=== PATIENT | female | born 1935 | race Caucasian/White ===

== ENCOUNTER 2021-07-24 13:53 | Outpatient (CLI) | payer MEDICARE, BC, SELFPAY ==
--- NOTE | 2021-07-24 14:16 | XR_ITS ---
WS: [id number] DEXA (DUAL ENERGY X-RAY ABSORPTIOMETRY) Bone mineral density was performed using a [employer] machine. HISTORY: ASYMPTOMATIC MENOPAUSAL COMPARISON: None available. Lumbar spine BMD (L1-L4): 0.942 g/cm2 T score: -2.0 Z score: -0.7 Total hip BMD: Left: 0.762 g/cm2. T score: -2.0 Z score: -0.2 Right: 0.752 g/cm2. T score: -2.0 Z score: -0.2 10 year probability of a major osteoporotic fracture is 34%. XR/XR DEXA axial skeleton* [id number] IMPRESSION: OSTEOPENIA based upon the WHO classification for females.
== END 2021-07-24 13:54 | disposition home or self-care (01) ==
LOC: RADWPI 13:57
PROVIDERS: PCP Family Medicine; Visit Provider Family Medicine
DX: Z78.0 Asymptomatic menopausal state (principal); M85.80 Other specified disorders of bone density and structure, unspecified site
CPT/HCPCS: 77080

== ENCOUNTER 2021-09-01 22:12 | Emergency (ER) | payer MEDICARE, BC, SELFPAY ==
[2021-09-01 22:14] VITALS: BP 143/88; PULSE 80; RESP 18; TEMP 36.8; O2SAT 94; BMI 30.3
--- NOTE | 2021-09-01 22:19 | CTR_ITS ---
PROCEDURE INFORMATION: Exam: CT Abdomen And Pelvis With Contrast Exam date and time: 09/01/2021 10:19 PM Age: 86 years old Clinical indication: Abdominal pain; Generalized; Prior surgery; Surgery type: Mastectomy. Hysterectomy; Patient HX: Abd pain with constipation. Recent UTI. History of breast cancer. TECHNIQUE: Imaging protocol: Computed tomography of the abdomen and pelvis with contrast. Radiation optimization: All CT scans at this facility use at least one of these dose optimization techniques: automated exposure control; mA and/or kV adjustment per patient size (includes targeted exams where dose is matched to clinical indication); or iterative reconstruction. Contrast material: OMNI 300; Contrast volume: 95 ml; Contrast route: INTRAVENOUS (IV); COMPARISON: CT abdomen pelvis w con* [id number] 02/25/2019 8:57 PM RADIATION DOSE METRICS: Total DLP (mGy-cm): 1605.52 FINDINGS: Liver: Normal. No mass. Gallbladder and bile ducts: Continued multiple gallstones within the gallbladder. Pancreas: Normal. No ductal dilation. Spleen: Interval enlargement of the 13.0 cm spleen with multiple filling defects most consistent with splenic metastasis versus other infectious or neoplastic process. Adrenal glands: Normal. No mass. Kidneys and ureters: Moderate left hydronephrosis which may be secondary to UPJ stenosis. Stomach and bowel: Unremarkable. No obstruction. No mucosal thickening. Appendix: No evidence of appendicitis. Intraperitoneal space: Unremarkable. No free air. No significant fluid collection. Vasculature: One or more calcified pelvic phleboliths. Lymph nodes: Interval appearance of 9.4 x 7.4 x 5.9 cm left retroperitoneal soft tissue mass consistent with lymphoma versus or, versus metastatic disease. Urinary bladder: Unremarkable as visualized. Reproductive: Stable hysterectomy. Bones/joints: Severe multilevel spine degenerative changes including degenerative disc disease, spondylosis and facet degenerative changes. Grade 1 anterior non-spondylitic spondylolisthesis of L4 on L5 with central spinal stenosis and prominent facet degenerative changes. Soft tissues: Unremarkable. CT/CT abdomen pelvis w con* [id number] IMPRESSION: 1. Interval enlargement of the 13.0 cm spleen with multiple filling defects most consistent with splenic metastasis versus other infectious or neoplastic process. 2. Interval appearance of 9.4 x 7.4 x 5.9 cm left retroperitoneal soft tissue mass consistent with lymphoma versus or, versus metastatic disease. Radiation Dose CTDIVOL = (mGy): DLP = 1605.52 (mGy-cm)
--- NOTE | 2021-09-01 22:23 | ED_ITS ---
HPI - Abdominal Pain General: Chief Complaint: Abdominal Pain Stated Complaint: Abd pain Time Seen by Provider: 09/01/21 22:14 Source: patient Mode of arrival: ambulatory Limitations: no limitations History of Present Illness: HPI narrative: 86-year-old female who states she has been having abdominal pain throughout the day. She states she was diagnosed with urine Rhett tract infection a week ago and is currently on Macrobid. States she has had pain in her left lower quadrants been sharp in nature. She rates her pain an 8 out of 10. Denies any vomiting she denies had constipation denies any fevers denies any worsening improving factors. Associated Symptoms: Denies chills, diarrhea, dysuria, fever(s), nausea and vomiting Review of Systems Const: Denies: fever(s), chills, body aches or change in appetite Eyes: Denies: blurry vision or eye discomfort ENMT: Denies: throat pain or dental pain Card: Denies: chest pain Resp: Denies: dyspnea GI: Reports: abdominal pain; Denies: nausea, vomiting or diarrhea : Denies: dysuria Musc: Denies: neck pain or back pain Skin/Breast: Denies: rash Neuro: Denies: headache(s) Psych: Denies: depression Ulysses/Lymph: Denies: easy bruising All/Imm: Denies: urticaria Physical Exam Const: COMMON NORMALS: no acute distress, patient oriented x3 and healthy appearing HENMT: COMMON NORMALS: normocephalic and atraumatic HEAD & SCALP: normocephalic and atraumatic Eye: COMMON NORMALS: Equal, round and reactive pupils present and EOMs intact bilaterally PUPIL: Yes Equal, round and reactive pupils present Neck/C-Spine: COMMON NORMALS: full ROM and supple Chest: COMMONS NORMALS: normal inspection of the chest and normal palpation of entire chest wall Resp: COMMON NORMALS: normal respiratory effort, No retractions, No use of accessory muscles and clear to auscultation bilaterally AUSCULTATION: clear to auscultation bilaterally Cardio: COMMON NORMALS: regular rate, regular rhythm and No murmurs present (Cardio) RATE: regular rate RHYTHM: regular rhythm GI: COMMON NORMALS: Normal to inspection, nondistended, normoactive bowel sounds present, Soft to palpation, non-tender and no masses PALPATION: Yes Soft to palpation Extremity: COMMON NORMALS: normal to inspection and full ROM Neuro: COMMON NORMALS: patient oriented x3, moves all extremities and no focal motor deficits Psych: COMMON NORMALS: mental status grossly normal, Normal thought process present and cooperative THOUGHT PROCESS: Normal thought process present Skin: COMMON NORMALS: no rashes or lesions noted and no wounds GENERAL SKIN EXAM: no rashes or lesions noted Course Vital Signs: Vital signs: Vital Signs Temperature 98.3 F 09/01/21 22:14 Pulse Rate 80 09/01/21 22:14 Respiratory Rate 20 H 09/01/21 23:51 Blood Pressure 143/88 09/01/21 22:14 Pulse Oximetry 94 09/01/21 22:14 MDM - Abdominal Pain MDM Narrative: Medical decision making narrative: Patient presents here with abdominal pain was found to have a mass in her spleen and also the possible mass that could be lymphoma. I did inform her of this we will have her follow-up with oncology. Patient's pain is improved here will prescribe her pain meds for home. She has no signs of acute surgical cause for her pain. Lab Data: Labs: Lab Results 09/01/21 09/01/21 09/01/21 22:45 22:45 23:05 WBC 10.2 10^3/uL H 10 ^3/uL (4.0-10.0) RBC 5.04 10^6/uL 10^6 /uL (4.1-5.3) Hgb 14.8 g/dL g/dL (11.5-15.3) Hct 44.4 % % (37.0-47.0) MCV 88.1 fl fl (81-99) MCH 29.4 pg pg (28.0-34.0) MCHC 33.3 g/dL g/dL (30.0-36.0) RDW 12.4 % % (12.1-15.1) Plt Count 285 10^3/cmm 10^3 /cmm (130-400) MPV 9.2 fL fL (7.4-10.4) Neut % (Auto) 70.7 % % Lymph % (Auto) 21.4 % % [place] % (Auto) 7.4 % % Eos % (Auto) 0.2 % % Baso % (Auto) 0.1 % % Neut # (Auto) 7.23 10^3/uL 10^3 /uL (1.8-7.7) Lymph # (Auto) 2.2 10^3/uL 10^3/ uL (0.8-4.8) [place] # (Auto) 0.8 10^3/uL 10^3/ uL (0.2-0.9) Eos # (Auto) 0.0 10^3/uL 10^3/ uL (0.0-0.8) Baso # (Auto) 0.0 10^3/uL 10^3/ uL (0.0-0.1) Nucleated RBC % (a uto) 0 % % Nucleated RBCs # 0.0 /100WBC /100W BC Sodium 133 mmol/L L mmol /L (136-145) Potassium 3.8 mmol/L mmol/L (3.5-5.1) Chloride 96 mmol/L L mmol/ L (98-107) Carbon Dioxide 23 mmol/L mmol/L (22-29) Anion Gap 17.8 (5-19) BUN 13 mg/dL mg/dL (8-23) Creatinine 0.8 mg/dL mg/dL (0.5-0.9) GFR Calculation Not Reportable Glucose 107 mg/dL mg/dL (65-115) Calculated Osmolal ity 277 mOsm/kg L mOs m/kg (285-295) Calcium 10.6 mg/dL H mg/d L (8.5-10.5) Total Bilirubin 0.9 mg/dL mg/dL (0.15-1.2) AST 19 U/L U/L (0-32) ALT 12 U/L U/L (0-33) Alkaline Phosphata se 62 IU/L IU/L (35-105) Total Protein 8.3 g/dL g/dL (6.6-8.7) Albumin 4.3 g/dL g/dL (3.5-5.2) Globulin 4.0 g/dL g/dL (1.3-4.6) Lipase 24 U/L U/L (13-60) Urine Color Yellow (Yellow) Urine Appearance Clear (CLEAR) Urine pH 8 H (5-7) Ur Specific Gravit y 1.010 (1.005-1.030) Urine Protein Neg (Negative) Urine Glucose (UA) Norm (Normal) Urine Ketones Negative (Negative) Urine Blood Neg (Negative) Urine Nitrate Negative (Negative) Urine Bilirubin Neg (Negative) Prot Sulfosalicyli c Acd Negative (Negative) Urine Urobilinogen Norm mg/dL mg/dL (Negative) Ur Leukocyte Kendra ase Negative (Negative) Imaging Data ^: CT Abd/Pel: Attestation: I personally reviewed and interpreted this imaging study as follows: Radiologist's impression: [facility] [address] [address] Scan Report Signed Patient: Janet Jose Unit #: [id number] : [id number] Age/Sex: 86 / F ADM Date: 09/01/21 Loc: ER Room/Bed: Attending Dr: Ordering Provider/Ordering MD: Joseph Ramirez MD Date of Service: 09/01/21 Procedure(s): CT abdomen pelvis w con* [id number] Accession Number(s): [id number] Report Number: [id number] PROCEDURE INFORMATION: Exam: CT Abdomen And Pelvis With Contrast Exam date and time: 09/01/2021 10:19 PM Age: 86 years old Clinical indication: Abdominal pain; Generalized; Prior surgery; Surgery type: Mastectomy. Hysterectomy; Patient HX: Abd pain with constipation. Recent UTI. History of breast cancer. TECHNIQUE: Imaging protocol: Computed tomography of the abdomen and pelvis with contrast. Radiation optimization: All CT scans at this facility use at least one of these dose optimization techniques: automated exposure control; mA and/or kV adjustment per patient size (includes targeted exams where dose is matched to clinical indication); or iterative reconstruction. Contrast material: OMNI 300; Contrast volume: 95 ml; Contrast route: INTRAVENOUS (IV); COMPARISON: CT abdomen pelvis w con* [id number] 02/25/2019 8:57 PM RADIATION DOSE METRICS: Total DLP (mGy-cm): 1605.52 FINDINGS: Liver: Normal. No mass. Gallbladder and bile ducts: Continued multiple gallstones within the gallbladder. Pancreas: Normal. No ductal dilation. Spleen: Interval enlargement of the 13.0 cm spleen with multiple filling defects most consistent with splenic metastasis versus other infectious or neoplastic process. Adrenal glands: Normal. No mass. Kidneys and ureters: Moderate left hydronephrosis which may be secondary to UPJ stenosis. Stomach and bowel: Unremarkable. No obstruction. No mucosal thickening. Appendix: No evidence of appendicitis. Intraperitoneal space: Unremarkable. No free air. No significant fluid collection. Vasculature: One or more calcified pelvic phleboliths. Lymph nodes: Interval appearance of 9.4 x 7.4 x 5.9 cm left retroperitoneal soft tissue mass consistent with lymphoma versus or, versus metastatic disease. Urinary bladder: Unremarkable as visualized. Reproductive: Stable hysterectomy. Bones/joints: Severe multilevel spine degenerative changes including degenerative disc disease, spondylosis and facet degenerative changes. Grade 1 anterior non-spondylitic spondylolisthesis of L4 on L5 with central spinal stenosis and prominent facet degenerative changes. Soft tissues: Unremarkable. CT/CT abdomen pelvis w con* [id number] IMPRESSION: 1. Interval enlargement of the 13.0 cm spleen with multiple filling defects most consistent with splenic metastasis versus other infectious or neoplastic process. 2. Interval appearance of 9.4 x 7.4 x 5.9 cm left retroperitoneal soft tissue mass consistent with lymphoma versus or, versus metastatic disease. Radiation Dose CTDIVOL = (mGy): DLP = 1605.52 (mGy-cm) Dictated By: Nathan Helm MD Signed By: Nathan Helm MD Signed Date/Time: 09/02/21106 DD/ 18 Discharge Plan Discharge Patient Disposition: Home Clinical Impression: Abdominal pain Qualifiers: Abdominal location: generalized Qualified Code(s): R10.84 - Generalized abdominal pain Abdominal mass Qualifiers: Abdominal location: generalized Qualified Code(s): R19.07 - Generalized intra- abdominal and pelvic swelling, mass and lump Condition: Stable Prescriptions: New hydrocodone-acetaminophen 5-325 mg tablet 1 tab PO Q6H PRN (Reason: pain) Qty: 14 RF: 0 ondansetron 4 mg tablet,disintegrating 4 mg PO Q6H PRN (Reason: nausea and vomiting) Qty: 14 RF: 0 Discharge Orders: Discharge ED (Routine); Ordered 09/02/21 Ordered By: Joseph Ramierz Referrals: Bianca Hardy MD [Primary Care Provider] - Discharge Diet: Advance as tolerated Discharge Activity: Resume usual activity Patient Instructions: Abdominal Pain (ED), Opioid Safety Coding Level of Care Code ED Swing Type Lathe Operator for Chg Fwd Exam Comprehensive
[2021-09-01] MEDS: morphine 4 mg/mL SDV 1 mL IVP ×2 (22:53→23:51)
[2021-09-01] MEDS: sodium chloride 0.9% 1,000 ML 999 ML IV (22:53)
[2021-09-01] MEDS: ondansetron 2 mg/ML SDV 2 mL 4 MG IVP (22:53)
[2021-09-01 23:13] LABS: Basophils % 0.1 %; Eosinophils % 0.2 %; Hematocrit 44.4 % (37.0-47.0); Hemoglobin 14.8 g/dL (11.5-15.3); Lymphocytes # 2.2 10^3/uL (0.8-4.8); Lymphocytes % 21.4 %; Mean Corpuscular HGB Conc 33.3 g/dL (30.0-36.0); Mean Corpuscular Hemoglobin 29.4 pg (28.0-34.0); Mean Corpuscular Volume 88.1 fl (81-99); Mean Platelet Volume 9.2 fL (7.4-10.4); Monocytes # 0.8 10^3/uL (0.2-0.9); Monocytes % 7.4 %; Neutrophils # 7.23 10^3/uL (1.8-7.7); Neutrophils % 70.7 %; Nucleated Red Blood Cells % 0 %; Platelet Count 285 10^3/cmm (130-400); Red Blood Count 5.04 10^6/uL (4.1-5.3); Red Cell Distribution Width 12.4 % (12.1-15.1); White Blood Count 10.2 10^3/uL (4.0-10.0)
[2021-09-01 23:24] LABS: Add Urine Microscopic? NO; Charge for UA Resulting for Rev
[2021-09-01 23:30] LABS: Bilirubin Urine Neg (Negative); Blood Urine Neg (Negative); Glucose Urine UA Norm (Normal); Ketones Urine Negative (Negative); Leukocyte Esterase Urine Negative (Negative); Nitrate Urine Negative (Negative); Protein Urine Neg (Negative); Sulfosalicylic Acid Urine Negative (Negative); Urine Appearance Clear (CLEAR); Urine Color Yellow (Yellow); Urobilinogen Urine Norm (Negative); pH Urine 8 (5-7)
[2021-09-01 23:36] LABS: Alanine Aminotransferase 12 U/L (0-33); Albumin Level 4.3 g/dL (3.5-5.2); Alkaline Phosphatase 62 IU/L (35-105); Anion Gap 17.8 (5-19); Aspartate Amino Transferase 19 U/L (0-32); Blood Urea Nitrogen 13 mg/dL (8-23); Calcium 10.6 mg/dL (8.5-10.5); Carbon Dioxide 23 mmol/L (22-29); Chloride 96 mmol/L (98-107); Glucose 107 mg/dL (65-115); Lipase 24 U/L (13-60); Osmolality Calculated 277 mOsm/kg (285-295); Potassium 3.8 mmol/L (3.5-5.1); Sodium 133 mmol/L (136-145); Total Bilirubin 0.9 mg/dL (0.15-1.2); Total Protein 8.3 g/dL (6.6-8.7)
[2021-09-01] MEDS: iohexol 300 mg/mL 100 mL Btl IV (23:49)
[2021-09-01 23:51] VITALS: RESP 20
[2021-09-02] MEDS: HYDROmorphone 1 mg/mL INJ 1 mL 0.5 MG IVP (01:23)
[2021-09-02 01:55] VITALS: BP 141/76; PULSE 75; RESP 20; O2SAT 98
--- NOTE | 2021-09-02 14:16 | DCPLANNER ---
manager social services had message to schedule a follow up appointment for patient with oncology. manager social services [facility]. manager social services was told that patient would need to be seen by general surgery first, so that a biopsy could be done. manager social services called patient and informed patient of this. Patient stated that she had an appointment scheduled with her primary care physician and wanted to wait and see what her primary care physician has to say before patient is referred to anyone. manager social services has not made any referrals for patient, the patient stated that if she needs any referrals that her primary care physician can do them.
== END 2021-09-02 02:05 | disposition home or self-care (01) ==
PROVIDERS: Emergency Provider Emergency Medicine; PCP Family Medicine
DX: R10.84 Generalized abdominal pain (principal); R19.07 Generalized intra-abdominal and pelvic swelling, mass and lump
CPT/HCPCS: 74177; 80053; 81003; 83690; 85025; 96361; 96374; 96375; 96376; 99284; J1170; J2270; J2405; J7030; Q9967

== ENCOUNTER 2021-09-09 10:00 | Outpatient (CLI) | payer MEDICARE, BC, SELFPAY ==
[2021-09-09] VITALS (8 sets, daily range): BP systolic 134–150; BP diastolic 68–90; PULSE 57–105; RESP 1–18; TEMP 36.1–36.4; O2SAT 6–97
--- NOTE | 2021-09-09 08:22 | CT_ITS ---
WS: [id number] CT-GUIDED BIOPSY LEFT RETROPERITONEAL MASS. HISTORY: lymphoma or metastatic disease, retroperitoneal mass DLP: 700 mGy-cm. All CT scans at [facility] use at least one of these dose optimization techniques: automated e xposure control; mA and/or kV adjustment per patient size (includes targeted exams where dose is matc hed to clinical indication); or iterative reconstruction. Prior imaging studies, history and physical are reviewed. Procedure, risks and complications were exp lained to the patient and family. Consent is obtained. With the patient in prone position the LEFT retroperitoneum masses localized by CT. Skin is cleansed with ChloraPrep and anesthetized with 1% buffered lidocaine. Access into the soft tissue mass is achi eved with a 20-gauge coaxial Temno needle. Multiple core biopsies are performed and placed within kassandra ine. No complications were encountered. Patient will be observed postprocedure for at least one hour for complications. CT/CT biopsy retroperitonum [id number] IMPRESSION: Uncomplicated CT-guided biopsy of a LEFT retroperitoneal mass.
[2021-09-09] MEDS: sodium chloride 0.9% 1,000 ML 30 ML IV (10:29)
[2021-09-09 11:13] LABS: INR 1.02 (0.8-1.2)
[2021-09-09] MEDS: fentaNYL 50 mcg/mL INJ 2mL 25 MCG IVP ×2 (11:41→11:53)
[2021-09-09] MEDS: midazolam 1 mg/mL INJ 2 mL IVP ×2 (11:42→11:54)
--- NOTE | 2021-09-09 12:15 | PC.NURSE ---
During CT guided retroperitoneal biopsy Dr. Mcginnis administered 6 mL of lidocaine intradermal for pain to biopsy site.
[2021-09-17 13:54] LABS: Miscellaneous Test See Scanned Lab Rpt
== END 2021-09-09 13:14 | disposition home or self-care (01) ==
PROVIDERS: Radiology Diagnostic Radiology; PCP Family Medicine; Visit Provider Family Medicine
DX: R19.00 Intra-abdominal and pelvic swelling, mass and lump, unspecified site (principal); Z85.72 Personal history of non-Hodgkin lymphomas; Z12.89 Encounter for screening for malignant neoplasm of other sites
CPT/HCPCS: 36415; 49180; 77012; 85610; 88271; 88275; 88307; 96361; 96374; 96375; J2250; J3010; J7030

== ENCOUNTER 2021-09-20 10:15 | Inpatient (IN) | payer MEDICARE, BC, SELFPAY ==
[2021-09-20] VITALS (9 sets, daily range): BP systolic 146–160; BP diastolic 79–90; PULSE 80–107; RESP 12–19; TEMP 36.6–36.8; O2SAT 16–97; BMI 30.3; BMI 28.8
--- NOTE | 2021-09-20 11:17 | ED_ITS ---
Documented by User: BROWN Meredith 09/21/21 07:52 HPI - General Adult General: Chief complaint: Abdominal Pain Stated complaint: ABD PAIN Time Seen by Provider: 09/20/21 10:28 History of Present Illness: HPI narrative: Patient is a 86-year-old female comes to the ED with nausea, abdominal pain and neck mass. Patient has a past medical history of breast cancer back in the year 1999. Patient was seen here in the ED back on September 01 for same complaint and she was found to have an abdominal mass in her spleen. They since have performed a biopsy on the mass, but results were undetermined and they said they would need to go any get more tissue for further evaluation. She is scheduled to have another biopsy done this coming September 22. This morning she was in a lot of pain she says her pain is in her left upper quadrant of her abdomen along with her left knee. She rates her pain currently an 8 out of 10. Most of her pain right now was in her left knee. Her abdominal pain in the ED is minimal. She states the hydrocodone and morphine do help with the pain but she thinks it has caused her some nausea, constipation and decreased oral food and fluid intake. She took a hydrocodone around 5:00 this morning and also took p.o. morphine around 7 AM this morning as well. Patient is also complaining of having some nausea and has not wanted to eat and drink much. She states that she had a big bowel movement last night and currently takes MiraLAX and a stool softener to help with bowel movements. Left knee is described as a acute on chronic pain. She says it has been achy for the past couple days and has continued to get more painful. Denies any injury or trauma to cause worsening knee pain. This morning as well she felt a mass on the left side of her neck. She says it is not tender but this does not seem to be new. Denies any fever, chills, emesis or bladder symptoms. Associated symptoms: Reports confusion (family stated pt has had some increased confusion over the past couple days) and nausea; Deny chest pain, dyspnea, headache(s), rash, palpitations or vomiting Review of Systems Const: Denies: fever(s), chills or fatigue Eyes: Denies: change in vision or eye discomfort ENMT: Denies: throat pain, odynophagia, nasal discharge or nasal congestion Card: Denies: chest pain, palpitations, edema, swelling of feet/ankles, dyspnea on exertion or orthopnea Resp: Denies: dyspnea, productive cough or non-productive cough GI: Reports: abdominal pain and nausea; Denies: vomiting, diarrhea, constipation or hematochezia : Denies: flank pain, dysuria or hematuria Musc: Reports: joint pain (left knee); Denies: neck pain, back pain or extremity swelling Skin/Breast: Denies: rash or new lesions Neuro: Reports: confusion (family stated pt has had some increased confusion over the past couple days); Denies: headache(s), numbness in extremities or weakness in extremities Ulysses/Lymph: Reports: enlarged lymph nodes (neck mass on left side) PFSH ED PFSH: Medical History Hypertension MGUS (monoclonal gammopathy of unknown significance) Peripheral neuropathy Polyarthritis Retroperitoneal lymphadenopathy Splenomegaly Surgical History H/O mastectomy History of hysterectomy Family History Other Cancer Social History Smoking and tobacco status: never smoked Alcohol intake: never Housing: House Physical Exam Const: COMMON NORMALS: no acute distress, patient oriented x3 and alert GENERAL APPEARANCE: cooperative and comfortable HENMT: COMMON NORMALS: normocephalic HEAD & SCALP: normocephalic MOUTH: Normal oral and palatal mucosa present THROAT: posterior oropharynx normal and uvula midline Eye: COMMON NORMALS: Equal, round and reactive pupils present PUPIL: Yes E qual, round and reactive pupils present Neck/C-Spine: COMMON NORMALS: supple GENERAL: Yes normal visual inspection Lymph: LYMPHATIC: lymphadenopathy left supraclavicular single, large and hard; nontender 4 cm Resp: COMMON NORMALS: normal respiratory effort, No retractions, No use of accessory muscles and clear to auscultation bilaterally AUSCULTATION: clear to auscultation bilaterally Cardio: COMMON NORMALS: regular rate, regular rhythm, S1 normal heart sound present, S2 normal heart sound present, No gallops present (Cardio), No clicks present (Cardio), No murmurs present (Cardio) and Peripheral pulses 2+ throughout RATE: regular rate RHYTHM: regular rhythm HEART SOUNDS: S1 normal heart sound present and S2 normal heart sound present PERIPHERAL PULSES: Peripheral pulses 2+ throughout GI: COMMON NORMALS: Normal to inspection, nondistended, normoactive bowel sounds present, Soft to palpation and no masses AUSCULTATION: Yes normoactive bowel sounds PALPATION: Yes Soft to palpation and Yes Tenderness to palpation present (GI) Details: LUQ (mild tenderness to palpation) : COMMON NORMALS: Yes no CVA tenderness BLADDER/KIDNEY EXAM: Yes no CVA tenderness Back/Pelvis: COMMON NORMALS: no CVA tenderness Extremity: COMMON NORMALS: normal to inspection and no pedal edema Neuro: COMMON NORMALS: patient oriented x3 and moves all extremities SENSORIUM/ORIENTATION: Yes alert Skin: GENERAL SKIN EXAM: dry skin Course Reevaluation(s): Reevaluation #1: When talking to patient and her son, the son does endorse some increasing confusion over the past couple days. Time: 15:42 Consultations: Consultation #1: I contacted Dr. Salazar and told him about pt case. He agreed to have patient put on observations and he will do sodium checks on patient. Time: 16:02 Vital Signs: Vital signs: Vital Signs Temperature 98.0 F 09/24/21 15:50 Pulse Rate 69 09/24/21 15:50 Respiratory Rate 16 09/24/21 15:50 Blood Pressure 113/70 09/24/21 15:50 Pulse Oximetry 93 09/24/21 15:50 MDM - General Adult MDM Narrative: Medical decision making narrative: Patient is a 86-year-old female comes to the ED with some abdominal pain, nausea and left neck mass and left knee pain. Patient has a history of breast cancer back in the year 1999. She was seen here for same complaint on September 01, 2021. They found a mass on patient's spleen and she was referred to general surgery for biopsy. Patient had a biopsy done and results were inconclusive and she is currently set up to get another biopsy done of abdominal mass on September 22. She says her abdominal pain has remained unchanged and and is fairly well controlled with morphine and hydrocodone at home. Denies any fever, chills, chest pain, shortness of breath. She had a large bowel movement last night. Patient's vitals are stable. Exam shows some mild left upper quadrant tenderness. She does have a palpable firm, nontender, 4 cm left supra clavicular lymph node. Patient denies any trouble breathing or swallowing. since patient's abdominal pain is generally unchanged from her previous visit and she is currently getting biopsy and work-up for that abdominal mass I just ordered a KUB, And it showed constipation no obstruction seen. X-ray of left knee showed a joint effusion with some degenerative joint disease. EKG showed sinus rhythm with no ST segment elevation or depression seen. CBC was unremarkable. Patient's sodium level was 121 and the rest of her CMP was unremarkable. After talking with the family the have noticed patient has seemed a little more confused over the past couple days. I went and talked with Dr. Brito about patient case and her sodium levels. He went in and talked with patient and discussed some possible discharge options. Patient did not have the ability to get close follow-up with her PCP and get her sodium level checked within the next [address], [address] Brito recommended having patient admitted for hyponatremia. I contacted Dr. Salazar about patient case and he accepted admission of patient. Lab Data: Attestation: I reviewed the patient's lab results. Labs: Lab Results 09/20/21 09/20/21 09/20/21 11:40 11:40 17:57 WBC 10.7 10^3/uL H 10 ^3/uL (4.0-10.0) RBC 4.93 10^6/uL 10^6 /uL (4.1-5.3) Hgb 14.6 g/dL g/dL (11.5-15.3) Hct 42.4 % % (37.0-47.0) MCV 86.0 fl fl (81-99) MCH 29.6 pg pg (28.0-34.0) MCHC 34.4 g/dL g/dL (30.0-36.0) RDW 12.0 % L % (12.1-15.1) Plt Count 312 10^3/cmm 10^3 /cmm (130-400) MPV 9.8 fL fL (7.4-10.4) Neut % (Auto) 81.4 % % Lymph % (Auto) 12.6 % % [place] % (Auto) 5.7 % % Eos % (Auto) 0.0 % % Baso % (Auto) 0.1 % % Neut # (Auto) 8.69 10^3/uL H 10 ^3/uL (1.8-7.7) Lymph # (Auto) 1.4 10^3/uL 10^3/ uL (0.8-4.8) [place] # (Auto) 0.6 10^3/uL 10^3/ uL (0.2-0.9) Eos # (Auto) 0.0 10^3/uL 10^3/ uL (0.0-0.8) Baso # (Auto) 0.0 10^3/uL 10^3/ uL (0.0-0.1) Nucleated RBC % (a uto) 0 % % Nucleated RBCs # 0.0 /100WBC /100W BC PT INR APTT D-Dimer Sodium 121 mmol/L L mmol /L (136-145) Potassium 4.2 mmol/L mmol/L (3.5-5.1) Chloride 86 mmol/L L mmol/ L (98-107) Carbon Dioxide 22 mmol/L mmol/L (22-29) Anion Gap 17.2 (5-19) BUN 9 mg/dL mg/dL (8-23) Creatinine 0.5 mg/dL mg/dL (0.5-0.9) GFR Calculation Not Reportable Glucose 106 mg/dL mg/dL (65-115) Serum Osmolality Calculated Osmolal ity 251 mOsm/kg L mOs m/kg (285-295) Uric Acid 5.2 mg/dL mg/dL (2.4-5.7) Calcium 9.9 mg/dL mg/dL (8.5-10.5) Magnesium Total Bilirubin 1.1 mg/dL mg/dL (0.15-1.2) AST 30 U/L U/L (0-32) ALT 14 U/L U/L (0-33) Alkaline Phosphata se 62 IU/L IU/L (35-105) Lactate Dehydrogen ase Total Protein 7.4 g/dL g/dL (6.6-8.7) Albumin 3.9 g/dL g/dL (3.5-5.2) Globulin 3.5 g/dL g/dL (1.3-4.6) Carcinoembryonic A g CA 125 Antigen Procalcitonin 0.10 ng/mL ng/mL (0-0.5) TSH 1.57 uIU/mL uIU/m L (0.27-4.20) Urine Osmolality Digoxin Misc Test Referenc e 09/20/21 09/20/21 09/20/21 19:59 19:59 19:59 WBC RBC Hgb Hct MCV MCH MCHC RDW Plt Count MPV Neut % (Auto) Lymph % (Auto) [place] % (Auto) Eos % (Auto) Baso % (Auto) Neut # (Auto) Lymph # (Auto) [place] # (Auto) Eos # (Auto) Baso # (Auto) Nucleated RBC % (a uto) Nucleated RBCs # PT 14.10 SECONDS SEC ONDS (12.1-14.9) INR 1.06 (0.8-1.2) APTT 26.1 SECONDS SECO NDS (23.9-36.7) D-Dimer 3.51 ug/mIFEU H u g/mIFEU (0-0.59) Sodium Potassium Chloride Carbon Dioxide Anion Gap BUN Creatinine GFR Calculation Glucose Serum Osmolality 260 mOsm/kg L mOs m/kg (278-305) Calculated Osmolal ity Uric Acid Calcium Magnesium Total Bilirubin AST ALT Alkaline Phosphata se Lactate Dehydrogen ase Total Protein Albumin Globulin Carcinoembryonic A g CA 125 Antigen 406.2 U/mL H U/mL (0-35) Procalcitonin TSH Urine Osmolality Digoxin 1.0 ng/mL ng/mL (0.6-1.2) Misc Test Referenc e 09/20/21 09/20/21 09/21/21 19:59 19:59 01:05 WBC RBC Hgb Hct MCV MCH MCHC RDW Plt Count MPV Neut % (Auto) Lymph % (Auto) [place] % (Auto) Eos % (Auto) Baso % (Auto) Neut # (Auto) Lymph # (Auto) [place] # (Auto) Eos # (Auto) Baso # (Auto) Nucleated RBC % (a uto) Nucleated RBCs # PT INR APTT D-Dimer Sodium 122 mmol/L L mmol /L (136-145) Potassium Chloride Carbon Dioxide Anion Gap BUN Creatinine GFR Calculation Glucose Serum Osmolality Calculated Osmolal ity Uric Acid Calcium Magnesium Total Bilirubin AST ALT Alkaline Phosphata se Lactate Dehydrogen ase Total Protein Albumin Globulin Carcinoembryonic A g 1.1 ng/mL ng/mL (0.0-4.7) CA 125 Antigen Procalcitonin TSH Urine Osmolality 109 mOsm/kg mOsm/ kg (50-1200) Digoxin Misc Test Referenc e 09/21/21 09/21/21 09/22/21 04:40 04:40 05:05 WBC 10.7 10^3/uL H 10 ^3/uL 9.2 10^3/uL 10^3/ uL (4.0-10.0) (4.0-10.0) RBC 5.16 10^6/uL 10^6 /uL 5.02 10^6/uL 10^6 /uL (4.1-5.3) (4.1-5.3) Hgb 15.1 g/dL g/dL 14.8 g/dL g/dL (11.5-15.3) (11.5-15.3) Hct 45.5 % % 45.7 % % (37.0-47.0) (37.0-47.0) MCV 88.2 fl fl 91.0 fl fl (81-99) (81-99) MCH 29.3 pg pg 29.5 pg pg (28.0-34.0) (28.0-34.0) MCHC 33.2 g/dL g/dL 32.4 g/dL g/dL (30.0-36.0) (30.0-36.0) RDW 12.3 % % 12.8 % % (12.1-15.1) (12.1-15.1) Plt Count 308 10^3/cmm 10^3 /cmm 264 10^3/cmm 10^3 /cmm (130-400) (130-400) MPV 9.0 fL fL 9.0 fL fL (7.4-10.4) (7.4-10.4) Neut % (Auto) 75.6 % % 65.2 % % Lymph % (Auto) 15.0 % % 23.9 % % [place] % (Auto) 8.5 % % 9.3 % % Eos % (Auto) 0.2 % % 1.0 % % Baso % (Auto) 0.4 % % 0.4 % % Neut # (Auto) 8.13 10^3/uL H 10 ^3/uL 6.01 10^3/uL 10^3 /uL (1.8-7.7) (1.8-7.7) Lymph # (Auto) 1.6 10^3/uL 10^3/ uL 2.2 10^3/uL 10^3/ uL (0.8-4.8) (0.8-4.8) [place] # (Auto) 0.9 10^3/uL 10^3/ uL 0.9 10^3/uL 10^3/ uL (0.2-0.9) (0.2-0.9) Eos # (Auto) 0.0 10^3/uL 10^3/ uL 0.1 10^3/uL 10^3/ uL (0.0-0.8) (0.0-0.8) Baso # (Auto) 0.0 10^3/uL 10^3/ uL 0.0 10^3/uL 10^3/ uL (0.0-0.1) (0.0-0.1) Nucleated RBC % (a uto) 0 % % 0 % % Nucleated RBCs # 0.0 /100WBC /100W BC 0.0 /100WBC /100W BC PT INR APTT D-Dimer Sodium 128 mmol/L L mmol /L (136-145) Potassium 4.2 mmol/L mmol/L (3.5-5.1) Chloride 94 mmol/L L mmol/ L (98-107) Carbon Dioxide 23 mmol/L mmol/L (22-29) Anion Gap 15.2 (5-19) BUN 8 mg/dL mg/dL (8-23) Creatinine 0.5 mg/dL mg/dL (0.5-0.9) GFR Calculation Not Reportable Glucose 89 mg/dL mg/dL (65-115) Serum Osmolality Calculated Osmolal ity 264 mOsm/kg L mOs m/kg (285-295) Uric Acid Calcium 9.9 mg/dL mg/dL (8.5-10.5) Magnesium 1.9 mg/dL mg/dL (1.7-2.3) Total Bilirubin 1.1 mg/dL mg/dL (0.15-1.2) AST 24 U/L U/L (0-32) ALT 12 U/L U/L (0-33) Alkaline Phosphata se 62 IU/L IU/L (35-105) Lactate Dehydrogen ase 409 U/L H U/L (135-214) Total Protein 7.3 g/dL g/dL (6.6-8.7) Albumin 3.7 g/dL g/dL (3.5-5.2) Globulin 3.6 g/dL g/dL (1.3-4.6) Carcinoembryonic A g CA 125 Antigen Procalcitonin TSH Urine Osmolality Digoxin Misc Test Referenc e 09/22/21 09/22/21 05:05 09:41 WBC RBC Hgb Hct MCV MCH MCHC RDW Plt Count MPV Neut % (Auto) Lymph % (Auto) [place] % (Auto) Eos % (Auto) Baso % (Auto) Neut # (Auto) Lymph # (Auto) [place] # (Auto) Eos # (Auto) Baso # (Auto) Nucleated RBC % (a uto) Nucleated RBCs # PT INR APTT D-Dimer Sodium 129 mmol/L L mmol /L (136-145) Potassium 4.0 mmol/L mmol/L (3.5-5.1) Chloride 95 mmol/L L mmol/ L (98-107) Carbon Dioxide 23 mmol/L mmol/L (22-29) Anion Gap 15.0 (5-19) BUN 13 mg/dL mg/dL (8-23) Creatinine 0.6 mg/dL mg/dL (0.5-0.9) GFR Calculation Not Reportable Glucose 96 mg/dL mg/dL (65-115) Serum Osmolality Calculated Osmolal ity 268 mOsm/kg L mOs m/kg (285-295) Uric Acid Calcium 9.8 mg/dL mg/dL (8.5-10.5) Magnesium Total Bilirubin AST ALT Alkaline Phosphata se Lactate Dehydrogen ase Total Protein Albumin Globulin Carcinoembryonic A g CA 125 Antigen Procalcitonin TSH Urine Osmolality Digoxin Misc Test Referenc e See scanned lab r pt Imaging Data^: Other CT: Attestation: I personally reviewed and interpreted this imaging study as follows: Radiologist's impression: [address] [address] [address] Scan Report Signed Patient: Janet Jose Unit #: [id number] : 1935 Age/Sex: 86 / F ADM Date: 09/20/21 Loc: ER Room/Bed: Attending Dr: Ordering Provider/Ordering MD: Shailesh Pham Date of Service: 09/20/21 Procedure(s): CT neck w con* [id number] Accession Number(s): [id number] Report Number: [id number] PROCEDURE INFORMATION: Exam: CT Neck With Contrast Exam date and time: 09/20/2021 11:20 AM Age: 86 years old Clinical indication: Other: Left side neck mass; Additional info: Left sided neck mass, nontender and firm TECHNIQUE: Imaging protocol: Computed tomography images of the neck with contrast. Radiation optimization: All CT scans at this facility use at least one of these dose optimization techniques: automated exposure control; mA and/or kV adjustment per patient size (includes targeted exams where dose is matched to clinical indication); or iterative reconstruction. Contrast material: VISI 320; Contrast volume: 95 ml; Contrast route: INTRAVENOUS (IV); COMPARISON: No relevant prior studies available. RADIATION DOSE METRICS: Total DLP (mGy-cm): 469.12 FINDINGS: Nasopharynx: Unremarkable. Oropharynx: Unremarkable. No significant tonsillar enlargement. Hypopharynx: Unremarkable. Larynx: Unremarkable. Normal epiglottis. Retropharyngeal space: Unremarkable. Submandibular/Parotid glands: Normal. Glands are normal in size. Thyroid: Normal. No enlarged or calcified nodules. Lymph nodes: Unremarkable. No lymphadenopathy. Trachea: Visualized trachea is unremarkable. Lungs: Unremarkable as visualized. Bones/joints: Chronic degenerative changes are present in the spine especially from C5-T1 with disc space narrowing sclerosis and osteophytes. No acute bony abnormality. Vasculature: There is bilateral carotid artery calcification. Soft tissues: There is a 4.5 x 3.7 cm soft tissue mass in the left medial supraclavicular region. CT/CT neck w con* [id number] IMPRESSION: There is a 4.7 x 3.7 cm left supraclavicular soft tissue mass consistent with supraclavicular adenopathy. This may require percutaneous biopsy for further evaluation. No other neck masses are seen. Radiation Dose CTDIVOL = (mGy): DLP = 469.12 (mGy-cm) Dictated By: Wallace Zaragoza Signed By: Wallace Zaragoza Signed Date/Time: 09/20/21 1323 DD/ 1120 KUB: Attestation: I personally reviewed and interpreted this imaging study as follows: Radiologist's impression: [facility] [address] [place] [address]. [place] [address] XRay Report Signed Patient: Janet Jose Unit #: [id number] : 1935 Age/Sex: 86 / F ADM Date: 09/20/21 Loc: ER Room/Bed: Attending Dr: Ordering Provider/Ordering MD: Shailesh Pham Date of Service: 09/20/21 Procedure(s): XR KUB portable [id number] Accession Number(s): [id number] Report Number: [id number] PROCEDURE INFORMATION: Exam: XR Abdomen Exam date and time: 09/20/2021 11:20 AM Age: 86 years old Clinical indication: Abdominal pain TECHNIQUE: Imaging protocol: XR of the abdomen. Views: Frontal supine view of the abdomen. 1 View. COMPARISON: CT abdomen pelvis w con* [id number] 09/01/2021 11:45 PM FINDINGS: Gastrointestinal tract: There is prominence of the amount of stool which may indicate constipation. The small bowel is not dilated with no evidence of obstruction. Organs: There are calcifications in the right upper quadrant consistent with gallstones. Bones/joints: Degenerative changes are present in the spine. XR/XR KUB portable [id number] IMPRESSION: 1. Prominent amount of stool may indicate constipation. 2. No evidence of bowel obstruction. 3. Cholelithiasis. Radiation Dose CTDIVOL = (mGy): DLP = (mGy-cm) Dictated By: Wallace Zaragoza Signed By: Wallace Zaragoza Signed Date/Time: 09/20/21 1230 DD/ 1120 Xray Ortho: Attestation: I personally reviewed and interpreted this imaging study as follows: Radiologist's impression: [facility] [address] [place] [address]. [place] [address] XRay Report Signed Patient: Janet Jose Unit #: [id number] : 1935 Age/Sex: 86 / F ADM Date: 09/20/21 Loc: ER Room/Bed: Attending Dr: Ordering Provider/Ordering MD: Shailesh Pham Date of Service: 09/20/21 Procedure(s): XR knee LT 3V* [id number] Accession Number(s): [id number] Report Number: [id number] PROCEDURE INFORMATION: Exam: XR Left Knee Exam date and time: 09/20/2021 11:20 AM Age: 86 years old Clinical indication: Pain; Knee; Left; Additional info: Knee pain TECHNIQUE: Imaging protocol: XR Left knee. Views: 3 views. COMPARISON: No relevant prior studies available. FINDINGS: Bones/joints: No fracture or other acute abnormalities are seen. A joint effusion is present. There is prominent DJD with osteophytes on the patella femoral condyles and tibial plateau. There is prominent medial joint space narrowing. Soft tissues: Normal. XR/XR knee LT 3V* [id number] IMPRESSION: 1. Joint effusion. 2. Prominent chronic DJD. Radiation Dose CTDIVOL = (mGy): DLP = (mGy-cm) Dictated By: Wallace Zaragoza Signed By: Wallace Zaragoza Signed Date/Time: 09/20/21 1228 DD/ 1120 EKG Data^: EKG 1: Attestation: I personally reviewed and interpreted this EKG as follows: EKG interpretation date: 09/20/21 Interpretation: Sinus rhythm, 62 bpm, no ST segment elevation or depression seen. Computer generated interpretation: KUB X-Ray 09/20/21 11:20 IMPRESSION: 1. Prominent amount of stool may indicate constipation. 2. No evidence of bowel obstruction. 3. Cholelithiasis. Radiation Dose CTDIVOL = (mGy): DLP = (mGy-cm) Knee X-Ray 09/20/21 11:20 IMPRESSION: 1. Joint effusion. 2. Prominent chronic DJD. Radiation Dose CTDIVOL = (mGy): DLP = (mGy-cm) Neck CT 09/20/21 11:20 IMPRESSION: There is a 4.7 x 3.7 cm left supraclavicular soft tissue mass consistent with supraclavicular adenopathy. This may require percutaneous biopsy for further evaluation. No other neck masses are seen. Radiation Dose CTDIVOL = (mGy): DLP = 469.12 (mGy-cm) Chest CTA 09/21/21 11:18 IMPRESSION: 1. No pulmonary emboli. 2. No pneumonia. 3. Extensive metastatic soft tissue masses are identified. Large LEFT inferior neck mass was described on a recent neck CT. There are additional metastatic deposits along the RIGHT lateral T7-8 level abutting the thoracic spine. LEFT midsternal soft tissue mass. Patient has known extensive confluent mass or adenopathy in the retroperitoneum which has been previously described. Metastatic disease of uncertain etiology. 4. Extensive soft tissue thickening surrounding both shoulder joints and a large RIGHT axillary lymph node. Abdomen Retroperitoneal biopsy 09/22/21 00:00 IMPRESSION: 1. Uncomplicated repeat biopsy LEFT retroperitoneal mass with an 18-gauge coaxial needle 2. Venous bleeding was apparent after the second biopsy. 2 more biopsies were performed and placed in formalin. Head CT 09/22/21 11:00 IMPRESSION: 1. No acute intracranial hemorrhage or edema. 2. Mild atrophy and mild chronic microvascular ischemic disease. Chest X-Ray 09/23/21 10:51 Impression: 1. Left basilar opacity which is probably effusion, atelectasis and possibly pneumonia. 2. Atherosclerosis. Discharge Plan Discharge Patient Disposition: Admitted As Inpatient Admit Provider: Rafael Salazar Clinical Impression: Hyponatremia Condition: Stable Discharge Diet: Regular Discharge Activity: Increase activity as tolerated and As per PT/OT instructions Coding Level of Care Code ED Test Engine Mechanic for Chg Fwd Exam Comprehensive Documented by User: Valentino Brito MD 09/30/21 23:48 HPI - General Adult General: Chief complaint: Abdominal Pain Stated complaint: ABD PAIN Time Seen by Provider: 09/20/21 10:28 PFSH ED PFSH: Medical History Hypertension MGUS (monoclonal gammopathy of unknown significance) Peripheral neuropathy Polyarthritis Retroperitoneal lymphadenopathy Splenomegaly Surgical History H/O mastectomy History of hysterectomy Family History Other Cancer Social History Smoking and tobacco status: never smoked Alcohol intake: never Housing: House Course Vital Signs: Vital signs: Vital Signs Temperature 98.0 F 09/24/21 15:50 Pulse Rate 69 09/24/21 15:50 Respiratory Rate 16 09/24/21 15:50 Blood Pressure 113/70 09/24/21 15:50 Pulse Oximetry 93 09/24/21 15:50 MDM - General Adult Lab Data: Labs: Lab Results 09/20/21 09/20/21 09/20/21 11:40 11:40 17:57 WBC 10.7 10^3/uL H 10 ^3/uL (4.0-10.0) RBC 4.93 10^6/uL 10^6 /uL (4.1-5.3) Hgb 14.6 g/dL g/dL (11.5-15.3) Hct 42.4 % % (37.0-47.0) MCV 86.0 fl fl (81-99) MCH 29.6 pg pg (28.0-34.0) MCHC 34.4 g/dL g/dL (30.0-36.0) RDW 12.0 % L % (12.1-15.1) Plt Count 312 10^3/cmm 10^3 /cmm (130-400) MPV 9.8 fL fL (7.4-10.4) Neut % (Auto) 81.4 % % Lymph % (Auto) 12.6 % % [place] % (Auto) 5.7 % % Eos % (Auto) 0.0 % % Baso % (Auto) 0.1 % % Neut # (Auto) 8.69 10^3/uL H 10 ^3/uL (1.8-7.7) Lymph # (Auto) 1.4 10^3/uL 10^3/ uL (0.8-4.8) [place] # (Auto) 0.6 10^3/uL 10^3/ uL (0.2-0.9) Eos # (Auto) 0.0 10^3/uL 10^3/ uL (0.0-0.8) Baso # (Auto) 0.0 10^3/uL 10^3/ uL (0.0-0.1) Nucleated RBC % (a uto) 0 % % Nucleated RBCs # 0.0 /100WBC /100W BC PT INR APTT D-Dimer Sodium 121 mmol/L L mmol /L (136-145) Potassium 4.2 mmol/L mmol/L (3.5-5.1) Chloride 86 mmol/L L mmol/ L (98-107) Carbon Dioxide 22 mmol/L mmol/L (22-29) Anion Gap 17.2 (5-19) BUN 9 mg/dL mg/dL (8-23) Creatinine 0.5 mg/dL mg/dL (0.5-0.9) GFR Calculation Not Reportable Glucose 106 mg/dL mg/dL (65-115) Serum Osmolality Calculated Osmolal ity 251 mOsm/kg L mOs m/kg (285-295) Uric Acid 5.2 mg/dL mg/dL (2.4-5.7) Calcium 9.9 mg/dL mg/dL (8.5-10.5) Magnesium Total Bilirubin 1.1 mg/dL mg/dL (0.15-1.2) AST 30 U/L U/L (0-32) ALT 14 U/L U/L (0-33) Alkaline Phosphata se 62 IU/L IU/L (35-105) Lactate Dehydrogen ase Total Protein 7.4 g/dL g/dL (6.6-8.7) Albumin 3.9 g/dL g/dL (3.5-5.2) Globulin 3.5 g/dL g/dL (1.3-4.6) Carcinoembryonic A g CA 125 Antigen Procalcitonin 0.10 ng/mL ng/mL (0-0.5) TSH 1.57 uIU/mL uIU/m L (0.27-4.20) Urine Osmolality Digoxin Misc Test Referenc e 1109/20/21 09/20/21 19:59 19:59 19:59 WBC RBC Hgb Hct MCV MCH MCHC RDW Plt Count MPV Neut % (Auto) Lymph % (Auto) [place] % (Auto) Eos % (Auto) Baso % (Auto) Neut # (Auto) Lymph # (Auto) [place] # (Auto) Eos # (Auto) Baso # (Auto) Nucleated RBC % (a uto) Nucleated RBCs # PT 14.10 SECONDS SEC ONDS (12.1-14.9) INR 1.06 (0.8-1.2) APTT 26.1 SECONDS SECO NDS (23.9-36.7) D-Dimer 3.51 ug/mIFEU H u g/mIFEU (0-0.59) Sodium Potassium Chloride Carbon Dioxide Anion Gap BUN Creatinine GFR Calculation Glucose Serum Osmolality 260 mOsm/kg L mOs m/kg (278-305) Calculated Osmolal ity Uric Acid Calcium Magnesium Total Bilirubin AST ALT Alkaline Phosphata se Lactate Dehydrogen ase Total Protein Albumin Globulin Carcinoembryonic A g CA 125 Antigen 406.2 U/mL H U/mL (0-35) Procalcitonin TSH Urine Osmolality Digoxin 1.0 ng/mL ng/mL (0.6-1.2) Misc Test Referenc e 09/20/21 09/20/21 09/21/21 19:59 19:59 01:05 WBC RBC Hgb Hct MCV MCH MCHC RDW Plt Count MPV Neut % (Auto) Lymph % (Auto) [place] % (Auto) Eos % (Auto) Baso % (Auto) Neut # (Auto) Lymph # (Auto) [place] # (Auto) Eos # (Auto) Baso # (Auto) Nucleated RBC % (a uto) Nucleated RBCs # PT INR APTT D-Dimer Sodium 122 mmol/L L mmol /L (136-145) Potassium Chloride Carbon Dioxide Anion Gap BUN Creatinine GFR Calculation Glucose Serum Osmolality Calculated Osmolal ity Uric Acid Calcium Magnesium Total Bilirubin AST ALT Alkaline Phosphata se Lactate Dehydrogen ase Total Protein Albumin Globulin Carcinoembryonic A g 1.1 ng/mL ng/mL (0.0-4.7) CA 125 Antigen Procalcitonin TSH Urine Osmolality 109 mOsm/kg mOsm/ kg (50-1200) Digoxin Misc Test Referenc e 09/21/21 09/21/2121 04:40 04:40 05:05 WBC 10.7 10^3/uL H 10 ^3/uL 9.2 10^3/uL 10^3/ uL (4.0-10.0) (4.0-10.0) RBC 5.16 10^6/uL 10^6 /uL 5.02 10^6/uL 10^6 /uL (4.1-5.3) (4.1-5.3) Hgb 15.1 g/dL g/dL 14.8 g/dL g/dL (11.5-15.3) (11.5-15.3) Hct 45.5 % % 45.7 % % (37.0-47.0) (37.0-47.0) MCV 88.2 fl fl 91.0 fl fl (81-99) (81-99) MCH 29.3 pg pg 29.5 pg pg (28.0-34.0) (28.0-34.0) MCHC 33.2 g/dL g/dL 32.4 g/dL g/dL (30.0-36.0) (30.0-36.0) RDW 12.3 % % 12.8 % % (12.1-15.1) (12.1-15.1) Plt Count 308 10^3/cmm 10^3 /cmm 264 10^3/cmm 10^3 /cmm (130-400) (130-400) MPV 9.0 fL fL 9.0 fL fL (7.4-10.4) (7.4-10.4) Neut % (Auto) 75.6 % % 65.2 % % Lymph % (Auto) 15.0 % % 23.9 % % [place] % (Auto) 8.5 % % 9.3 % % Eos % (Auto) 0.2 % % 1.0 % % Baso % (Auto) 0.4 % % 0.4 % % Neut # (Auto) 8.13 10^3/uL H 10 ^3/uL 6.01 10^3/uL 10^3 /uL (1.8-7.7) (1.8-7.7) Lymph # (Auto) 1.6 10^3/uL 10^3/ uL 2.2 10^3/uL 10^3/ uL (0.8-4.8) (0.8-4.8) [place] # (Auto) 0.9 10^3/uL 10^3/ uL 0.9 10^3/uL 10^3/ uL (0.2-0.9) (0.2-0.9) Eos # (Auto) 0.0 10^3/uL 10^3/ uL 0.1 10^3/uL 10^3/ uL (0.0-0.8) (0.0-0.8) Baso # (Auto) 0.0 10^3/uL 10^3/ uL 0.0 10^3/uL 10^3/ uL (0.0-0.1) (0.0-0.1) Nucleated RBC % (a uto) 0 % % 0 % % Nucleated RBCs # 0.0 /100WBC /100W BC 0.0 /100WBC /100W BC PT INR APTT D-Dimer Sodium 128 mmol/L L mmol /L (136-145) Potassium 4.2 mmol/L mmol/L (3.5-5.1) Chloride 94 mmol/L L mmol/ L (98-107) Carbon Dioxide 23 mmol/L mmol/L (22-29) Anion Gap 15.2 (5-19) BUN 8 mg/dL mg/dL (8-23) Creatinine 0.5 mg/dL mg/dL (0.5-0.9) GFR Calculation Not Reportable Glucose 89 mg/dL mg/dL (65-115) Serum Osmolality Calculated Osmolal ity 264 mOsm/kg L mOs m/kg (285-295) Uric Acid Calcium 9.9 mg/dL mg/dL (8.5-10.5) Magnesium 1.9 mg/dL mg/dL (1.7-2.3) Total Bilirubin 1.1 mg/dL mg/dL (0.15-1.2) AST 24 U/L U/L (0-32) ALT 12 U/L U/L (0-33) Alkaline Phosphata se 62 IU/L IU/L (35-105) Lactate Dehydrogen ase 409 U/L H U/L (135-214) Total Protein 7.3 g/dL g/dL (6.6-8.7) Albumin 3.7 g/dL g/dL (3.5-5.2) Globulin 3.6 g/dL g/dL (1.3-4.6) Carcinoembryonic A g CA 125 Antigen Procalcitonin TSH Urine Osmolality Digoxin Misc Test Referenc e 09/22/21 09/22/21 05:05 09:41 WBC RBC Hgb Hct MCV MCH MCHC RDW Plt Count MPV Neut % (Auto) Lymph % (Auto) [place] % (Auto) Eos % (Auto) Baso % (Auto) Neut # (Auto) Lymph # (Auto) [place] # (Auto) Eos # (Auto) Baso # (Auto) Nucleated RBC % (a uto) Nucleated RBCs # PT INR APTT D-Dimer Sodium 129 mmol/L L mmol /L (136-145) Potassium 4.0 mmol/L mmol/L (3.5-5.1) Chloride 95 mmol/L L mmol/ L (98-107) Carbon Dioxide 23 mmol/L mmol/L (22-29) Anion Gap 15.0 (5-19) BUN 13 mg/dL mg/dL (8-23) Creatinine 0.6 mg/dL mg/dL (0.5-0.9) GFR Calculation Not Reportable Glucose 96 mg/dL mg/dL (65-115) Serum Osmolality Calculated Osmolal ity 268 mOsm/kg L mOs m/kg (285-295) Uric Acid Calcium 9.8 mg/dL mg/dL (8.5-10.5) Magnesium Total Bilirubin AST ALT Alkaline Phosphata se Lactate Dehydrogen ase Total Protein Albumin Globulin Carcinoembryonic A g CA 125 Antigen Procalcitonin TSH Urine Osmolality Digoxin Misc Test Referenc e See scanned lab r pt EKG Data^: EKG 1: Computer generated interpretation: KUB X-Ray 09/20/21 11:20 IMPRESSION: 1. Prominent amount of stool may indicate constipation. 2. No evidence of bowel obstruction. 3. Cholelithiasis. Radiation Dose CTDIVOL = (mGy): DLP = (mGy-cm) Knee X-Ray 09/20/21 11:20 IMPRESSION: 1. Joint effusion. 2. Prominent chronic DJD. Radiation Dose CTDIVOL = (mGy): DLP = (mGy-cm) Neck CT 09/20/21 11:20 IMPRESSION: There is a 4.7 x 3.7 cm left supraclavicular soft tissue mass consistent with supraclavicular adenopathy. This may require percutaneous biopsy for further evaluation. No other neck masses are seen. Radiation Dose CTDIVOL = (mGy): DLP = 469.12 (mGy-cm) Chest CTA 09/21/21 11:18 IMPRESSION: 1. No pulmonary emboli. 2. No pneumonia. 3. Extensive metastatic soft tissue masses are identified. Large LEFT inferior neck mass was described on a recent neck CT. There are additional metastatic deposits along the RIGHT lateral T7-8 level abutting the thoracic spine. LEFT midsternal soft tissue mass. Patient has known extensive confluent mass or adenopathy in the retroperitoneum which has been previously described. Metastatic disease of uncertain etiology. 4. Extensive soft tissue thickening surrounding both shoulder joints and a large RIGHT axillary lymph node. Abdomen Retroperitoneal biopsy 09/22/21 00:00 IMPRESSION: 1. Uncomplicated repeat biopsy LEFT retroperitoneal mass with an 18-gauge coaxial needle 2. Venous bleeding was apparent after the second biopsy. 2 more biopsies were performed and placed in formalin. Head CT 09/22/21 11:00
--- NOTE | 2021-09-20 11:20 | XRR_ITS ---
PROCEDURE INFORMATION: Exam: XR Left Knee Exam date and time: 09/20/2021 11:20 AM Age: 86 years old Clinical indication: Pain; Knee; Left; Additional info: Knee pain TECHNIQUE: Imaging protocol: XR Left knee. Views: 3 views. COMPARISON: No relevant prior studies available. FINDINGS: Bones/joints: No fracture or other acute abnormalities are seen. A joint effusion is present. There is prominent DJD with osteophytes on the patella femoral condyles and tibial plateau. There is prominent medial joint space narrowing. Soft tissues: Normal. XR/XR knee LT 3V* [id number] IMPRESSION: 1. Joint effusion. 2. Prominent chronic DJD. Radiation Dose CTDIVOL = (mGy): DLP = (mGy-cm)
--- NOTE | 2021-09-20 11:20 | CTR_ITS ---
PROCEDURE INFORMATION: Exam: CT Neck With Contrast Exam date and time: 09/20/2021 11:20 AM Age: 86 years old Clinical indication: Other: Left side neck mass; Additional info: Left sided neck mass, nontender and firm TECHNIQUE: Imaging protocol: Computed tomography images of the neck with contrast. Radiation optimization: All CT scans at this facility use at least one of these dose optimization techniques: automated exposure control; mA and/or kV adjustment per patient size (includes targeted exams where dose is matched to clinical indication); or iterative reconstruction. Contrast material: VISI 320; Contrast volume: 95 ml; Contrast route: INTRAVENOUS (IV); COMPARISON: No relevant prior studies available. RADIATION DOSE METRICS: Total DLP (mGy-cm): 469.12 FINDINGS: Nasopharynx: Unremarkable. Oropharynx: Unremarkable. No significant tonsillar enlargement. Hypopharynx: Unremarkable. Larynx: Unremarkable. Normal epiglottis. Retropharyngeal space: Unremarkable. Submandibular/Parotid glands: Normal. Glands are normal in size. Thyroid: Normal. No enlarged or calcified nodules. Lymph nodes: Unremarkable. No lymphadenopathy. Trachea: Visualized trachea is unremarkable. Lungs: Unremarkable as visualized. Bones/joints: Chronic degenerative changes are present in the spine especially from C5-T1 with disc space narrowing sclerosis and osteophytes. No acute bony abnormality. Vasculature: There is bilateral carotid artery calcification. Soft tissues: There is a 4.5 x 3.7 cm soft tissue mass in the left medial supraclavicular region. CT/CT neck w con* [id number] IMPRESSION: There is a 4.7 x 3.7 cm left supraclavicular soft tissue mass consistent with supraclavicular adenopathy. This may require percutaneous biopsy for further evaluation. No other neck masses are seen. Radiation Dose CTDIVOL = (mGy): DLP = 469.12 (mGy-cm)
--- NOTE | 2021-09-20 11:20 | ECG_ITS ---
[facility] Test Date: 2021-09-20 Pat Name: Janet Jose Department: Room: Gender: Female Senior Mobile Solutions Architect: : 1935 Requested By: Shailesh Pham Order Number: [id number] Casas MD: Guiod Castanon M.D. Measurements Intervals [place] Rate: 62 P: 43 FL: 200 QRS: -60 QRSD: 109 T: 69 QT: 384 QTc: 392 Interpretive Statements SINUS RHYTHM PATTERN CONSISTENT WITH PULMONARY DISEASE LEFT ANTERIOR FASCICULAR BLOCK [QRS AXIS <= -45, QR IN I, RS IN II] LEFT VENTRICULAR HYPERTROPHY AND ST-T CHANGE [VOLTAGE CRITERIA PLUS ST/T ABNORMALITY] Compared to ECG 02/25/2019 20:17:13 Incomplete right bundle-branch block no longer present ST (T wave) deviation still present Electronically Signed On 09-20-2021 21:55:05 CERAMIC ENGINEER by Guido Castanon M.D. [id number]
--- NOTE | 2021-09-20 11:20 | XRR_ITS ---
PROCEDURE INFORMATION: Exam: XR Abdomen Exam date and time: 09/20/2021 11:20 AM Age: 86 years old Clinical indication: Abdominal pain TECHNIQUE: Imaging protocol: XR of the abdomen. Views: Frontal supine view of the abdomen. 1 View. COMPARISON: CT abdomen pelvis w con* [id number] 09/01/2021 11:45 PM FINDINGS: Gastrointestinal tract: There is prominence of the amount of stool which may indicate constipation. The small bowel is not dilated with no evidence of obstruction. Organs: There are calcifications in the right upper quadrant consistent with gallstones. Bones/joints: Degenerative changes are present in the spine. XR/XR KUB portable [id number] IMPRESSION: 1. Prominent amount of stool may indicate constipation. 2. No evidence of bowel obstruction. 3. Cholelithiasis. Radiation Dose CTDIVOL = (mGy): DLP = (mGy-cm)
--- NOTE | 2021-09-20 11:22 | PC.NURSE ---
Pt arrive via EMS from home, pt reports hse has been having left knee pain and LLQ pain since early this morning. Pt states she took pain medication earlier but it has not helped/. Pt A/O x4, vss, pt placd on monitor. Pt rates pain 06/23
[2021-09-20] MEDS: metoclopramide 5 mg/mL SDV 2 mL 10 MG IVP (11:33)
[2021-09-20] MEDS: morphine 4 mg/mL SDV 1 mL 2 MG IVP (11:34)
[2021-09-20] MEDS: iodixanol 320 mg/mL 100mL Btl IV (13:11)
[2021-09-20 14:40] LABS: Basophils % 0.1 %; Hematocrit 42.4 % (37.0-47.0); Hemoglobin 14.6 g/dL (11.5-15.3); Lymphocytes # 1.4 10^3/uL (0.8-4.8); Lymphocytes % 12.6 %; Mean Corpuscular HGB Conc 34.4 g/dL (30.0-36.0); Mean Corpuscular Hemoglobin 29.6 pg (28.0-34.0); Mean Platelet Volume 9.8 fL (7.4-10.4); Monocytes # 0.6 10^3/uL (0.2-0.9); Monocytes % 5.7 %; Neutrophils # 8.69 10^3/uL (1.8-7.7); Neutrophils % 81.4 %; Nucleated Red Blood Cells % 0 %; Platelet Count 312 10^3/cmm (130-400); Red Blood Count 4.93 10^6/uL (4.1-5.3); White Blood Count 10.7 10^3/uL (4.0-10.0)
[2021-09-20 14:54] LABS: Alanine Aminotransferase 14 U/L (0-33); Albumin Level 3.9 g/dL (3.5-5.2); Alkaline Phosphatase 62 IU/L (35-105); Anion Gap 17.2 (5-19); Aspartate Amino Transferase 30 U/L (0-32); Blood Urea Nitrogen 9 mg/dL (8-23); Calcium 9.9 mg/dL (8.5-10.5); Carbon Dioxide 22 mmol/L (22-29); Chloride 86 mmol/L (98-107); Globulin 3.5 g/dL (1.3-4.6); Glucose 106 mg/dL (65-115); Osmolality Calculated 251 mOsm/kg (285-295); Potassium 4.2 mmol/L (3.5-5.1); Sodium 121 mmol/L (136-145); Total Bilirubin 1.1 mg/dL (0.15-1.2); Total Protein 7.4 g/dL (6.6-8.7)
[2021-09-20] MEDS: HYDROcodone-acetaminophen 5-325 mg Tablet 1 TAB PO (16:13)
[2021-09-20] MEDS: sodium chloride 0.9% 1,000 ML 50 ML IV ×2 (16:25→23:07)
--- NOTE | 2021-09-20 17:35 | PM.HP ---
Providers/Chief Complaint Primary Care Provider: Bianca Hardy MD Chief Complaint: ABD PAIN History of Present Illness Janet Jose is a 86 year old female was initially seen in the ER on 09/02 was diagnosed with retroperitoneal mass, splenic mass, went for biopsy on 09/09, biopsy sample is inadequate she is due for another biopsy on 09/22 at 7:30 AM at [facility], she has a referral for Dr. Shay but has not seen him yet presented today with chief complaint of nausea, vomiting and lethargy.She does carry history of breast cancer that was diagnosed in 1999 status post mastectomy. For last 2 to 3 weeks her appetite has decreased, she has not experienced early satiety, no fever or night sweats. But she is extremely fatigued and lethargic and constipated. She was started on opioids with bowel regimen. She is endorsing constipation. She also complaining of left knee pain and swelling of left leg. For last 3 weeks she is leading a sedentary lifestyle. She lives alone at home. She has not been eating well. She is denying diarrhea and vomiting. She is compliant with her medications including hydrochlorothiazide. She does carry history of tachycardia for which she was put on digoxin she is denying history of A. fib or use of anticoagulation. There is family history of acute leukemia in her father. 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 Diagnosis in the ER revealed acute hyponatremia, she is fatigued and lethargic, lives alone, she will be admitted for IV fluid hydration, she was given 1 L normal saline, normal saline running at 50 mL/h, at the time of my evaluation she was tachycardic, I have requested D-dimer, another EKG and 1 L normal saline bolus she clinically looks mildly dehydrated, sinus tachycardia evident on the telemetry. He saturating well on room air Work-up in the ER revealed left joint effusion chronic DJD, cholelithiasis, constipation prominent stool burden, 4.7x3.7 left supraclavicular soft tissue mass Review of Systems Const: Reports: chills, body aches and fatigue Eyes: Denies: change in vision ENMT: Reports: dry mouth Card: Reports: palpitations Resp: Denies: dyspnea GI: Reports: abdominal pain, nausea and constipation; Denies: vomiting, hematemesis, dysphagia or heartburn : Denies: flank pain Musc: Reports: neck pain, joint pain and limited range of motion Skin/Breast: Denies: rash Neuro: Denies: headache(s) Psych: Denies: anxiety Endo: Denies: polyuria Ulysses/Lymph: Reports: easy bruising All/Imm: Denies: urticaria Medications/Allergies Home Medications Medication Instructions Recorded Confirmed Last Taken Type hydrocodone-acetaminophen 1 tab PO Q6H PRN #14 tab 09/02/21 09/20/21 09/09/21 03:00 Rx ondansetron 4 mg PO Q6H PRN #14 tab 09/02/21 09/20/21 09/08/21 Rx alendronate 70 mg PO DIRECTED MDD see 09/07/21 09/20/21 09/08/21 History pharmacy comment digoxin 250 mcg PO DAILY 09/07/21 09/20/21 09/19/21 History oxybutynin chloride 15 mg PO DAILY 09/07/21 09/20/21 09/19/21 History triamterene-hydrochlorothiazid 0.5 tab PO DAILY 09/07/21 09/20/21 09/19/21 History gabapentin 300 mg PO TID 09/20/21 09/20/21 09/19/21 History morphine 15 mg PO BID 09/20/21 09/20/21 09/19/21 History Allergies Allergy/AdvReac Type Severity Reaction Status Date / Time No Known Allergies Allergy Verified 09/09/21 10:21 PFSH Acute PFSH: Medical History Hypertension MGUS (monoclonal gammopathy of unknown significance) Peripheral neuropathy Polyarthritis Retroperitoneal lymphadenopathy Splenomegaly Surgical History H/O mastectomy History of hysterectomy Family History Other Cancer Social History Smoking and tobacco status: never smoked Alcohol intake: never Substance/Drug Use: never Housing: House Vitals/I&O/Wt Last Vital Signs Temp 98.0 F 09/20/21 10:33 Pulse 98 09/20/21 12:03 Resp 18 09/20/21 12:03 BP 160/83 09/20/21 10:33 Pulse Ox 16 L 09/20/21 12:03 Weight last 48 hrs Weight 85.275 kg Physical Exam Narrative: EXAM NARRATIVE: female, appears stated age Mild signs of dehydration Sinus tachycardia Hemodynamically stable Saturating well on room air No audible stridor or wheezing S1, S2 no murmur appreciated Left supraclavicular mass Abdomen soft hyperactive bowel sounds nontender abdomen Lower extremity no edema however left leg looks more swollen as compared to right, left knee effusion as well no signs of cellulitis Appropriate mood and affect Mild hearing impairment Family at the bedside Data : 09/20/21 11:40 09/20/21 11:40 A&P Assessment and plan (1) Hyponatremia: Status: Acute (2) Dehydration: Status: Acute (3) Anorexia: Status: Acute (4) Sinus tachycardia: Status: Acute Additional A&P Information Dehydration Hyponatremia Sinus tachycardia Anorexia Left knee pain Left leg swelling Plan Patient has hypovolemic hyponatremia: Serum osmolarity is low, she received 1 L normal saline, she is getting another liter of normal saline currently normal saline running at 50 mL/h, check serum and urine osmolarity, TSH, uric acid, clinical signs of hypovolemia Hyponatremia is also secondary to poor p.o. intake and use of hydrochlorothiazide and triamterene Hold hydrochlorothiazide Sinus tachycardia: We will give her 2 L normal saline bolus and see if she is responsive to fluids, check D-dimer to rule out DVT, patient is stating that she has history of tachyarrhythmia and she was put on digoxin no previous history of A. fib or use of anticoagulating agent Get another EKG Check magnesium level and TSH Splenic mass, left supraclavicular mass Retroperitoneal lymphadenopathy Concern for lymphoma She has been biopsy pending on Tuesday at 7:30 AM, will notify IR on Tuesday patient willing to stay until then Previous biopsy sample inadequate Patient has not seen Dr. Shay however has referral for him Patient is stating that her previous colonoscopy were unremarkable She carries history of breast cancer which is staged as in remission Hypertension: We will use lisinopril and amlodipine if needed Full code Regular diet DVT prophylaxis: Lovenox Left leg swelling: Request venous Doppler of left leg Attestations Medical Necessity Statement*: Anticipating less than 2 midnights in the hospital Time Spent in Patient Care: Greater than 35 minutes Coding Level of Care Code Acute Cyber Defense Incident Responder for Shayla Fwnaomi Diagnoses Hyponatremia E87.1 Dehydration E86.0 Anorexia R63.0 Sinus tachycardia R00.0
[2021-09-20 18:34] LABS: Thyroid Stimulating Hormone 1.57 uIU/mL (0.27-4.20)
[2021-09-20 18:44] LABS: Uric Acid 5.2 mg/dL (2.4-5.7)
--- NOTE | 2021-09-20 19:00 | PC.NURSE ---
Report called to floor, given to EVA Mcclure.
--- NOTE | 2021-09-20 19:14 | ECG_ITS ---
[facility] Test Date: 2021-09-20 Pat Name: Janet Jose Department: Room: 277 Gender: Female Residential Specialist: : 1935 Requested By: Valentino Brito Order Number: [id number] Yessenia MD: Guido Castaonn M.D. Measurements Intervals [place] Rate: 91 P: 63 DC: 200 QRS: -71 QRSD: 108 T: 82 QT: 345 QTc: 424 Interpretive Statements SINUS RHYTHM PATTERN CONSISTENT WITH PULMONARY DISEASE LEFT ANTERIOR FASCICULAR BLOCK [QRS AXIS <= -45, QR IN I, RS IN II] LEFT VENTRICULAR HYPERTROPHY AND ST-T CHANGE [VOLTAGE CRITERIA PLUS ST/T ABNORMALITY] Compared to ECG 09/20/2021 11:52:16 No significant changes Electronically Signed On 09-20-2021 21:58:11 M[employer]ER [employer]ODUCTS by Guido Castanon M.D. [id number]
[2021-09-20 20:20] LABS: INR 1.06 (0.8-1.2)
[2021-09-20 20:22] LABS: Partial Thromboplastin Time 26.1 SECONDS (23.9-36.7)
[2021-09-20 20:23] LABS: D Dimer 3.51 ug/mIFEU (0-0.59)
[2021-09-20 20:33] LABS: Sodium 122 mmol/L (136-145)
[2021-09-20 20:44] LABS: CA 125 406.2 U/mL (0-35)
[2021-09-20] MEDS: sodium chloride 0.9% 1,000 ML 999 ML IV (21:36)
[2021-09-20] MEDS: lisinopril 10 mg Tablet PO (21:37)
[2021-09-20] MEDS: morphine ER (12 HR) 15 mg Tablet PO (21:37)
[2021-09-20] MEDS: magnesium hydroxide 30 mL UDC PO (21:37)
[2021-09-20] MEDS: gabapentin 300 mg Capsule PO (21:37)
[2021-09-20 23:46] LABS: Carcinoembryonic Antigen 1.1 ng/mL (0.0-4.7)
[2021-09-21] VITALS (8 sets, daily range): BP systolic 99–147; BP diastolic 59–83; PULSE 72–95; RESP 16–20; TEMP 36.5–36.9; O2SAT 90–94
[2021-09-21 05:02] LABS: Basophils % 0.4 %; Eosinophils % 0.2 %; Hematocrit 45.5 % (37.0-47.0); Hemoglobin 15.1 g/dL (11.5-15.3); Lymphocytes # 1.6 10^3/uL (0.8-4.8); Mean Corpuscular HGB Conc 33.2 g/dL (30.0-36.0); Mean Corpuscular Hemoglobin 29.3 pg (28.0-34.0); Mean Corpuscular Volume 88.2 fl (81-99); Monocytes # 0.9 10^3/uL (0.2-0.9); Monocytes % 8.5 %; Neutrophils # 8.13 10^3/uL (1.8-7.7); Neutrophils % 75.6 %; Nucleated Red Blood Cells % 0 %; Platelet Count 308 10^3/cmm (130-400); Red Blood Count 5.16 10^6/uL (4.1-5.3); Red Cell Distribution Width 12.3 % (12.1-15.1); White Blood Count 10.7 10^3/uL (4.0-10.0)
[2021-09-21 05:21] LABS: Alanine Aminotransferase 12 U/L (0-33); Albumin Level 3.7 g/dL (3.5-5.2); Alkaline Phosphatase 62 IU/L (35-105); Anion Gap 15.2 (5-19); Aspartate Amino Transferase 24 U/L (0-32); Blood Urea Nitrogen 8 mg/dL (8-23); Calcium 9.9 mg/dL (8.5-10.5); Carbon Dioxide 23 mmol/L (22-29); Chloride 94 mmol/L (98-107); Globulin 3.6 g/dL (1.3-4.6); Glucose 89 mg/dL (65-115); Lactate Dehydrogenase 409 U/L (135-214); Magnesium 1.9 mg/dL (1.7-2.3); Osmolality Calculated 264 mOsm/kg (285-295); Potassium 4.2 mmol/L (3.5-5.1); Sodium 128 mmol/L (136-145); Total Bilirubin 1.1 mg/dL (0.15-1.2); Total Protein 7.3 g/dL (6.6-8.7)
[2021-09-21] MEDS: oxybutynin chloride XL 5 MG TABLET 15 MG PO (08:06)
[2021-09-21] MEDS: morphine IR 15 mg Tablet PO ×2 (08:06→14:34)
[2021-09-21] MEDS: sennosides-docusate Tablet 2 TAB PO ×2 (08:06→17:43)
[2021-09-21] MEDS: ondansetron 2 mg/ML SDV 2 mL 4 MG IVP ×2 (08:06→17:47)
[2021-09-21] MEDS: lisinopril 5 mg Tablet PO (08:07)
[2021-09-21] MEDS: gabapentin 300 mg Capsule PO ×3 (08:07→21:13)
[2021-09-21] MEDS: morphine ER (12 HR) 15 mg Tablet PO ×2 (08:07→17:43)
--- NOTE | 2021-09-21 09:27 | PC.CHAP ---
Pastoral Care Encounter/Spiritual Assessment Type of Contact [] Declined director sales training visit [] Patient/Family/Request visit [] Outpatient visit [] Follow-up visit [] Physician referral [] Code/Alert [x] Routine visit [] Staff referral [] Actively dying [] Patient sleeping [] Family support [] [] Out of room [] Palliative care [] [] Receiving care in room [] Pre-surgical visit [] Trauma [] Long length of stay [] ICU visit [] Other: Relational/Emotional Strength [x] Patient feels connected with others/family/visitors/staff [x] Distress [] Loneliness/isolation [] Abandonment Spirituality of Patient [x] Person of Jaimie [x] Attends Scientologist of their Jaimie [x] Believes in Prayer [x] Reads Bible or Denominational materials [] There are Spiritual issues to be addressed Hotel Operation Manager Interventions [x] Prayer [x] Active listening [x] Non-anxious presence [x] Spiritual/emotional support [] Crisis/trauma care [] Spiritual counseling [] Bereavement support [] Provided bereavement packet [] Provided Bible/devotional materials [] Provided toy/stuffed animal, coloring book to patient or family member [] Provided Communion [] Anointing/[place] [] Salvation [] Completed spiritual assessment [] Other: Impact on Illness or Injury [] Angry [] Fearful [] Anxious [] Often cries [] Exhaustion [] Unable to work [] Unable to attend nondenominational [] Unable to walk/stand [] Unable to read [] Unable to drive [] Unable to eat/drink [] Unable to sleep [] Unable to be with family [] Patient intubated [] Other: Summary Time spent with patient 20 min
--- NOTE | 2021-09-21 10:00 | USCV_ITS ---
Damon Janet Age: 86 Gender: F : 1935 Exam Date: 09/21/2021 06:46 Ordering Phys: Rafael Salazar MD Technologist: Yoselyn Dennison Exam Location[place] [facility] [place]ication: LEG SWELLING HISTORY: Lower extremity swelling. PROCEDURES: Venous duplex imaging was performed in bilateral lower extremities. The following venous structures were evaluated: common femoral vein, profunda vein, proximal portion of the greater saphenous vein, superficial femoral vein, and the popliteal vein. In addition, the posterior tibial and peroneal trunk were evaluated. FINDINGS: Normal 2-D Doppler and augmentation and compressibility throughout the lower extremity venous structures. Additional imaging through the proximal calf veins also reveals no thrombus. Limited evaluation of the greater saphenous vein is patent with no thrombus. CONCLUSIONS No DVT bilateral lower extremities. Dr. Berkley Mcginnis DO (Electronically Signed) Final Date: 21 September 2021 08:08 S
--- NOTE | 2021-09-21 11:18 | CT_ITS ---
WS: [id number] CT CHEST ANGIOGRAPHY WITH REFORMATS HISTORY: SINUS TACHY < HIGH DIMER TECHNIQUE: Contiguous axial images are obtained through the chest during arterial injection of intrav enous contrast. Images are reconstructed to evaluate the pulmonary arteries. MIP imaging also reviewe d. All CT scans at [facility] use at least one of these dose optimization techniques: automat ed exposure control; mA and/or kV adjustment per patient size (includes targeted exams where dose is matched to clinical indication); or iterative reconstruction. CONTRAST: Omnipaque 350; 70 mL IV. DLP: 534.25 mGy.cm COMPARISON: No similar studies. Very good opacification of the pulmonary arteries. No filling defect is evident. Pulmonary artery siz e is slightly enlarged. Mild atherosclerosis aorta. No pulmonary nodule. No pneumonia. No mediastinal nodes. Lobulated soft tissue mass in the LEFT inferior neck measures 4.0 x 2.9 cm. At the T7-8 level on the RIGHT measures 2.1 x 1.9 cm. There is increased soft tissue mass along the LEFT lateral mid sternum m easuring 2.8 x 2.2 cm. Patient has known soft tissue mass which is thought to be confluent adenopathy in the retroperitoneum that is encasing the renal artery and abutting the aorta and the kidney. Retr operitoneal mass measures at least 7.8 x 9.2 cm. The most inferior dimension is not visualized on thi s examination. Extensive synovial thickening surrounding both shoulder joints. Large RIGHT axillary lymph node measu ring 3.2 x 1.9 cm. Prior LEFT mastectomy. Cholelithiasis. CT/CT angio chest PE protcl [id number] IMPRESSION: 1. No pulmonary emboli. 2. No pneumonia. 3. Extensive metastatic soft tissue masses are identified. Large LEFT inferior neck mass was described on a recent neck CT. There are additional metastatic d eposits along the RIGHT lateral T7-8 level abutting the thoracic spine. LEFT mi dsternal soft tissue mass. Patient has known extensive confluent mass or adenop athy in the retroperitoneum which has been previously described. Metastatic dis ease of uncertain etiology. 4. Extensive soft tissue thickening surrounding both shoulder joints and a lar ge RIGHT axillary lymph node.
[2021-09-21] MEDS: acetaminophen 500 mg Tablet PO (12:00)
[2021-09-21] MEDS: iohexol 350 mg/mL 100 mL Btl IV (12:14)
--- NOTE | 2021-09-21 13:18 | PM.PN ---
Subjective Subjective: Interval history: Ultrasound call me that she will get her biopsy done tomorrow, it is hard to fit into the schedule on Tuesday I will let her eat today, I will not change any of her medications, sodium is slowly trending up she is still feeling nauseous afebrile hemodynamically stable Vitals/I&O/Wt Last Vital Signs Temp 98.0 F 09/21/21 11:22 Pulse 88 09/21/21 11:22 Resp 16 09/21/21 11:22 BP 108/67 09/21/21 11:22 Pulse Ox 94 09/21/21 11:22 09/20/21 09/21/21 09/21/21 22:59 06:59 14:59 Intake Total 1435 / 1435 600 / 600 Output Total 600 / 600 901 / 1501 Balance -600 / -600 534 / -66 600 / 600 Weight last 48 hrs Weight 82.1 kg Weight 81.102 kg Weight 85.275 kg Physical Exam Narrative: EXAM NARRATIVE: Patient was sitting comfortably in her bed Semi-Asher position Saturating well on room air Nonfocal neuro exam Left supraclavicular mass, nontender S1, S2 Abdomen soft nontender and not able to appreciate splenomegaly Lower extremity no edema EOMI, PERRLA Data : 09/21/21 04:40 09/21/21 04:40 A&P Assessment and plan (1) Sinus tachycardia: Status: Acute (2) Anorexia: Status: Acute (3) Dehydration: Status: Acute (4) Hyponatremia: Status: Acute (5) Supraclavicular mass: Status: Acute Additional A&P Information Hyponatremia: Sodium 127 today, I will decrease normal saline rate to 30 cc/h, no active neurological signs or symptoms Patient still feeling nauseous Her biopsy will be done tomorrow, I will keep her n.p.o. avoid DVT prophylaxis for now Tachyarrhythmia: Patient has responded well to fluids, she is in sinus rhythm heart rate between 60 to 80s Full code DVT prophylaxis SCDs in anticipation of biopsy tomorrow Regular diet Essential hypertension: I will decrease the dose of lisinopril and discontinue we will repeat I will discontinue digoxin she does not have indication to be on digoxin Aggressive bowel regimen for opioid-induced constipation Attestations Medical Necessity Statement*: parveen ruiz after biopsy Time Spent in Patient Care: 16 - 35 minutes Coding Level of Care Code Acute Wheelchair Rental Clerk for Chg Fwd Diagnoses Sinus tachycardia R00.0 Anorexia R63.0 Dehydration E86.0 Hyponatremia E87.1 Supraclavicular mass R22.2
[2021-09-22] VITALS (15 sets, daily range): BP systolic 103–163; BP diastolic 59–89; PULSE 65–106; RESP 14–20; TEMP 36.1–37.1; O2SAT 90–99
--- NOTE | 2021-09-22 | CT_ITS ---
WS: [id number] CT GUIDED BIOPSY LARGE LEFT RETROPERITONEAL MASS. HISTORY: Metastatic disease. Unknown etiology. Repeat biopsy of the large retroperitoneal mass. Procedure, risks, and complications are explained to the patient. Consent was obtained. Skin is clean sed with ChloraPrep and anesthetized with 1% buffered lidocaine. With patient prone position the mass in the LEFT retroperitoneum is again identified. Skin is cleanse d with ChloraPrep and anesthetized with 1% buffered lidocaine. An 18-gauge axial Temno needle is inse rted into the mass. 4 core biopsies were performed and placed in saline. After the second biopsy ther e was venous bleeding through the needle stylette. 2 more biopsies were performed with no complicatio ns. At that time no additional biopsies. There was no retroperitoneal bleeding identified postprocedu re. Patient tolerated procedure well and will be recovered on the medical surgical floor. Note: This is a second attempt at biopsying this large retroperitoneal mass. These core needle biopsi es should be sufficient for pathology. If for some reason this repeat biopsy is nondiagnostic we can attempt a smaller needle biopsy of the large mass in the LEFT neck. I did discuss this with Dr. Rolando richards. CT/CT biopsy retroperitonum [id number] IMPRESSION: 1. Uncomplicated repeat biopsy LEFT retroperitoneal mass with an 18-gauge coax ial needle 2. Venous bleeding was apparent after the second biopsy. 2 more biopsies were performed and placed in formalin.
[2021-09-22] MEDS: morphine IR 15 mg Tablet PO (00:04)
--- NOTE | 2021-09-22 04:47 | PC.NURSE ---
This nurse went into patients room to assess her at approx 0415, when this nurse attempted to wake the patient she was not easy to arouse and began flopping her arms around and moaning, this nurse went to get the charge nurse to take a look at her, we both did a neuro assessment on her, pt was able to move bilateral upper and lower extremities and computer network support specialist with both hands, pt PERRLA was in tack and there was no deviation noted to eyes, vitals signs were obtained BP 167/84 HR 102 RR 18 O2 93% RA, no facial droop noted and patient was observed swallowing, pt did nod her head no when asked if she was in pain.
[2021-09-22 05:36] LABS: Basophils % 0.4 %; Eosinophils # 0.1 10^3/uL (0.0-0.8); Hematocrit 45.7 % (37.0-47.0); Hemoglobin 14.8 g/dL (11.5-15.3); Lymphocytes # 2.2 10^3/uL (0.8-4.8); Lymphocytes % 23.9 %; Mean Corpuscular HGB Conc 32.4 g/dL (30.0-36.0); Mean Corpuscular Hemoglobin 29.5 pg (28.0-34.0); Monocytes # 0.9 10^3/uL (0.2-0.9); Monocytes % 9.3 %; Neutrophils # 6.01 10^3/uL (1.8-7.7); Neutrophils % 65.2 %; Nucleated Red Blood Cells % 0 %; Platelet Count 264 10^3/cmm (130-400); Red Blood Count 5.02 10^6/uL (4.1-5.3); Red Cell Distribution Width 12.8 % (12.1-15.1); White Blood Count 9.2 10^3/uL (4.0-10.0)
[2021-09-22 05:55] LABS: Blood Urea Nitrogen 13 mg/dL (8-23); Calcium 9.8 mg/dL (8.5-10.5); Carbon Dioxide 23 mmol/L (22-29); Chloride 95 mmol/L (98-107); Glucose 96 mg/dL (65-115); Osmolality Calculated 268 mOsm/kg (285-295); Sodium 129 mmol/L (136-145)
[2021-09-22] MEDS: sodium chloride 0.9% 1,000 ML 30 ML IV (09:11)
--- NOTE | 2021-09-22 09:16 | PC.NURSE ---
OFF UNIT OFF UNIT TO GI LAB WITH STAFF AT [facility] IN ROOM
--- NOTE | 2021-09-22 09:25 | PM.PN ---
Subjective Subjective: Interval history: Overnight patient became very agitated, she is able to tell me that she heard a voice that was telling her that someone will pick her up and drop her on the floor, she became very anxious and afraid to go to the bathroom, nurse came and sat at the bedside, her symptoms resolved within few minutes, of note she had recently received morphine before this event, there were no neurological deficits, code stroke was not called symptom resolved this morning she is feeling fine and not scared family is at the bedside Biopsy at 9:[address] head without contrast as well I also discussed these findings Extensive metastatic soft tissue masses are identified. Large LEFT inferior neck mass was described on a recent neck CT. There are additional metastatic deposits along the RIGHT lateral T7-8 level abutting the thoracic spine. LEFT midsternal soft tissue mass. Patient has known extensive confluent mass or adenopathy in the retroperitoneum which has been previously described. Metastatic disease of uncertain etiology. 4. Extensive soft tissue thickening surrounding both shoulder joints and a large RIGHT axillary lymph node. Vitals/I&O/Wt Last Vital Signs Temp 97.8 F 09/22/21 04:00 Pulse 75 09/22/21 04:00 Resp 16 09/22/21 04:00 BP 129/75 09/22/21 04:00 Pulse Ox 90 09/22/21 04:00 09/21/21 09/22/21 09/22/21 22:59 06:59 14:59 Intake Total 1185 / 1785 Output Total 600 / 600 Balance 1185 / 1785 -600 / -600 Weight last 48 hrs Weight 82.1 kg Weight 81.102 kg Weight 85.275 kg Physical Exam Narrative: EXAM NARRATIVE: Clinically dehydrated Cooperative very pleasant Nonfocal neuro exam S1, S2 No signs of tachycardia Blood pressure is stable Abdomen soft Bilateral breath sound without adventitious rhonchi or crackles Data : 09/22/21 05:05 09/22/21 05:05 A&P Assessment and plan (1) Supraclavicular mass: Status: Acute (2) Sinus tachycardia: Status: Acute (3) Anorexia: Status: Acute (4) Dehydration: Status: Acute (5) Hyponatremia: Status: Acute Additional A&P Information Patient presented with fatigue and lethargy, poor appetite, nausea, in the ER was diagnosed with hyponatremia, she had outpatient supraclavicular biopsy scheduled on Tuesday which will be done inpatient during this hospitalization, after histopathological diagnosis she will need referral to Dr. Shay through her PCP Hypovolemic hyponatremia Sodium 129, I have slowly repleted her sodium I have discontinued normal saline Now she can have her regular diet It will improve with improvement in her p.o. intake Clinically dehydrated Urine and serum osmolality pending, TSH and uric acid normal Supraclavicular mass Retroperitoneal mass with multiple metastatic soft tissue mass lymphoma to be ruled out with histopathological diagnosis today Sundowning/delirium Sodium has been repleted gradually, no sign of UTI or pneumonia, I do believe this is related to hospital environment and use of opioids Requested CT head without contrast Anorexia: I would avoid mirtazapine as this can cause sedation and she is still high risk of fall with hyponatremia Full code DVT prophylaxis after biopsy Regular diet Plan to discharge on 09/23 will request PT Attestations Medical Necessity Statement*: Discharge tomorrow Time Spent in Patient Care: 16 - 35 minutes Coding Level of Care Code Acute Agronomy Location Manager for Chg Fwd Diagnoses Supraclavicular mass R22.2 Sinus tachycardia R00.0 Anorexia R63.0 Dehydration E86.0 Hyponatremia E87.1
[2021-09-22] MEDS: fentaNYL 50 mcg/mL INJ 2mL 25 MCG IVP (09:32)
[2021-09-22] MEDS: midazolam 1 mg/mL INJ 2 mL IVP (09:33)
--- NOTE | 2021-09-22 09:36 | PC.NURSE ---
Pt to CT for CT guided biopsy of retroperitoneal mass. Lidocaine 1% approx 10 mL used for local prior to procedure to left flank area. Specimen removed and sent to pathology as ordered.
--- NOTE | 2021-09-22 09:58 | PC.NURSE ---
POST OP EVA BRENNER AT SIDE - WILL POST PT FOR APPROXIMATELY 20 MINUTES - NO NEEDS VOICED PER STAFF AT THIS TIME - 02 2L NC PLACED ON PER EVA LUI
--- NOTE | 2021-09-22 10:00 | CT_ITS ---
WS: [id number] CT GUIDED BIOPSY LARGE LEFT RETROPERITONEAL MASS. HISTORY: Metastatic disease. Unknown etiology. Repeat biopsy of the large retroperitoneal mass. Procedure, risks, and complications are explained to the patient. Consent was obtained. Skin is clean sed with ChloraPrep and anesthetized with 1% buffered lidocaine. With patient prone position the mass in the LEFT retroperitoneum is again identified. Skin is cleanse d with ChloraPrep and anesthetized with 1% buffered lidocaine. An 18-gauge axial Temno needle is inse rted into the mass. 4 core biopsies were performed and placed in saline. After the second biopsy ther e was venous bleeding through the needle stylette. 2 more biopsies were performed with no complicatio ns. At that time no additional biopsies. There was no retroperitoneal bleeding identified postprocedu re. Patient tolerated procedure well and will be recovered on the medical surgical floor. Note: This is a second attempt at biopsying this large retroperitoneal mass. These core needle biopsi es should be sufficient for pathology. If for some reason this repeat biopsy is nondiagnostic we can attempt a smaller needle biopsy of the large mass in the LEFT neck. I did discuss this with Dr. Rolando de la vega
--- NOTE | 2021-09-22 10:09 | PC.NURSE ---
Pt to floor following CT biopsy. Dressing to left flank area remains D/I. VSS. A&O x 3. Denies pain. Report given to EVA Blanchard.
--- NOTE | 2021-09-22 11:00 | CT_ITS ---
WS: [id number] CT HEAD NONCONTRAST HISTORY: confusion new onset TECHNIQUE: Contiguous axial imaging performed through the brain in 2.5 mm imaging. Bone and soft tiss ue windows. Sagittal and coronal reformats reviewed. All CT scans at [facility] use at least one of these dose optimization techniques: automated exposure control; mA and/or kV adjustment per pa tient size (includes targeted exams where dose is matched to clinical indication); or iterative recon struction. DLP: 862.47 mGy.cm COMPARISON: None available. No acute intracranial hemorrhage, midline shift or mass effect. Mild atrophy with no prior infarct. Mild chronic microvascular ischemic type changes. No focal sulcal effacement or mass effect. Ventricles: Normal size with no hydrocephalus. No inferior displacement of the cerebellar tonsils. Paranasal sinuses: As visualized are clear. Mastoid air cells: Well pneumatized. Calvarium and scalp: Intact. Hyperostosis frontalis interna. Moderate atherosclerotic plaque cavernous carotid arteries. CT/CT head wo con* [id number] IMPRESSION: 1. No acute intracranial hemorrhage or edema. 2. Mild atrophy and mild chronic microvascular ischemic disease.
--- NOTE | 2021-09-22 11:10 | PC.NURSE ---
PT PT IN ROOM TO EVALUATE PT
[2021-09-22] MEDS: lidocaine 5% Patch 1 PATCH TOPICAL (11:34)
--- NOTE | 2021-09-22 11:35 | PC.NURSE ---
LIDOCAINE PATCH LIDOCAINE PATCH APPLIED TO LEFT KNEE AT THIS TIME DUE TO PTS PREVIOUSLY BEING OFF FLOOR - PT SITTING ON SIDE OF BED
[2021-09-22] MEDS: gabapentin 300 mg Capsule PO ×2 (14:08→20:38)
[2021-09-22 14:57] LABS: Osmolality Serum 260 mOsm/kg (278-305)
[2021-09-22 14:57] LABS: Osmolality Urine 109 mOsm/kg (50-1200)
[2021-09-22] MEDS: ondansetron 2 mg/ML SDV 2 mL 4 MG IVP (15:43)
[2021-09-22] MEDS: morphine ER (12 HR) 15 mg Tablet PO (16:39)
[2021-09-22] MEDS: sennosides-docusate Tablet 2 TAB PO (16:39)
[2021-09-22] MEDS: acetaminophen 500 mg Tablet PO (18:09)
[2021-09-22] MEDS: enoxaparin 40 mg/0.4 mL Syringe SUBCUT ×2 (18:09→18:21)
[2021-09-23] VITALS (7 sets, daily range): BP systolic 102–131; BP diastolic 62–80; PULSE 60–102; RESP 16–19; TEMP 36.6–37.1; O2SAT 92–97
[2021-09-23 02:48] LABS: Anion Gap 16.2 (5-19); Blood Urea Nitrogen 14 mg/dL (8-23); Calcium 9.3 mg/dL (8.5-10.5); Carbon Dioxide 22 mmol/L (22-29); Chloride 99 mmol/L (98-107); Glucose 94 mg/dL (65-115); Osmolality Calculated 276 mOsm/kg (285-295); Potassium 4.2 mmol/L (3.5-5.1); Sodium 133 mmol/L (136-145)
[2021-09-23] MEDS: polyethylene glycol 3350 Pkt 17 gm PO (08:40)
[2021-09-23] MEDS: morphine ER (12 HR) 15 mg Tablet PO ×2 (08:40→17:08)
[2021-09-23] MEDS: oxybutynin chloride XL 5 MG TABLET 15 MG PO (08:40)
[2021-09-23] MEDS: sennosides-docusate Tablet 2 TAB PO ×2 (08:40→17:08)
[2021-09-23] MEDS: gabapentin 300 mg Capsule PO ×3 (08:41→20:38)
[2021-09-23] MEDS: lidocaine 5% Patch 1 PATCH TOPICAL (08:41)
[2021-09-23] MEDS: lisinopril 5 mg Tablet PO (08:41)
--- NOTE | 2021-09-23 09:35 | PC.CHAP ---
Pastoral Care Encounter/Spiritual Assessment Type of Contact [] Declined geodetic technician visit [] Patient/Family/Request visit [] Outpatient visit [] Follow-up visit [] Physician referral [] Code/Alert [x] Routine visit [] Staff referral [] Actively dying [] Patient sleeping [] Family support [] [] Out of room [] Palliative care [] [x] Receiving care in room [] Pre-surgical visit [] Trauma [] Long length of stay [] ICU visit [] Other: Relational/Emotional Strength [] Patient feels connected with others/family/visitors/staff [] Distress [] Loneliness/isolation [] Abandonment Spirituality of Patient [] Person of Jaimie [] Attends Evangelical of their Jaimie [] Believes in Prayer [] Reads Bible or Protestant materials [] There are Spiritual issues to be addressed Rn Plastic Surgery Interventions [] Prayer [] Active listening [] Non-anxious presence [] Spiritual/emotional support [] Crisis/trauma care [] Spiritual counseling [] Bereavement support [] Provided bereavement packet [] Provided Bible/devotional materials [] Provided toy/stuffed animal, coloring book to patient or family member [] Provided Communion [] Anointing/[place] [] Salvation [] Completed spiritual assessment [] Other: Impact on Illness or Injury [] Angry [] Fearful [] Anxious [] Often cries [] Exhaustion [] Unable to work [] Unable to attend zoroastrian [] Unable to walk/stand [] Unable to read [] Unable to drive [] Unable to eat/drink [] Unable to sleep [] Unable to be with family [] Patient intubated [] Other: Summary Time spent with patient
--- NOTE | 2021-09-23 10:51 | XR_ITS ---
WS: [id number] Portable AP upright chest, 09/23/2021 Clinical Data: crackles at right base Comparison: None. Findings: No nodules or masses are seen. There is an effusion, atelectasis and possible minimal pneum onia at the left lung base. The heart is normal. The pulmonary vascularity is not increased. No pneum othorax is seen. The aortic arch and descending thoracic aorta show tortuosity. 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 XR/XR chest 1V portable [id number] Impression: 1. Left basilar opacity which is probably effusion, atelectasis and possibly pn eumonia. 2. Atherosclerosis.
--- NOTE | 2021-09-23 10:52 | PM.PN ---
Subjective Subjective: Interval history: seen this morning. she appeared anxious and was worried about an anxiety event overnight. Patient's son and his were at bedside and updated. Patient and family anxiously waiting for pathology report. Patient was concerned about mild crackles at her right lung base. Although does not have a cough and has been afebrile. Vitals/I&O/Wt Last Vital Signs Temp 98.3 F 09/23/21 07:43 Pulse 69 09/23/21 07:43 Resp 16 09/23/21 07:43 BP 122/70 09/23/21 07:43 Pulse Ox 96 09/23/21 07:43 09/22/21 09/23/21 09/23/21 22:59 06:59 14:59 Intake Total 240 / 540 Output Total 400 / 1000 Balance 240 / -60 -400 / -460 Physical Exam Narrative: EXAM NARRATIVE: General: Alert oriented x3, patient seen sitting up in bed appearing slightly anxious. HEENT: Normocephalic, atraumatic, EOMI, breathing room air Cardio: Regular rate rhythm, normal S1-S2, no murmurs rubs gallops, Respiratory: Good bilateral air entry, no wheezes no rhonchi appreciated GI: Abdomen soft, nontender, nondistended, bowel sounds + Behavior: Appropriate and cooperative Extremities: no edema, no cyanosis Data : 09/22/21 05:05 09/23/21 02:02 A&P Assessment and plan (1) Supraclavicular mass: Status: Acute (2) Anorexia: Status: Acute (3) Dehydration: Status: Acute (4) Hyponatremia: Status: Acute (5) Retroperitoneal mass: Status: Acute Additional A&P Information Patient presented with fatigue and lethargy, poor appetite, nausea, in the ER was diagnosed with hyponatremia, she had outpatient supraclavicular biopsy scheduled on Tuesday which will be done inpatient during this hospitalization, after histopathological diagnosis she will need referral to Dr. Shay through her PCP Hypovolemic hyponatremia Sodium 133 today. Improving. Now she can have her regular diet It will improve with improvement in her p.o. intake Clinically dehydrated Urine and serum osmolality pending, TSH and uric acid normal Supraclavicular mass Retroperitoneal mass with multiple metastatic soft tissue mass lymphoma to be ruled out with histopathological diagnosis today. Discussed with pathologist. Most probably will have a diagnosis by Tuesday. owning/delirium Sodium has been repleted gradually, no sign of UTI or pneumonia, I do believe this is related to hospital environment and use of opioids Head ct w/o contrast - unremarkable. Anorexia: I would avoid mirtazapine as this can cause sedation and she is still high risk of fall with hyponatremia Full code DVT prophylaxis after biopsy Regular diet Plan to discharge in AM will request PT Family updated bedside Attestations Medical Necessity Statement*: dc in AM Time Spent in Patient Care: 16 - 35 minutes Coding Level of Care Code Acute Loan Underwriter for Chg Fwd Diagnoses Supraclavicular mass R22.2 Anorexia R63.0 Dehydration E86.0 Hyponatremia E87.1 Retroperitoneal mass R19.00
[2021-09-23 17:50] LABS: Procalcitonin 0.12 ng/mL (0-0.5)
[2021-09-23] MEDS: ondansetron 2 mg/ML SDV 2 mL 4 MG IVP (17:58)
[2021-09-23] MEDS: enoxaparin 40 mg/0.4 mL Syringe SUBCUT (18:48)
[2021-09-23] MEDS: morphine IR 15 mg Tablet PO (22:58)
[2021-09-24] VITALS: BP 99/61; PULSE 85; RESP 17; TEMP 37.1; O2SAT 92
[2021-09-24 04:00] VITALS: BP 103/60; PULSE 75; RESP 18; O2SAT 92
[2021-09-24 05:35] LABS: Basophils % 0.5 %; Eosinophils # 0.1 10^3/uL (0.0-0.8); Eosinophils % 1.2 %; Hematocrit 39.5 % (37.0-47.0); Hemoglobin 12.7 g/dL (11.5-15.3); Lymphocytes % 26.1 %; Mean Corpuscular HGB Conc 32.2 g/dL (30.0-36.0); Mean Corpuscular Hemoglobin 29.1 pg (28.0-34.0); Mean Corpuscular Volume 90.4 fl (81-99); Mean Platelet Volume 8.9 fL (7.4-10.4); Monocytes # 0.7 10^3/uL (0.2-0.9); Monocytes % 9.1 %; Neutrophils # 4.71 10^3/uL (1.8-7.7); Neutrophils % 62.7 %; Nucleated Red Blood Cells % 0 %; Platelet Count 279 10^3/cmm (130-400); Red Blood Count 4.37 10^6/uL (4.1-5.3); Red Cell Distribution Width 12.6 % (12.1-15.1); White Blood Count 7.5 10^3/uL (4.0-10.0)
[2021-09-24 05:57] LABS: Anion Gap 14.2 (5-19); Blood Urea Nitrogen 12 mg/dL (8-23); Calcium 9.4 mg/dL (8.5-10.5); Carbon Dioxide 24 mmol/L (22-29); Chloride 100 mmol/L (98-107); Glucose 93 mg/dL (65-115); Osmolality Calculated 277 mOsm/kg (285-295); Potassium 4.2 mmol/L (3.5-5.1); Sodium 134 mmol/L (136-145)
[2021-09-24 08:00] VITALS: BP 129/73; PULSE 79; RESP 16; TEMP 36.9; O2SAT 95
[2021-09-24] MEDS: sennosides-docusate Tablet 2 TAB PO (08:52)
[2021-09-24] MEDS: polyethylene glycol 3350 Pkt 17 gm PO (08:52)
[2021-09-24] MEDS: gabapentin 300 mg Capsule PO (08:52)
[2021-09-24] MEDS: oxybutynin chloride XL 5 MG TABLET 15 MG PO (08:52)
[2021-09-24] MEDS: lisinopril 5 mg Tablet PO (08:52)
[2021-09-24] MEDS: morphine ER (12 HR) 15 mg Tablet PO (08:52)
[2021-09-24] MEDS: lidocaine 5% Patch 1 PATCH TOPICAL (08:53)
--- NOTE | 2021-09-24 11:10 | PM.DCS ---
Discharge Providers Date of Admission: 09/22/21 13:19 Date of Discharge: September 24, 2021 Attending Provider at Admission: Rafael Salazar MD Attending Provider at Discharge: Glenda Zayas MD Primary Care Provider: Bianca Hardy MD Diagnoses at Discharge Discharge Diagnosis (1) Supraclavicular mass: Status: Acute (2) Anorexia: Status: Acute (3) Dehydration: Status: Acute (4) Hyponatremia: Status: Acute (5) Retroperitoneal mass: Status: Acute Reason for Visit Reason for Visit: ABD PAIN Hospital Course Hospital Course mario Jose is a 86 year old female was initially seen in the ER on 09/02 was diagnosed with retroperitoneal mass, splenic mass, went for biopsy on 09/09, biopsy sample is inadequate she is due for another biopsy on 09/22 at 7:30 AM at [facility], she has a referral for Dr. Shay but has not seen him yet presented today with chief complaint of nausea, vomiting and lethargy.She does carry history of breast cancer that was diagnosed in 1999 status post mastectomy. For last 2 to 3 weeks her appetite has decreased, she has not experienced early satiety, no fever or night sweats. But she is extremely fatigued and lethargic and constipated. She was started on opioids with bowel regimen. She is endorsing constipation. She also complaining of left knee pain and swelling of left leg. For last 3 weeks she is leading a sedentary lifestyle. She lives alone at home. She has not been eating well. She is denying diarrhea and vomiting. She is compliant with her medications including hydrochlorothiazide. She does carry history of tachycardia for which she was put on digoxin she is denying history of A. fib or use of anticoagulation. There is family history of acute leukemia in her father. 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 Diagnosis in the ER revealed acute hyponatremia, she is fatigued and lethargic, lives alone, she will be admitted for IV fluid hydration, she was given 1 L normal saline, normal saline running at 50 mL/h, at the time of my evaluation she was tachycardic, I have requested D-dimer, another EKG and 1 L normal saline bolus she clinically looks mildly dehydrated, sinus tachycardia evident on the telemetry. He saturating well on room air Work-up in the ER revealed left joint effusion chronic DJD, cholelithiasis, constipation prominent stool burden, 4.7x3.7 left supraclavicular soft tissue mass Course Patient was admitted for hypovolemic hyponatremia. Sodium did correct with volume infusion and holding hydrochlorothiazide and trimethoprim. She was placed on lisinopril 5 mg daily for hypertension. Her blood pressure has been stable on that. Patient also had sinus tachycardia on admission and after receiving fluids that did improve. There was no evidence of atrial fibrillation. She was on digoxin from her home medications but denies having a history of A. fib or use of anticoagulant agent. Digoxin was discontinued. Patient also had a splenic mass left supraclavicular mass retroperitoneal lymphadenopathy. There was concern for lymphoma. She was supposed to have a biopsy done as an outpatient but since patient is in the hospital biopsy was done inpatient of the retroperitoneal lymphadenopathy. Previous biopsy sample was inadequate so this is the second time she is having it. Patient will be seeing Dr. Shay as an outpatient to follow-up after biopsy results. Patient will be given a prescription to recheck BMP on Tuesday. Some atelectasis noted on chest x-ray. Patient feels more comfortable going home with incentive spirometer we will provide her with at discharge. There is no evidence of pneumonia. No elevation in white count afebrile procalcitonin low. No cough. CT scanning showed: Extensive metastatic soft tissue masses are identified. Large LEFT inferior neck mass was described on a recent neck CT. There are additional metastatic deposits along the RIGHT lateral T7-8 level abutting the thoracic spine. LEFT midsternal soft tissue mass. Patient has known extensive confluent mass or adenopathy in the retroperitoneum which has been previously described. Metastatic disease of uncertain etiology. 4. Extensive soft tissue thickening surrounding both shoulder joints and a large RIGHT axillary lymph node. At this point we are waiting for histopathological diagnosis. I discussed with pathologist at length 09/23. Her core biopsy samples have been sent to [facility] at this point for immunohistochemical staining. The results are expected to be here by Tuesday. Patient feels well enough to go home and therefore will be sent home. She does live alone but at discharge she will go and live with her son. Once biopsy results are back patient will follow up with Dr. Shay. Patient and family demonstrate understanding after going over the plan today. She will be discharged home in a stable condition. Physical Exam Narrative: EXAM NARRATIVE: General: Alert oriented x3, patient seen sitting up in recliner today appearing very comfortable. Denies having any more anxiety. HEENT: Normocephalic, atraumatic, EOMI, breathing room air Cardio: Regular rate rhythm, normal S1-S2, no murmurs rubs gallops, Left supraclavicular mass palpable but nontender. Respiratory: Good bilateral air entry, no wheezes no rhonchi appreciated GI: Abdomen soft, nontender, nondistended, bowel sounds + Behavior: Appropriate and cooperative Extremities: no edema, no cyanosis Discharge Data Data Completed and Pending: Completed Studies During Hospitalization Category Date Time Status CT angio chest PE protcl [id number] Stat Cat Scan 09/21/21 11:[address] biopsy retrope ritonum [id number] Rout ine Cat Scan 09/22/[address] head wo con* 7 0450 Routine Cat Scan 09/22/21 11:[address] neck w con* 70 491 Urgent Cat Scan 09/20/21 11:20 Completed XR KUB portable 7 4018 Stat Exams 09/20/21 11:20 Completed XR chest 1V raf ble 16584 Routine Exams 09/23/21 10:51 Completed XR knee LT 3V* 73 562 Stat Exams 09/20/21 11:20 [place] [id number] Routin e Ultrasound 09/21/21 10:00 Completed Pending at discharge Category Date Time Status Miscellaneous Vee t Routine Lab 09/22/21 09:41 Received Pathology: Surgic al [PTH] Routine Pth 09/22/21 10:00 Received Labs from last 24 hours 09/24/21 09/24/21 09/23/21 05:13 05:13 02:02 WBC 7.5 RBC 4.37 Hgb 12.7 Hct 39.5 MCV 90.4 MCH 29.1 MCHC 32.2 RDW 12.6 Plt Count 279 MPV 8.9 Neut % (Auto) 62.7 Lymph % (Auto) 26.1 [place] % (Auto) 9.1 Eos % (Auto) 1.2 Baso % (Auto) 0.5 Neut # (Auto) 4.71 Lymph # (Auto) 2.0 [place] # (Auto) 0.7 Eos # (Auto) 0.1 Baso # (Auto) 0.0 Nucleated RBC % (a uto) 0 Nucleated RBCs # 0.0 Sodium 134 L Potassium 4.2 Chloride 100 Carbon Dioxide 24 Anion Gap 14.2 BUN 12 Creatinine 0.7 GFR Calculation Not Reportable Glucose 93 Calculated Osmolal ity 277 L Calcium 9.4 Magnesium 2.0 Procalcitonin 0.12 Misc Test Referenc e 09/22/21 09:41 WBC RBC Hgb Hct MCV MCH MCHC RDW Plt Count MPV Neut % (Auto) Lymph % (Auto) [place] % (Auto) Eos % (Auto) Baso % (Auto) Neut # (Auto) Lymph # (Auto) [place] # (Auto) Eos # (Auto) Baso # (Auto) Nucleated RBC % (a uto) Nucleated RBCs # Sodium Potassium Chloride Carbon Dioxide Anion Gap BUN Creatinine GFR Calculation Glucose Calculated Osmolal ity Calcium Magnesium Procalcitonin Misc Test Referenc e Pending Vitals: Last Vital Signs Temp 98.4 F 09/24/21 08:00 Pulse 79 09/24/21 08:00 Resp 16 09/24/21 08:00 BP 129/73 09/24/21 08:00 Pulse Ox 95 09/24/21 08:00 Discharge Plan Discharge Patient Disposition: Home Condition: Stable Prescriptions: New lisinopril 5 mg Tablet 5 mg PO DAILY 30 Days Qty: 30 RF: 0 Continued hydrocodone-acetaminophen 5-325 mg tablet 1 tab PO Q6H PRN (Reason: pain) Qty: 14 RF: 0 ondansetron 4 mg tablet,disintegrating 4 mg PO Q6H PRN (Reason: nausea and vomiting) Qty: 14 RF: 0 alendronate 70 mg tablet 70 mg PO DIRECTED MDD see pharmacy comment RF: 0 gabapentin 300 mg capsule 300 mg PO TID RF: 0 morphine 15 mg tablet extended release 15 mg PO BID RF: 0 Held oxybutynin chloride 15 mg tablet extended release 24 hr 15 mg PO DAILY RF: 0 Hold Instructions: see pcp triamterene-hydrochlorothiazid 37.5-25 mg tablet 0.5 tab PO DAILY RF: 0 Hold Instructions: see PCP Discontinued digoxin 250 mcg (0.25 mg) tablet 250 mcg PO DAILY RF: 0 Discharge Orders: Discharge Order (Routine); Ordered 09/24/21 Ordered By: Glenda Zayas Other Ambulatory Orders: Basic Metabolic Panel (Routine) Timeframe: [id number] Facility: [facility] - Location: Lab - Main Lab Ordered By: Glenda Zayas Physical Therapy Eval and Treat Outpatient (Order) Timeframe: 2 Weeks Facility: [facility] - Location: Physical Therapy Ordered By: Glenda Zayas Referrals: Bianca Hardy MD [Primary Care Provider] - 1 week Mark Shay MD [Hospitalist] - 7-10 days () Discharge Diet: Regular Discharge Activity: Increase activity as tolerated and As per PT/OT instructions Patient Instructions: Opioid Safety Discharge Attestations Time Spent in Discharge Care*: greater than 30 min Specific Discharge Activities: educating patient and educating and/or supporting family/caregiver Quality Metrics Clinical Quality Measures During this hospital stay, did patient experience: None Coding Level of Care Code Acute Chg DC note Diagnoses Supraclavicular mass R22.2 Anorexia R63.0 Dehydration E86.0 Hyponatremia E87.1 Retroperitoneal mass R19.00
[2021-09-24 11:57] VITALS: BP 113/70; PULSE 69; RESP 16; TEMP 36.7; O2SAT 93
[2021-09-24 13:27] LABS: Miscellaneous Test See Scanned Lab Rpt
--- NOTE | 2021-09-24 13:55 | PC.NURSE ---
DR. CONNELLY NOTIFIED OF PATIENTS CONCERN REGARDING STOPPING DIGOXIN. DR CONNELLY CONTACTED DR. GASTON ABOUT PLACING AN EVENT MONITOR ON PATIENT. [facility] NOTIFIED AND ATTEMPTED TO GET THE PATIENT IN TODAY TO HAVE EVENT MONITOR PLACED BEFORE DISCHARGE. [facility] COULD NOT PLACE THE MONITOR PRIOR TO DISCHARGE, AND PATIENT WAS NOTIFIED THAT THEY WILL BE IN CONTACT WITH HER TO SET UP APPOINTMENT FOR EVENT MONITOR. PATIENT WAS ALSO INSTRUCTED THAT DR. TIDWELL OFFICE WILL BE IN CONTACT WITH HER ONCE BIOPSY RESULTS ARE BACK. PATIENT VERBALIZED UNDERSTANDING OF ALL DISCHARGE INSTRUCTIONS, HOME MEDICATIONS, AND FOLLOW UP APPOINTMENTS.
[2021-09-24 15:50] VITALS: BP 113/70; PULSE 69; RESP 16; TEMP 36.7; O2SAT 93
== END 2021-09-24 15:51 | disposition home or self-care (01) | DRG 989 ==
LOC: ER 18:07 → MEDSURG 18:08
PROVIDERS: Emergency Medicine; Radiology Diagnostic Radiology; Admitting Provider Internal Medicine; Emergency Provider Physician Assistant; PCP Family Medicine; Visit Provider Internal Medicine
PROC: 0W9H3ZX Drainage of Retroperitoneum, Percutaneous Approach, Diagnostic (ICD-10-PCS; principal; 2021-09-22 09:00)
DX: E87.1 Hypo-osmolality and hyponatremia (principal); I10 Essential (primary) hypertension; G62.9 Polyneuropathy, unspecified; Z90.10 Acquired absence of unspecified breast and nipple; Z85.3 Personal history of malignant neoplasm of breast; K59.00 Constipation, unspecified; M17.12 Unilateral primary osteoarthritis, left knee; D47.2 Monoclonal gammopathy; K80.20 Calculus of gallbladder without cholecystitis without obstruction; E86.0 Dehydration; F41.9 Anxiety disorder, unspecified; Z79.891 Long term (current) use of opiate analgesic; E86.1 Hypovolemia; R59.1 Generalized enlarged lymph nodes
CPT/HCPCS: 36415; 49180; 70450; 70491; 71045; 71275; 73562; 74018; 77012; 80048; 80053; 80162; 82378; 83615; 83735; 83930; 83935; 84145; 84295; 84443; 84550; 85025; 85378; 85610; 85730; 86304; 88271; 88275; 88307; 93005; 93271; 93970; 96361; 96372; 96374; 96375; 97110; 97116; 97162; 97530; 99285; G0378; J1650; J2250; J2270; J2405; J2765; J3010; J7030; Q9967

== ENCOUNTER 2021-10-14 12:04 | Outpatient (CLI) | payer MEDICARE, BC, SELFPAY ==
--- NOTE | 2021-10-14 17:23 | ONC CON_ITS ---
Dr. Rolle New Patient Note Patient: Janet Jose Unit #: [id number]: [id number] Dicatated By: Serg Rolle M.D.Date of Visit: Oct 14, 2021 Onc MED New Patient/Consult Referring Physician: Dr. Bianca Hardy M.D. History of Present Illness: Ms. Janet Jose, is a 86-year-old female, presented to [facility] ER with nausea, abdominal pain and left neck mass, as per patient she was doing reasonably well prior to that but in first week of August 2021 she noted discomfort in her left abdomen/left upper quadrant area and sometimes in left flank, subsequently pain/discomfort in left thigh and now off and on burning sensation in the left thigh/leg. 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 Patient denies any night sweats, denies any recurrent fever but 12 pound weight loss in the last 2 weeks due to poor appetite, On September 21, 2021 patient underwent CTA chest to rule out pulmonary embolism it showed No pulmonary embolism but lobulated soft tissue mass in left inferior neck measuring 4 x 2.9 cm, at T7-8 level on the right measures 2.1 x 1.9 cm, there is also increased soft tissue mass along left lateral mid sternum measuring 2.8 x 2.2 cm. And soft tissue mass which is thought to be coming point adenopathy in the retroperitoneum that is encasing we will do renal artery and abutting aorta and kidney. Retroperitoneal mass measures at least 7.8 x 9.2 cm. There is a large right axillary lymph node measuring 3.2 x 1.9 cm Patient denies any dysphagia, denies any shortness of breath, denies any jaundice, denies any dysuria or hematuria, denies any focal weakness. Patient denies smoking or alcohol use Patient has history of left breast cancer, diagnosed in 1999, at that time she underwent left mastectomy, as per patient she was given tamoxifen for 5 years. Past Medical History: Ms. Jose's medical history consists of hypertension, MGUS, peripheral neuropathy, polyarthritis, and splenomegaly. Past Surgical History: Ms. Jose's surgical/procedural history consists of hysterectomy, mastectomy, Covid vaccine #2 Moderna in 2020, and Covid vaccine #1 Moderna in 2020. Medications: Alendronate Sodium 1 Tablet (of 70 mg) Oral, Gabapentin 1 Capsule (of 300 mg) Oral t.i.d., HYDROcodone-Acetaminophen 1 Tablet (of 5-325 mg) Oral q 6 hours PRN, Lisinopril 1 Tablet (of 5 mg) Oral daily, Morphine Sulfate 1 Tablet (of 15 mg) Oral b.i.d., Ondansetron HCl 1 Tablet (of 4 mg) Oral q 6 hours PRN Allergies: No Known Allergies. Social History: Ms. Jose is . Ms. Jose has never smoked. She has no history of drinking. Family History: There is no documented family history. Review Of Symptoms: Review of Systems is not available for this patient. Vital Signs: Performed on Oct 14, 2021 13:44: 10, 10, 27.99, 1.88 sq.m, 66 in, 92 % (LOW), 112 /min (HIGH), 16 /min, 110/71 mm(hg), 98.8 F, and 173.4 lbs (HIGH). Performance Status: 0 - Fully active, able to carry on all predisease activities without restrictions. (ECOG) Physical Examination: ENMT - No mouth sores, no thrush, no jaundice, 5 x 5 cm left supraclavicular mass, with no overlying skin changes, nontender, Respiratory - Lungs are clear to auscultation, Cardiovascular - Regular rate and rhythm of heart, Abdomen - Soft, bowel sounds present, nontender, Extremities - No visible edema. Lab/Imaging: Most recent lab results are not available for this patient. 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 CTA chest done on September 21, 2021 shows no pulmonary embolism, extensive metastatic soft tissue masses identified, large left inferior neck mass measuring 4 x 2.9 cm, additional metastatic deposit along the right lateral T7-8 level abutting the thoracic spine. Left midsternal soft tissue mass, and extensive confluent mass or adenopathy in the left retroperitoneal area measuring 7.8 x 9.2 cm, encasing renal artery and abutting the aorta and the kidney. Extensive soft tissue thickening surrounding both shoulder joint and a large right axillary lymph node. Status post left MRM, For history of hormone positive breast cancer, diagnosed in 1999, she was treated with tamoxifen for 5 years. Plan: Discussed with patient regarding her disease status and left retroperitoneal mass biopsy report which confirmed B-cell lymphoma, as per discussion with pathology favor diffuse large B-cell lymphoma, non-germinal center type, BCL6 positive, MUM1 positive but insufficient specimen to perform FISH or molecular profiling for further classification. And further excisional lymph node biopsy was recommended. At this point, considering her age, we will consider CT PET scan for staging purposes and refer her to surgery for Port-A-Cath placement and also consider left neck lymph node biopsy and, will also request for echo to assess cardiac status as treatment with R-CHOP is under consideration. Patient will return to clinic after CT PET scan for further discussion. Signed By: Serg Rolle M.D. <<Signature on File>>
== END 2021-10-14 12:05 | disposition home or self-care (01) ==
LOC: ONCMED 12:10
PROVIDERS: PCP Family Medicine; Visit Provider Internal Medicine Hematology & Oncology
DX: C83.33 Diffuse large B-cell lymphoma, intra-abdominal lymph nodes (principal); C79.51 Secondary malignant neoplasm of bone; Z85.3 Personal history of malignant neoplasm of breast; Z79.899 Other long term (current) drug therapy
CPT/HCPCS: 99205

== ENCOUNTER 2021-10-28 07:49 | Day surgery (SDC) | payer MEDICARE, BC, SELFPAY ==
[2021-10-27 11:17] VITALS: BMI 27.9
[2021-10-28] VITALS (10 sets, daily range): BP systolic 115–145; BP diastolic 68–94; PULSE 74–98; RESP 12–18; TEMP 36.1–37.2; O2SAT 91–95
--- NOTE | 2021-10-28 | SCC_ITS ---
Procedure Done: 1. Placement of PowerPort in the right internal jugular vein 2. Fluoroscopic guidance and interpretation for placement of catheter 3. Ultrasound guidance to access the right internal jugular vein 4. Incisional biopsy of left cervical lymph node 32.3 seconds of fluoroscopic guidance, for a cumulative dose of 2.47 mGy, was provided to Dr. Cloud by the radiology department. C-arm images of the chest were saved for the patient's permanent record. [facility]
--- NOTE | 2021-10-28 08:01 | W.PM.OPSUD ---
Surgery/Procedure H&P Update DATE OF PROCEDURE: October 28, 2021 DATE H&P PERFORMED: 10/20/21 H&P UPDATE INFORMATION: I have reviewed H&P completed within last 30 days, I have examined patient prior to procedure and No changes to prior documentation PREOP DIAGNOSIS: Lymphoma PLANNED PROCEDURE: Operation Date: 10/28/21 09:00 Proposed Procedures p Portacath Placement 97004 [id number] C85.10 R22.1(Not Applicable) - Atif Cloud MD s Biopsy of Neck Mass(Not Applicable) - Atif Cloud MD
[2021-10-28] MEDS: sodium chloride 0.9% 1,000 ML 30 ML IV (08:19)
--- NOTE | 2021-10-28 08:20 | SC_ITS ---
WS: [id number] INTRAOPERATIVE TECHNIQUE: 2 Spot fluoroscopic images for intraoperative purposes. FLUOROSCOPY TIME: 32.3 seconds CLINICAL INFORMATION: port COMPARISON: None. FINDINGS: Right Port-A-Cath with tip in distal SVC. No visualized pneumothorax. SC/C-arm FL for CVA [id number] IMPRESSION: Images obtained for intraoperative purposes.
--- NOTE | 2021-10-28 08:36 | ANES.PREANE2 ---
Pre-Anesthetic Assessment Pre-Anesthetic Assessment: Height/Weight: Height 1.68 m Weight 78.471 kg Temp Pulse Resp BP Pulse Ox 99.0 F 98 18 115/74 91 10/28/21 07:58 10/28/21 07:58 10/28/21 07:58 10/28/21 07:58 10/28/21 07:58 Preop Diagnosis: Lymphoma Proposed Procedure: Operation Date: 10/28/21 09:00 Proposed Procedures p Portacath Placement 36015 [id number] C85.10 R22.1(Not Applicable) - Atif Cloud MD s Biopsy of Neck Mass(Not Applicable) - Atif Cloud MD Was Beta Fatmata taken within 24 hours: N/A Was Clonidine taken within 24 hours: N/A Last intake: Intake Last Liquid Date 10/27/21 Last Liquid Time 17:30 Last Solid Date 10/27/21 Last Solid Time 17:30 Social: Social History: No alcohol and No tobacco Exam: Pre-Anes Outpt Exam: alert, oriented x 3, clear to auscultation bilaterally and regular rate & rhythm Airway: Submandibular: WNL Cervical ROM: WNL MP: 2 Dentition: False (uppers) CV/HEM: CV/HEM: HTN Comments: Lymphoma Musc/skel: Comments: Chronic pain/opioid Anesthetic Plan: ASA status: 3 Anesthesia: Choice Risk of > 500 ml blood loss (7ml/kg in children): No Meds/Allergies Current Medications: Current Medications Generic Name Dose Route Start Last Admin Trade Name Freq PRN Reason Stop Dose Admin Sodium Chloride 1,000 mls @ 30 ml s/hr 10/28/21 08:00 10/28/21 08:19 Sodium Chloride 0.9% IV 10/29/21 07:59 30 mls/hr .Q24H MIHAELA Administration PFSH Anesthesia PFSH: Medical History (Updated 10/20/21 @ 15:45 by Atif Cloud MD) B-cell lymphoma Hypertension MGUS (monoclonal gammopathy of unknown significance) Peripheral neuropathy Polyarthritis Retroperitoneal lymphadenopathy Splenomegaly Surgical History (Updated 10/20/21 @ 14:49 by Atif Cloud MD) H/O mastectomy History of hysterectomy Status post colonoscopy Family History Other Cancer Social History Smoking and tobacco status: never smoked Alcohol intake: never Housing: House Data Anesthesia Cardiac Studies: No Data to Display
[2021-10-28] MEDS: heparin, porcine 1,000 unit/mL INJ 10 mL 10000 UNIT INJECTION (09:54)
[2021-10-28] MEDS: lidocaine 1% INJ 20 mL INJECTION (09:56)
--- NOTE | 2021-10-28 09:58 | XR_ITS ---
WS: [id number] XR chest 1V portable [id number] REASON FOR EXAM: post op port a cath FINDINGS: Chemotherapy infusion port in place over the anterior right chest with transverse right jugular vein catheter with the tip in the superior vena cava above the right atrium. No right lung abnormality. Moderate tortuosity and ectasia of the thoracic aorta. Heart size at the upper limits of normal. Mass density projected adjacent to the right side of the thoracic spine at the level of the susanne. Increased opacity within the left lower hemithorax apparent elevation of the left hemidiaphragm. Obsc uration of the medial aspect of the left hemidiaphragmatic contour. XR/XR chest 1V portable [id number] IMPRESSION: Chemotherapy port and catheter are properly positioned without complication. Posterior medial right chest wall mass which was demonstrated on previous CT an d PET scan. Findings in the left chest suggest lung consolidation and/or developing since t he previous examination of 09/23/2021.
--- NOTE | 2021-10-28 10:38 | P.PCN_ITS ---
PACU note PACU note: VSS, Good respiratory effort, report to GENERAL MILLING SUPERINTENDENT Post-Anesthesia Exam: awake
--- NOTE | 2021-10-28 10:38 | PM.PACU ---
PACU note PACU note: VSS, Good respiratory effort, report to IT SUPPORT ENGINEER Post-Anesthesia Exam: awake
--- NOTE | 2021-10-28 10:59 | PM.OP ---
Operative Report Date of procedure: October 28, 2021 Pre-op Diagnosis: B-cell lymphoma Pre-op Diagnosis: Enlarged left cervical lymph node Post-op diagnosis: same Procedure Done: 1. Placement of PowerPort in the right internal jugular vein 2. Fluoroscopic guidance and interpretation for placement of catheter 3. Ultrasound guidance to access the right internal jugular vein 4. Incisional biopsy of left cervical lymph node Specimens removed/disposition: 1. Left cervical lymph node Surgeon: Atif Cloud Anesthesia: MAC Condition: stable Disposition: PACU Procedure: The patient was taken to the Operating Room and the chest and neck bilaterally were prepped and draped in a sterile manner after the antibiotic had been administered and shoulder rolls had been placed. 1% lidocaine with 0.5% Marcaine was infiltrated at the side at the site of the planned around the left subclavian vein. I was able to access the left subclavian vein but could not thread the guidewire. An ultrasound of the right internal jugular vein revealed patent flow, no thrombus. An introducer needle was then used to access the right internal jugular vein and after withdrawing blood syringe was removed and a guidewire passed under fluoroscopy into the superior vena cava. The site of the planned port was then marked on the chest and a 15 blade was used to make a 3 cm skin incision this was extended into the subcutaneous tissue using electrocautery and a subcutaneous pocket over the pectoralis fascia was created 2-0 Vicryl suture was used to suture the port to the pectoral fascia in the pocket on 3 sides. The catheter, after having been flushed with hep saline, was attached to the tunneler and a tunnel created between the port site and the internal jugular vein entry site. Under fluoroscopy the dilator sheath was passed over the guidewire into the proximal superior vena cava. The inner dilator was removed and the sheath left behind and the catheter was introduced through the peel-away sheath with the tip in the superior vena cava. The peel-away sheath was removed. The proximal end of the catheter was cut to the right size and was attached to the port. Using a Treviño needle the port was accessed, it withdrew blood easily and flushed easily. A final 5cc of heparin was used to flush the PowerPort. The subcutaneous tissue was approximated using interrupted 3-0 Vicryl sutures and the skin at the introducer site and the port site was closed using subcuticular running 4-0 Monocryl sutures. Surgical glue was applied and the patient was stable throughout the procedure. Fluoroscopic guidance and interpretation was performed for introduction of the guidewire in the right internal jugular vein, passage of dilator and placement of catheter tip in the distal superior vena cava. 1% lidocaine was infiltrated over the palpable left cervical lymph node. 2 cm incision was made using a 15 blade, subcutaneous tissue was divided and using a 15 blade incisional biopsy of the left cervical lymph node was performed. Hemostasis was ensured with cautery and Surgicel and the subcutaneous was approximated using interrupted 3-0 Vicryl suture. The skin was closed using running subcuticular 4-0 Monocryl suture and Dermabond.
--- NOTE | 2021-10-28 14:13 | ANE.PACU2 ---
Inpatient post-anesthesia follow up: Airway intact: Yes Vital signs: Temperature 98.1 F Pulse Rate 83 Respiratory Rate 17 Blood Pressure 130/72 Pulse Oximetry 92 Oxygen Delivery Me thod Room Air Oxygen Flow Rate Fraction of Inspir ed Oxygen Hydration adequate: Yes Nausea and vomiting: No Pain level: 1 Mental status: Baseline
--- NOTE | 2021-10-29 08:03 | SUR.OPER ---
10/28/[address] PARK THAT THE LYMPH NODE SPECIMEN WAS A PERMANENT SPECIMEN, VERIFIED THAT IT WAS.
== END 2021-10-28 11:45 | disposition home or self-care (01) ==
PROVIDERS: PCP Family Medicine; Visit Provider Surgery
PROC: (CPT 36561; principal; 2021-10-28 09:00)
PROC: (CPT 36561; 2021-10-28 09:00)
DX: C85.10 Unspecified B-cell lymphoma, unspecified site (principal); R22.1 Localized swelling, mass and lump, neck; I10 Essential (primary) hypertension
CPT/HCPCS: 36561; 38510; 71045; 77001; 88305; 96365; C1788; J0690; J1644; J2704; J3010; J3490; J7030

== ENCOUNTER 2021-11-04 15:08 | Observation (INO) | payer MEDICARE, BC, SELFPAY ==
[2021-11-04] VITALS (11 sets, daily range): BP systolic 79–118; BP diastolic 50–72; PULSE 74–165; RESP 12–24; TEMP 36.6–36.9; O2SAT 90–95; BMI 27.6; BMI 27.1
--- NOTE | 2021-11-04 15:46 | XR_ITS ---
WS: [id number] PORTABLE CHEST HISTORY: Dyspnea COMPARISON: 10/28/2021 RIGHT sided Mediport tip in distal SVC. Blunting of the LEFT costophrenic angle consistent with a small effusion. Normal vasculature. RIGHT l beck is clear. No pneumothorax. Cardiac size: Mildly enlarged cardiac silhouette. Mediastinum/Aorta: Mildly ectatic aorta. Severe LEFT glenohumeral joint disease. XR/XR chest 1V portable [id number] IMPRESSION: 1. Small LEFT pleural effusion, slightly increased in size since the prior guanaco dy. 2. Right-sided Mediport remains in good position.
--- NOTE | 2021-11-04 15:47 | ECG_ITS ---
[facility] Test Date: 2021-11-04 Pat Name: Janet Jose Department: Room: Gender: Female Cafeteria Table Attendant: : 1935 Requested By: Shai Brtio Order Number: [id number] Yessenia MD: Guido Castanon M.D. Measurements Intervals [place] Rate: 115 P: 85 [place]: 153 QRS: 92 QRSD: 122 T: 77 QT: 317 QTc: 439 Interpretive Statements SINUS TACHYCARDIA WITH OCCASIONAL SUPRAVENTRICULAR PREMATURE COMPLEXES ANTEROLATERAL MYOCARDIAL INFARCTION , OF INDETERMINATE AGE [40+ ms Q WAVE IN I/aVL/V3-V6] Compared to ECG 09/20/2021 21:15:26 Myocardial infarct finding now present Sinus rhythm no longer present Left anterior fascicular block no longer present Left ventricular hypertrophy no longer present ST (T wave) deviation no longer present Electronically Signed On 11-05-2021 8:46:32 ELECTRONICS ENGINEERING TECHNOLOGIST by Guido Castanon M.D. [id number]
--- NOTE | 2021-11-04 16:01 | ED_ITS ---
HPI - Arrhythmia/Palpitations General: Chief Complaint: Arrhythmia/Palpitations Stated Complaint: HR 167 P/LEANDRO - U/S FOR DR Daryl TAVARES Time Seen by Provider: 11/04/21 15:46 History of Present Illness: HPI narrative: 86-year-old female presents emergency room with tachycardia. She was getting an echocardiogram done and noted her heart rate was very rapid. On arrival here she has some lightheaded dizziness denies any chest comfort her heart rate is in the 160s. Interestingly with coaching twice she was able to get her heart rate dropped into the 110 with the Valsalva maneuver. After the time is dictation is still holding. While I was in the room initially we had her do it it dropped and then while we are still reviewing her history it went back up to the 150s 60s and then dropped again with a second Valsalva maneuver. She has not had this before. She does have a history of a B-cell lymphoma for which she recently had a port placed in the right subclavian area. She also has noticed some swelling in her left leg she had been attributing that to her recent course of steroids she was on. She is denying any chest pain at this time. MD complaint: rapid heart beat and heart racing Onset (ago): minute(s) Duration: constant Severity: moderate Context: occurred during rest Associated symptoms: Reports short of breath; Deny anxiety, cough, diaphoresis, muscle cramps, nausea, paresthesias, pre- syncope, sense of impending doom, syncope or vomiting Review of Systems Const: Denies: diaphoresis ENMT: Denies: throat pain, ear or mastoid pain, nasal discharge or nasal congestion Card: Denies: syncope or pre-syncope Resp: Denies: dyspnea, productive cough or non-productive cough GI: Denies: nausea or vomiting : Denies: flank pain, difficulty voiding, dysuria, urinary frequency or urinary urgency Musc: Denies: muscle cramps Skin/Breast: Denies: rash or pruritus Psych: Denies: anxiety PFSH ED PFSH: Medical History B-cell lymphoma Hypertension MGUS (monoclonal gammopathy of unknown significance) Peripheral neuropathy Polyarthritis Retroperitoneal lymphadenopathy Splenomegaly Surgical History H/O lymph node biopsy (10/28/21) left cervical H/O mastectomy History of hysterectomy Port-A-Cath in place (10/28/21) Status post colonoscopy Family History Other Cancer Social History Smoking and tobacco status: never smoked Alcohol intake: never Housing: House Physical Exam Const: COMMON NORMALS: no acute distress GENERAL APPEARANCE: cooperative and comfortable ORIENTATION/CONSCIOUSNESS: Yes awake, Yes oriented to person, Yes oriented to place and Yes oriented to time HENMT: COMMON NORMALS: normocephalic, atraumatic and hearing grossly normal bilaterally HEAD & SCALP: normocephalic and atraumatic Neck/C-Spine: COMMON NORMALS: no JVD Resp: COMMON NORMALS: normal respiratory effort, No retractions, No use of accessory muscles and clear to auscultation bilaterally AUSCULTATION: clear to auscultation bilaterally Cardio: COMMON NORMALS: no JVD and No murmurs present (Cardio) RATE: tachycardic RHYTHM: abnormal rhythm GI: COMMON NORMALS: Soft to palpation and No hepatosplenomegaly present AUSCULTATION: Yes normoactive bowel sounds PALPATION: Yes Soft to palpation, No Tenderness to palpation present (GI), No Guarding due to palpation present (GI) and Yes No hepatosplenomegaly present Extremity: COMMON NORMALS: normal to inspection, capillary refill normal, no clubbing, cyanosis or edema, no calf tenderness and no pedal edema Neuro: SENSORIUM/ORIENTATION: Yes oriented to person, Yes oriented to place and Yes oriented to time Skin: COMMON NORMALS: no rashes or lesions noted GENERAL SKIN EXAM: no rashes or lesions noted Course Vital Signs: Vital signs: Vital Signs Temperature 98.5 F 11/05/21 13:22 Pulse Rate 88 11/05/21 13:22 Respiratory Rate 18 11/05/21 13:22 Blood Pressure 97/55 11/05/21 13:22 Pulse Oximetry 96 11/05/21 13:22 MDM - Arrhythmia/Palpitations MDM Narrative: Medical decision making narrative: Initially presented with a narrow type complex tachycardia that resolved with Valsalva maneuver. She has no history of atrial fibrillation she has been on digoxin in the past. Her heart rate has remained well controlled since a Valsalva maneuver we will go ahead and admit her discussed with hospitalist. She will need to be monitored for rate control and have medication adjusted.Discussed with hospitalist orders written. Lab Data: Labs: Lab Results 11/04/21 11/04/21 11/04/21 15:50 15:50 15:50 WBC 15.4 10^3/uL H 10 ^3/uL (4.0-10.0) RBC 4.70 10^6/uL 10^6 /uL (4.1-5.3) Hgb 14.0 g/dL g/dL (11.5-15.3) Hct 42.3 % % (37.0-47.0) MCV 90.0 fl fl (81-99) MCH 29.8 pg pg (28.0-34.0) MCHC 33.1 g/dL g/dL (30.0-36.0) RDW 13.8 % % (12.1-15.1) Plt Count 276 10^3/cmm 10^3 /cmm (130-400) MPV 9.0 fL fL (7.4-10.4) Neut % (Auto) 79.6 % % Lymph % (Auto) 11.2 % % [place] % (Auto) 8.5 % % Eos % (Auto) 0.1 % % Baso % (Auto) 0.1 % % Neut # (Auto) 12.24 10^3/uL H 1 0^3/uL (1.8-7.7) Lymph # (Auto) 1.7 10^3/uL 10^3/ uL (0.8-4.8) [place] # (Auto) 1.3 10^3/uL H 10^ 3/uL (0.2-0.9) Eos # (Auto) 0.0 10^3/uL 10^3/ uL (0.0-0.8) Baso # (Auto) 0.0 10^3/uL 10^3/ uL (0.0-0.1) Nucleated RBC % (a uto) 0 % % Nucleated RBCs # 0.0 /100WBC /100W BC D-Dimer Sodium 138 mmol/L mmol/L (136-145) Potassium 4.2 mmol/L mmol/L (3.5-5.1) Chloride 103 mmol/L mmol/L (98-107) Carbon Dioxide 19 mmol/L L mmol/ L (22-29) Anion Gap 20.2 H (5-19) BUN 31 mg/dL H mg/dL (8-23) Creatinine 0.7 mg/dL mg/dL (0.5-0.9) GFR Calculation Not Reportable Glucose 98 mg/dL mg/dL (65-115) Calculated Osmolal ity 293 mOsm/kg mOsm/ kg (285-295) Calcium 10.0 mg/dL mg/dL (8.5-10.5) Total Bilirubin 0.8 mg/dL mg/dL (0.15-1.2) AST 24 U/L U/L (0-32) ALT 20 U/L U/L (0-33) Alkaline Phosphata se 62 IU/L IU/L (35-105) Troponin T Baselin e 112 ng/L H* ng/L (0-10) Troponin T 120 Min andreafski Delta Troponin T Total Protein 6.6 g/dL g/dL (6.6-8.7) Albumin 3.8 g/dL g/dL (3.5-5.2) Globulin 2.8 g/dL g/dL (1.3-4.6) 11/04/21 11/04/21 15:50 17:51 WBC RBC Hgb Hct MCV MCH MCHC RDW Plt Count MPV Neut % (Auto) Lymph % (Auto) [place] % (Auto) Eos % (Auto) Baso % (Auto) Neut # (Auto) Lymph # (Auto) [place] # (Auto) Eos # (Auto) Baso # (Auto) Nucleated RBC % (a uto) Nucleated RBCs # D-Dimer >= 20.00 ug/mIFEU H ug/mIFEU (0-0.59) Sodium Potassium Chloride Carbon Dioxide Anion Gap BUN Creatinine GFR Calculation Glucose Calculated Osmolal ity Calcium Total Bilirubin AST ALT Alkaline Phosphata se Troponin T Baselin e Troponin T 120 Min andreafski 119.2 ng/L H ng/L (0-10) Delta Troponin T 7.2 ABS# ABS# (0-10) Total Protein Albumin Globulin Discharge Plan Discharge Patient Disposition: Admitted As Inpatient Admit Provider: Martin,Hall Clinical Impression: Sinus tachycardia, B-cell lymphoma Condition: Stable Discharge Diet: Cardiac Discharge Activity: Increase activity as tolerated Coding Level of Care Code ED Representative Government Relations for Shayla Ramírez
[2021-11-04] MEDS: sodium chloride 0.9% 500 ML 999 ML IV (16:09)
[2021-11-04 16:10] LABS: Basophils % 0.1 %; Eosinophils % 0.1 %; Hematocrit 42.3 % (37.0-47.0); Lymphocytes # 1.7 10^3/uL (0.8-4.8); Lymphocytes % 11.2 %; Mean Corpuscular HGB Conc 33.1 g/dL (30.0-36.0); Mean Corpuscular Hemoglobin 29.8 pg (28.0-34.0); Monocytes # 1.3 10^3/uL (0.2-0.9); Monocytes % 8.5 %; Neutrophils # 12.24 10^3/uL (1.8-7.7); Neutrophils % 79.6 %; Nucleated Red Blood Cells % 0 %; Platelet Count 276 10^3/cmm (130-400); Red Cell Distribution Width 13.8 % (12.1-15.1); White Blood Count 15.4 10^3/uL (4.0-10.0)
[2021-11-04 16:40] LABS: Alanine Aminotransferase 20 U/L (0-33); Albumin Level 3.8 g/dL (3.5-5.2); Alkaline Phosphatase 62 IU/L (35-105); Anion Gap 20.2 (5-19); Aspartate Amino Transferase 24 U/L (0-32); Blood Urea Nitrogen 31 mg/dL (8-23); Carbon Dioxide 19 mmol/L (22-29); Chloride 103 mmol/L (98-107); Creatinine Clr Calc Pharmacy 55.0421; Globulin 2.8 g/dL (1.3-4.6); Glucose 98 mg/dL (65-115); Osmolality Calculated 293 mOsm/kg (285-295); Potassium 4.2 mmol/L (3.5-5.1); Sodium 138 mmol/L (136-145); Total Bilirubin 0.8 mg/dL (0.15-1.2); Total Protein 6.6 g/dL (6.6-8.7)
[2021-11-04 16:42] LABS: Troponin(5th) Baseline 112 ng/L (0-10)
--- NOTE | 2021-11-04 17:40 | P.HP_ITS ---
Providers/Chief Complaint Primary Care Provider: Bianca Tavares MD Chief Complaint: HR 167 P/LEANDRO - U/S FOR DR Daryl TAVARES History of Present Illness Janet Jose is a 86 year old female retroperitoneal mass biopsy-proven B-cell lymphoma diffuse large B cell status post recent Port-A-Cath placement on 10/[address] Cloud, R-CHOP is under consideration, presented today for chief complaint palpitations. She was recently discharged from the hospital after management of hypovolemic hyponatremia. In the past she was on digoxin however not on any anticoagulating agent no previous history of A. fib. Patient is stating that today she had an appointment to get an EKG before starting of her chemotherapeutic agent. When EKG was done it was showing narrow complex tachycardia heart rate in 170s, she was not feeling any chest pain or shortness of breath. No recent fever, nausea, vomiting. Because of worsening hip pain she has been put on prednisone, she finished her prednisone course yesterday. She has been leading a sedentary lifestyle noticed worsening swelling of her left leg. She also has a bedsore stage I of right hip area. In the ER her heart rate improved with Valsalva twice when I saw her her heart rate was fluctuant between 90-1 10 sinus tachycardia, no active complaints family at the bedside Review of Systems Const: Reports: chills, body aches and fatigue Eyes: Denies: change in vision ENMT: Reports: other (Left supraclavicular mass); Denies: throat pain Card: Reports: palpitations and lightheadedness Resp: Denies: dyspnea GI: Denies: abdominal pain : Denies: flank pain Musc: Reports: muscle cramps Skin/Breast: Reports: lesions Neuro: Denies: headache(s) Psych: Reports: anxiety Endo: Denies: polyuria Ulysses/Lymph: Denies: easy bruising All/Imm: Denies: urticaria Medications/Allergies Home Medications Medication Instructions Recorded Confirmed Last Taken Type hydrocodone-acetaminophen 1 tab PO Q6H PRN #14 tab 09/02/21 10/28/21 10/27/21 Rx ondansetron 4 mg PO Q6H PRN #14 tab 09/02/21 10/28/21 10/27/21 Rx gabapentin 300 mg PO TID 09/20/21 10/28/21 10/27/21 History morphine 15 mg PO BID 09/20/21 10/28/21 10/28/21 History lisinopril 5 mg PO DAILY 10/27/21 10/28/21 10/27/21 History Allergies Allergy/AdvReac Type Severity Reaction Status Date / Time No Known Allergies Allergy Verified 10/28/21 08:03 PFSH Acute PFSH: Medical History B-cell lymphoma Hypertension MGUS (monoclonal gammopathy of unknown significance) Peripheral neuropathy Polyarthritis Retroperitoneal lymphadenopathy Splenomegaly Surgical History H/O lymph node biopsy (10/28/21) left cervical H/O mastectomy History of hysterectomy Port-A-Cath in place (10/28/21) Status post colonoscopy Family History Other Cancer Social History Smoking and tobacco status: never smoked Alcohol intake: never Housing: House Vitals/I&O/Wt Last Vital Signs Temp 98.5 F 11/04/21 15:21 Pulse 92 11/04/21 17:05 Resp 12 11/04/21 17:05 BP 106/67 11/04/21 17:05 Pulse Ox 95 11/04/21 17:05 Weight last 48 hrs Weight 77.564 kg Physical Exam Narrative: EXAM NARRATIVE: elderly female Narrow complex tachycardia noted on telemetry Hemodynamically stable Saturating well on room air S1, S2 No acute respiratory distress Third spacing, left leg swollen as compared to right, right arm also swollen, right sided Port-A-Cath with good granulation tissue around the surgical site, bruises noted around the site EOMI, PERRLA Soft abdomen Left supraclavicular lymphadenopathy Data : 11/04/21 15:50 11/04/21 15:50 A&P Assessment and plan (1) B-cell lymphoma: Status: Acute (2) Retroperitoneal mass: Status: Acute (3) Supraclavicular mass: Status: Acute (4) Narrow complex tachycardia: Status: Acute Additional A&P Information Narrow complex tachyarrhythmia Improved with Valsalva Previous which she was on digoxin, never had diagnosis of A. fib Patient denies use of anticoagulating agent in the past Check TSH, mag level, We'll start her on low-dose metoprolol once blood pressure is stable History of cardioversion in the past Requested venous Doppler and CTA chest rule out clot, will give her therapeutic dose of Lovenox for now History of diffuse large B-cell lymphoma plan for R-CHOP treatment as per Dr. Rolle's note Recent Port-A-Cath placement Monitor overnight on telemetry Full code Cardiac diet DVT prophylaxis on board Attestations Medical Necessity Statement*: Less than 2 midnights anticipated Time Spent in Patient Care: Greater than 35 minutes Coding Level of Care Code Acute Oral Surgery Assistant for Irisg Fwd Diagnoses B-cell lymphoma C85.10 Retroperitoneal mass R19.00 Supraclavicular mass R22.2 Narrow complex tachycardia I47.1
--- NOTE | 2021-11-04 17:47 | ECG_ITS ---
[facility] Test Date: 2021-11-04 Pat Name: Janet Jose Department: Room: Gender: Female Business Support Liaison: : 1935 Requested By: Shai Brito Order Number: [id number] Yessenia MD: Guido Castanon M.D. Measurements Intervals [place] Rate: 93 P: 53 UT: 164 QRS: 27 QRSD: 128 T: 76 QT: 362 QTc: 451 Interpretive Statements SINUS RHYTHM WITH OCCASIONAL SUPRAVENTRICULAR PREMATURE COMPLEXES LEFT BUNDLE BRANCH BLOCK [120+ ms QRS DURATION, 80+ ms Q/S IN V1/V2, 85+ ms R IN I/aVL/V5/V6] Compared to ECG 11/04/2021 15:40:49 Left bundle-branch block now present Sinus tachycardia no longer present Myocardial infarct finding no longer present Electronically Signed On 11-05-2021 9:09:20 CORE SHAPER by Guido Castanon M.D. [id number] f
--- NOTE | 2021-11-04 17:53 | CTR_ITS ---
PROCEDURE INFORMATION: Exam: CTA Chest With Contrast Exam date and time: 11/04/2021 5:53 PM Age: 86 years old Clinical indication: Other: Tachycardia; Prior surgery; Surgery type: Port, mastectomy; Patient HX: HX of breast cancer and lymphoma; Additional info: Sinus tachycardia TECHNIQUE: Imaging protocol: Computed tomographic angiography of the chest with contrast. 3D rendering (Not supervised by radiologist): MIP and/or 3D reconstructed images were created by the technologist. Radiation optimization: All CT scans at this facility use at least one of these dose optimization techniques: automated exposure control; mA and/or kV adjustment per patient size (includes targeted exams where dose is matched to clinical indication); or iterative reconstruction. Contrast material: OMNI 350; Contrast volume: 66 ml; Contrast route: INTRAVENOUS (IV); COMPARISON: CT angio chest PE protcl [id number] 09/21/2021 12:07 PM RADIATION DOSE METRICS: Total DLP (mGy-cm): 469.93 FINDINGS: Pulmonary arteries: There are filling defects in bilateral pulmonary artery branches consistent with bilateral acute pulmonary emboli. Some large central emboli are identified in right upper lobe branches and in the left upper lobe as well. Aorta: There is no thoracic aortic aneurysm or dissection. Lungs: There is some mild ground-glass opacity in posterior portions of the left lower lobe which could represent some hypoventilation or focal edema. There is also some minimal ground-glass opacity at the right lung base. Pleural spaces: There is a small left pleural effusion which is larger than on the previous examination. Heart: There is moderate atherosclerotic calcification of the coronary arteries. There are findings suggesting right heart strain with RV to LV ratio of 1.2. Lymph nodes: Unremarkable. No enlarged lymph nodes. Adrenal glands: Left adrenal enlargement is not significantly changed. Bones/joints: Unremarkable. No acute fracture. Soft tissues: There is a large periaortic soft tissue mass along left side of the abdominal aorta in the upper abdomen not fully imaged on this examination but probably smaller than on 09/21/2021. Supraclavicular soft tissue mass left side of the base of the neck appears slightly smaller than on the prior study when measured in the axial plane measuring 33 x 32 mm compared with 38 x 34 mm. There does appear to be greater degree of posterior to extension of the mass into the right paraspinous region such as an image number [address]/CT angio chest PE protcl [id number] IMPRESSION: 1. Acute pulmonary embolism. 2. Left supraclavicular mass with equivocal change compared with 09/21/2021. 3. Left side periaortic mass not fully imaged, probably smaller than on 09/21/2021.
[2021-11-04 18:17] LABS: Troponin 5 2HR Delta 7.2 ABS# (0-10)
[2021-11-04 18:19] LABS: Troponin 5 2HR 119.2 ng/L (0-10)
--- NOTE | 2021-11-04 18:20 | PC.NURSE ---
2hr trop 119.[address] Dickson.
[2021-11-04] MEDS: iohexol 350 mg/mL 100 mL Btl IV (18:38)
[2021-11-04 19:15] LABS: D Dimer >= 20.00 ug/mIFEU (0-0.59)
[2021-11-04] MEDS: enoxaparin 80 mg/0.8 mL Syringe SUBCUT (21:20)
[2021-11-04] MEDS: metoprolol tartrate 25 mg Tablet 12.5 MG PO (21:20)
[2021-11-04] MEDS: morphine ER (12 HR) 15 mg Tablet PO (21:21)
[2021-11-04] MEDS: gabapentin 300 mg Capsule PO (21:21)
[2021-11-04] MEDS: sodium chloride 0.9% 1,000 ML 100 ML IV (21:21)
--- NOTE | 2021-11-04 21:47 | ECG_ITS ---
[facility] Test Date: 2021-11-04 Pat Name: Janet Jose Department: Room: 112 Gender: Female Master Rigger: : 1935 Requested By: Shai Brito Order Number: [id number] Yessenia MD: Guido Castanon M.D. Measurements Intervals [place] Rate: 87 P: 38 TN: 173 QRS: -26 QRSD: 134 T: 70 QT: 384 QTc: 462 Interpretive Statements SINUS RHYTHM LEFT BUNDLE BRANCH BLOCK [120+ ms QRS DURATION, 80+ ms Q/S IN V1/V2, 85+ ms R IN I/aVL/V5/V6] Compared to ECG 11/04/2021 17:23:03 No significant changes Electronically Signed On 11-05-2021 8:54:38 HEMATOLOGY TECHNOLOGIST by Guido Castanon M.D. [id number]
[2021-11-04] MEDS: HYDROcodone-acetaminophen 5-325 mg Tablet 1 TAB PO (22:15)
[2021-11-04 22:19] LABS: Troponin 5 6HR Delta 8.3 ng/L (0-12)
[2021-11-04 22:22] LABS: Troponin 5 6HR 120.3 ng/L (0-10)
[2021-11-05 04:00] VITALS: BP 113/53; PULSE 77; RESP 16; O2SAT 94
[2021-11-05 04:11] LABS: Basophils % 0.1 %; Eosinophils % 0.1 %; Hematocrit 37.2 % (37.0-47.0); Hemoglobin 12.1 g/dL (11.5-15.3); Lymphocytes # 1.5 10^3/uL (0.8-4.8); Mean Corpuscular HGB Conc 32.5 g/dL (30.0-36.0); Mean Corpuscular Hemoglobin 29.4 pg (28.0-34.0); Mean Corpuscular Volume 90.3 fl (81-99); Mean Platelet Volume 9.2 fL (7.4-10.4); Monocytes # 0.9 10^3/uL (0.2-0.9); Monocytes % 9.6 %; Neutrophils # 6.93 10^3/uL (1.8-7.7); Neutrophils % 73.7 %; Nucleated Red Blood Cells % 0 %; Platelet Count 206 10^3/cmm (130-400); Red Blood Count 4.12 10^6/uL (4.1-5.3); Red Cell Distribution Width 13.8 % (12.1-15.1); White Blood Count 9.4 10^3/uL (4.0-10.0)
[2021-11-05 04:34] LABS: Alanine Aminotransferase 15 U/L (0-33); Albumin Level 3.2 g/dL (3.5-5.2); Alkaline Phosphatase 51 IU/L (35-105); Anion Gap 15.7 (5-19); Aspartate Amino Transferase 17 U/L (0-32); Blood Urea Nitrogen 27 mg/dL (8-23); Carbon Dioxide 22 mmol/L (22-29); Chloride 105 mmol/L (98-107); Globulin 2.5 g/dL (1.3-4.6); Glucose 79 mg/dL (65-115); Osmolality Calculated 292 mOsm/kg (285-295); Potassium 3.7 mmol/L (3.5-5.1); Sodium 139 mmol/L (136-145); Total Bilirubin 1.1 mg/dL (0.15-1.2); Total Protein 5.7 g/dL (6.6-8.7)
[2021-11-05 04:36] LABS: Magnesium 1.7 mg/dL (1.7-2.3)
[2021-11-05 05:07] VITALS: PULSE 74
[2021-11-05] MEDS: enoxaparin 80 mg/0.8 mL Syringe SUBCUT (07:46)
[2021-11-05] MEDS: sodium chloride 0.9% 1,000 ML 100 ML IV (07:46)
[2021-11-05] MEDS: gabapentin 300 mg Capsule PO (07:47)
[2021-11-05] MEDS: metoprolol tartrate 25 mg Tablet 12.5 MG PO (07:48)
[2021-11-05] MEDS: morphine ER (12 HR) 15 mg Tablet PO (07:48)
[2021-11-05] MEDS: pantoprazole DR 40 mg Tablet PO (07:48)
[2021-11-05 08:04] LABS: NT Pro B Type Natriuretic Pept 506 pg/mL (0-450)
--- NOTE | 2021-11-05 09:04 | P.DS_ITS ---
Discharge Providers Date of Admission: 11/04/21 18:13 Date of Discharge: November 05, 2021 Attending Provider at Admission: Rafael Salazar MD Attending Provider at Discharge: Rafael Salazar MD Primary Care Provider: Bianca Tavares MD Diagnoses at Discharge Discharge Diagnosis (1) B-cell lymphoma: Status: Acute (2) Retroperitoneal mass: Status: Acute (3) Supraclavicular mass: Status: Acute (4) Narrow complex tachycardia: Status: Acute Reason for Visit Reason for Visit: HR 167 P/LEANDRO - U/S FOR DR Daryl TAVARES Hospital Course Hospital Course History of Present Illness Janet Jose is a 86 year old female 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 Cloud, -[facility] is under consideration, presented today for chief complaint palpitations. She was recently discharged from the hospital after management of hypovolemic hyponatremia. In the past she was on digoxin however not on any anticoagulating agent no previous history of A. fib. Patient is stating that today she had an appointment to get an EKG before starting of her chemotherapeutic agent. When EKG was done it was showing narrow complex tachycardia heart rate in 170s, she was not feeling any chest pain or shortness of breath. No recent fever, nausea, vomiting. Because of worsening hip pain she has been put on prednisone, she finished her prednisone course yesterday. She has been leading a sedentary lifestyle noticed worsening swelling of her left leg. She also has a bedsore stage I of right hip area. In the ER her heart rate improved with Valsalva twice when I saw her her heart rate was fluctuant between 90-1 10 sinus tachycardia, no active complaints family at the bedside Hospital course Patient was admitted for management evaluation of left lower leg edema, tachyarrhythmia. Overnight patient heart rate remained in sinus rhythm, heart rate in 70s. She was started on low-dose metoprolol. She was diagnosed with acute bilateral pulmonary embolism and left leg DVT. Started on Eliquis loading dose at the time of discharge, patient was instructed to get another leg ultrasound to monitor progression of DVT. Patient wants to spend [place] at home, she will be discharged home with metoprolol low-dose twice daily regimen along Eliquis. Family updated. She never complained of chest pain or shortness of breath, troponin are elevated most likely secondary to tachyarrhythmia, EKG nonspecific for any ischemic or infarctive changes, she was started on therapeutic dose of Lovenox at the time of admission, echo to see wall motion abnormality. Physical Exam Narrative: EXAM NARRATIVE: Patient was eating her breakfast Saturating well on room air Heart rate sinus rhythm in 70s Abdomen soft Third spacing, 2+ edema of extremities left greater than right EOMI, PERRLA Nonfocal exam Awake and alert In good spirits Discharge Data Data Completed and Pending: Completed Studies During Hospitalization Category Date Time Status CT angio chest PE protcl [id number] Urge nt Cat Scan 11/04/21 17:53 Completed XR chest 1V raf ble [id number] Stat Exams 11/04/21 15:46 [place] [id number] Routin e Ultrasound 11/05/21 19:58 Completed Pending at discharge Category Date Time Status CV. echo complete * [id number] Routine Ultrasound 11/05/21 19:58 Taken Labs from last 24 hours 11/05/21 11/05/21 11/05/21 03:51 03:51 03:51 WBC RBC Hgb Hct MCV MCH MCHC RDW Plt Count MPV Neut % (Auto) Lymph % (Auto) [place] % (Auto) Eos % (Auto) Baso % (Auto) Neut # (Auto) Lymph # (Auto) [place] # (Auto) Eos # (Auto) Baso # (Auto) Nucleated RBC % (a uto) Nucleated RBCs # D-Dimer Sodium Potassium Chloride Carbon Dioxide Anion Gap BUN Creatinine GFR Calculation Glucose Calculated Osmolal ity Calcium Magnesium 1.7 Total Bilirubin AST ALT Alkaline Phosphata se Troponin T Baselin e Troponin T 120 [address] [place] Delta Troponin T Troponin T Hi Sens 6Hr Troponin T Hi Sens 6Hr Delta NT-Pro-B Natriuret Pep 506 H Total Protein Albumin Globulin Procalcitonin 0.30 11/05/21 11/05/21 11/04/21 03:51 03:51 21:41 WBC 9.4 RBC 4.12 Hgb 12.1 Hct 37.2 MCV 90.3 MCH 29.4 MCHC 32.5 RDW 13.8 Plt Count 206 MPV 9.2 Neut % (Auto) 73.7 Lymph % (Auto) 16.0 [place] % (Auto) 9.6 Eos % (Auto) 0.1 Baso % (Auto) 0.1 Neut # (Auto) 6.93 Lymph # (Auto) 1.5 [place] # (Auto) 0.9 Eos # (Auto) 0.0 Baso # (Auto) 0.0 Nucleated RBC % (a uto) 0 Nucleated RBCs # 0.0 D-Dimer Sodium 139 Potassium 3.7 Chloride 105 Carbon Dioxide 22 Anion Gap 15.7 BUN 27 H Creatinine 0.6 GFR Calculation Not Reportable Glucose 79 Calculated Osmolal ity 292 Calcium 9.0 Magnesium Total Bilirubin 1.1 AST 17 ALT 15 Alkaline Phosphata se 51 Troponin T Baselin e Troponin T 120 [address] [place] Delta Troponin T Troponin T Hi Sens 6Hr 120.3 H Troponin T Hi Sens 6Hr Delta 8.3 NT-Pro-B Natriuret Pep Total Protein 5.7 L Albumin 3.2 L Globulin 2.5 Procalcitonin 11/04/21 11/04/21 11/04/21 17:51 15:50 15:50 WBC RBC Hgb Hct MCV MCH MCHC RDW Plt Count MPV Neut % (Auto) Lymph % (Auto) [place] % (Auto) Eos % (Auto) Baso % (Auto) Neut # (Auto) Lymph # (Auto) [place] # (Auto) Eos # (Auto) Baso # (Auto) Nucleated RBC % (a uto) Nucleated RBCs # D-Dimer >= 20.00 H Sodium Potassium Chloride Carbon Dioxide Anion Gap BUN Creatinine GFR Calculation Glucose Calculated Osmolal ity Calcium Magnesium Total Bilirubin AST ALT Alkaline Phosphata se Troponin T Baselin e 112 H* Troponin T 120 Min [place] 119.2 H Delta Troponin T 7.2 Troponin T Hi Sens 6Hr Troponin T Hi Sens 6Hr Delta NT-Pro-B Natriuret Pep Total Protein Albumin Globulin Procalcitonin 11/04/21 11/04/21 15:50 15:50 WBC 15.4 H RBC 4.70 Hgb 14.0 Hct 42.3 MCV 90.0 MCH 29.8 MCHC 33.1 RDW 13.8 Plt Count 276 MPV 9.0 Neut % (Auto) 79.6 Lymph % (Auto) 11.2 [place] % (Auto) 8.5 Eos % (Auto) 0.1 Baso % (Auto) 0.1 Neut # (Auto) 12.24 H Lymph # (Auto) 1.7 [place] # (Auto) 1.3 H Eos # (Auto) 0.0 Baso # (Auto) 0.0 Nucleated RBC % (a uto) 0 Nucleated RBCs # 0.0 D-Dimer Sodium 138 Potassium 4.2 Chloride 103 Carbon Dioxide 19 L Anion Gap 20.2 H BUN 31 H Creatinine 0.7 GFR Calculation Not Reportable Glucose 98 Calculated Osmolal ity 293 Calcium 10.0 Magnesium Total Bilirubin 0.8 AST 24 ALT 20 Alkaline Phosphata se 62 Troponin T Baselin e Troponin T 120 [address] [place] Delta Troponin T Troponin T Hi Sens 6Hr Troponin T Hi Sens 6Hr Delta NT-Pro-B Natriuret Pep Total Protein 6.6 Albumin 3.8 Globulin 2.8 Procalcitonin Vitals: Last Vital Signs Temp 97.9 F 11/04/21 23:40 Pulse 74 11/05/21 05:07 Resp 16 11/05/21 04:00 BP 113/53 11/05/21 04:00 Pulse Ox 94 11/05/21 04:00 Discharge Plan Discharge Patient Disposition: Home Condition: Stable Prescriptions: New metoprolol tartrate 25 mg Tablet 12.5 mg PO BID@0900,2100 Qty: 60 RF: 3 Eliquis DVT-PE Treat 30D Start 5 mg (74 tabs) tablets,dose pack See Rx Instructions .ROUTE .COMPLEX Qty: 74 RF: 3 Continued ondansetron 4 mg tablet,disintegrating 4 mg PO Q6H PRN (Reason: nausea and vomiting) Qty: 14 RF: 0 gabapentin 300 mg capsule 300 mg PO TID RF: 0 lisinopril 5 mg Tablet 5 mg PO DAILY RF: 0 Discharge Orders: Discharge Order (Routine); Ordered 11/05/21 Ordered By: Rafael Salazar Other Ambulatory Orders: [place] [id number] (Routine) Timeframe: 3 Months Location: [facility] Ordered By: Rafael Salazar Referrals: Bianca Tavares MD [Primary Care Provider] - 2 weeks (You have a hospital follow up appointment with Dr. Tavares on November 17, at 11:15am. If you have any questions or concerns please call the office. ) Discharge Diet: Cardiac Discharge Activity: Increase activity as tolerated Patient Instructions: Metoprolol (By mouth), Apixaban (By mouth), Pulmonary Embolism (DC), Deep Vein Thrombosis (DC), Opioid Safety Activity Restrictions/Additional Instructions: Please take Eliquis 10 mg twice a day for 7 days and then you will take 5 mg twice daily onwards To control your heart rate you will take metoprolol twice a day If your blood pressure is less than 90 mmHg or heart rate less than 60 please do not take metoprolol If you notice any dark-colored stool stop taking Eliquis If you need refills on Eliquis please call your PCP Discharge Attestations Time Spent in Discharge Care*: less than 30 min Quality Metrics Clinical Quality Measures During this hospital stay, did patient experience: None Coding Level of Care Code Acute Chg FW DC note Diagnoses B-cell lymphoma C85.10 Retroperitoneal mass R19.00 Supraclavicular mass R22.2 Narrow complex tachycardia I47.1
[2021-11-05 09:31] VITALS: BP 123/65; PULSE 74; RESP 13; TEMP 36.9; O2SAT 93
--- NOTE | 2021-11-05 11:32 | PC.CHAP ---
Pastoral Care Encounter/Spiritual Assessment Type of Contact [] Declined oven operator visit [] Patient/Family/Request visit [] Outpatient visit [] Follow-up visit [] Physician referral [] Code/Alert [x] Routine visit [] Staff referral [] Actively dying [] Patient sleeping [] Family support [] [] Out of room [] Palliative care [] [x] Receiving care in room [] Pre-surgical visit [] Trauma [] Long length of stay [] ICU visit [] Other: Relational/Emotional Strength [x] Patient feels connected with others/family/visitors/staff [] Distress [] Loneliness/isolation [] Abandonment Spirituality of Patient [x] Person of Jaimie [] Attends Islam of their Jaimie [x] Believes in Prayer [] Reads Bible or Zoroastrian materials [] There are Spiritual issues to be addressed Table Keeper Interventions [x] Prayer [x] Active listening [x] Non-anxious presence []x Spiritual/emotional support [] Crisis/trauma care [x] Spiritual counseling [] Bereavement support [] Provided bereavement packet [] Provided Bible/devotional materials [] Provided toy/stuffed animal, coloring book to patient or family member [] Provided Communion [] Anointing/[place] [] Salvation [x] Completed spiritual assessment [] Other: Impact on Illness or Injury [] Angry [] Fearful [x] Anxious [] Often cries [] Exhaustion [x] Unable to work [] Unable to attend hinduism [] Unable to walk/stand [] Unable to read [] Unable to drive [] Unable to eat/drink [] Unable to sleep [] Unable to be with family [] Patient intubated [] Other: Summary her heart was oiut of rhyem over night back to normal has a good attitude and is going home today Time spent with patient 10 mins
[2021-11-05 11:37] VITALS: BP 123/65; PULSE 88; RESP 18; TEMP 37; O2SAT 93
[2021-11-05 13:22] VITALS: BP 97/55; PULSE 88; RESP 18; TEMP 36.9; O2SAT 96
--- NOTE | 2021-11-05 13:23 | PC.NURSE ---
Education provided to patient and family regarding DVT and eliquis therapy. Coupon was given for Eliquis. IV discontinued. VS stable upon departure
--- NOTE | 2021-11-05 19:58 | USCV_ITS ---
Janet Jose Age: 86 Gender: F : 1935 Exam Date: 11/05/2021 08:23 Ordering Phys: Rafael Salazar MD Technologist: Exam Location: [facility] Indication: High risk meds BP: 126 / 72 HR: 70 Rhythm: Sinus Technical Quality: Adequate MEASUREMENTS (Male / Female) Normal Values 2D ECHO LV Diastolic Diameter PLAX 3.8 cm 4.2 - 5.9 / 3.9 - 5.3 cm LV Systolic Diameter PLAX 2.6 cm IVS Diastolic Thickness 1.0 cm 0.6 - 1.0 / 0.6 - 0.9 cm IVS Systolic Thickness 1.6 cm LVPW Diastolic Thickness 1.3 cm 0.6 - 1.0 / 0.6 - 0.9 cm LVPW Systolic Thickness 1.6 cm LVOT Diameter 2.1 cm LV Ejection Fraction 2D Teich 61.0 % LV Ejection Fraction MOD 2C 54.5 % LV Ejection Fraction 2C AL 53.4 % LA Diameter 4.0 cm LA Width 2.9 cm LA Height 4.4 cm RA Width 3.4 cm RA Height 4.8 cm Aorta at Sinotubular Diameter 2.8 cm M-MODE RV Diastolic Diameter MM 1.4 cm Aortic Annulus Diameter 3.6 cm LA Ao Ratio MM 1.1 MV E Point Septal Separation 2.1 cm DOPPLER AV Peak Velocity 188.0 cm/s LVOT Peak Velocity 117.0 cm/s AV Area Cont Eq vti 1.9 cm squared AV Area Cont Eq pk 2.2 cm squared MV Area PHT 5.0 cm squared Mitral E to A Ratio 0.7 MV E' Velocity 47.5 cm/s Mitral E to MV E' Ratio 10.1 Mitral E to LV E' Lateral Ratio 9.4 Mitral E to LV E' Septal Ratio 11.0 TR Peak Velocity 177.3 cm/s TR Peak Gradient 12.6 mmHg TV Peak E Velocity 71.0 cm/s Right Atrial Pressure 3.0 mmHg Pulmonary Artery Systolic Pressu 15.6 mmHg FINDINGS Left Ventricle Normal left ventricular size, systolic function and wall thickness, with no regional wall motion abnormalities. Left ventricular ejection fraction is estimated at 65 %. Normal diastolic function. Abnormal septal motion consistent with conduction abnormality. Right Ventricle Probably normal right ankle size and systolic function. Right ventricular systolic pressure 19 mmHg. Right Atrium Normal right atrial size. Left Atrium Mildly increased left atrial size. Mitral Valve Mild mitral annular calcification. Moderately thickened and calcified mitral valve leaflets. No mitral valve stenosis. No mitral valve regurgitation. Aortic Valve Aortic valve not well visualized. No aortic valve stenosis. No aortic valve regurgitation. Tricuspid Valve Structurally normal tricuspid valve. Pulmonic Valve Pulmonic valve not well visualized. Pericardium Small to moderate pericardial effusion more along right ventricular free wall. No evidence of hemodynamic compromise. Aorta Normal size aortic root. CONCLUSIONS 1. This is a technically difficult study. 2. Normal left ventricular size, systolic function and wall thickness, with no regional wall motion abnormalities. Left ventricular ejection fraction is estimated at 65 %. Normal diastolic function. 3. Mild mitral annular calcification. Moderately thickened and calcified mitral valve leaflets. 4. Small to moderate pericardial effusion more along right ventricular free wall. No evidence of hemodynamic compromise. Jodee Stone MD (Electronically Signed) Final Date: 05 November 2021 17:25 S
--- NOTE | 2021-11-05 19:58 | USCV_ITS ---
Janet Jose Age: 86 Gender: F : 1935 Exam Date: 11/05/2021 06:51 Ordering Phys: Rafael Salazar MD Technologist: Shannan Jones [place]am [place] [facility] Indication: SWELLING HISTORY: Lower extremity swelling. PROCEDURES: Venous duplex imaging was performed in bilateral lower extremities. The following venous structures were evaluated: common femoral vein, profunda vein, proximal portion of the greater saphenous vein, superficial femoral vein, and the popliteal vein. In addition, the posterior tibial and peroneal trunk were evaluated. Serial compression, augmentation maneuvers, and spectral Doppler flow evaluation were performed. FINDINGS: Evidence of acute occlusive deep vein thrombosis in the left common femoral vein through the popliteal vein with abnormal flow dynamics. Acute thrombus extends into the GSV. Right lower extremity veins are normal. CONCLUSIONS Acute left lower extremity deep venous thrombosis. Dr. Berkley Mcginnis DO (Electronically Signed) Final Date: 05 November 2021 08:26 S
== END 2021-11-05 12:30 | disposition home or self-care (01) ==
LOC: ER 16:59 → CSU 18:57
PROVIDERS: Hospitalist; Admitting Provider Internal Medicine; Emergency Provider Family Medicine; PCP Family Medicine; Visit Provider Internal Medicine
DX: C85.10 Unspecified B-cell lymphoma, unspecified site (principal); R19.00 Intra-abdominal and pelvic swelling, mass and lump, unspecified site; I47.1 Supraventricular tachycardia; I82.402 Acute embolism and thrombosis of unspecified deep veins of left lower extremity
CPT/HCPCS: 36415; 71045; 71275; 80053; 83735; 83880; 84145; 84484; 85025; 85378; 93005; 93306; 93970; 94664; 96372; 99285; G0378; J1650; J7030; J7040; Q9967

== ENCOUNTER 2021-11-12 08:16 | Outpatient (CLI) | payer MEDICARE, BC, SELFPAY ==
[2021-11-12 08:55] LABS: Basophils % 0.2 %; Eosinophils % 0.4 %; Hematocrit 37.4 % (37.0-47.0); Lymphocytes # 1.1 10^3/uL (0.8-4.8); Mean Corpuscular HGB Conc 32.1 g/dL (30.0-36.0); Mean Corpuscular Hemoglobin 29.5 pg (28.0-34.0); Mean Corpuscular Volume 91.9 fl (81-99); Mean Platelet Volume 9.2 fL (7.4-10.4); Monocytes # 0.6 10^3/uL (0.2-0.9); Monocytes % 7.3 %; Neutrophils # 6.71 10^3/uL (1.8-7.7); Neutrophils % 78.9 %; Nucleated Red Blood Cells % 0 %; Platelet Count 292 10^3/cmm (130-400); Red Blood Count 4.07 10^6/uL (4.1-5.3); Red Cell Distribution Width 14.2 % (12.1-15.1); White Blood Count 8.5 10^3/uL (4.0-10.0)
[2021-11-12 09:17] LABS: Alanine Aminotransferase 13 U/L (0-33); Alkaline Phosphatase 62 IU/L (35-105); Anion Gap 16.1 (5-19); Aspartate Amino Transferase 18 U/L (0-32); Blood Urea Nitrogen 11 mg/dL (8-23); Calcium 8.4 mg/dL (8.5-10.5); Carbon Dioxide 21 mmol/L (22-29); Chloride 108 mmol/L (98-107); Globulin 2.9 g/dL (1.3-4.6); Glucose 84 mg/dL (65-115); Osmolality Calculated 291 mOsm/kg (285-295); Potassium 4.1 mmol/L (3.5-5.1); Sodium 141 mmol/L (136-145); Total Bilirubin 0.6 mg/dL (0.15-1.2); Total Protein 5.9 g/dL (6.6-8.7)
--- NOTE | 2021-11-12 14:57 | ONC FU_ITS ---
Dr. Rolle follow up note Patient: Janet Jose Unit #: [id number]: 1935 Dicatated By: Serg Rolle M.D.Date of Visit:Nov 12, 2021 Onc Med Follow-up/Prog Note History of Present Illness: Ms. Janet Jose, is a 86-year-old female, presented to [facility] ER with nausea, abdominal pain and left neck mass, as per patient she was doing reasonably well prior to that but in first week of August 2021 she noted discomfort in her left abdomen/left upper quadrant area and sometimes in left flank, subsequently pain/discomfort in left thigh and now off and on burning sensation in the left thigh/leg. 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 Patient denies any night sweats, denies any recurrent fever but 12 pound weight loss in the last 2 weeks due to poor appetite, On September 21, 2021 patient underwent CTA chest to rule out pulmonary embolism it showed No pulmonary embolism but lobulated soft tissue mass in left inferior neck measuring 4 x 2.9 cm, at T7-8 level on the right measures 2.1 x 1.9 cm, there is also increased soft tissue mass along left lateral mid sternum measuring 2.8 x 2.2 cm. And soft tissue mass which is thought to be coming point adenopathy in the retroperitoneum that is encasing we will do renal artery and abutting aorta and kidney. Retroperitoneal mass measures at least 7.8 x 9.2 cm. There is a large right axillary lymph node measuring 3.2 x 1.9 cm Patient denies any dysphagia, denies any shortness of breath, denies any jaundice, denies any dysuria or hematuria, denies any focal weakness. Patient denies smoking or alcohol use Patient has history of left breast cancer, diagnosed in 1999, at that time she underwent left mastectomy, as per patient she was given tamoxifen for 5 years. Underwent left axillary lymph node biopsy to confirm lymphoma, proper histology and molecular profiling,, report is pending CT PET scan done on October 17, 2021 showed 5.1 x 5.6 cm left cervical lymphadenopathy SUV of 17.9 and other FDG positive lymph nodes in the left posterior triangle, and the chest, lymphomatous masses are present in the right axilla, left internal mammary left superior mediastinal, right paravertebral territories, and abdomen, homogeneous left-sided retroperitoneal mass extending from retrocrural territory into the left periaortic, retroaortic, right periaortic territories. The left psoas muscle is displaced laterally. Malignant left common iliac lymph node is also present and right external iliac lymph node measuring 2.4 x 3.6 cm with SUV of 16.9. Diffusely increased splenic activity indicates splenic involvement and L2 vertebral bodies suggest bone marrow infiltration. Echocardiogram done on November 04, 2021 shows ejection fraction 65% As per patient on November 04, 2021 while she was getting echo, she developed tachycardia for which she was sent to ER for evaluation, EKG showed narrow complex tachycardia heart rate in the range of 170s patient was not symptomatic, in ER her heart rate improved with Valsalva twice and went down to 90 to 110/min, patient was admitted to hospital with left lower leg edema and observed overnight venous Doppler study of left leg confirmed DVT and CT chest confirmed acute bilateral pulmonary embolism and patient was started on Eliquis Came for follow-up, complaining of left leg swelling, but no fever chills, no nausea or vomiting, no shortness of breath, no palpitation, no more abdominal pain since course of high-dose prednisone for 5 days. No mouth sores, no night sweats, no recurrent fever, no abdominal fullness or pain Medications: Alendronate Sodium 1 Tablet (of 70 mg) Oral, Gabapentin 1 Capsule (of 300 mg) Oral t.i.d., HYDROcodone-Acetaminophen 1 Tablet (of 5-325 mg) Oral q 6 hours PRN, Lisinopril 1 Tablet (of 5 mg) Oral daily, Morphine Sulfate 1 Tablet (of 15 mg) Oral b.i.d., Ondansetron HCl 1 Tablet (of 4 mg) Oral q 6 hours PRN Allergies: No Known Allergies. Review of Systems: Review of Systems is not available for this patient. Vital Signs: Performed on Nov 12, 2021 10:55 Height - 66.00 in Temperature - 97.6 F (LOW) Pulse - 81 /min Respiration - 18 /min BP - 139/80 mm(hg) O2 Sat - 97 % Performed on Nov 12, 2021 08:49 Height - 66.00 in Weight - 176 lbs (HIGH) BSA - 1.89 sq.m BMI - 28.41 Temperature - 98.7 F Pulse - 101 /min (HIGH) Respiration - 18 /min BP - 112/70 mm(hg) O2 Sat - 96 % Pain - 0 Fatigue - 8 Performance Status: 1 - No physically strenuous activity, but ambulatory and able to carry out light or sedentary work (e.g. office work, light house work). (ECOG) Physical Examination: ENMT - No mouth sores, no thrush, no jaundice, fullness in left axilla status post lymph node biopsy, Respiratory - Lungs are clear to auscultation, Cardiovascular - Regular rate and rhythm of heart, Abdomen - Soft, bowel sounds present, Extremities - 3+ edema left leg. Lab/Imaging: Most recent lab results are not available for this patient. Impression: Stage MAZIN (Based on CT PET scan findings) 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 CT PET scan done on October 17, 2021 shows FDG positive masses from the level of head and neck to the level of pelvis representing lymphoma, lymphomatous splenic involvement, questionable involvement of L2 vertebral body, left pleural effusion CTA chest done on September 21, 2021 shows no pulmonary embolism, extensive metastatic soft tissue masses identified, large left inferior neck mass measuring 4 x 2.9 cm, additional metastatic deposit along the right lateral T7-8 level abutting the thoracic spine. Left midsternal soft tissue mass, and extensive confluent mass or adenopathy in the left retroperitoneal area measuring 7.8 x 9.2 cm, encasing renal artery and abutting the aorta and the kidney. Extensive soft tissue thickening surrounding both shoulder joint and a large right axillary lymph node. Status post left MRM, For history of hormone positive breast cancer, diagnosed in 1999, she was treated with tamoxifen for 5 years. Plan: Discussed with patient regarding her labs white blood count 8.5 hemoglobin 12 hematocrit 37.4 platelets 292,000 CMP within normal limits, uric acid is pendingAnd CT PET scan finding which shows extensive lymphadenopathy and probably bone marrow involvement and splenic involvement Clinically, patient is doing well with no new signs symptom except new left leg swelling which is due to recently diagnosed left DVT probably due to venous return interference with extensive pelvic lymphadenopathy. Patient was also diagnosed with pulmonary embolism, now being treated with Eliquis. Her echocardiogram shows ejection fraction within normal range, patient recently underwent left neck lymph node biopsy, molecular profiling is pending. She was given a course of prednisone for 5 days for progressive severe pelvic/hip pain, which responded very well. At this point, will consider treating her with R-CHOP, all the side effect possible benefits associated with treatment including but not limited to nausea vomiting, hair loss, bone marrow suppression, peripheral neuropathy, constipation especially with vincristine, cardiac toxicity especially with Adriamycin, were mentioned, hyperglycemia specially with steroids. Further teaching will done by chemotherapy nurse, will obtain approval from her insurance prior to the treatment.In the meantime we will check hepatitis profile prior to Rituxan therapy Her molecular profiling regarding her diffuse large B-cell lymphoma is pending, but because of patient's symptoms now left leg DVT probably due to venous return interference due to extensive pelvic lymphadenopathy, we will start her on treatment as soon as possible and obtain approval from her insurance. Patient already has Port-A-Cath placement. We will also start her on allopurinol 100 mg p.o. 3 times a day to prevent tumor lysis syndrome, patient was advised to maintain hydration and I will follow her on a weekly basis with CBC CMP. Signed By: Serg Rolle M.D. <<Signature on File>>
[2021-11-12 15:36] LABS: Uric Acid 5.1 mg/dL (2.4-5.7)
== END 2021-11-12 08:17 | disposition home or self-care (01) ==
LOC: ONCMED 08:19
PROVIDERS: PCP Family Medicine; Visit Provider Internal Medicine Hematology & Oncology
DX: C83.38 Diffuse large B-cell lymphoma, lymph nodes of multiple sites (principal); R59.9 Enlarged lymph nodes, unspecified; Z80.3 Family history of malignant neoplasm of breast; I82.402 Acute embolism and thrombosis of unspecified deep veins of left lower extremity; Z90.12 Acquired absence of left breast and nipple
CPT/HCPCS: 36591; 80053; 84550; 85025; 99214

== ENCOUNTER 2021-11-16 11:50 | Outpatient (CLI) | payer MEDICARE, BC, SELFPAY ==
[2021-11-16 12:51] LABS: Basophils % 0.3 %; Eosinophils % 0.4 %; Hematocrit 37.7 % (37.0-47.0); Hemoglobin 12.2 g/dL (11.5-15.3); Lymphocytes # 1.1 10^3/uL (0.8-4.8); Lymphocytes % 13.3 %; Mean Corpuscular HGB Conc 32.4 g/dL (30.0-36.0); Mean Corpuscular Hemoglobin 29.8 pg (28.0-34.0); Mean Platelet Volume 9.3 fL (7.4-10.4); Monocytes # 0.5 10^3/uL (0.2-0.9); Monocytes % 6.3 %; Neutrophils # 6.34 10^3/uL (1.8-7.7); Neutrophils % 79.4 %; Nucleated Red Blood Cells % 0 %; Platelet Count 250 10^3/cmm (130-400); Red Cell Distribution Width 14.3 % (12.1-15.1)
[2021-11-16 13:12] LABS: Alanine Aminotransferase 10 U/L (0-33); Albumin Level 3.5 g/dL (3.5-5.2); Alkaline Phosphatase 73 IU/L (35-105); Anion Gap 15.3 (5-19); Aspartate Amino Transferase 19 U/L (0-32); Blood Urea Nitrogen 11 mg/dL (8-23); Calcium 9.1 mg/dL (8.5-10.5); Carbon Dioxide 24 mmol/L (22-29); Chloride 102 mmol/L (98-107); Glucose 81 mg/dL (65-115); Osmolality Calculated 282 mOsm/kg (285-295); Potassium 4.3 mmol/L (3.5-5.1); Sodium 137 mmol/L (136-145); Total Bilirubin 0.9 mg/dL (0.15-1.2); Total Protein 6.5 g/dL (6.6-8.7)
[2021-11-16 13:30] LABS: Hepatitis A Antibody IgM Non-Reactive (Nonreactive); Hepatitis B Core AB, Total Non-Reactive (Nonreactive); Hepatitis B Surface Antigen Non-Reactive (Nonreactive); Hepatitis C Virus Antibody Non-Reactive (Nonreactive)
[2021-11-16 13:34] LABS: Hepatitis B Surface AB < 3.5 (11.5-1000)
== END 2021-11-16 11:51 | disposition home or self-care (01) ==
PROVIDERS: PCP Family Medicine; Visit Provider Internal Medicine Hematology & Oncology
DX: C83.33 Diffuse large B-cell lymphoma, intra-abdominal lymph nodes (principal); Z01.89 Encounter for other specified special examinations; Z20.5 Contact with and (suspected) exposure to viral hepatitis
CPT/HCPCS: 36591; 80053; 85025; 86705; 86706; 86709; 86803; 87340

== ENCOUNTER 2021-11-30 06:20 | Outpatient (RCR) | payer MEDICARE, BC, SELFPAY ==
[2021-11-19] MEDS: sodium chloride 0.9% 500 ML 999 ML IV (09:20)
[2021-11-19] MEDS: morphine 4 mg/mL SDV 1 mL IV (09:20)
[2021-11-19] MEDS: diphenhydrAMINE 50 mg/mL SDV 1mL 25 MG IV (09:44)
[2021-11-19] MEDS: acetaminophen 325 mg Tablet 650 MG PO (09:50)
[2021-11-19] MEDS: palonosetron 0.25 mg/5 mL SDV IV (09:51)
[2021-11-19] MEDS: fosaprepitant 150 MG in sodium chloride 0.9% 150 ML 300 MG IV (10:09)
--- NOTE | 2021-11-19 11:28 | ONC FU_ITS ---
Dr. Rolle follow up note Patient: Janet Jose Unit #: [id number]: [id number] Dicatated By: Serg Rolle M.D.Date of Visit:Nov 19, 2021 Onc Med Follow-up/Prog Note History of Present Illness: Ms. Janet Jose, is a 86-year-old female, presented to [facility] with nausea, abdominal pain and left neck mass, as per patient she was doing reasonably well prior to that but in first week of August 2021 she noted discomfort in her left abdomen/left upper quadrant area and sometimes in left flank, subsequently pain/discomfort in left thigh and now off and on burning sensation in the left thigh/leg. 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 Patient denies any night sweats, denies any recurrent fever but 12 pound weight loss in the last 2 weeks due to poor appetite, On September 21, 2021 patient underwent CTA chest to rule out pulmonary embolism it showed No pulmonary embolism but lobulated soft tissue mass in left inferior neck measuring 4 x 2.9 cm, at T7-8 level on the right measures 2.1 x 1.9 cm, there is also increased soft tissue mass along left lateral mid sternum measuring 2.8 x 2.2 cm. And soft tissue mass which is thought to be coming point adenopathy in the retroperitoneum that is encasing we will do renal artery and abutting aorta and kidney. Retroperitoneal mass measures at least 7.8 x 9.2 cm. There is a large right axillary lymph node measuring 3.2 x 1.9 cm Patient denies any dysphagia, denies any shortness of breath, denies any jaundice, denies any dysuria or hematuria, denies any focal weakness. Patient denies smoking or alcohol use Patient has history of left breast cancer, diagnosed in 1999, at that time she underwent left mastectomy, as per patient she was given tamoxifen for 5 years. Underwent left axillary lymph node biopsy to confirm lymphoma, proper histology and molecular profiling,, report is pending CT PET scan done on October 17, 2021 showed 5.1 x 5.6 cm left cervical lymphadenopathy SUV of 17.9 and other FDG positive lymph nodes in the left posterior triangle, and the chest, lymphomatous masses are present in the right axilla, left internal mammary left superior mediastinal, right paravertebral territories, and abdomen, homogeneous left-sided retroperitoneal mass extending from retrocrural territory into the left periaortic, retroaortic, right periaortic territories. The left psoas muscle is displaced laterally. Malignant left common iliac lymph node is also present and right external iliac lymph node measuring 2.4 x 3.6 cm with SUV of 16.9. Diffusely increased splenic activity indicates splenic involvement and L2 vertebral bodies suggest bone marrow infiltration. Echocardiogram done on November 04, 2021 shows ejection fraction 65% As per patient on November 04, 2021 while she was getting echo, she developed tachycardia for which she was sent to ER for evaluation, EKG showed narrow complex tachycardia heart rate in the range of 170s patient was not symptomatic, in ER her heart rate improved with Valsalva twice and went down to 90 to 110/min, patient was admitted to hospital with left lower leg edema and observed overnight venous Doppler study of left leg confirmed DVT and CT chest confirmed acute bilateral pulmonary embolism and patient was started on Eliquis Came for follow-up, complaining of pain in the left hip and swelling in the left leg, patient was recently diagnosed with left leg DVT and bilateral pulmonary embolism, patient has extensive retroperitoneal lymphadenopathy. As per patient when she was given a course of high-dose prednisone her left hip pain resolved within a day. Last week she was started on allopurinol, as per patient next day she developed self-limiting diarrhea, and patient restarted her allopurinol, now tolerating well. Denies any fever or chills, denies any nausea or vomiting denies any diarrhea or constipation, denies any melena or hematochezia. No shortness of breath of breath or palpitation Medications: Allopurinol 1 Capsule (of 100 mg) Tablet Oral t.i.d., Digoxin 0.25 mg Tablet Oral daily, Docusate Sodium Tablet Oral b.i.d., Gabapentin 1 Capsule (of 300 mg) Oral t.i.d., HYDROcodone-Acetaminophen 1 Tablet (of 5-325 mg) Oral q 6 hours PRN, Lisinopril 1 Tablet (of 5 mg) Oral daily, MiraLax (17 ) Powder Oral daily, Ondansetron HCl 1 Tablet (of 4 mg) Oral q 6 hours PRN, Rivaroxaban 1 Tablet (of 20 mg) Oral daily, Triamcinolone Acetonide (0.1 %) Ointment Topical t.i.d. Allergies: No Known Allergies. Review of Systems: Review of Systems is not available for this patient. Vital Signs: Performed on Nov 19, 2021 08:29 Height - 66.00 in Weight - 171.2 lbs (LOW) BSA - 1.87 sq.m BMI - 27.63 Temperature - 97.3 F (LOW) Pulse - 82 /min Respiration - 18 /min BP - 102/71 mm(hg) O2 Sat - 96 % Pain - 8 Fatigue - 6 Performance Status: 2 - Ambulatory/capable of all self-care, unable to perform any work activities. Up and about more than 50% of waking hours. (ECOG) Physical Examination: ENMT - No mouth sores, no thrush, no jaundice, Respiratory - Lungs are clear to auscultation, Cardiovascular - Regular rate and rhythm of heart, Abdomen - Soft, bowel sounds present, Extremities - 3+ edema in the left leg due to DVT. 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 CT PET scan done on October 17, 2021 shows FDG positive masses from the level of head and neck to the level of pelvis representing lymphoma, lymphomatous splenic involvement, questionable involvement of L2 vertebral body, left pleural effusion CTA chest done on September 21, 2021 shows no pulmonary embolism, extensive metastatic soft tissue masses identified, large left inferior neck mass measuring 4 x 2.9 cm, additional metastatic deposit along the right lateral T7-8 level abutting the thoracic spine. Left midsternal soft tissue mass, and extensive confluent mass or adenopathy in the left retroperitoneal area measuring 7.8 x 9.2 cm, encasing renal artery and abutting the aorta and the kidney. Extensive soft tissue thickening surrounding both shoulder joint and a large right axillary lymph node. Status post left MRM, For history of hormone positive breast cancer, diagnosed in 1999, she was treated with tamoxifen for 5 years. Plan: .Discussed with patient regarding her labs from November 16, 2019 shows white blood count 8 hemoglobin 12.2 hematocrit 37.7 platelets 250,000 CMP within normal limits uric acid 5.1 and hepatitis profile was nonreactive Clinically, patient in mild to moderate distress due to left hip pain/discomfort and left leg swelling which is due to left DVT, she is on anticoagulation with Eliquis. Her left hip pain/discomfort could be due to extensive retroperitoneal lymphadenopathy, as per patient her pain did not respond well to high-dose steroid which was given about couple of weeks ago. At this point we will proceed with her first course of chemotherapy with CHOP, as Rituxan is not available due to shipment so we will add Rituxan with the next cycle. Patient will also receive Neulasta to prevent chemotherapy-induced neutropenia/leukopenia. She will return to clinic in 10 days with CBC CMP and uric acid level. Patient was advised to continue with allopurinol and she was also advised to maintain hydration. And monitor her blood sugar. Signed By: Serg Rolle M.D. <<Signature on File>>
[2021-11-19] MEDS: pegfilgrastim 6 mg/0.6 mL Kit (onpro) SUBCUT (12:45)
[2021-11-27 10:12] LABS: Eosinophils % 5.5 %; Hematocrit 31.7 % (37.0-47.0); Hemoglobin 10.6 g/dL (11.5-15.3); Lymphocytes # 0.5 10^3/uL (0.8-4.8); Mean Corpuscular HGB Conc 33.4 g/dL (30.0-36.0); Mean Corpuscular Hemoglobin 29.9 pg (28.0-34.0); Mean Corpuscular Volume 89.3 fl (81-99); Mean Platelet Volume 9.9 fL (7.4-10.4); Monocytes # 0.1 10^3/uL (0.2-0.9); Monocytes % 9.6 %; Neutrophils % 10.9 %; Nucleated Red Blood Cells % 0 %; Platelet Count 109 10^3/cmm (130-400); Red Blood Count 3.55 10^6/uL (4.1-5.3); Red Cell Distribution Width 13.4 % (12.1-15.1)
[2021-11-27 10:30] LABS: Alanine Aminotransferase 8 U/L (0-33); Albumin Level 3.3 g/dL (3.5-5.2); Alkaline Phosphatase 76 IU/L (35-105); Anion Gap 12.8 (5-19); Aspartate Amino Transferase 9 U/L (0-32); Blood Urea Nitrogen 9 mg/dL (8-23); Calcium 8.2 mg/dL (8.5-10.5); Carbon Dioxide 23 mmol/L (22-29); Chloride 96 mmol/L (98-107); Globulin 2.1 g/dL (1.3-4.6); Glucose 84 mg/dL (65-115); Osmolality Calculated 264 mOsm/kg (285-295); Potassium 3.8 mmol/L (3.5-5.1); Sodium 128 mmol/L (136-145); Total Bilirubin 0.8 mg/dL (0.15-1.2); Total Protein 5.4 g/dL (6.6-8.7); Uric Acid 2.8 mg/dL (2.4-5.7)
[2021-11-27 10:37] LABS: Neutrophils # 0.08 10^3/uL (1.8-7.7); White Blood Count 0.7 10^3/uL (4.0-10.0)
[2021-11-27 10:38] LABS: Slide Review Slide Review Perform
[2021-11-30 10:18] LABS: Basophils % 0.1 %; Eosinophils % 0.2 %; Hematocrit 31.8 % (37.0-47.0); Hemoglobin 11.2 g/dL (11.5-15.3); Lymphocytes # 1.1 10^3/uL (0.8-4.8); Lymphocytes % 11.8 %; Mean Corpuscular HGB Conc 35.2 g/dL (30.0-36.0); Mean Corpuscular Hemoglobin 29.5 pg (28.0-34.0); Mean Corpuscular Volume 83.7 fl (81-99); Mean Platelet Volume 9.2 fL (7.4-10.4); Monocytes # 0.8 10^3/uL (0.2-0.9); Neutrophils # 6.63 10^3/uL (1.8-7.7); Neutrophils % 70.8 %; Nucleated Red Blood Cells % 0 %; Platelet Count 235 10^3/cmm (130-400); Red Cell Distribution Width 12.8 % (12.1-15.1); White Blood Count 9.4 10^3/uL (4.0-10.0)
[2021-11-30 10:30] LABS: Alanine Aminotransferase 9 U/L (0-33); Albumin Level 3.3 g/dL (3.5-5.2); Alkaline Phosphatase 82 IU/L (35-105); Anion Gap 16.7 (5-19); Aspartate Amino Transferase 15 U/L (0-32); Blood Urea Nitrogen 6 mg/dL (8-23); Calcium 7.9 mg/dL (8.5-10.5); Carbon Dioxide 20 mmol/L (22-29); Chloride 82 mmol/L (98-107); Globulin 2.4 g/dL (1.3-4.6); Glucose 86 mg/dL (65-115); Osmolality Calculated 237 mOsm/kg (285-295); Potassium 3.7 mmol/L (3.5-5.1); Total Bilirubin 0.6 mg/dL (0.15-1.2); Total Protein 5.7 g/dL (6.6-8.7)
[2021-11-30] MEDS: sodium chloride 0.9% 500 ML 999 ML IV (10:30)
[2021-11-30 10:33] LABS: Sodium 115 mmol/L (136-145)
[2021-11-30 11:00] LABS: Slide Review Slide Review Perform
--- NOTE | 2021-11-30 17:19 | ONC FU_ITS ---
Dr. Rolle follow up note Patient: Janet Jose Unit #: [id number]: [id number] Dicatated By: Serg Rolle M.D.Date of Visit:Nov 30, 2021 Onc Med Follow-up/Prog Note History of Present Illness: Ms. Janet Jose, is a 86-year-old female, presented to [facility] with nausea, abdominal pain and left neck mass, as per patient she was doing reasonably well prior to that but in first week of August 2021 she noted discomfort in her left abdomen/left upper quadrant area and sometimes in left flank, subsequently pain/discomfort in left thigh and now off and on burning sensation in the left thigh/leg. 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 Patient denies any night sweats, denies any recurrent fever but 12 pound weight loss in the last 2 weeks due to poor appetite, On September 21, 2021 patient underwent CTA chest to rule out pulmonary embolism it showed No pulmonary embolism but lobulated soft tissue mass in left inferior neck measuring 4 x 2.9 cm, at T7-8 level on the right measures 2.1 x 1.9 cm, there is also increased soft tissue mass along left lateral mid sternum measuring 2.8 x 2.2 cm. And soft tissue mass which is thought to be coming point adenopathy in the retroperitoneum that is encasing we will do renal artery and abutting aorta and kidney. Retroperitoneal mass measures at least 7.8 x 9.2 cm. There is a large right axillary lymph node measuring 3.2 x 1.9 cm Patient denies any dysphagia, denies any shortness of breath, denies any jaundice, denies any dysuria or hematuria, denies any focal weakness. Patient denies smoking or alcohol use Patient has history of left breast cancer, diagnosed in 1999, at that time she underwent left mastectomy, as per patient she was given tamoxifen for 5 years. Underwent left axillary lymph node biopsy to confirm lymphoma, proper histology and molecular profiling,, report is pending CT PET scan done on October 17, 2021 showed 5.1 x 5.6 cm left cervical lymphadenopathy SUV of 17.9 and other FDG positive lymph nodes in the left posterior triangle, and the chest, lymphomatous masses are present in the right axilla, left internal mammary left superior mediastinal, right paravertebral territories, and abdomen, homogeneous left-sided retroperitoneal mass extending from retrocrural territory into the left periaortic, retroaortic, right periaortic territories. The left psoas muscle is displaced laterally. Malignant left common iliac lymph node is also present and right external iliac lymph node measuring 2.4 x 3.6 cm with SUV of 16.9. Diffusely increased splenic activity indicates splenic involvement and L2 vertebral bodies suggest bone marrow infiltration. Echocardiogram done on November 04, 2021 shows ejection fraction 65% As per patient on November 04, 2021 while she was getting echo, she developed tachycardia for which she was sent to ER for evaluation, EKG showed narrow complex tachycardia heart rate in the range of 170s patient was not symptomatic, in ER her heart rate improved with Valsalva twice and went down to 90 to 110/min, patient was admitted to hospital with left lower leg edema and observed overnight venous Doppler study of left leg confirmed DVT and CT chest confirmed acute bilateral pulmonary embolism and patient was started on Eliquis Started on R-CHOP With Neulasta on November 19, 2021, patient did not get Rituxan With first cycle because of nonavailability Came for follow-up, complaining of generalized weakness and fatigue, left leg swelling and off and on nausea vomiting for the last couple of days, no seizure like activity, no focal weakness, no night sweats, no fever or chills, no hemoptysis or hematemesis, she is on Levaquin for prophylaxis for severe neutropenia observed on recent done labs, poor appetite, no dysphagia, no mouth sores or thrush. Tolerated first cycle of chemotherapy reasonably well, no abdominal/pelvic pain but persistent left leg swelling due to DVT plus minus lymphedema Medications: Allopurinol 1 Capsule (of 100 mg) Tablet Oral t.i.d., Digoxin 0.25 mg Tablet Oral daily, Docusate Sodium Tablet Oral b.i.d., Gabapentin 1 Capsule (of 300 mg) Oral t.i.d., HYDROcodone-Acetaminophen 1 Tablet (of 5-325 mg) Oral q 6 hours PRN, Levaquin 1 Tablet (of 500 mg) Oral daily for 7 days, Lisinopril 1 Tablet (of 5 mg) Oral daily, MiraLax (17 ) Powder Oral daily, Ondansetron HCl 1 Tablet (of 4 mg) Oral q 6 hours PRN, Rivaroxaban 1 Tablet (of 20 mg) Oral daily, Triamcinolone Acetonide (0.1 %) Ointment Topical t.i.d. Allergies: No Known Allergies. Review of Systems: Review of Systems is not available for this patient. Vital Signs: Vitals are not available for this patient. Performance Status: 3 - Capable of only limited self-care, confined to bed or chair more than 50% of waking hours. (ECOG) Physical Examination: ENMT - No mouth sores, no thrush, no jaundice, Dry oral mucosa, Respiratory - Lungs are clear to auscultation, Cardiovascular - Regular rate and rhythm of heart , Abdomen - Soft, bowel sounds present, Extremities - 3+ swelling left leg. 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 CT PET scan done on October 17, 2021 shows FDG positive masses from the level of head and neck to the level of pelvis representing lymphoma, lymphomatous splenic involvement, questionable involvement of L2 vertebral body, left pleural effusion CTA chest done on September 21, 2021 shows no pulmonary embolism, extensive metastatic soft tissue masses identified, large left inferior neck mass measuring 4 x 2.9 cm, additional metastatic deposit along the right lateral T7-8 level abutting the thoracic spine. Left midsternal soft tissue mass, and extensive confluent mass or adenopathy in the left retroperitoneal area measuring 7.8 x 9.2 cm, encasing renal artery and abutting the aorta and the kidney. Extensive soft tissue thickening surrounding both shoulder joint and a large right axillary lymph node. Status post left MRM, For history of hormone positive breast cancer, diagnosed in 1999, she was treated with tamoxifen for 5 years. Plan: Discussed with patient regarding her labs white blood count 9.4 compared to 0.7 on November 27, 2021, hemoglobin 11.2 g hematocrit 31.8 platelets 235,000 compared to 109 on November 27, 2021 ANC 6630 CMP shows sodium 115 with a normal creatinine and liver function test Clinically, patient is in mild to moderate distress due to dehydration and her lab work-up shows severe hyponatremia, which could be due to adrenal insufficiency or SIADH, we will hydrate her with normal saline and send her to [facility] for evaluation for possible inpatient care regarding severe hyponatremia, will also suggest endocrinology consultation. Her neutropenia has resolved so we will discontinue Levaquin, patient will return to clinic in 1 week with CBC/CMP Signed By: Serg Rolle M.D. <<Signature on File>>
== END 2021-12-14 23:59 | disposition home or self-care (01) ==
LOC: ONCMED 06:20
PROVIDERS: PCP Family Medicine; Visit Provider Internal Medicine Hematology & Oncology
DX: Z51.12 Encounter for antineoplastic immunotherapy (principal); Z51.11 Encounter for antineoplastic chemotherapy; C83.33 Diffuse large B-cell lymphoma, intra-abdominal lymph nodes; Z85.3 Personal history of malignant neoplasm of breast; E86.0 Dehydration; E87.6 Hypokalemia; Z79.899 Other long term (current) drug therapy
CPT/HCPCS: 36591; 80053; 84550; 85025; 96360; 96367; 96372; 96375; 96377; 96411; 96413; 96417; 99215; J1100; J1200; J1453; J2270; J2469; J2506; J7040; J9000; J9070; J9370

== ENCOUNTER 2021-11-30 11:23 | Inpatient (IN) | payer MEDICARE, BC, SELFPAY ==
[2021-11-30 11:44] VITALS: PULSE 82; RESP 16; TEMP 36.4; O2SAT 96
--- NOTE | 2021-11-30 13:28 | ECG_ITS ---
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: : 1935 Requested By: Valentino Brito Order Number: [id number] Reading MD: MOLLY MCALLISTER Measurements Intervals [place] Rate: 68 P: 38 IA: 228 QRS: -19 QRSD: 133 T: 86 QT: 421 QTc: 448 Interpretive Statements SINUS RHYTHM WITH SINUS ARRHYTHMIA WITH FIRST DEGREE AV BLOCK LEFT BUNDLE BRANCH BLOCK [120+ ms QRS DURATION, 80+ ms Q/S IN V1/V2, 85+ ms R IN I/aVL/V5/V6] Compared to ECG 11/04/2021 21:49:36 First degree AV block now present Electronically Signed On 11-30-2021 20:56:23 WELL SHOOT[employer] by MOLLY MCALLISTER [email or web address] medical [id number]
--- NOTE | 2021-11-30 13:32 | W.ED.GENADLT ---
Documented by User: ILYA Wolfe 11/30/21 13:32 HPI - General Adult General: Chief complaint: Recheck/Abnormal Lab/Rx Stated complaint: Low sodium Time Seen by Provider: 11/30/21 13:16 History of Present Illness: HPI narrative: Patient sent here by Dr. Rolle's office due to a low sodium level that was drawn earlier today. Patient states she is okay but she starts in in the chair presently [facility] ED PFSH: Medical History B-cell lymphoma Hypertension MGUS (monoclonal gammopathy of unknown significance) Peripheral neuropathy Polyarthritis Retroperitoneal lymphadenopathy Splenomegaly Surgical History H/O lymph node biopsy (10/28/21) left cervical H/O mastectomy History of hysterectomy Port-A-Cath in place (10/28/21) Status post colonoscopy Family History Other Cancer Social History Alcohol intake: never Housing: House Course Vital Signs: Vital signs: Vital Signs Temperature 98.7 F 12/06/21 08:00 Pulse Rate 91 12/06/21 08:00 Respiratory Rate 16 12/06/21 08:00 Blood Pressure 138/81 12/06/21 08:00 Pulse Oximetry 92 12/06/21 08:00 MDM - General Adult MDM Narrative: Medical decision making narrative: Brief history and physical exam was performed as part of the triage process. Due to current ED wait time patient will be placed in waiting room until a room becomes available. Explained to patient he/she will be seen in order of severity. Patient is currently safe to wait in the waiting room until we can get them placed. Patient informed that if condition worsens at any time to please let the front end loader driver know. Lab Data: Labs: Lab Results 11/30/21 11/30/21 11/30/21 14:30 14:30 14:30 WBC 9.0 10^3/uL 10^3/ uL (4.0-10.0) RBC 3.69 10^6/uL L 10 ^6/uL (4.1-5.3) Hgb 11.0 g/dL L g/dL (11.5-15.3) Hct 31.0 % L % (37.0-47.0) MCV 84.0 fl fl (81-99) MCH 29.8 pg pg (28.0-34.0) MCHC 35.5 g/dL g/dL (30.0-36.0) RDW 12.8 % % (12.1-15.1) Plt Count 192 10^3/cmm 10^3 /cmm (130-400) MPV 9.3 fL fL (7.4-10.4) Neut % (Auto) 68.8 % % Lymph % (Auto) 13.8 % % Union % (Auto) 5.5 % % Eos % (Auto) 0.3 % % Baso % (Auto) 0.1 % % Neut # (Auto) 6.17 10^3/uL 10^3 /uL (1.8-7.7) Lymph # (Auto) 1.2 10^3/uL 10^3/ uL (0.8-4.8) Union # (Auto) 0.5 10^3/uL 10^3/ uL (0.2-0.9) Eos # (Auto) 0.0 10^3/uL 10^3/ uL (0.0-0.8) Baso # (Auto) 0.0 10^3/uL 10^3/ uL (0.0-0.1) Nucleated RBC % (a uto) 0 % % Nucleated RBCs # 0.0 /100WBC /100W BC Sodium 115 mmol/L L* mmo l/L (136-145) Potassium 3.6 mmol/L mmol/L (3.5-5.1) Chloride 82 mmol/L L mmol/ L (98-107) Carbon Dioxide 19 mmol/L L mmol/ L (22-29) Anion Gap 17.6 (5-19) BUN 6 mg/dL L mg/dL (8-23) Creatinine 0.3 mg/dL L mg/dL (0.5-0.9) GFR Calculation Not Reportable Glucose 84 mg/dL mg/dL (65-115) Calculated Osmolal ity 237 mOsm/kg L mOs m/kg (285-295) Calcium 8.1 mg/dL L mg/dL (8.5-10.5) Magnesium 1.5 mg/dL L mg/dL (1.7-2.3) GGT 36 U/L U/L (5-36) C-Reactive Protein 7.9 mg/L H mg/L (0.0-4.9) Procalcitonin 0.26 ng/mL ng/mL (0-0.5) Random Cortisol Digoxin 11/30/21 14:30 WBC RBC Hgb Hct MCV MCH MCHC RDW Plt Count MPV Neut % (Auto) Lymph % (Auto) Union % (Auto) Eos % (Auto) Baso % (Auto) Neut # (Auto) Lymph # (Auto) Union # (Auto) Eos # (Auto) Baso # (Auto) Nucleated RBC % (a uto) Nucleated RBCs # Sodium Potassium Chloride Carbon Dioxide Anion Gap BUN Creatinine GFR Calculation Glucose Calculated Osmolal ity Calcium Magnesium GGT C-Reactive Protein Procalcitonin Random Cortisol 14.82 ug/dL ug/dL (2.47-19.5) Digoxin 1.4 ng/mL H ng/mL (0.6-1.2) Discharge Plan Discharge Patient Disposition: Admitted As Inpatient Admit Provider: Adriel Suarez Condition: Stable Coding Level of Care Code ED Employment Specialist for Chg Fwd Exam Comprehensive Documented by User: Valentino Brito MD 12/06/21 11:14 HPI - General Adult General: Chief complaint: Recheck/Abnormal Lab/Rx Stated complaint: Low sodium Time Seen by Provider: 11/30/21 13:16 History of Present Illness: HPI narrative: Please refer to other note completed by the MD provider. Associated symptoms: Deny chest pain, dyspnea, nausea, rash, palpitations or vomiting Review of Systems Const: Denies: fever(s) or chills Eyes: Denies: change in vision ENMT: Denies: mouth pain Card: Denies: chest pain or palpitations Resp: Denies: dyspnea or non-productive cough GI: Denies: abdominal pain, nausea, vomiting or diarrhea : Denies: dysuria Musc: Denies: extremity pain Skin/Breast: Denies: rash or new lesions Neuro: Denies: weakness in extremities Psych: Reports: other (Normal mood) Ulysses/Lymph: Denies: easy bruising PFSH ED PFSH: Medical History B-cell lymphoma Hypertension MGUS (monoclonal gammopathy of unknown significance) Peripheral neuropathy Polyarthritis Retroperitoneal lymphadenopathy Splenomegaly Surgical History H/O lymph node biopsy (10/28/21) left cervical H/O mastectomy History of hysterectomy Port-A-Cath in place (10/28/21) Status post colonoscopy Family History Other Cancer Social History Alcohol intake: never Housing: House Physical Exam Const: COMMON NORMALS: alert HENMT: COMMON NORMALS: atraumatic HEAD & SCALP: atraumatic MOUTH: moist mucous membranes not abnormal Eye: COMMON NORMALS: EOMs intact bilaterally and conjunctivae normal CONJUNCTIVA: Yes conjunctivae normal Neck/C-Spine: COMMON NORMALS: full ROM and supple Resp: COMMON NORMALS: normal respiratory effort and clear to auscultation bilaterally AUSCULTATION: clear to auscultation bilaterally Cardio: COMMON NORMALS: regular rate RATE: regular rate GI: COMMON NORMALS: Soft to palpation and non-tender PALPATION: Yes Soft to palpation Extremity: COMMON NORMALS: full ROM Neuro: SENSORIUM/ORIENTATION: Yes alert MOTOR EXAM: No Abnormal motor strength present and Other motor observations present (no focal motor deficits) Psych: COMMON NORMALS: speech normal SPEECH: Yes normal speech MOOD & AFFECT: Yes euthymic mood Course Vital Signs: Vital signs: Vital Signs Temperature 98.7 F 12/06/21 08:00 Pulse Rate 91 12/06/21 08:00 Respiratory Rate 16 12/06/21 08:00 Blood Pressure 138/81 12/06/21 08:00 Pulse Oximetry 92 12/06/21 08:00 [facility] - General Adult Lab Data: Labs: Lab Results 11/30/21 11/30/21 11/30/21 14:30 14:30 14:30 WBC 9.0 10^3/uL 10^3/ uL (4.0-10.0) RBC 3.69 10^6/uL L 10 ^6/uL (4.1-5.3) Hgb 11.0 g/dL L g/dL (11.5-15.3) Hct 31.0 % L % (37.0-47.0) MCV 84.0 fl fl (81-99) MCH 29.8 pg pg (28.0-34.0) MCHC 35.5 g/dL g/dL (30.0-36.0) RDW 12.8 % % (12.1-15.1) Plt Count 192 10^3/cmm 10^3 /cmm (130-400) MPV 9.3 fL fL (7.4-10.4) Neut % (Auto) 68.8 % % Lymph % (Auto) 13.8 % % Union % (Auto) 5.5 % % Eos % (Auto) 0.3 % % Baso % (Auto) 0.1 % % Neut # (Auto) 6.17 10^3/uL 10^3 /uL (1.8-7.7) Lymph # (Auto) 1.2 10^3/uL 10^3/ uL (0.8-4.8) Union # (Auto) 0.5 10^3/uL 10^3/ uL (0.2-0.9) Eos # (Auto) 0.0 10^3/uL 10^3/ uL (0.0-0.8) Baso # (Auto) 0.0 10^3/uL 10^3/ uL (0.0-0.1) Nucleated RBC % (a uto) 0 % % Nucleated RBCs # 0.0 /100WBC /100W BC Sodium 115 mmol/L L* mmo l/L (136-145) Potassium 3.6 mmol/L mmol/L (3.5-5.1) Chloride 82 mmol/L L mmol/ L (98-107) Carbon Dioxide 19 mmol/L L mmol/ L (22-29) Anion Gap 17.6 (5-19) BUN 6 mg/dL L mg/dL (8-23) Creatinine 0.3 mg/dL L mg/dL (0.5-0.9) GFR Calculation Not Reportable Glucose 84 mg/dL mg/dL (65-115) Calculated Osmolal ity 237 mOsm/kg L mOs m/kg (285-295) Calcium 8.1 mg/dL L mg/dL (8.5-10.5) Magnesium 1.5 mg/dL L mg/dL (1.7-2.3) GGT 36 U/L U/L (5-36) C-Reactive Protein 7.9 mg/L H mg/L (0.0-4.9) Procalcitonin 0.26 ng/mL ng/mL (0-0.5) Random Cortisol Digoxin 11/30/21 14:30 WBC RBC Hgb Hct MCV MCH MCHC RDW Plt Count MPV Neut % (Auto) Lymph % (Auto) Union % (Auto) Eos % (Auto) Baso % (Auto) Neut # (Auto) Lymph # (Auto) Union # (Auto) Eos # (Auto) Baso # (Auto) Nucleated RBC % (a uto) Nucleated RBCs # Sodium Potassium Chloride Carbon Dioxide Anion Gap BUN Creatinine GFR Calculation Glucose Calculated Osmolal ity Calcium Magnesium GGT C-Reactive Protein Procalcitonin Random Cortisol 14.82 ug/dL ug/dL (2.47-19.5) Digoxin 1.4 ng/mL H ng/mL (0.6-1.2) Discharge Plan Discharge Patient Disposition: Admitted As Inpatient Admit Provider: Adriel Suarez Condition: Stable Coding Level of Care Code ED Employment Specialist for g Fwd Exam Comprehensive
[2021-11-30 14:36] VITALS: BP 144/78; PULSE 77; RESP 16; O2SAT 95
--- NOTE | 2021-11-30 14:36 | ED_ITS ---
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 Pereyra presenting to the emergency room for concerns of low sodium routine blood work. Patient was found sodium 115 on today's blood work. Patient in addition, patient complaints of generalized weakness for the last week. Patient denies any fever or chills, cough, runny nose, sore throat. Patient complains of right upper quadrant abdominal pain that is mild not worse with p.o. intake. Denies any pleuritic chest pain hemoptysis. Patient is on Eliquis for right lower extremity DVT since September Onset: 1 week ago Duration:1 week Location:home Severity: moderate Associated symptoms: Deny chest pain, dyspnea, nausea, rash, palpitations or vomiting Review of Systems Const: Reports: fatigue and other (generalized weakness); Denies: fever(s) or chills Eyes: Denies: change in vision ENMT: Denies: mouth pain Card: Denies: chest pain or palpitations Resp: Denies: dyspnea or non-productive cough GI: Denies: abdominal pain, nausea, vomiting or diarrhea : Denies: dysuria Musc: Denies: extremity pain Skin/Breast: Denies: rash or new lesions Neuro: Denies: weakness in extremities Psych: Reports: other (Normal mood) Ulysses/Lymph: Denies: easy bruising PFSH ED PFSH: Medical History B-cell lymphoma Hypertension MGUS (monoclonal gammopathy of unknown significance) Peripheral neuropathy Polyarthritis Retroperitoneal lymphadenopathy Splenomegaly Surgical History H/O lymph node biopsy (10/28/21) left cervical H/O mastectomy History of hysterectomy Port-A-Cath in place (10/28/21) Status post colonoscopy Family History Other Cancer Social History Alcohol intake: never Housing: House Physical Exam Const: COMMON NORMALS: alert HENMT: COMMON NORMALS: atraumatic HEAD & SCALP: atraumatic MOUTH: moist mucous membranes not abnormal Eye: COMMON NORMALS: EOMs intact bilaterally and conjunctivae normal CONJUNCTIVA: Yes conjunctivae normal Neck/C-Spine: COMMON NORMALS: full ROM and supple Resp: COMMON NORMALS: normal respiratory effort and clear to auscultation bilaterally AUSCULTATION: clear to auscultation bilaterally Cardio: COMMON NORMALS: regular rate RATE: regular rate GI: COMMON NORMALS: Soft to palpation PALPATION: Yes Soft to palpation OTHER: No focal TTP. NO guarding rebound, guarding, rigidity. No CVA tenderness to percussion. Neg Mittal/Neg McBurney's point tenderness, no suprabupic tenderness to palpation. Extremity: COMMON NORMALS: full ROM NARRATIVE EXTREMITY EXAM: +LLE swelling, L thigh and leg compartments nontense, neuorvascular exam in the LLE i ntact Neuro: SENSORIUM/ORIENTATION: Yes alert MOTOR EXAM: No Abnormal motor strength present and Other motor observations present (no focal motor deficits) Psych: COMMON NORMALS: speech normal SPEECH: Yes normal speech MOOD & AFFECT: Yes euthymic mood Course Vital Signs: Vital signs: Vital Signs Temperature 97.6 F 11/30/21 11:44 Pulse Rate 77 11/30/21 14:36 Respiratory Rate 16 11/30/21 14:36 Blood Pressure 144/78 11/30/21 14:36 Pulse Oximetry 95 11/30/21 14:36 MDM - General Adult MDM Narrative: Medical decision making narrative: Patient is an 86-year-old female presenting to the emergency room for evaluation of hyponatremia and right upper quadrant abdominal pain. On exam, patient has no focal tenderness palpation in the right upper quadrant, no Mittal sign. Patient is hemodynamically stable afebrile. Work-up: CBC, BMP, x-ray chest, right upper quadrant Sodium of 115. S/p 1L of NS. XR showed worsening L sided pleural effusion. Mag slightly low, will replete w/ 2g mag sulfate Disposition: admission for hyponatriemia Lab Data: Labs: Lab Results 11/30/21 11/30/21 14:30 14:30 WBC 9.0 10^3/uL 10^3/ uL (4.0-10.0) RBC 3.69 10^6/uL L 10 ^6/uL (4.1-5.3) Hgb 11.0 g/dL L g/dL (11.5-15.3) Hct 31.0 % L % (37.0-47.0) MCV 84.0 fl fl (81-99) MCH 29.8 pg pg (28.0-34.0) MCHC 35.5 g/dL g/dL (30.0-36.0) RDW 12.8 % % (12.1-15.1) Plt Count 192 10^3/cmm 10^3 /cmm (130-400) MPV 9.3 fL fL (7.4-10.4) Neut % (Auto) 68.8 % % Lymph % (Auto) 13.8 % % [place] % (Auto) 5.5 % % Eos % (Auto) 0.3 % % Baso % (Auto) 0.1 % % Neut # (Auto) 6.17 10^3/uL 10^3 /uL (1.8-7.7) Lymph # (Auto) 1.2 10^3/uL 10^3/ uL (0.8-4.8) [place] # (Auto) 0.5 10^3/uL 10^3/ uL (0.2-0.9) Eos # (Auto) 0.0 10^3/uL 10^3/ uL (0.0-0.8) Baso # (Auto) 0.0 10^3/uL 10^3/ uL (0.0-0.1) Nucleated RBC % (a uto) 0 % % Nucleated RBCs # 0.0 /100WBC /100W BC Sodium 115 mmol/L L* mmo l/L (136-145) Potassium 3.6 mmol/L mmol/L (3.5-5.1) Chloride 82 mmol/L L mmol/ L (98-107) Carbon Dioxide 19 mmol/L L mmol/ L (22-29) Anion Gap 17.6 (5-19) BUN 6 mg/dL L mg/dL (8-23) Creatinine 0.3 mg/dL L mg/dL (0.5-0.9) GFR Calculation Not Reportable Glucose 84 mg/dL mg/dL (65-115) Calculated Osmolal ity 237 mOsm/kg L mOs m/kg (285-295) Calcium 8.1 mg/dL L mg/dL (8.5-10.5) Magnesium 1.5 mg/dL L mg/dL (1.7-2.3) Imaging Data^: Other Imaging: Radiologist's impression: [facility] [id number], [place] [address]AUad ReportSigned Patient: Janet Jose #: [id number]: [id number]#:[id number]/Sex: 86 / FADM Date: 11/30/21Loc: ERRoom/Bed:Attending Dr: Ordering Provider/Ordering MD: Valentino Brito MD Date of Service: 11/30/21 Procedure(s): XR chest 1V portable [id number] Accession Number(s): [id number] Report Number: [id number] WS: [id number] Exam: XR chest 1V portable [id number] Date/Time of Exam: 11/30/2021 2:45 PM Reason For Exam: R sided rib pain Comparison 11/04/2021. Significant increase in left-sided pleural effusion noted. Pleural effusion occupies the lower two thirds of the left pleural cavity. The right lung is clear and fully expanded. The heart is probably not enlarged but the left heart border is obscured. A right subclavian port ends in the lower one third of the SVC in good position. The mediastinum and osseous thorax are unremarkable. Surgical clips along the left axilla. 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 No pneumothorax. XR/XR chest 1V portable [id number] IMPRESSION: 1. Increasing left-sided pleural effusion since prior study. 2. Right-sided port in satisfactory position. Dictated By:Roberto Shaffer, DOSigned By:Roberto Shaffer, RICKigned Date/Time:11/30/21 1536DD/ [address] [address] [facility], [place] [address]Huknxwjdfj ReportSigned Patient: Janet Jose #: [id number]: [id number]#:[id number]/Sex: 86 / FADM Date: 11/30/21Loc: ERRoom/Bed:Attending Dr: Ordering Provider/Ordering MD: Valentino Brito MD Date of Service: 11/30/21 Procedure(s): US gall bladder 17130 Accession Number(s): [id number] Report Number: [id number] WS: [id number] RIGHT UPPER QUADRANT ULTRASOUND HISTORY: eval for biliary issues COMPARISON: 02/25/2019 Liver: 15.5 cm in length. Normal size liver. No bile duct dilatation or mass. Portal Vein: Normal hepatopetal flow with monophasic waveform. Gallbladder: Gallbladder is contracted with mild diffuse wall thickening measuring up to 4.5 mm. No edema. Patient has known gallstones but these gallstones are difficult to visualize on today's examination. Stones may be entrapped at the gallbladder neck. CBD: 0.9 cm, common bile duct is dilated. No stones are identified along the common bile duct. There is no shadowing at the pancreatic head. Pancreas: Normal size and echogenicity. Right kidney: 11.0 cm in length. Normal size and echogenicity. No hydronephrosis or mass. Aorta and IVC: Ectasia and atherosclerosis aorta. No ascites. US/US gall bladder [id number] IMPRESSION: 1. Abnormal gallbladder. Gallbladder is slightly contracted with mild diffuse wall thickening and cholelithiasis. No pericholecystic fluid. 2. Mildly dilated common bile duct. No choledocholithiasis identified by ultrasound. Consider further evaluation by MRCP. 3. Recommend surgical consultation for gallbladder. Dictated By:Berkley Mcginnis DOSigned By:Berkley Mcginnis DOSigned Date/Time:11/30/21 1613DD/ 1608 Discharge Plan Discharge Prescriptions: No Action hydrocodone-acetaminophen 5-325 mg tablet 1 tab PO BID PRN (Reason: Pain) RF: 0 docusate sodium [Colace] 100 mg capsule 100 mg PO DAILY PRN (Reason: Constipation) RF: 0 polyethylene glycol 3350 [Miralax] 17 gram powder in packet 17 g PO DAILY PRN (Reason: Constipation) RF: 0 morphine 15 mg Tablet Extended Release 15 mg PO Q12H PRN (Reason: Pain) RF: 0 Eliquis DVT-PE Treat 30D Start 5 mg (74 tabs) tablets,dose pack See Rx Instructions .ROUTE .COMPLEX MDD SEE PHARMACY COMMENT RF: 0 prednisone 20 mg Tablet See Rx Instructions .ROUTE .COMPLEX RF: 0 Compazine 10 mg Tablet 10 - 20 mg PO Q8H PRN (Reason: Nausea) RF: 0 allopurinol 100 mg Tablet 100 mg PO BID MDD SEE PHARMACY COMMENT RF: 0 digoxin 250 mcg (0.25 mg) Tablet 250 mcg PO DAILY RF: 0 lorazepam 1 mg Tablet 1 mg PO TID PRN (Reason: SEVERE NAUSEA) RF: 0 ondansetron 4 mg tablet,disintegrating 4 mg PO Q6H PRN (Reason: nausea and vomiting) Qty: 14 RF: 0 lisinopril 5 mg Tablet 5 mg PO DAILY RF: 0 Coding Level of Care Code ED Activities Director Scouting for Shayla Fwd Exam Comprehensive
--- NOTE | 2021-11-30 14:37 | XR_ITS ---
WS: [id number] Exam: XR chest 1V portable [id number] Date/Time of Exam: 11/30/2021 2:45 PM Reason For Exam: R sided rib pain Comparison 11/04/2021. Significant increase in left-sided pleural effusion noted. Pleural effusion occupies the lower two th irds of the left pleural cavity. The right lung is clear and fully expanded. The heart is probably no t enlarged but the left heart border is obscured. A right subclavian port ends in the lower one third of the SVC in good position. The mediastinum and osseous thorax are unremarkable. Surgical clips krishna ng the left axilla. 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 No pneumothorax. XR/XR chest 1V portable [id number] IMPRESSION: 1. Increasing left-sided pleural effusion since prior study. 2. Right-sided port in satisfactory position.
--- NOTE | 2021-11-30 14:37 | US_ITS ---
WS: [id number] RIGHT UPPER QUADRANT ULTRASOUND HISTORY: eval for biliary issues COMPARISON: 02/25/2019 Liver: 15.5 cm in length. Normal size liver. No bile duct dilatation or mass. Portal Vein: Normal hepatopetal flow with monophasic waveform. Gallbladder: Gallbladder is contracted with mild diffuse wall thickening measuring up to 4.5 mm. No e clover. Patient has known gallstones but these gallstones are difficult to visualize on today's examina tion. Stones may be entrapped at the gallbladder neck. CBD: 0.9 cm, common bile duct is dilated. No stones are identified along the common bile duct. There is no shadowing at the pancreatic head. Pancreas: Normal size and echogenicity. Right kidney: 11.0 cm in length. Normal size and echogenicity. No hydronephrosis or mass. Aorta and IVC: Ectasia and atherosclerosis aorta. No ascites. US/US gall bladder [id number] IMPRESSION: 1. Abnormal gallbladder. Gallbladder is slightly contracted with mild diffuse wall thickening and cholelithiasis. No pericholecystic fluid. 2. Mildly dilated common bile duct. No choledocholithiasis identified by ultra sound. Consider further evaluation by MRCP. 3. Recommend surgical consultation for gallbladder.
[2021-11-30 14:48] LABS: Basophils % 0.1 %; Eosinophils % 0.3 %; Lymphocytes # 1.2 10^3/uL (0.8-4.8); Lymphocytes % 13.8 %; Mean Corpuscular HGB Conc 35.5 g/dL (30.0-36.0); Mean Corpuscular Hemoglobin 29.8 pg (28.0-34.0); Mean Platelet Volume 9.3 fL (7.4-10.4); Monocytes # 0.5 10^3/uL (0.2-0.9); Monocytes % 5.5 %; Neutrophils # 6.17 10^3/uL (1.8-7.7); Neutrophils % 68.8 %; Nucleated Red Blood Cells % 0 %; Platelet Count 192 10^3/cmm (130-400); Red Blood Count 3.69 10^6/uL (4.1-5.3); Red Cell Distribution Width 12.8 % (12.1-15.1)
[2021-11-30 15:14] LABS: Anion Gap 17.6 (5-19); Blood Urea Nitrogen 6 mg/dL (8-23); Calcium 8.1 mg/dL (8.5-10.5); Carbon Dioxide 19 mmol/L (22-29); Chloride 82 mmol/L (98-107); Glucose 84 mg/dL (65-115); Magnesium 1.5 mg/dL (1.7-2.3); Osmolality Calculated 237 mOsm/kg (285-295); Potassium 3.6 mmol/L (3.5-5.1)
[2021-11-30 15:18] LABS: Sodium 115 mmol/L (136-145)
--- NOTE | 2021-11-30 15:21 | PC.NURSE ---
patient placed on bedpan and linens changed. patient in no obvious distress. Patinet on cardiac/vascular sonographer. Family at bedside. Call light within reach.
[2021-11-30] MEDS: magnesium sulfate premix 2 GM/50 ML PIGGYBACK IV (15:26)
[2021-11-30] MEDS: sodium chloride 0.9% 1,000 ML 999 ML IV (15:27)
--- NOTE | 2021-11-30 16:19 | CTR_ITS ---
PROCEDURE INFORMATION: Exam: CT Abdomen And Pelvis With Contrast Exam date and time: 11/30/2021 4:19 PM Age: 86 years old Clinical indication: Other: Frequent urination; Prior surgery; Surgery type: Hyst, appy; Additional info: Cholethiasis TECHNIQUE: Imaging protocol: Computed tomography of the abdomen and pelvis with contrast. Radiation optimization: All CT scans at this facility use at least one of these dose optimization techniques: automated exposure control; mA and/or kV adjustment per patient size (includes targeted exams where dose is matched to clinical indication); or iterative reconstruction. Contrast material: OMNI 300; Contrast volume: 95 ml; Contrast route: INTRAVENOUS (IV); COMPARISON: CT abdomen pelvis w con* [id number] 09/01/2021 11:45 PM RADIATION DOSE METRICS: Total DLP (mGy-cm): 1628.42 FINDINGS: Lungs: There is some partial atelectasis in the left lower lobe and lingula. Pleural spaces: There is a large left pleural effusion. Liver: There is no focal abnormality within the liver. Gallbladder and bile ducts: Multiple calcified gallstones are present. Pancreas: There is a 6 mm sized cyst in the uncinate process of the pancreas not significantly changed. Spleen: There are numerous hypodensities of various sizes throughout the spleen. These are smaller than on the previous examination representing improvement in the splenic disease or splenic metastasis compared with 09/01/2021. Adrenal glands: Normal. No mass. Kidneys and ureters: There are small simple cortical cysts in both kidneys not significantly changed. There is moderate hydronephrosis. There is no evidence of renal or ureteral calcifications. There is mild enhancement of the collecting systems and ureters of both kidneys which could represent some pyelitis and ureteritis. Please correlate with the clinical findings and urinalysis. Spleen is smaller than on the previous study. Stomach and bowel: Unremarkable. No obstruction. No mucosal thickening. Appendix: Not identified Intraperitoneal space: There is no evidence of free intraperitoneal fluid. Retroperitoneal space: There is a large mostly left-sided left retroperitoneal soft tissue mass, periaortic and paraspinal which is significantly smaller than on 09/01/2021 measuring 37 mm in thickness compared with 54 mm previously at the level of the left renal vein. Vasculature: There is thrombus which obstructs and distends the left common and external iliac veins and also the left common femoral vein. The aorta demonstrates moderate atherosclerotic calcification. Lymph nodes: No new adenopathy is identified. Urinary bladder: Unremarkable as visualized. Reproductive: There has been a hysterectomy. Bones/joints: There is severe multilevel spinal stenosis, most severe at L4-L5. The lumbar spine demonstrates marked degenerative changes at multiple levels. There is approximately 10 mm of anterolisthesis at L4-L5. This is not significantly changed. Soft tissues: Unremarkable. CT/CT abdomen pelvis w con* [id number] IMPRESSION: 1. 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 2. Decrease in retroperitoneal mass 3. Large left pleural effusion new 4. Cholelithiasis 5. 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 as described on the prior report. 6. Question of pyelitis and ureteritis. 7. Acute DVT left pelvic and common femoral veins. COMMENTS: Consistent with the [employer]'s Incidental Findings Committee white paper (J Am Gagandeep Radiol 2018): Any incidental renal lesion less than 1 cm or classified as too small to characterize, or any incidental cystic renal lesion characterized as simple-appearing, is likely benign. No follow-up imaging is recommended for these lesions per consensus recommendations based on imaging criteria.
[2021-11-30 16:20] LABS: Slide Review Slide Review Perform
--- NOTE | 2021-11-30 16:28 | PC.PHAR ---
PT IS CURRENTLY TAKING ELIQUIS 5 MG BID - PT FAMILY STATES SHE IS TAKING FOR THE REMAINDER OF THE MONTH THEN WILL SWITCH TO XARELTO 20 MG ONCE DAILY. PT HAS NOT STARTED TAKING XARELTO. XARELTO FILLED ON 11/13/21. PT STOPPED METOPROLOL TARTRATE 12.5MG BID AND REPLACED WITH DIGOXIN 250 MCG ONCE DAILY.
--- NOTE | 2021-11-30 16:41 | PM.CONSULT ---
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 She is being treated w/ R- CHOp by Dr. Rolle- last chem o was 11/19/21. Since then she has been weakk, nauseated, not eating well and drinking lots of water. Pt has h/o DVT and PE and is on eliquis. Pt is admitted today for weakness, ataxia and hyponatremia Review of Systems General: Reports: 10 or more systems reviewed and unremarkable except in HPI and below Narrative: weak, no change in chronic lethargy and sob. poor appetite, urinary frequency. drinking lots of wwater. no diarrhea, or bishop. + leg edema Medications/Allergies Home Medications Medication Instructions Recorded Confirmed Last Taken Type ondansetron 4 mg PO Q6H PRN #14 tab 09/02/21 11/30/21 11/30/21 Rx lisinopril 5 mg PO DAILY 10/27/21 11/30/21 11/30/21 History docusate sodium 100 mg capsule 100 mg PO DAILY PRN 11/16/21 11/30/21 Unknown History hydrocodone 5 mg-acetaminophen 325 1 tab PO BID PRN 11/16/21 11/30/21 Unknown History mg tablet polyethylene glycol 3350 17 gram 17 g PO DAILY PRN 11/16/21 11/30/21 Unknown History oral powder packet allopurinol 100 mg PO BID MDD SEE PHARMACY 11/30/21 11/30/21 11/30/21 History COMMENT apixaban [Eliquis DVT-PE Treat 30D See Rx Instructions .ROUTE 11/30/21 11/30/21 11/30/21 History Start] .COMPLEX MDD SEE PHARMACY COMMENT digoxin 250 mcg PO DAILY 11/30/21 11/30/21 11/30/21 History lorazepam 1 mg PO TID PRN 11/30/21 11/30/21 Unknown History morphine 15 mg PO Q12H PRN 11/30/21 11/30/21 Unknown History prednisone See Rx Instructions .ROUTE .COMPLEX 11/30/21 11/30/21 11/19/21 History prochlorperazine maleate 10 - 20 mg PO Q8H PRN 11/30/21 11/30/21 Unknown History [Compazine] Allergies Allergy/AdvReac Type Severity Reaction Status Date / Time No Known Allergies Allergy Verified 11/30/21 16:25 PFSH Acute PFSH: Medical History B-cell lymphoma Hypertension MGUS (monoclonal gammopathy of unknown significance) Peripheral neuropathy Polyarthritis Retroperitoneal lymphadenopathy Splenomegaly Surgical History H/O lymph node biopsy (10/28/21) left cervical H/O mastectomy History of hysterectomy Port-A-Cath in place (10/28/21) Status post colonoscopy Family History Other Cancer Social History Alcohol intake: never Housing: House Vitals/I&O/Wt Last Vital Signs Temp 97.6 F 11/30/21 11:44 Pulse 77 11/30/21 14:36 Resp 16 11/30/21 14:36 BP 144/78 11/30/21 14:36 Pulse Ox 95 11/30/21 14:36 Physical Exam Narrative: EXAM NARRATIVE: NARD vss heent- nc/at, eomi, anicteric neck supple lungs clear heart reg abd soft, nt, nd, + bs ext LLE edema neuro-a,a, o x 2 A&P Additional A&P Information 86 yr old female w/ 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 in past she responded to ivf. and pt does not eat well, and drinks a lot of water at home -recommendations- check urine lytes, -check chem 7 q 4 hrs -check uric acid - check tsh -give ns ivf -free water restrict -if serum na drops- then hypertonic saline 2. recent echo w/ small to moderate pericardial effusion- consider repeat echo seen and examined w/ RN -telehealth visit time spent 50 minutes Consult Attestations Medical Necessity Statement: hyponatremia, AMS Time Spent in Patient Care: Greater than 35 minutes (>than 50% of time spent in counselling and/or direct pt care on unit). Coding Level of Care Code Acute Dairy Processing Equipment Operator for Shayla Ramírez
--- NOTE | 2021-11-30 16:49 | PC.NURSE ---
patinet placed on bedpan with no issues. approx 350 ml clear , yellow urine
--- NOTE | 2021-11-30 16:53 | P.HP_ITS ---
Providers/Chief Complaint Primary Care Provider: Bianca Hardy MD Chief Complaint: Low sodium History of Present Illness Janet Jose is a 86 year old female with a past medical history of breast cancer, B-cell lymphoma, left retroperitoneal mass, extensive metastatic soft tissue masses, large left anterior neck mass, right lateral T7-8 abutting thoracic spine, left midsternal soft tissue mass, extensive confluent mass or adenopathy in the left retroperitoneal area encasing renal artery and abutting the aorta in the kidney, who received chemotherapy 2 weeks ago CHOP and Rituxan, recent history of left lower extremity DVT, hypertension, who presents to [facility] due to feeling nauseated, unwell, fatigue, malaise the last few days. She reports that she received both COVID vaccinations, recent fevers, no cough, no wheezing. She tells her that after chemotherapy she was a bit dehydrated so she is drinking up to 6 bottles of water a day. Denies any lightheadedness, no dizziness, no headache, no blurry vision, currently no nausea. No chest pain, no palpitations, no new medications beside chemotherapy. Patient answers most questions appropriate how, however she does require significant redirection and requestioning, does have episodes of confusion. Review of Systems Const: Denies: fever(s) Eyes: Denies: change in vision or blurry vision ENMT: Denies: throat pain Card: Denies: chest pain or palpitations Resp: Denies: dyspnea or non-productive cough GI: Reports: nausea; Denies: abdominal pain or vomiting : Denies: flank pain or difficulty voiding Musc: Denies: neck pain Skin/Breast: Denies: rash Neuro: Denies: headache(s), numbness in extremities, weakness in extremities, lack of coordination, frequent falls, vertigo or confusion Endo: Denies: polyuria or polydipsia Medications/Allergies Home Medications Medication Instructions Recorded Confirmed Last Taken Type ondansetron 4 mg PO Q6H PRN #14 tab 09/02/21 11/30/21 11/30/21 Rx lisinopril 5 mg PO DAILY 10/27/21 11/30/21 11/30/21 History docusate sodium 100 mg capsule 100 mg PO DAILY PRN 11/16/21 11/30/21 Unknown History hydrocodone 5 mg-acetaminophen 325 1 tab PO BID PRN 11/16/21 11/30/21 Unknown History mg tablet polyethylene glycol 3350 17 gram 17 g PO DAILY PRN 11/16/21 11/30/21 Unknown History oral powder packet allopurinol 100 mg PO BID MDD SEE PHARMACY 11/30/21 11/30/21 11/30/21 History COMMENT apixaban [Eliquis DVT-PE Treat 30D See Rx Instructions .ROUTE 11/30/21 11/30/21 11/30/21 History Start] .COMPLEX MDD SEE PHARMACY COMMENT digoxin 250 mcg PO DAILY 11/30/21 11/30/21 11/30/21 History lorazepam 1 mg PO TID PRN 11/30/21 11/30/21 Unknown History morphine 15 mg PO Q12H PRN 11/30/21 11/30/21 Unknown History prednisone See Rx Instructions .ROUTE .COMPLEX 11/30/21 11/30/21 11/19/21 History prochlorperazine maleate 10 - 20 mg PO Q8H PRN 11/30/21 11/30/21 Unknown History [Compazine] Allergies Allergy/AdvReac Type Severity Reaction Status Date / Time No Known Allergies Allergy Verified 11/30/21 16:25 PFSH Acute PFSH: Medical History B-cell lymphoma Hypertension MGUS (monoclonal gammopathy of unknown significance) Peripheral neuropathy Polyarthritis Retroperitoneal lymphadenopathy Splenomegaly Surgical History H/O lymph node biopsy (10/28/21) left cervical H/O mastectomy History of hysterectomy Port-A-Cath in place (10/28/21) Status post colonoscopy Family History Other Cancer Social History Alcohol intake: never Housing: House Vitals/I&O/Wt Last Vital Signs Temp 97.6 F 11/30/21 11:44 Pulse 77 11/30/21 14:36 Resp 16 11/30/21 14:36 BP 144/78 11/30/21 14:36 Pulse Ox 95 11/30/21 14:36 Physical Exam Const: COMMON NORMALS: no acute distress and patient oriented x3 HENMT: COMMON NORMALS: normocephalic HEAD & SCALP: normocephalic Eye: COMMON NORMALS: Equal, round and reactive pupils present and EOMs intact bilaterally GENERAL EYE: appearance normal, both eyes and all related structures PUPIL: Yes Equal, round and reactive pupils present Neck/C-Spine: COMMON NORMALS: full ROM and no lymphadenopathy THYROID: Thyroid normal Lymph: LYMPHATIC: no lymphadenopathy noted Resp: COMMON NORMALS: normal respiratory effort, No retractions, No use of accessory muscles and clear to auscultation bilaterally AUSCULTATION: clear to auscultation bilaterally Cardio: COMMON NORMALS: regular rate, regular rhythm, S1 normal heart sound present, S2 normal heart sound present, No gallops present (Cardio), No clicks present (Cardio) and No murmurs present (Cardio) RATE: regular rate RHYTHM: regular rhythm HEART SOUNDS: S1 normal heart sound present and S2 normal heart sound present GI: COMMON NORMALS: Normal to inspection, nondistended, normoactive bowel sounds present, Soft to palpation, non-tender and No hepatosplenomegaly present PALPATION: Yes Soft to palpation and Yes No hepatosplenomegaly present Extremity: COMMON NORMALS: normal to inspection, full ROM and no pedal edema Neuro: COMMON NORMALS: patient oriented x3, CN's II-XII intact bilaterally, m oves all extremities and no focal motor deficits Data : 11/30/21 14:30 11/30/21 14:30 A&P Assessment and plan (1) Hyponatremia: -Likely hypovolemic hyponatremia - Start normal saline at 100 cc an hour -BMP every 4 hours -Neurochecks, aspiration precautions -Monitor for cerebral edema -Urine sodium studies -Cortisol, TSH -CT scan of the abdomen pelvis -Nephrology on consult B-cell lymphoma, right port in place, status post chemotherapy 2 weeks ago DVT, continue home Eliquis Full code Eliquis for DVT prophylaxis Status: Acute (2) DVT (deep venous thrombosis): Status: Acute (3) B-cell lymphoma: Status: Acute Attestations Medical Necessity Statement*: Patient requires hospitalization, inpatient, greater than 2 midnight, for hyponatremia Coding Level of Care Code 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
--- NOTE | 2021-11-30 17:23 | PC.NURSE ---
patient in CT scan
[2021-11-30 17:26] LABS: Add Urine Microscopic? NO; Charge for UA Resulting for Rev
[2021-11-30] MEDS: iohexol 300 mg/mL 100 mL Btl IV (17:26)
[2021-11-30 17:36] LABS: Bilirubin Urine Neg (Negative); Blood Urine Neg (Negative); Glucose Urine UA Norm (Normal); Ketones Urine 1+ (Negative); Leukocyte Esterase Urine Negative (Negative); Nitrate Urine Negative (Negative); Protein Urine Neg (Negative); Specific Gravity, Urine 1.005 (1.005-1.030); Urine Appearance Clear (CLEAR); Urine Color Yellow (Yellow); Urobilinogen Urine Norm (Negative); pH Urine 7 (5-7)
[2021-11-30 17:37] VITALS: BP 138/76; PULSE 81; RESP 18; O2SAT 95
[2021-11-30] MEDS: sodium chloride 0.9% 1,000 ML 100 ML IV (17:37)
[2021-11-30 17:46] LABS: C Reactive Protein 7.9 mg/L (0.0-4.9); Gamma Glutamyl Transferase 36 U/L (5-36)
[2021-11-30 17:48] LABS: Potassium, Radom Urine 22 mmol/L; Urine Creatinine 51 mg/dL (28-217); Urine Random Chloride 37 mmol/L; Urine Random Sodium 49 mmol/L
[2021-11-30 17:53] LABS: Creatinine Urine, Random 52 mg/dL (28-217); Microalbumin Random Urine 4 ug/dL (0-20)
[2021-11-30 17:53] LABS: Procalcitonin 0.26 ng/mL (0-0.5)
--- NOTE | 2021-11-30 17:57 | PC.NURSE ---
16 fr sousa catheter placed with [employer] as cheauffeur at bedside. patient tolerated procedure well with no complications. sousa draining clear, yellow urine to bedside drainage.
[2021-11-30 17:58] LABS: Microalbum Creatinine Ratio Ur 77 mg/dL (0-20)
[2021-11-30 18:13] LABS: Eosinophil Urine No Eosinophils Seen; Urine Eosinophil Count 0 (0-0)
[2021-11-30 18:15] LABS: Alanine Aminotransferase < 5 U/L (0-33); Alkaline Phosphatase 94 IU/L (35-105); Anion Gap 15.4 (5-19); Aspartate Amino Transferase 14 U/L (0-32); Blood Urea Nitrogen 6 mg/dL (8-23); Calcium 7.8 mg/dL (8.5-10.5); Carbon Dioxide 19 mmol/L (22-29); Chloride 87 mmol/L (98-107); Globulin 2.1 g/dL (1.3-4.6); Glucose 75 mg/dL (65-115); Osmolality Calculated 242 mOsm/kg (285-295); Potassium 3.4 mmol/L (3.5-5.1); Thyroid Stimulating Hormone 1.04 uIU/mL (0.27-4.20); Total Bilirubin 0.5 mg/dL (0.15-1.2); Total Protein 5.1 g/dL (6.6-8.7); Uric Acid 2.1 mg/dL (2.4-5.7)
[2021-11-30 18:19] LABS: Sodium 118 mmol/L (136-145)
[2021-11-30 19:15] VITALS: BP 130/68; PULSE 81; RESP 18; O2SAT 95
[2021-11-30] MEDS: potassium chloride ER 20 mEq Tablet 40 MEQ PO (19:16)
--- NOTE | 2021-11-30 19:18 | PC.NURSE ---
patient sleeping comfortably in bed at this time. patient easily aroused via verbal stimuli. patient given po medication with no ease. vitals obtained and charted. Side rails raised x 2 and bed in low, locked position. call light withinr each. patient denies quesiton/cocnerns athis time.
[2021-11-30 19:48] LABS: Cortisol Random 14.82 ug/dL (2.47-19.5); Digoxin 1.4 ng/mL (0.6-1.2)
[2021-11-30] MEDS: allopurinol 100 mg Tablet PO (21:25)
[2021-11-30] MEDS: apixaban 5 mg Tablet PO (21:25)
[2021-11-30 21:27] VITALS: BP 137/70; PULSE 91; RESP 18; O2SAT 95
[2021-11-30 21:50] LABS: Anion Gap 14.7 (5-19); Blood Urea Nitrogen 5 mg/dL (8-23); Calcium 8.1 mg/dL (8.5-10.5); Carbon Dioxide 22 mmol/L (22-29); Chloride 89 mmol/L (98-107); Glucose 74 mg/dL (65-115); Osmolality Calculated 250 mOsm/kg (285-295); Potassium 3.7 mmol/L (3.5-5.1); Sodium 122 mmol/L (136-145)
[2021-11-30] MEDS: sodium chloride 0.45% 1,000 ML 75 ML IV (22:37)
[2021-12-01] VITALS (46 sets, daily range): BP systolic 110–145; BP diastolic 51–70; PULSE 60–113; RESP 9–31; TEMP 36.6–37.1; O2SAT 91–97; BMI 28.8
[2021-12-01 02:53] LABS: Anion Gap 14.8 (5-19); Blood Urea Nitrogen 5 mg/dL (8-23); Calcium 7.8 mg/dL (8.5-10.5); Carbon Dioxide 20 mmol/L (22-29); Chloride 91 mmol/L (98-107); Glucose 72 mg/dL (65-115); Osmolality Calculated 250 mOsm/kg (285-295); Potassium 3.8 mmol/L (3.5-5.1); Sodium 122 mmol/L (136-145)
--- NOTE | 2021-12-01 03:19 | PC.NURSE ---
Notified Dr Jacob of most recent sodium result of 122. MD states to stop IVF of NS 0.45% at this time and notifiy MD of next result as ordered. IVF paused at this time.
[2021-12-01] MEDS: HYDROcodone-acetaminophen 5-325 mg Tablet 1 TAB PO (05:40)
[2021-12-01 06:06] LABS: Hemoglobin 10.3 g/dL (11.5-15.3); Mean Corpuscular HGB Conc 34.3 g/dL (30.0-36.0); Mean Corpuscular Hemoglobin 29.9 pg (28.0-34.0); Mean Platelet Volume 8.9 fL (7.4-10.4); Platelet Count 251 10^3/cmm (130-400); Red Blood Count 3.45 10^6/uL (4.1-5.3); Red Cell Distribution Width 13.4 % (12.1-15.1); White Blood Count 7.3 10^3/uL (4.0-10.0)
[2021-12-01 06:22] LABS: Alanine Aminotransferase 9 U/L (0-33); Alkaline Phosphatase 81 IU/L (35-105); Anion Gap 14.9 (5-19); Aspartate Amino Transferase 14 U/L (0-32); Blood Urea Nitrogen 5 mg/dL (8-23); Calcium 7.7 mg/dL (8.5-10.5); Carbon Dioxide 19 mmol/L (22-29); Chloride 92 mmol/L (98-107); Globulin 2.1 g/dL (1.3-4.6); Glucose 72 mg/dL (65-115); Osmolality Calculated 250 mOsm/kg (285-295); Potassium 3.9 mmol/L (3.5-5.1); Sodium 122 mmol/L (136-145); Total Bilirubin 0.4 mg/dL (0.15-1.2); Total Protein 5.1 g/dL (6.6-8.7)
[2021-12-01 06:23] LABS: Creatinine Clr Calc Pharmacy 58.1619; Magnesium 1.9 mg/dL (1.7-2.3); Phosphorus 2.7 mg/dL (2.5-4.5)
--- NOTE | 2021-12-01 06:39 | PC.NURSE ---
Spoke with Dr Jacob to notify of sodium level currently 122. no new orders received.
[2021-12-01 07:09] LABS: Slide Review Slide Review Perform
[2021-12-01 07:11] LABS: Absolute Segmented Neutrophil 5.3 10/cmm (1.6-7.1); Eosinophils 0 %; Lymphocytes 16 %; Lymphocytes Absolute 1.2 10^3/cmm (1.2-3.4); Monocytes Absolute 0.6 10^3/cmm (0.1-0.6); Segmented Neutrophils 72 %; Total Cells Counted 100 (0-100)
[2021-12-01 07:13] LABS: Absolute Neutrophil 5.3 10^3/cmm (1.4-6.5); Platelet Estimate Normal (Normal)
--- NOTE | 2021-12-01 07:35 | PM.PN ---
Subjective Subjective: Interval history: swollen legs, weak, poor appetite. not eating well. no sob/ cp/ bishop/d Medications: Reviewed: Yes Medication Review Details: Current Medications Acetaminophen (Acetaminophen 325 Mg Tablet) 650 mg PO Q6H PRN PRN Reason: Mild/Mod Pain Or Temp >/= 101 Hydrocodone Bitart/Acetaminophen (Hydrocodone-Acetaminophen 5-325 Mg Tablet) 1 tab PO BID PRN PRN Reason: MODERATE PAIN Last Admin: 12/01/21 05:40 Dose: 1 tab Documented by: Allopurinol (Allopurinol 100 Mg Tablet) 100 mg PO BID@0900,2100 [facility] Last Admin: 11/30/21 21:25 Dose: 100 mg Documented by: Apixaban (Apixaban 5 Mg Tablet) 5 mg PO BID@0900,2100 [facility] Last Admin: 11/30/21 21:25 Dose: 5 mg Documented by: Sodium Chloride (Sodium Chloride 0.45%) 1,000 mls @ 75 mls/hr IV .[id number] [facility] Last Infusion: 12/01/21 03:19 Dose: 0 mls/hr Documented by: Sodium Chloride (Sodium Chloride 0.9%) 1,000 mls @ 100 mls/hr IV .Q10H [facility] Morphine Sulfate (Morphine Ir 15 Mg Tablet) 15 mg PO Q12H PRN PRN Reason: SEVERE PAIN Naloxone HCl (Naloxone 0.4 Mg/Ml Sdv) 0.1 mg IVP Q2M PRN PRN Reason: OPIATERV Ondansetron HCl (Ondansetron 2 Mg/Ml Sdv 2 Ml) 4 mg IVP Q8H PRN PRN Reason: vomiting, or N/V if npo Pantoprazole Sodium (Pantoprazole Dr 40 Mg Tablet) 40 mg PO DAILY [facility] Vitals/I&O/Wt Last Vital Signs Temp 98.2 F 12/01/21 06:00 Pulse 79 12/01/21 06:00 Resp 20 H 12/01/21 06:00 BP 122/67 12/01/21 06:00 Pulse Ox 93 12/01/21 06:00 11/30/21 12/01/21 12/01/21 22:59 06:59 14:59 Intake Total 488.333 / 488.333 472.5 / 960.833 Output Total 950 / 950 Balance 488.333 / 488.333 -477.5 / 10.833 Weight last 48 hrs Weight 83.552 kg Weight 83.552 kg Physical Exam Narrative: EXAM NARRATIVE: NARD vss heent- nc/at, eomi, anicteric neck supple lungs clear heart reg abd soft, nt, nd, + bs ext LLE > RLE edema neuro-a,a, o x 3 MS improved Data : 12/01/21 05:45 12/01/21 05:45 Micro: Microbiology 11/30/21 17:37 Blood Culture - Preliminary Blood SPECIMEN COLLECTED 11/30/21 17:44 Blood Culture - Preliminary Blood SPECIMEN COLLECTED A&P Additional A&P Information 86 yr old female w/ 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 in past she responded to ivf. and pt does not eat well, and drinks a lot of water at home -recommendations- low ur osm. ur na 49 -on ivf -serum na improved from 115 to 122 w/ ns then 1/2 ns ivf -restart ns ivf and check chem 7 q 6 hrs -check uric acid - normal cortisol and tsh -give ns ivf -free water restrict -may need salt tabs- will start na bicarb pills as met acidosis 2. recent echo w/ small to moderate pericardial effusion- consider repeat echo 3. LLE DVT per oncology 4. BP okay pt needs nutrition seen and examined w/ RN -telehealth visit time spent 30 minutes Attestations Medical Necessity Statement*: hyponatremia Time Spent in Patient Care: 16 - 35 minutes Coding Level of Care Code Acute Outsole Cutter Machine for Shayla Ramírez
[2021-12-01] MEDS: allopurinol 100 mg Tablet PO ×2 (08:28→20:25)
[2021-12-01] MEDS: pantoprazole DR 40 mg Tablet PO (08:28)
[2021-12-01] MEDS: sodium chloride 0.9% 1,000 ML 100 ML IV ×2 (08:28→18:33)
[2021-12-01] MEDS: apixaban 5 mg Tablet PO ×2 (08:28→20:25)
[2021-12-01 12:15] LABS: Alanine Aminotransferase 10 U/L (0-33); Albumin Level 3.1 g/dL (3.5-5.2); Alkaline Phosphatase 83 IU/L (35-105); Anion Gap 15.2 (5-19); Aspartate Amino Transferase 16 U/L (0-32); Blood Urea Nitrogen 6 mg/dL (8-23); Calcium 8.1 mg/dL (8.5-10.5); Carbon Dioxide 20 mmol/L (22-29); Chloride 92 mmol/L (98-107); Creatinine Clr Calc Pharmacy 58.1619; Globulin 2.3 g/dL (1.3-4.6); Glucose 82 mg/dL (65-115); Osmolality Calculated 253 mOsm/kg (285-295); Potassium 4.2 mmol/L (3.5-5.1); Sodium 123 mmol/L (136-145); Total Bilirubin 0.4 mg/dL (0.15-1.2); Total Protein 5.4 g/dL (6.6-8.7)
--- NOTE | 2021-12-01 16:11 | PM.PN ---
Subjective Subjective: Interval history: Patient was seen this morning, denies any headache, no blurry vision, nausea, vomiting, she is much more alert and awake, does not require redirectioning Vitals/I&O/Wt Last Vital Signs Temp 98.2 F 12/01/21 09:00 Pulse 70 12/01/21 10:54 Resp 20 H 12/01/21 09:00 BP 122/67 12/01/21 09:00 Pulse Ox 94 12/01/21 10:54 12/01/21 12/01/21 12/01/21 06:59 14:59 22:59 Intake Total 472.5 / 960.833 Output Total 950 / 950 Balance -477.5 / 10.833 Weight last 48 hrs Weight 83.552 kg Weight 83.552 kg Physical Exam Const: COMMON NORMALS: no acute distress and patient oriented x3 Resp: COMMON NORMALS: normal respiratory effort, No retractions, No use of accessory muscles and clear to auscultation bilaterally AUSCULTATION: clear to auscultation bilaterally Cardio: COMMON NORMALS: regular rate, regular rhythm, S1 normal heart sound present and S2 normal heart sound present RATE: regular rate RHYTHM: regular rhythm HEART SOUNDS: S1 normal heart sound present and S2 normal heart sound present GI: COMMON NORMALS: Normal to inspection, nondistended, normoactive bowel sounds present, Soft to palpation and non-tender PALPATION: Yes Soft to palpation Extremity: COMMON NORMALS: no pedal edema Neuro: COMMON NORMALS: patient oriented x3 Psych: COMMON NORMALS: mental status grossly normal Data : 12/01/21 05:45 12/01/21 10:39 Micro: Microbiology 11/30/21 17:37 Blood Culture - Preliminary Blood SPECIMEN COLLECTED 11/30/21 17:44 Blood Culture - Preliminary Blood SPECIMEN COLLECTED A&P Assessment and plan (1) Hyponatremia: -Likely hypovolemic hyponatremia -Serum sodium 123 -Sodium bicarb - Start normal saline at 100 cc an hour -BMP every 4 hours -Neurochecks, aspiration precautions -Monitor for cerebral edema -Will moved to general medical floors -Nephrology on consult 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, no dysuria, no hematuria, UA unremarkable for evidence of UTI, creatinine 0.2, discussed with urology, continue to medically manage unless she develops signs of infection or develops creatinine abnormalities Acute DVT left pelvic and common femoral veins, she tells me that she has a history of this, continue Eliquis Large left pleural effusion, continue to monitor, not symptomatic B-cell lymphoma, right port in place, status post chemotherapy 2 weeks ago DVT, continue home Eliquis Full code Eliquis for DVT prophylaxis Status: Acute (2) DVT (deep venous thrombosis): Status: Acute (3) B-cell lymphoma: Status: Acute Attestations Medical Necessity Statement*: Patient requires hospitalization for hyponatremia, critical care time spent over 35 minutes Coding Level of Care Code 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
[2021-12-01] MEDS: sodium bicarbonate 650 mg Tablet PO (18:32)
[2021-12-01 19:08] LABS: Alanine Aminotransferase 10 U/L (0-33); Albumin Level 3.2 g/dL (3.5-5.2); Alkaline Phosphatase 99 IU/L (35-105); Anion Gap 15.7 (5-19); Aspartate Amino Transferase 16 U/L (0-32); Blood Urea Nitrogen 7 mg/dL (8-23); Carbon Dioxide 19 mmol/L (22-29); Chloride 95 mmol/L (98-107); Creatinine Clr Calc Pharmacy 58.1619; Globulin 2.3 g/dL (1.3-4.6); Glucose 83 mg/dL (65-115); Osmolality Calculated 259 mOsm/kg (285-295); Potassium 3.7 mmol/L (3.5-5.1); Sodium 126 mmol/L (136-145); Total Bilirubin 0.4 mg/dL (0.15-1.2); Total Protein 5.5 g/dL (6.6-8.7)
--- NOTE | 2021-12-01 19:45 | PC.NURSE ---
Shift Note: Pt alert and oriented. No s/s of distress noted or verbalized by patient. Left leg remains bigger than right with pitting edema. Pt was able to get out of bed with PT to chair. She sat up for 1 1/2 hours. Chronic pressure injury on right hip is healing, scaring noted. Pt exerted control over her environment by using calling light and asking for numerous little things. Snacks were offered frequently to encourage eating. Salt tablets started this evening. Frequent safety and comfort rounds continue. Orders and/or nursing care completed as indicated. Patient monitored for response to intervention and treatment(s). Education provided includes Salt tablets, Eliquis, home health, and PT. Patient and/or international account representative Verbalized understanding of care plan, medications and progress. . Will continue to monitor.
[2021-12-01] MEDS: acetaminophen 325 mg Tablet 650 MG PO (23:16)
[2021-12-02] VITALS (12 sets, daily range): BP systolic 111–151; BP diastolic 50–86; PULSE 73–121; RESP 10–30; TEMP 36.9; O2SAT 91–96; BMI 28.8
[2021-12-02 01:46] LABS: Alanine Aminotransferase 9 U/L (0-33); Alkaline Phosphatase 80 IU/L (35-105); Anion Gap 11.5 (5-19); Aspartate Amino Transferase 12 U/L (0-32); Blood Urea Nitrogen 6 mg/dL (8-23); Calcium 7.9 mg/dL (8.5-10.5); Carbon Dioxide 22 mmol/L (22-29); Chloride 98 mmol/L (98-107); Creatinine Clr Calc Pharmacy 58.1619; Globulin 1.9 g/dL (1.3-4.6); Glucose 106 mg/dL (65-115); Osmolality Calculated 264 mOsm/kg (285-295); Potassium 3.5 mmol/L (3.5-5.1); Sodium 128 mmol/L (136-145); Total Bilirubin 0.3 mg/dL (0.15-1.2); Total Protein 4.9 g/dL (6.6-8.7)
[2021-12-02] MEDS: sodium chloride 0.9% 1,000 ML 100 ML IV (04:22)
[2021-12-02 05:07] LABS: Basophils # 0.1 10^3/uL (0.0-0.1); Basophils % 0.7 %; Eosinophils % 0.3 %; Hematocrit 28.1 % (37.0-47.0); Hemoglobin 9.5 g/dL (11.5-15.3); Lymphocytes # 1.2 10^3/uL (0.8-4.8); Lymphocytes % 12.6 %; Mean Corpuscular HGB Conc 33.8 g/dL (30.0-36.0); Mean Corpuscular Volume 88.6 fl (81-99); Mean Platelet Volume 8.8 fL (7.4-10.4); Monocytes # 0.8 10^3/uL (0.2-0.9); Monocytes % 8.2 %; Neutrophils # 6.01 10^3/uL (1.8-7.7); Neutrophils % 62.4 %; Nucleated Red Blood Cells % 0 %; Platelet Count 256 10^3/cmm (130-400); Red Blood Count 3.17 10^6/uL (4.1-5.3); Red Cell Distribution Width 13.9 % (12.1-15.1); White Blood Count 9.6 10^3/uL (4.0-10.0)
[2021-12-02 05:30] LABS: Alanine Aminotransferase 8 U/L (0-33); Albumin Level 2.9 g/dL (3.5-5.2); Alkaline Phosphatase 76 IU/L (35-105); Anion Gap 12.6 (5-19); Aspartate Amino Transferase 12 U/L (0-32); Blood Urea Nitrogen 6 mg/dL (8-23); Calcium 7.7 mg/dL (8.5-10.5); Carbon Dioxide 21 mmol/L (22-29); Chloride 97 mmol/L (98-107); Globulin 1.9 g/dL (1.3-4.6); Glucose 89 mg/dL (65-115); Magnesium 1.8 mg/dL (1.7-2.3); Osmolality Calculated 261 mOsm/kg (285-295); Phosphorus 2.3 mg/dL (2.5-4.5); Potassium 3.6 mmol/L (3.5-5.1); Sodium 127 mmol/L (136-145); Total Bilirubin 0.3 mg/dL (0.15-1.2); Total Protein 4.8 g/dL (6.6-8.7)
[2021-12-02 05:31] LABS: Creatinine Clr Calc Pharmacy 58.1619
--- NOTE | 2021-12-02 05:59 | PC.NURSE ---
Shift Note Frequent safety and comfort rounds continue. Orders and/or nursing care completed as indicated. Patient monitored for response to intervention and treatment(s). Education provided includes turning and repositioning. Patient verbalized understanding of teaching. Patient had an uneventful night she remains alert and oriented x4 and on room air. She had one report of restless leg syndrome, nurse helped reposition patient and administered PRN medication. Wild catheter drained 1250 mls of bright yellow urine overnight. Will continue to monitor.
[2021-12-02 06:56] LABS: Slide Review Slide Review Perform
[2021-12-02] MEDS: sodium bicarbonate 650 mg Tablet PO ×4 (07:52→22:45)
[2021-12-02] MEDS: allopurinol 100 mg Tablet PO ×2 (07:52→22:45)
[2021-12-02] MEDS: pantoprazole DR 40 mg Tablet PO (07:53)
[2021-12-02] MEDS: apixaban 5 mg Tablet PO ×2 (07:53→22:45)
[2021-12-02] MEDS: docusate sodium 100 mg Capsule PO ×2 (10:05→16:59)
--- NOTE | 2021-12-02 11:19 | PM.PN ---
Subjective Subjective: Interval history: constipated. feels better. no bishop/n/v/d/sob/cp/bishop Medications: Reviewed: Yes Medication Review Details: Current Medications Acetaminophen (Acetaminophen 325 Mg Tablet) 650 mg PO Q6H PRN PRN Reason: Mild/Mod Pain Or Temp >/= 101 Last Admin: 12/01/21 23:16 Dose: 650 mg Documented by: Hydrocodone Bitart/Acetaminophen (Hydrocodone-Acetaminophen 5-325 Mg Tablet) 1 tab PO BID PRN PRN Reason: MODERATE PAIN Last Admin: 12/01/21 05:40 Dose: 1 tab Documented by: Allopurinol (Allopurinol 100 Mg Tablet) 100 mg PO BID@0900,2100 [facility] Last Admin: 12/02/21 07:52 Dose: 100 mg Documented by: Apixaban (Apixaban 5 Mg Tablet) 5 mg PO BID@0900,2100 [facility] Last Admin: 12/02/21 07:53 Dose: 5 mg Documented by: Docusate Sodium (Docusate Sodium 100 Mg Capsule) 100 mg PO BID [facility] Last Admin: 12/02/21 10:05 Dose: 100 mg Documented by: Morphine Sulfate (Morphine Ir 15 Mg Tablet) 15 mg PO Q12H PRN PRN Reason: SEVERE PAIN Naloxone HCl (Naloxone 0.4 Mg/Ml Sdv) 0.1 mg IVP Q2M PRN PRN Reason: OPIATERV Ondansetron HCl (Ondansetron 2 Mg/Ml Sdv 2 Ml) 4 mg IVP Q8H PRN PRN Reason: vomiting, or N/V if npo Pantoprazole Sodium (Pantoprazole Dr 40 Mg Tablet) 40 mg PO DAILY [facility] Last Admin: 12/02/21 07:53 Dose: 40 mg Documented by: Polyethylene Glycol (Polyethylene Glycol 3350 Pkt 17 Gm) 17 gm PO BID [facility] Last Admin: 12/02/21 10:03 Dose: Not Given Documented by: Sodium Bicarbonate (Sodium Bicarbonate 650 Mg Tablet) 650 mg PO BID [facility] Last Admin: 12/02/21 07:52 Dose: 650 mg Documented by: Vitals/I&O/Wt Last Vital Signs Temp 98.8 F 12/01/21 14:00 Pulse 81 12/02/21 10:00 Resp 17 12/02/21 10:00 BP 144/70 12/02/21 10:00 Pulse Ox 94 12/02/21 10:00 12/01/21 12/02/21 12/02/21 22:59 06:59 14:59 Intake Total 1430 / 1700 1381.667 / 3081.667 240 / 240 Output Total 1368 / 1368 1250 / 2618 Balance 62 / 332 131.667 / 463.667 240 / 240 Weight last 48 hrs Weight 83.546 kg Weight 83.552 kg Weight 83.552 kg Physical Exam Narrative: EXAM NARRATIVE: NARD vss heent- nc/at, eomi, anicteric neck supple lungs clear heart reg abd soft, nt, nd, + bs ext LLE > RLE edema neuro-a,a, o x 3 MS normal Urinary Catheter Management^: Wild: Cath Placed During This Visit: yes Reason for Continuing Indwelling Catheter: Accurate Measurement of Urinary Output in Critically Ill Patients Urinary Catheter Date of Insertion: 11/30/21 Urinary Catheter Time of Insertion: 18:30 Data : 12/02/21 04:20 12/02/21 04:20 Micro: Microbiology 11/30/21 17:37 Blood Culture - Preliminary Blood NEGATIVE TO DATE 11/30/21 17:44 Blood Culture - Preliminary Blood NEGATIVE TO DATE A&P Additional A&P Information 86 yr old female w/ 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 in past she responded to ivf. and pt does not eat well, and drinks a lot of water at home -recommendations- low ur osm. ur na 49 -on ivf -serum na improved from 115 to 127- MS good -hold ivf cont na bicarb pills - check chem 7 q 12 hrs -check uric acid - normal cortisol and tsh -free water restrict 2. recent echo w/ small to moderate pericardial effusion- consider repeat echo 3. LLE DVT per oncology 4. BP okay 5. replace k, phos, mag 6. constipation per medicine pt needs nutrition seen and examined w/ RN -telehealth visit time spent 30 minutes Attestations Medical Necessity Statement*: hyponatremia- improved MS Time Spent in Patient Care: 16 - 35 minutes (>than 50% of time spent in counselling and/or direct pt care on unit). Coding Level of Care Code Acute Humidifier Operator for [facility]
[2021-12-02 12:57] LABS: Creatinine, Random Urine 53 mg/dL (20-275); Protein, Total, Random 25 mg/dL (5-24); Protein/Creatinine Ratio 0.472 (0.021-0.161); Protein/Creatinine Ratio 472 mg/g creat (21-161)
[2021-12-02 14:06] LABS: Osmolality Urine 235 mOsm/kg (50-1200)
--- NOTE | 2021-12-02 14:28 | P.PN_ITS ---
Subjective Subjective: Interval history: Patient was seen this morning, denies any headache, no blurry vision, no nausea, no vomiting, she tells me that she feels weak, feels that she needs increased therapy, she is not ready to leave the hospital Vitals/I&O/Wt Last Vital Signs Temp 98.8 F 12/01/21 14:00 Pulse 92 12/02/21 12:00 Resp 24 H 12/02/21 12:00 BP 138/71 12/02/21 12:00 Pulse Ox 94 12/02/21 12:00 12/01/21 12/02/21 12/02/21 22:59 06:59 14:59 Intake Total 1430 / 1700 1381.667 / 3081.667 360 / 360 Output Total 1368 / 1368 1250 / 2618 Balance 62 / 332 131.667 / 463.667 360 / 360 Weight last 48 hrs Weight 83.546 kg Weight 83.552 kg Weight 83.552 kg Physical Exam Const: COMMON NORMALS: no acute distress and patient oriented x3 Resp: COMMON NORMALS: normal respiratory effort, No retractions, No use of accessory muscles and clear to auscultation bilaterally AUSCULTATION: clear to auscultation bilaterally Cardio: COMMON NORMALS: regular rate, regular rhythm, S1 normal heart sound present and S2 normal heart sound present RATE: regular rate RHYTHM: regular rhythm HEART SOUNDS: S1 normal heart sound present and S2 normal heart sound present GI: COMMON NORMALS: Normal to inspection, nondistended, normoactive bowel so unds present, Soft to palpation, non-tender and No hepatosplenomegaly present PALPATION: Yes Soft to palpation and Yes No hepatosplenomegaly present Extremity: NARRATIVE EXTREMITY EXAM: Left lower extremity swelling, slight erythema at the level of the shins Neuro: COMMON NORMALS: patient oriented x3 Psych: COMMON NORMALS: mental status grossly normal Urinary Catheter Management^: Wild: Cath Placed During This Visit: yes Reason for Continuing Indwelling Catheter: Accurate Measurement of Urinary Output in Critically Ill Patients Urinary Catheter Date of Insertion: 11/30/21 Urinary Catheter Time of Insertion: 18:30 Data : 12/02/21 04:20 12/02/21 04:20 Micro: Microbiology 11/30/21 17:37 Blood Culture - Preliminary Blood NEGATIVE TO DATE 11/30/21 17:44 Blood Culture - Preliminary Blood NEGATIVE TO DATE A&P Assessment and plan (1) Hyponatremia: -Likely hypovolemic hyponatremia -Serum sodium 127 -Sodium bicarb -Off fluids -BMP every 4 hours -Neurochecks, aspiration precautions -Monitor for cerebral edema -Will moved to general medical floors -Nephrology on consult 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, no dysuria, no hematuria, UA unremarkable for evidence of UTI, creatinine 0.2, discussed with urology, continue to medically manage unless she develops signs of infection or develops creatinine abnormalities Acute DVT left pelvic and common femoral veins, she tells me that she has a history of this, continue Eliquis Large left pleural effusion, continue to monitor, not symptomatic B-cell lymphoma, right port in place, status post chemotherapy 2 weeks ago DVT, continue home Eliquis Weakness, deconditioning, PT OT evaluation consider assisted placement versus home health care Elevated digoxin level, hold digoxin Full code Eliquis for DVT prophylaxis Status: Acute (2) DVT (deep venous thrombosis): Status: Acute (3) B-cell lymphoma: Status: Acute Attestations Medical Necessity Statement*: Patient requires hospitalization for hypovolemic hyponatremia Coding Level of Care Code Acute Secondary School Registrar for [facility]e Diagnoses Hyponatremia E87.1 DVT (deep venous thrombosis) I82.409 B-cell lymphoma C85.10
[2021-12-02] MEDS: lanolin oint 7 gm 1 APPLIC TOPICAL (14:50)
--- NOTE | 2021-12-02 15:59 | ECG_ITS ---
[facility] Test Date: 2021-12-02 Pat Name: Janet Jose Department: Room: ICU03 Gender: Female Investment Specialist: : 1935 Requested By: Adriel Suarez Order Number: [id number] Yessenia MD: Judy Mejia M.D. Measurements Intervals [place] Rate: 101 P: 24 NE: 185 QRS: 6 QRSD: 124 T: 166 QT: 357 QTc: 463 Interpretive Statements SINUS TACHYCARDIA LEFT BUNDLE BRANCH BLOCK [120+ ms QRS DURATION, 80+ ms Q/S IN V1/V2, 85+ ms R IN I/aVL/V5/V6] Compared to ECG 11/30/2021 14:25:33 Sinus rhythm no longer present Sinus arrhythmia no longer present First degree AV block no longer present Electronically Signed On 12-02-2021 17:51:45 POLITICAL ANTHROPOLOGIST by Judy Mejia M.D. [id number]
[2021-12-02 16:10] LABS: Anion Gap 13.5 (5-19); Blood Urea Nitrogen 6 mg/dL (8-23); Carbon Dioxide 23 mmol/L (22-29); Chloride 100 mmol/L (98-107); Glucose 110 mg/dL (65-115); Osmolality Calculated 274 mOsm/kg (285-295); Potassium 3.5 mmol/L (3.5-5.1); Sodium 133 mmol/L (136-145)
[2021-12-02 16:35] LABS: Troponin(5th) Baseline 59 ng/L (0-10)
[2021-12-02] MEDS: phosphorus 250 mg Tablet PO (16:59)
[2021-12-02] MEDS: magnesium oxide 400 mg tablet PO (16:59)
--- NOTE | 2021-12-02 17:59 | ECG_ITS ---
[facility] Test Date: 2021-12-02 Pat Name: Janet Jose Department: Room: ICU03 Gender: Female Candy Spreader Helper: : 1935 Requested By: Adriel Suarez Order Number: [id number] Yessenia MD: Jodee Stone M.D. Measurements Intervals [place] Rate: 96 P: 28 FL: 211 QRS: 1 QRSD: 126 T: 152 QT: 353 QTc: 448 Interpretive Statements SINUS RHYTHM WITH FIRST DEGREE AV BLOCK LEFT BUNDLE BRANCH BLOCK [120+ ms QRS DURATION, 80+ ms Q/S IN V1/V2, 85+ ms R IN I/aVL/V5/V6] Compared to ECG 12/02/2021 16:11:10 First degree AV block now present Sinus tachycardia no longer present Electronically Signed On 12-03-2021 19:23:04 LOADING MACHINE OPERATOR by Jodee Stone M.D. [id number]
[2021-12-02] MEDS: acetaminophen 325 mg Tablet 650 MG PO (22:54)
[2021-12-02 22:57] LABS: Troponin 5 6HR 58.19 ng/L (0-10); Troponin 5 6HR Delta -0.81 ng/L (0-12)
[2021-12-03] VITALS (7 sets, daily range): BP systolic 129–144; BP diastolic 65–74; PULSE 79–101; RESP 15–20; TEMP 36.6–37.1; O2SAT 94–96
[2021-12-03 03:46] LABS: Basophils # 0.1 10^3/uL (0.0-0.1); Basophils % 0.7 %; Eosinophils % 0.2 %; Hematocrit 27.6 % (37.0-47.0); Hemoglobin 9.1 g/dL (11.5-15.3); Lymphocytes % 9.9 %; Mean Corpuscular Hemoglobin 29.7 pg (28.0-34.0); Mean Corpuscular Volume 90.2 fl (81-99); Mean Platelet Volume 8.4 fL (7.4-10.4); Monocytes # 0.8 10^3/uL (0.2-0.9); Monocytes % 7.9 %; Neutrophils # 6.62 10^3/uL (1.8-7.7); Neutrophils % 63.9 %; Nucleated Red Blood Cells % 0 %; Platelet Count 282 10^3/cmm (130-400); Red Blood Count 3.06 10^6/uL (4.1-5.3); Red Cell Distribution Width 14.8 % (12.1-15.1); White Blood Count 10.4 10^3/uL (4.0-10.0)
[2021-12-03 04:03] LABS: Alanine Aminotransferase 8 U/L (0-33); Albumin Level 3.1 g/dL (3.5-5.2); Alkaline Phosphatase 75 IU/L (35-105); Anion Gap 13.4 (5-19); Aspartate Amino Transferase 11 U/L (0-32); Blood Urea Nitrogen 7 mg/dL (8-23); Calcium 7.9 mg/dL (8.5-10.5); Carbon Dioxide 24 mmol/L (22-29); Chloride 100 mmol/L (98-107); Globulin 1.7 g/dL (1.3-4.6); Glucose 106 mg/dL (65-115); Magnesium 1.8 mg/dL (1.7-2.3); Osmolality Calculated 276 mOsm/kg (285-295); Phosphorus 2.3 mg/dL (2.5-4.5); Potassium 3.4 mmol/L (3.5-5.1); Sodium 134 mmol/L (136-145); Total Bilirubin 0.3 mg/dL (0.15-1.2); Total Protein 4.8 g/dL (6.6-8.7)
[2021-12-03 04:09] LABS: Slide Review Slide Review Perform
[2021-12-03 04:10] LABS: Uric Acid 2.3 mg/dL (2.4-5.7)
[2021-12-03] MEDS: acetaminophen 325 mg Tablet 650 MG PO (04:17)
--- NOTE | 2021-12-03 05:06 | PC.NURSE ---
Transfer Note Patient transferred to med-surg bed 279-1 from ICU via bed. Handoff report given to EVA Hillman. Patient oriented to environment and equipment. Covering service notified. Orders reviewed and will continue to monitor. Family and/or media sales representative notified. All patient belongings were transferred with patient and placed at bedside. Patient verbalized concern about being discharged from the hospital, relayed concerns in bedside handoff report.
--- NOTE | 2021-12-03 08:17 | PM.PN ---
Subjective Subjective: Interval history: seen via telehealth with assistance of RN at bedside Janet states she feels depressed, weak. Was constipated, had BM this AM Medications: Reviewed: Yes Vitals/I&O/Wt Last Vital Signs Temp 98.4 F 12/02/21 20:00 Pulse 89 12/03/21 04:00 Resp 15 12/03/21 04:00 BP 141/71 12/03/21 04:00 Pulse Ox 94 12/03/21 04:00 12/02/21 12/03/21 12/03/21 22:59 06:59 14:59 Intake Total 120 / 480 320 / 800 Output Total 400 / 400 Balance -280 / 80 320 / 400 Weight last 48 hrs Weight 83.546 kg Physical Exam Const: COMMON NORMALS: no acute distress Urinary Catheter Management^: Wild: Cath Placed During This Visit: yes, but has since been removed by the nurse Reason for Continuing Indwelling Catheter: Accurate Measurement of Urinary Output in Critically Ill Patients Urinary Catheter Date of Insertion: 11/30/21 Urinary Catheter Time of Insertion: 18:30 Date Urinary Catheter Removed: 12/02/21 Time Urinary Catheter Discontinued: 16:18 Data : 12/03/21 03:15 12/03/21 03:15 Other Labs: phos 2.3, Mg 1.8 Ca 7.9, Alb 3.1 A&P Additional A&P Information 1. Hyponatremia - much improved. Change NaHCO3 to NaCl 2. Hypokalemia, hypophosphatemia, hypomagnesemia. Increase K and phos replacement. Check 25(OH)D 3. Anemia - check iron studies, B12 Stable for discharge to rehab from renal standpoint Attestations Medical Necessity Statement*: per primary service Time Spent in Patient Care: 16 - 35 minutes Coding Level of Care Code Acute Federal Mediation Commissioner for Shayla Ramírez
[2021-12-03 08:47] LABS: Abnormal Protein Band 1 5 mg/dL (NONE DETECTED); Abnormal Protein Band 2 1 mg/dL (NONE DETECTED); Albumin,Urine Random 38 %; Alpha-1-Globulins Urine Random 6 %; Alpha-2-Globulins Urine Random 14 %; Beta-Globulin,Urine Random 31 %; Gamma Globulin,Urine Random 11 %
[2021-12-03] MEDS: magnesium oxide 400 mg tablet PO ×2 (09:16→18:39)
[2021-12-03] MEDS: docusate sodium 100 mg Capsule PO ×2 (09:17→18:39)
[2021-12-03] MEDS: phosphorus 250 mg Tablet PO ×3 (09:17→20:40)
[2021-12-03] MEDS: allopurinol 100 mg Tablet PO ×2 (09:17→20:40)
[2021-12-03] MEDS: sodium bicarbonate 650 mg Tablet PO (09:17)
[2021-12-03] MEDS: pantoprazole DR 40 mg Tablet PO (09:17)
[2021-12-03] MEDS: apixaban 5 mg Tablet PO ×2 (09:17→20:40)
[2021-12-03] MEDS: polyethylene glycol 3350 Pkt 17 gm PO ×2 (09:18→18:39)
--- NOTE | 2021-12-03 12:32 | PM.PN ---
Subjective Subjective: Interval history: Patient was seen this morning she reports that she has not had a bowel movement in over 48 hours, she wants to try an enema, she reports generalized weakness, she feels that she would benefit from long-term rehab Vitals/I&O/Wt Last Vital Signs Temp 98.2 F 12/03/21 11:23 Pulse 101 H 12/03/21 11:23 Resp 18 12/03/21 11:23 BP 135/74 12/03/21 11:23 Pulse Ox 96 12/03/21 11:23 12/02/21 12/03/21 12/03/21 22:59 06:59 14:59 Intake Total 120 / 480 320 / 800 240 / 240 Output Total 400 / 400 Balance -280 / 80 320 / 400 240 / 240 Weight last 48 hrs Weight 83.546 kg Physical Exam Const: COMMON NORMALS: no acute distress and patient oriented x3 Resp: COMMON NORMALS: normal respiratory effort, No retractions, No use of accessory muscles and clear to auscultation bilaterally AUSCULTATION: clear to auscultation bilaterally Cardio: COMMON NORMALS: regular rate, regular rhythm, S1 normal heart sound present and S2 normal heart sound present RATE: regular rate RHYTHM: regular rhythm HEART SOUNDS: S1 normal heart sound present and S2 normal heart sound present GI: COMMON NORMALS: Normal to inspection, nondistended, normoactive bowel sounds present, Soft to palpation and non-tender PALPATION: Yes Soft to palpation Extremity: COMMON NORMALS: no pedal edema Neuro: COMMON NORMALS: patient oriented x3 Psych: COMMON NORMALS: mental status grossly normal Urinary Catheter Management^: Wild: Cath Placed During This Visit: yes, but has since been removed by the nurse Reason for Continuing Indwelling Catheter: Accurate Measurement of Urinary Output in Critically Ill Patients Urinary Catheter Date of Insertion: 11/30/21 Urinary Catheter Time of Insertion: 18:30 Date Urinary Catheter Removed: 12/02/21 Time Urinary Catheter Discontinued: 16:18 Data : 12/03/21 03:15 12/03/21 03:15 A&P Assessment and plan (1) Hyponatremia: -Likely hypovolemic hyponatremia -Serum sodium 134 -Sodium bicarb -Off fluids -Neurochecks, aspiration precautions -Nephrology on consult 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 Which I presume is for atrial fibrillation, EKG showed normal sinus rhythm, but did have episodes of intermittent tachycardia while she was in ICU, will start on low-dose metoprolol 12.5 twice daily Full code Eliquis for DVT prophylaxis Status: Acute (2) DVT (deep venous thrombosis): Status: Acute (3) B-cell lymphoma: Status: Acute Attestations Medical Necessity Statement*: Patient requires hospitalization for deconditioning, hyponatremia, Coding Level of Care Code Acute Emergency Management Director for [facility] Diagnoses Hyponatremia E87.1 DVT (deep venous thrombosis) I82.409 B-cell lymphoma C85.10
[2021-12-03] MEDS: metoprolol tartrate 25 mg Tablet 12.5 MG PO (14:24)
[2021-12-03] MEDS: sucralfate 1 gm Tablet PO (14:24)
[2021-12-03] MEDS: pantoprazole 40 mg SDV IVP (14:25)
--- NOTE | 2021-12-03 16:44 | PC.SOCIAL ---
Pg 2 IMM. Explained to pt Pg 2 IMM. No questions voiced. Provided pt a copy. Initialed dated, & timed a copy & placed in chart.
[2021-12-03] MEDS: sodium chloride 1 gm Tablet PO (18:39)
[2021-12-03 18:52] LABS: Basophils # 0.1 10^3/uL (0.0-0.1); Basophils % 0.6 %; Eosinophils % 0.2 %; Hematocrit 28.8 % (37.0-47.0); Hemoglobin 9.7 g/dL (11.5-15.3); Lymphocytes # 0.8 10^3/uL (0.8-4.8); Lymphocytes % 6.8 %; Mean Corpuscular HGB Conc 33.7 g/dL (30.0-36.0); Mean Corpuscular Volume 89.2 fl (81-99); Mean Platelet Volume 8.2 fL (7.4-10.4); Monocytes # 0.9 10^3/uL (0.2-0.9); Monocytes % 7.7 %; Neutrophils # 7.92 10^3/uL (1.8-7.7); Neutrophils % 69.4 %; Nucleated Red Blood Cells % 0.2 %; Platelet Count 323 10^3/cmm (130-400); Red Blood Count 3.23 10^6/uL (4.1-5.3); White Blood Count 11.4 10^3/uL (4.0-10.0)
[2021-12-03 20:07] LABS: Slide Review Slide Review Perform
[2021-12-04] VITALS (7 sets, daily range): BP systolic 135–153; BP diastolic 74–84; PULSE 86–113; RESP 16–20; TEMP 36.7–37.5; O2SAT 93–95; BMI 28.8
[2021-12-04] MEDS: metoprolol tartrate 25 mg Tablet 12.5 MG PO ×2 (01:59→14:28)
[2021-12-04] MEDS: sucralfate 1 gm Tablet PO ×2 (01:59→14:28)
[2021-12-04] MEDS: pantoprazole 40 mg SDV IVP ×2 (02:36→14:26)
[2021-12-04 06:05] LABS: Basophils # 0.1 10^3/uL (0.0-0.1); Basophils % 0.7 %; Eosinophils % 0.1 %; Hematocrit 31.3 % (37.0-47.0); Hemoglobin 10.5 g/dL (11.5-15.3); Lymphocytes # 1.1 10^3/uL (0.8-4.8); Mean Corpuscular HGB Conc 33.5 g/dL (30.0-36.0); Mean Corpuscular Hemoglobin 30.3 pg (28.0-34.0); Mean Corpuscular Volume 90.5 fl (81-99); Mean Platelet Volume 8.3 fL (7.4-10.4); Monocytes # 0.9 10^3/uL (0.2-0.9); Neutrophils # 7.08 10^3/uL (1.8-7.7); Neutrophils % 63.6 %; Nucleated Red Blood Cells % 0.2 %; Platelet Count 369 10^3/cmm (130-400); Red Blood Count 3.46 10^6/uL (4.1-5.3); Red Cell Distribution Width 15.4 % (12.1-15.1); White Blood Count 11.1 10^3/uL (4.0-10.0)
[2021-12-04 06:19] LABS: Alanine Aminotransferase 10 U/L (0-33); Albumin Level 3.4 g/dL (3.5-5.2); Alkaline Phosphatase 82 IU/L (35-105); Anion Gap 14.8 (5-19); Aspartate Amino Transferase 17 U/L (0-32); Blood Urea Nitrogen 7 mg/dL (8-23); Calcium 8.3 mg/dL (8.5-10.5); Carbon Dioxide 23 mmol/L (22-29); Chloride 96 mmol/L (98-107); Globulin 2.4 g/dL (1.3-4.6); Glucose 92 mg/dL (65-115); Magnesium 1.8 mg/dL (1.7-2.3); Osmolality Calculated 268 mOsm/kg (285-295); Phosphorus 2.9 mg/dL (2.5-4.5); Potassium 3.8 mmol/L (3.5-5.1); Sodium 130 mmol/L (136-145); Total Bilirubin 0.4 mg/dL (0.15-1.2); Total Protein 5.8 g/dL (6.6-8.7)
[2021-12-04 06:24] LABS: Slide Review Slide Review Perform
[2021-12-04] MEDS: phosphorus 250 mg Tablet PO ×3 (08:05→20:39)
[2021-12-04] MEDS: allopurinol 100 mg Tablet PO ×2 (08:05→20:39)
[2021-12-04] MEDS: magnesium oxide 400 mg tablet PO ×2 (08:05→17:33)
[2021-12-04] MEDS: sodium chloride 1 gm Tablet PO ×2 (08:05→17:33)
[2021-12-04] MEDS: docusate sodium 100 mg Capsule PO ×2 (08:05→17:33)
[2021-12-04] MEDS: polyethylene glycol 3350 Pkt 17 gm PO ×2 (08:05→17:33)
[2021-12-04] MEDS: apixaban 5 mg Tablet PO ×2 (08:05→20:39)
[2021-12-04 08:52] LABS: Anion Gap 13.7 (5-19); Blood Urea Nitrogen 7 mg/dL (8-23); Calcium 8.3 mg/dL (8.5-10.5); Carbon Dioxide 24 mmol/L (22-29); Chloride 96 mmol/L (98-107); Ferritin 546 ng/mL (15-150); Glucose 87 mg/dL (65-115); Iron 24 ug/dL (37-145); Magnesium 1.8 mg/dL (1.7-2.3); Osmolality Calculated 267 mOsm/kg (285-295); Percent Saturation 12.1 % (20-50); Phosphorus 2.8 mg/dL (2.5-4.5); Potassium 3.7 mmol/L (3.5-5.1); Sodium 130 mmol/L (136-145); Total Iron Binding Capacity 198 mcg/dl; Unsaturated Iron Binding 174 ug/dL (112-347)
[2021-12-04 09:07] LABS: 25 Hydroxy Vitamin D 8 ng/mL (30-100); Vitamin B12 1168 pg/mL (232-1245)
[2021-12-04] MEDS: cholecalciferol (vitamin D3) 1,000 unit Tablet 2000 UNIT PO (14:25)
--- NOTE | 2021-12-04 15:43 | PC.CHAP ---
Pastoral Care Encounter/Spiritual Assessment Type of Contact [] Declined photograph editor visit [] Patient/Family/Request visit [] Outpatient visit [xx] Follow-up visit [] Physician referral [] Code/Alert [] Routine visit [] Staff referral [] Actively dying [xx] Patient sleeping [] Family support [] [] Out of room [] Palliative care [] [] Receiving care in room [] Pre-surgical visit [] Trauma [xx] Long length of stay [] ICU visit [] Other: Relational/Emotional Strength [] Patient feels connected with others/family/visitors/staff [] Distress [] Loneliness/isolation [] Abandonment Spirituality of Patient [] Person of Jaimie [] Attends Yarsani of their Jaimie [] Believes in Prayer [] Reads Bible or Bahai materials [] There are Spiritual issues to be addressed Personnel Security Specialist Interventions [] Prayer [] Active listening [] Non-anxious presence [] Spiritual/emotional support [] Crisis/trauma care [] Spiritual counseling [] Bereavement support [] Provided bereavement packet [] Provided Bible/devotional materials [] Provided toy/stuffed animal, coloring book to patient or family member [] Provided Communion [] Anointing/[place] [] Salvation [] Completed spiritual assessment [] Other: Impact on Illness or Injury [] Angry [] Fearful [] Anxious [] Often cries [] Exhaustion [] Unable to work [] Unable to attend pentecostal [] Unable to walk/stand [] Unable to read [] Unable to drive [] Unable to eat/drink [] Unable to sleep [] Unable to be with family [] Patient intubated [] Other: Summary Follow up later. Time spent with patient
--- NOTE | 2021-12-04 16:24 | PM.PN ---
Subjective Subjective: Interval history: Patient was seen this morning, no nausea, no vomiting, no headache, no blurry vision, she continues to complain of weakness, generalized Vitals/I&O/Wt Last Vital Signs Temp 98.0 F 12/04/21 12:00 Pulse 95 12/04/21 12:00 Resp 18 12/04/21 12:00 BP 135/78 12/04/21 12:00 Pulse Ox 95 12/04/21 12:00 12/04/21 12/04/21 12/04/21 06:59 14:59 22:59 Output Total 450 / 1550 400 / 400 Balance -450 / -1010 -400 / -400 Weight last 48 hrs Weight 83.546 kg Physical Exam Const: COMMON NORMALS: no acute distress and patient oriented x3 Resp: COMMON NORMALS: normal respiratory effort, No retractions, No use of accessory muscles and clear to auscultation bilaterally AUSCULTATION: clear to auscultation bilaterally Cardio: COMMON NORMALS: regular rate, regular rhythm, S1 normal heart sound present and S2 normal heart sound present RATE: regular rate RHYTHM: regular rhythm HEART SOUNDS: S1 normal heart sound present and S2 normal heart sound present GI: COMMON NORMALS: Normal to inspection, nondistended, normoactive bowel sounds present, Soft to palpation and non-tender PALPATION: Yes Soft to palpation Extremity: COMMON NORMALS: no pedal edema NARRATIVE EXTREMITY EXAM: Left lower extremity swelling, slight erythema at the level of the shins Neuro: COMMON NORMALS: patient oriented x3 Psych: COMMON NORMALS: mental status grossly normal Urinary Catheter Management^: Wild: Cath Placed During This Visit: yes, but has since been removed by the nurse Reason for Continuing Indwelling Catheter: Accurate Measurement of Urinary Output in Critically Ill Patients Urinary Catheter Date of Insertion: 11/30/21 Urinary Catheter Time of Insertion: 18:30 Date Urinary Catheter Removed: 12/02/21 Time Urinary Catheter Discontinued: 16:18 Data : 12/04/21 05:44 12/04/21 08:15 A&P Assessment and plan (1) Hyponatremia: -Likely hypovolemic hyponatremia -Serum sodium 130 -Sodium bicarb -Off fluids -Neurochecks, aspiration precautions -Nephrology on consult 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 Which I presume is for atrial fibrillation, EKG showed normal sinus rhythm, but did have episodes of intermittent tachycardia while she was in ICU, will start on low-dose metoprolol 12.5 twice daily Full code Eliquis for DVT prophylaxis Status: Acute (2) DVT (deep venous thrombosis): Status: Acute (3) B-cell lymphoma: Status: Acute Attestations Medical Necessity Statement*: Requires hospitalization hyponatremia, deconditioning, awaiting long-term placement Coding Level of Care Code Acute Technical Business Analyst for [facility] Fwd Diagnoses Hyponatremia E87.1 DVT (deep venous thrombosis) I82.409 B-cell lymphoma C85.10
[2021-12-05] VITALS (7 sets, daily range): BP systolic 128–158; BP diastolic 74–88; PULSE 89–104; RESP 16–20; TEMP 36.7–37.3; O2SAT 90–95; BMI 28.8
[2021-12-05] MEDS: pantoprazole 40 mg SDV IVP ×2 (01:08→13:35)
[2021-12-05] MEDS: metoprolol tartrate 25 mg Tablet 12.5 MG PO (01:08)
[2021-12-05] MEDS: sucralfate 1 gm Tablet PO ×2 (01:10→13:35)
[2021-12-05 04:49] LABS: Basophils # 0.1 10^3/uL (0.0-0.1); Basophils % 0.8 %; Eosinophils % 0.1 %; Hematocrit 29.2 % (37.0-47.0); Hemoglobin 9.6 g/dL (11.5-15.3); Mean Corpuscular HGB Conc 32.9 g/dL (30.0-36.0); Mean Corpuscular Hemoglobin 29.6 pg (28.0-34.0); Mean Corpuscular Volume 90.1 fl (81-99); Mean Platelet Volume 8.4 fL (7.4-10.4); Monocytes # 0.9 10^3/uL (0.2-0.9); Monocytes % 11.3 %; Neutrophils # 4.62 10^3/uL (1.8-7.7); Neutrophils % 61.2 %; Nucleated Red Blood Cells % 0.3 %; Platelet Count 312 10^3/cmm (130-400); Red Blood Count 3.24 10^6/uL (4.1-5.3); Red Cell Distribution Width 15.5 % (12.1-15.1); White Blood Count 7.6 10^3/uL (4.0-10.0)
[2021-12-05 05:31] LABS: Alanine Aminotransferase 11 U/L (0-33); Albumin Level 3.2 g/dL (3.5-5.2); Alkaline Phosphatase 79 IU/L (35-105); Anion Gap 13.7 (5-19); Aspartate Amino Transferase 19 U/L (0-32); Blood Urea Nitrogen 7 mg/dL (8-23); Calcium 8.2 mg/dL (8.5-10.5); Carbon Dioxide 27 mmol/L (22-29); Chloride 97 mmol/L (98-107); Glucose 87 mg/dL (65-115); Magnesium 1.9 mg/dL (1.7-2.3); Osmolality Calculated 275 mOsm/kg (285-295); Phosphorus 3.6 mg/dL (2.5-4.5); Potassium 3.7 mmol/L (3.5-5.1); Sodium 134 mmol/L (136-145); Total Bilirubin 0.3 mg/dL (0.15-1.2); Total Protein 5.2 g/dL (6.6-8.7)
[2021-12-05] MEDS: cholecalciferol (vitamin D3) 1,000 unit Tablet 2000 UNIT PO (08:45)
[2021-12-05] MEDS: magnesium oxide 400 mg tablet PO ×2 (08:45→17:26)
[2021-12-05] MEDS: phosphorus 250 mg Tablet PO ×3 (08:45→20:14)
[2021-12-05] MEDS: apixaban 5 mg Tablet PO ×2 (08:45→20:13)
[2021-12-05] MEDS: sodium chloride 1 gm Tablet PO ×2 (08:45→17:26)
[2021-12-05] MEDS: allopurinol 100 mg Tablet PO ×2 (08:46→20:14)
[2021-12-05] MEDS: docusate sodium 100 mg Capsule PO (08:46)
--- NOTE | 2021-12-05 12:32 | PM.PN ---
Subjective Subjective: Interval history: Janet reports she is doing okay. Her left leg is still weak. Medications: Reviewed: Yes Vitals/I&O/Wt Last Vital Signs Temp 98.1 F 12/05/21 09:15 Pulse 89 12/05/21 09:15 Resp 18 12/05/21 09:15 BP 158/78 12/05/21 09:15 Pulse Ox 95 12/05/21 09:15 12/04/21 12/05/21 12/05/21 22:59 06:59 14:59 Intake Total 300 / 300 Output Total 700 / 1100 1968 / 3068 400 / 400 Balance -700 / -1100 -1668 / -2768 -400 / -400 Weight last 48 hrs Weight 83.546 kg Weight 83.546 kg Physical Exam Narrative: EXAM NARRATIVE: General exam no distress, conversant Neck is supple Cardiovascular regular rate and rhythm, no murmur Lungs clear, positive bowel sounds Abdomen is soft Extremities no cyanosis clubbing. 2+ edema left lower extremity Urinary Catheter Management^: Wild: Cath Placed During This Visit: yes, but has since been removed by the nurse Reason for Continuing Indwelling Catheter: Accurate Measurement of Urinary Output in Critically Ill Patients Urinary Catheter Date of Insertion: 11/30/21 Urinary Catheter Time of Insertion: 18:30 Date Urinary Catheter Removed: 12/02/21 Time Urinary Catheter Discontinued: 16:18 Data : 12/05/21 04:15 12/05/21 04:15 A&P Assessment and plan (1) Hyponatremia: Improving, sodium up to 134 On sodium bicarbonate Appreciate nephrology consultation Status: Acute (2) DVT (deep venous thrombosis): Left lower knee DVT. 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 Previously discussed with urology. No need for surgical intervention currently. Left pleural effusion. Currently asymptomatic. Intermittent tachycardia. Metoprolol initiated. Digoxin discontinued. Full code Eliquis for DVT prophylaxis Await placement for rehabilitation Attestations Medical Necessity Statement*: Needs continued hospitalization pending placement for significant weakness. Coding Level of Care Code Acute Helper Maintenance Cleaning for [facility] Diagnoses Hyponatremia E87.1 DVT (deep venous thrombosis) I82.409 B-cell lymphoma C85.10
--- NOTE | 2021-12-05 13:01 | PC.SOCIAL ---
IMM Update Pg. 2of IMM updated and reviewed. Copy provided to patient.
[2021-12-05] MEDS: metoprolol tartrate 25 mg Tablet PO (20:13)
[2021-12-06] VITALS: BP 122/69; PULSE 99; RESP 17; TEMP 36.7; O2SAT 90
[2021-12-06] MEDS: sucralfate 1 gm Tablet PO ×2 (00:17→12:34)
[2021-12-06] MEDS: acetaminophen 325 mg Tablet 650 MG PO (00:18)
[2021-12-06] MEDS: pantoprazole 40 mg SDV IVP ×2 (00:35→12:34)
[2021-12-06 04:00] VITALS: BP 128/72; PULSE 96; RESP 18; TEMP 36.6; O2SAT 92
--- NOTE | 2021-12-06 05:14 | PC.NURSE ---
SHIFT SUMMARY Has not slept well tonight. Requested some Tylenol X1. Says sometimes that will help. c/o bed not being comfortable. Gets up to BSC with one assist. Needs help moving left leg off & on to bed and leg is weak when standing on it. Left leg is still edematous and qute abit larger that the right one. Says has been dealing with the DVT since September.
[2021-12-06 08:00] VITALS: BP 138/81; PULSE 91; RESP 16; TEMP 37.1; O2SAT 92
[2021-12-06] MEDS: docusate sodium 100 mg Capsule PO (10:04)
[2021-12-06] MEDS: magnesium oxide 400 mg tablet PO ×2 (10:04→18:00)
[2021-12-06] MEDS: phosphorus 250 mg Tablet PO ×3 (10:04→21:04)
[2021-12-06] MEDS: apixaban 5 mg Tablet PO ×2 (10:04→21:04)
[2021-12-06] MEDS: allopurinol 100 mg Tablet PO ×2 (10:04→21:04)
[2021-12-06] MEDS: cholecalciferol (vitamin D3) 1,000 unit Tablet 2000 UNIT PO (10:04)
[2021-12-06] MEDS: sodium chloride 1 gm Tablet PO ×2 (10:05→18:00)
[2021-12-06] MEDS: metoprolol tartrate 25 mg Tablet PO ×2 (10:09→21:04)
[2021-12-06 12:00] VITALS: BP 129/77; PULSE 77; RESP 16; TEMP 36.5; O2SAT 94
--- NOTE | 2021-12-06 12:52 | P.PN_ITS ---
Subjective Subjective: Interval history: Miracle reports she is doing okay. She feels a little bit stronger. Denies being short of breath, or any chest discomfort. Medications: Reviewed: Yes Medication Review Details: Current Medications Acetaminophen (Acetaminophen 325 Mg Tablet) 650 mg PO Q6H PRN PRN Reason: Mild/Mod Pain Or Temp >/= 101 Last Admin: 12/01/21 23:16 Dose: 650 mg Documented by: Hydrocodone Bitart/Acetaminophen (Hydrocodone-Acetaminophen 5-325 Mg Tablet) 1 tab PO BID PRN PRN Reason: MODERATE PAIN Last Admin: 12/01/21 05:40 Dose: 1 tab Documented by: Allopurinol (Allopurinol 100 Mg Tablet) 100 mg PO BID@0900,2100 [facility] Last Admin: 12/02/21 07:52 Dose: 100 mg Documented by: Apixaban (Apixaban 5 Mg Tablet) 5 mg PO BID@0900,2100 [facility] Last Admin: 12/02/21 07:53 Dose: 5 mg Documented by: Docusate Sodium (Docusate Sodium 100 Mg Capsule) 100 mg PO BID [facility] Last Admin: 12/02/21 10:05 Dose: 100 mg Documented by: Morphine Sulfate (Morphine Ir 15 Mg Tablet) 15 mg PO Q12H PRN PRN Reason: SEVERE PAIN Naloxone HCl (Naloxone 0.4 Mg/Ml Sdv) 0.1 mg IVP Q2M PRN PRN Reason: OPIATERV Ondansetron HCl (Ondansetron 2 Mg/Ml Sdv 2 Ml) 4 mg IVP Q8H PRN PRN Reason: vomiting, or N/V if npo Pantoprazole Sodium (Pantoprazole Dr 40 Mg Tablet) 40 mg PO DAILY [facility] Last Admin: 12/02/21 07:53 Dose: 40 mg Documented by: Polyethylene Glycol (Polyethylene Glycol 3350 Pkt 17 Gm) 17 gm PO BID [facility] Last Admin: 12/02/21 10:03 Dose: Not Given Documented by: Sodium Bicarbonate (Sodium Bicarbonate 650 Mg Tablet) 650 mg PO BID [facility] Last Admin: 12/02/21 07:52 Dose: 650 mg Documented by: Vitals/I&O/Wt Last Vital Signs Temp 97.7 F 12/06/21 12:00 Pulse 77 12/06/21 12:00 Resp 16 12/06/21 12:00 BP 129/77 12/06/21 12:00 Pulse Ox 94 12/06/21 12:00 12/05/21 12/06/21 12/06/21 22:59 06:59 14:59 Intake Total 120 / 120 Output Total 200 / 1200 1200 / 2400 200 / 200 Balance -200 / -1080 -1200 / -2280 -80 / -80 Weight last 48 hrs Weight 83.546 kg Physical Exam Narrative: EXAM NARRATIVE: General exam no distress, conversant Neck is supple Cardiovascular regular rate and rhythm, no murmur Lungs clear, positive bowel sounds. Diminished breath sounds on the left Abdomen is soft Extremities no cyanosis clubbing. 2+ edema left lower extremity Urinary Catheter Management^: Wild: Cath Placed During This Visit: yes, but has since been removed by the nurse Reason for Continuing Indwelling Catheter: Accurate Measurement of Urinary Output in Critically Ill Patients Urinary Catheter Date of Insertion: 11/30/21 Urinary Catheter Time of Insertion: 18:30 Date Urinary Catheter Removed: 12/02/21 Time Urinary Catheter Discontinued: 16:18 Data : 12/05/21 04:15 12/05/21 04:15 Micro: Microbiology 11/30/21 17:37 Blood Culture - Final Blood NO GROWTH AFTER 5 DAYS 11/30/21 17:44 Blood Culture - Final Blood NO GROWTH AFTER 5 DAYS A&P Assessment and plan (1) Hyponatremia: Improved On sodium bicarbonate Appreciate nephrology consultation Repeat laboratory tomorrow Status: Acute (2) DVT (deep venous thrombosis): Left lower knee DVT. 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 Previously discussed with urology. No need for surgical intervention currently. Left pleural effusion. Currently asymptomatic. Very likely this is related to lymphoma. Discussed potential thoracentesis, but she is currently without symptoms on room air. She will discuss this with Dr. Rolle as well when she follows up. Intermittent tachycardia. Metoprolol initiated. Digoxin discontinued. Full code Eliquis for DVT prophylaxis Await placement for rehabilitation Attestations Medical Necessity Statement*: Needs continued hospitalization pending placement at skilled care, with close monitoring of large left pleural effusion, treatment of severe weakness with rehabilitation, and repeat evaluation for hyponatremia. Coding Level of Care Code Acute Perfect Binder Operator for g Fwd Diagnoses Hyponatremia E87.1 DVT (deep venous thrombosis) I82.409 B-cell lymphoma C85.10
[2021-12-06 14:38] LABS: Adenovirus Not Detected (NOT DETECT); Chlamydia Pneumoniae Not Detected (NOT DETECT); Coronavirus 229E,HKU1,NL63,OC4 Not Detected (NOT DETECT); Human Metapneumovirus Not Detected (NOT DETECT); Human Rhinovirus/Enterovirus Not Detected (NOT DETECT); Influenza A Not Detected (NOT DETECT); Influenza A H1 Not Detected (NOT DETECT); Influenza A H1-2009 Not Detected (NOT DETECT); Influenza A H3 Not Detected (NOT DETECT); Influenza B Not Detected (NOT DETECT); Mycoplasma Pneumoniae Not Detected (NOT DETECT); Parainfluenza Virus Type 1 Not Detected (NOT DETECT); Parainfluenza Virus Type 2 Not Detected (NOT DETECT); Parainfluenza Virus Type 3 Not Detected (NOT DETECT); Parainfluenza Virus Type 4 Not Detected (NOT DETECT); Respiratory Syncytial Virus A Not Detected (NOT DETECT); Respiratory Syncytial Virus B Not Detected (NOT DETECT); SARS-COV-2 Detected (NOT DETECT)
[2021-12-06 16:00] VITALS: BP 127/71; PULSE 79; RESP 18; TEMP 37.1; O2SAT 93
[2021-12-06 19:57] VITALS: BP 120/68; PULSE 72; RESP 18; TEMP 37; O2SAT 94
[2021-12-06 20:51] LABS: Glucose Point of Care 108 mg/dL (70-110)
[2021-12-07] VITALS: BP 114/66; BP 120/68; PULSE 69; PULSE 72; RESP 18; TEMP 36.8; TEMP 37; O2SAT 94
[2021-12-07] MEDS: sucralfate 1 gm Tablet PO (00:30)
[2021-12-07] MEDS: pantoprazole 40 mg SDV IVP (01:13)
[2021-12-07 04:00] VITALS: BP 114/66; BP 122/69; PULSE 69; PULSE 70; RESP 18; TEMP 36.8; TEMP 37; O2SAT 95
[2021-12-07 06:00] VITALS: BMI 25.9
[2021-12-07 06:26] LABS: Glucose Point of Care 91 mg/dL (70-110)
[2021-12-07 07:02] LABS: Anion Gap 13.7 (5-19); Basophils % 0.6 %; Blood Urea Nitrogen 10 mg/dL (8-23); Calcium 8.1 mg/dL (8.5-10.5); Carbon Dioxide 26 mmol/L (22-29); Chloride 100 mmol/L (98-107); Glucose 89 mg/dL (65-115); Hematocrit 30.7 % (37.0-47.0); Hemoglobin 10.1 g/dL (11.5-15.3); Lymphocytes # 1.1 10^3/uL (0.8-4.8); Lymphocytes % 20.1 %; Mean Corpuscular HGB Conc 32.9 g/dL (30.0-36.0); Mean Corpuscular Hemoglobin 29.7 pg (28.0-34.0); Mean Corpuscular Volume 90.3 fl (81-99); Mean Platelet Volume 8.4 fL (7.4-10.4); Monocytes # 0.4 10^3/uL (0.2-0.9); Monocytes % 8.4 %; Neutrophils # 3.45 10^3/uL (1.8-7.7); Neutrophils % 66.1 %; Nucleated Red Blood Cells % 0 %; Osmolality Calculated 281 mOsm/kg (285-295); Platelet Count 253 10^3/cmm (130-400); Potassium 3.7 mmol/L (3.5-5.1); Red Cell Distribution Width 15.8 % (12.1-15.1); Sodium 136 mmol/L (136-145); White Blood Count 5.2 10^3/uL (4.0-10.0)
[2021-12-07 08:00] VITALS: BP 149/80; PULSE 87; RESP 17; TEMP 36.7; O2SAT 93
[2021-12-07] MEDS: sodium chloride 1 gm Tablet PO (09:31)
[2021-12-07] MEDS: apixaban 5 mg Tablet PO (09:31)
[2021-12-07] MEDS: magnesium oxide 400 mg tablet PO (09:31)
[2021-12-07] MEDS: cholecalciferol (vitamin D3) 1,000 unit Tablet 2000 UNIT PO (09:31)
[2021-12-07] MEDS: metoprolol tartrate 25 mg Tablet PO (09:32)
[2021-12-07] MEDS: allopurinol 100 mg Tablet PO (09:32)
[2021-12-07] MEDS: phosphorus 250 mg Tablet PO (09:35)
--- NOTE | 2021-12-07 11:17 | PC.NURSE ---
patient's family and patient want to go home instead of SNF. EARLINE Brian and Dr Hardy notified.
--- NOTE | 2021-12-07 11:49 | P.DS_ITS ---
Discharge Providers Date of Admission: 11/30/21 15:24 Date of Discharge: December 07, 2021 Attending Provider at Admission: Adriel Suarez MD Attending Provider at Discharge: Praveen Hardy MD Primary Care Provider: Bianca Hardy MD Diagnoses at Discharge Discharge Diagnosis (1) Hyponatremia: Status: Acute (2) DVT (deep venous thrombosis): Status: Acute (3) B-cell lymphoma: Status: Acute Reason for Visit Reason for Visit: Low sodium Hospital Course Hospital Course Janet is an 86-year-old white female who presented to the hospital on November 30 with weakness, nausea. She was found to be significantly hyponatremic at around 115. Cortisol and TSH level were checked and not concerning. She had been undergoing treatment for lymphoma, and receiving chemotherapy. Free water restriction was initiated. She was given some IV fluids. CT abdomen pelvis was completed demonstrating bilateral hydronephrosis and this was discussed with urology to medically manage. No evidence infection was a noted. DVT was noted for which she was on Eliquis. A large left pleural effusion was also noted thought to be related to her lymphoma but she was asymptomatic from this. Secondary to her weakness, arrangements were made to potentially discharge her to skilled care. She had some intermittent tachycardia in the MICU and metoprolol was started. She had history in the past of atrial fibrillation. This controlled heart rhythm very well. On December 06 she was doing well. She was on room air. She had had significant improvement in her strength and sodium levels had climbed to around 134. She reported at that point she would rather go home into the nursing facility. A screening Covid test was done the day prior to discharge and was positive. It was unknown when she contracted the virus but it was thought to be possibly earlier than the last 10 days so monoclonal was not done. She will continue to monitor for symptoms. She will follow-up with her oncologist in the next several weeks as well as her primary care provider. BMP should be done in 3 to 5 days. She will discharge on salt tablets as well. Physical Exam Narrative: EXAM NARRATIVE: General exam no distress Neck is supple Cardiovascular regular rate and rhythm Lungs clear, decreased breath sounds left lung Abdomen is soft Extremities no cyanosis clubbing or edema Urinary Catheter Management^: Wild: Cath Placed During This Visit: yes, but has since been removed by the nurse Reason for Continuing Indwelling Catheter: Accurate Measurement of Urinary Output in Critically Ill Patients Urinary Catheter Date of Insertion: 11/30/21 Urinary Catheter Time of Insertion: 18:30 Date Urinary Catheter Removed: 12/02/21 Time Urinary Catheter Discontinued: 16:18 Discharge Data Data Completed and Pending: Completed Studies During Hospitalization Category Date Time Status CT abdomen pelvis w con* [id number] Urge nt Cat Scan 11/30/21 16:19 Completed XR chest 1V raf ble [id number] Urgent Exams 11/30/21 14:37 Completed US gall bladder 7 [id number] Urgent Ultrasound 11/30/21 14:37 Completed Labs from last 24 hours 12/07/21 12/07/21 12/07/21 06:25 06:25 06:05 WBC 5.2 RBC 3.40 L Hgb 10.1 L Hct 30.7 L MCV 90.3 MCH 29.7 MCHC 32.9 RDW 15.8 H Plt Count 253 MPV 8.4 Neut % (Auto) 66.1 Lymph % (Auto) 20.1 [place] % (Auto) 8.4 Eos % (Auto) 0.0 Baso % (Auto) 0.6 Neut # (Auto) 3.45 Lymph # (Auto) 1.1 [place] # (Auto) 0.4 Eos # (Auto) 0.0 Baso # (Auto) 0.0 Nucleated RBC % (a uto) 0 Nucleated RBCs # 0.0 Sodium 136 Potassium 3.7 Chloride 100 Carbon Dioxide 26 Anion Gap 13.7 BUN 10 Creatinine 0.5 GFR Calculation Not Reportable Glucose 89 POC Glucose 91 Calculated Osmolal ity 281 L Calcium 8.1 L Coronavirus 229E ( PCR) SARS-CoV-2 (PCR) 12/06/21 12/06/21 20:28 12:44 WBC RBC Hgb Hct MCV MCH MCHC RDW Plt Count MPV Neut % (Auto) Lymph % (Auto) [place] % (Auto) Eos % (Auto) Baso % (Auto) Neut # (Auto) Lymph # (Auto) [place] # (Auto) Eos # (Auto) Baso # (Auto) Nucleated RBC % (a uto) Nucleated RBCs # Sodium Potassium Chloride Carbon Dioxide Anion Gap BUN Creatinine GFR Calculation Glucose POC Glucose 108 Calculated Osmolal ity Calcium Coronavirus 229E ( PCR) Not detected SARS-CoV-2 (PCR) Detected A Vitals: Last Vital Signs Temp 98.0 F 12/07/21 08:00 Pulse 87 12/07/21 08:00 Resp 17 12/07/21 08:00 BP 149/80 12/07/21 08:00 Pulse Ox 93 12/07/21 08:00 Discharge Plan Discharge Patient Disposition: Home Health Service Condition: Stable Prescriptions: New polyethylene glycol 3350 17 gram Powder In Packet 17 g PO BID Qty: 60 RF: 0 metoprolol tartrate 25 mg Tablet 25 mg PO BID@0900,2100 Qty: 60 RF: 0 Eliquis 5 mg Tablet 5 mg PO BID@0900,2100 Qty: 60 RF: 0 Protonix 40 mg tablet,delayed release (DR/EC) 40 mg PO DAILY Qty: 30 RF: 0 sodium chloride 1,000 mg tablet,soluble 1,000 mg PO BID Qty: 60 RF: 0 Continued hydrocodone-acetaminophen 5-325 mg tablet 1 tab PO BID PRN (Reason: Pain) RF: 0 docusate sodium [Colace] 100 mg capsule 100 mg PO DAILY PRN (Reason: Constipation) RF: 0 polyethylene glycol 3350 [Miralax] 17 gram powder in packet 17 g PO DAILY PRN (Reason: Constipation) RF: 0 prednisone 20 mg Tablet See Rx Instructions .ROUTE .COMPLEX RF: 0 Compazine 10 mg Tablet 10 - 20 mg PO Q8H PRN (Reason: Nausea) RF: 0 allopurinol 100 mg Tablet 100 mg PO BID MDD SEE PHARMACY COMMENT RF: 0 ondansetron 4 mg tablet,disintegrating 4 mg PO Q6H PRN (Reason: nausea and vomiting) Qty: 14 RF: 0 lisinopril 5 mg Tablet 5 mg PO DAILY RF: 0 Discontinued morphine 15 mg Tablet Extended Release 15 mg PO Q12H PRN (Reason: Pain) RF: 0 Eliquis DVT-PE Treat 30D Start 5 mg (74 tabs) tablets,dose pack See Rx Instructions .ROUTE .COMPLEX MDD SEE PHARMACY COMMENT RF: 0 digoxin 250 mcg (0.25 mg) Tablet 250 mcg PO DAILY RF: 0 lorazepam 1 mg Tablet 1 mg PO TID PRN (Reason: SEVERE NAUSEA) RF: 0 Discharge Orders: Discharge Order (Routine); Ordered 12/07/21 Ordered By: Praveen Hardy Referrals: [facility] [Outside] Bianca Hardy MD [Primary Care Provider] - 12/11/21 9:45 am Serg Mac MD [Staff Physician] - 12/21/21 8:30 am (APPOINTMENT FOR LABS AT 8:[address] MAC AT 10:00) Discharge Diet: Cardiac Discharge Activity: Increase activity as tolerated Patient Instructions: Metoprolol (By mouth) (Lopressor, Toprol XL), Pantoprazole (By mouth) (Protonix), Polyethylene Glycol 3350 (By mouth) (MiraLAX, Healthylax..., Apixaban (By mouth) (Eliquis), Hyponatremia, Deep Vein Thrombosis (GEN), Opioid Safety Activity Restrictions/Additional Instructions: Take all medicine as prescribed Follow-up with your oncologist, when out of quarantine from Covid. You should be in quarantine 10 days from the positive test. Take all medicine as prescribed Return for any concerns Discharge Attestations Time Spent in Discharge Care*: greater than 30 min Quality Metrics Clinical Quality Measures During this hospital stay, did patient experience: None Coding Level of Care Code Acute Chg FW DC note Diagnoses Hyponatremia E87.1 DVT (deep venous thrombosis) I82.409 B-cell lymphoma C85.10
[2021-12-07 12:00] VITALS: BP 124/72; PULSE 77; RESP 18; TEMP 36.8; O2SAT 96
--- NOTE | 2021-12-07 13:30 | PC.NURSE ---
discharge instructions given to patient and family. both verbalized understanding of instructions. patient's port deaccessed. patient taken to private vehicle via wheelchair.
[2021-12-07 13:38] VITALS: BP 124/72; PULSE 77; RESP 18; TEMP 36.8; O2SAT 96
--- NOTE | 2021-12-07 14:32 | PC.SOCIAL ---
IMM Update pg 2 of IMM updated and reviewed w/ patient. Copy provided and signed Copy in chart.
== END 2021-12-07 13:39 | disposition home health service (06) | DRG 640 ==
LOC: ER 18:46 → ER IP 19:20 → ICU 12-01 08:47 → ER IP 12-01 10:45 → MEDSURG 12-03 04:21
PROVIDERS: Internal Medicine; Internal Medicine Nephrology; Admitting Provider Family Medicine; Emergency Provider Emergency Medicine; PCP Family Medicine; Visit Provider Internal Medicine
DX: E87.1 Hypo-osmolality and hyponatremia (principal); U07.1 COVID-19; C85.18 Unspecified B-cell lymphoma, lymph nodes of multiple sites; N13.30 Unspecified hydronephrosis; I82.412 Acute embolism and thrombosis of left femoral vein; J90 Pleural effusion, not elsewhere classified; I10 Essential (primary) hypertension; D47.2 Monoclonal gammopathy; G62.9 Polyneuropathy, unspecified; Z90.10 Acquired absence of unspecified breast and nipple; Z85.3 Personal history of malignant neoplasm of breast; Z95.828 Presence of other vascular implants and grafts; Z79.899 Other long term (current) drug therapy; Z86.718 Personal history of other venous thrombosis and embolism; R00.0 Tachycardia, unspecified; Z79.52 Long term (current) use of systemic steroids; Z79.891 Long term (current) use of opiate analgesic
CPT/HCPCS: 36415; 36416; 36591; 51702; 71045; 74177; 76705; 80048; 80053; 80162; 81003; 82044; 82306; 82436; 82533; 82570; 82607; 82728; 82962; 82977; 83540; 83550; 83735; 83935; 84100; 84133; 84145; 84156; 84166; 84300; 84443; 84484; 84550; 85007; 85025; 85999; 86140; 87040; 87635; 93005; 94664; 96360; 96361; 96365; 97110; 97161; 97165; 97530; 99215; 99285; C9113; J3475; J7030; J7040; Q3014; Q9967

== ENCOUNTER 2022-01-01 06:41 | Outpatient (RCR) | payer MEDICARE, BC, SELFPAY ==
[2021-12-21 08:57] LABS: Basophils % 0.3 %; Eosinophils % 0.6 %; Hematocrit 31.3 % (37.0-47.0); Hemoglobin 10.2 g/dL (11.5-15.3); Lymphocytes % 14.1 %; Mean Corpuscular HGB Conc 32.6 g/dL (30.0-36.0); Mean Corpuscular Hemoglobin 31.1 pg (28.0-34.0); Mean Corpuscular Volume 95.4 fl (81-99); Mean Platelet Volume 8.7 fL (7.4-10.4); Monocytes # 0.6 10^3/uL (0.2-0.9); Monocytes % 8.7 %; Neutrophils # 5.34 10^3/uL (1.8-7.7); Neutrophils % 75.9 %; Nucleated Red Blood Cells % 0 %; Platelet Count 286 10^3/cmm (130-400); Red Blood Count 3.28 10^6/uL (4.1-5.3); Red Cell Distribution Width 17.7 % (12.1-15.1)
[2021-12-21 09:29] LABS: Alanine Aminotransferase 9 U/L (0-33); Albumin Level 3.7 g/dL (3.5-5.2); Alkaline Phosphatase 79 IU/L (35-105); Anion Gap 13.9 (5-19); Aspartate Amino Transferase 16 U/L (0-32); Blood Urea Nitrogen 8 mg/dL (8-23); Calcium 8.8 mg/dL (8.5-10.5); Carbon Dioxide 24 mmol/L (22-29); Chloride 108 mmol/L (98-107); Globulin 2.3 g/dL (1.3-4.6); Glucose 95 mg/dL (65-115); Osmolality Calculated 292 mOsm/kg (285-295); Potassium 3.9 mmol/L (3.5-5.1); Sodium 142 mmol/L (136-145); Total Bilirubin 0.7 mg/dL (0.15-1.2)
[2021-12-22] MEDS: sodium chloride 0.9% 250 ML 75 ML IV (08:45)
--- NOTE | 2021-12-22 08:48 | ONC FU_ITS ---
Dr. Rolle follow up note Patient: Janet Jose Unit #: [id number]: [id number] Dicatated By: Serg Rolle M.D.Date of Visit:Dec 21, 2021 Onc Med Follow-up/Prog Note History of Present Illness: Ms. Janet Jose, is a 86-year-old female, presented to [facility] ER with nausea, abdominal pain and left neck mass, as per patient she was doing reasonably well prior to that but in first week of August 2021 she noted discomfort in her left abdomen/left upper quadrant area and sometimes in left flank, subsequently pain/discomfort in left thigh and now off and on burning sensation in the left thigh/leg. 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 Patient denies any night sweats, denies any recurrent fever but 12 pound weight loss in the last 2 weeks due to poor appetite, On September 21, 2021 patient underwent CTA chest to rule out pulmonary embolism it showed No pulmonary embolism but lobulated soft tissue mass in left inferior neck measuring 4 x 2.9 cm, at T7-8 level on the right measures 2.1 x 1.9 cm, there is also increased soft tissue mass along left lateral mid sternum measuring 2.8 x 2.2 cm. And soft tissue mass which is thought to be coming point adenopathy in the retroperitoneum that is encasing we will do renal artery and abutting aorta and kidney. Retroperitoneal mass measures at least 7.8 x 9.2 cm. There is a large right axillary lymph node measuring 3.2 x 1.9 cm Patient denies any dysphagia, denies any shortness of breath, denies any jaundice, denies any dysuria or hematuria, denies any focal weakness. Patient denies smoking or alcohol use Patient has history of left breast cancer, diagnosed in 1999, at that time she underwent left mastectomy, as per patient she was given tamoxifen for 5 years. Underwent left axillary lymph node biopsy to confirm lymphoma, proper histology and molecular profiling,, report is pending CT PET scan done on October 17, 2021 showed 5.1 x 5.6 cm left cervical lymphadenopathy SUV of 17.9 and other FDG positive lymph nodes in the left posterior triangle, and the chest, lymphomatous masses are present in the right axilla, left internal mammary left superior mediastinal, right paravertebral territories, and abdomen, homogeneous left-sided retroperitoneal mass extending from retrocrural territory into the left periaortic, retroaortic, right periaortic territories. The left psoas muscle is displaced laterally. Malignant left common iliac lymph node is also present and right external iliac lymph node measuring 2.4 x 3.6 cm with SUV of 16.9. Diffusely increased splenic activity indicates splenic involvement and L2 vertebral bodies suggest bone marrow infiltration. Echocardiogram done on November 04, 2021 shows ejection fraction 65% As per patient on November 04, 2021 while she was getting echo, she developed tachycardia for which she was sent to ER for evaluation, EKG showed narrow complex tachycardia heart rate in the range of 170s patient was not symptomatic, in ER her heart rate improved with Valsalva twice and went down to 90 to 110/min, patient was admitted to hospital with left lower leg edema and observed overnight venous Doppler study of left leg confirmed DVT and CT chest confirmed acute bilateral pulmonary embolism and patient was started on Eliquis Started on R-CHOP With Neulasta on November 19, 2021, patient did not get Rituxan With first cycle because of nonavailability Came for follow-up, denies any specific complaint except generalized weakness and fatigue, no fever chills, no nausea or vomiting, no diarrhea or constipation, no night sweats, no abdominal pain or fullness, tolerated first cycle of chemotherapy with CHOP well, Rituxan was not given with the first cycle because of nonavailability but will be considered with next cycle. Since her first chemotherapy, patient was admitted to hospital with persistent, recurrent hyponatremia, now on sodium chloride tablets twice a day.Patient is also complaining of intolerance to physical therapy, as per patient, 15 repetition especially involving lower extremities seems to be too much Medications: Allopurinol 1 Capsule (of 100 mg) Tablet Oral t.i.d., Digoxin 0.25 mg Tablet Oral daily, Docusate Sodium Tablet Oral b.i.d., Gabapentin 1 Capsule (of 300 mg) Oral t.i.d., HYDROcodone-Acetaminophen 1 Tablet (of 5-325 mg) Oral q 6 hours PRN, Levaquin 1 Tablet (of 500 mg) Oral daily for 7 days, Lisinopril 1 Tablet (of 5 mg) Oral daily, MiraLax (17 ) Powder Oral daily, Ondansetron HCl 1 Tablet (of 4 mg) Oral q 6 hours PRN, Rivaroxaban 1 Tablet (of 20 mg) Oral daily, Triamcinolone Acetonide (0.1 %) Ointment Topical t.i.d. Allergies: No Known Allergies. Review of Systems: Review of Systems is not available for this patient. Vital Signs: Performed on Dec 21, 2021 13:34 Height - 66.00 in Weight - 165.4 lbs (LOW) BSA - 1.85 sq.m BMI - 26.70 Temperature - 99.2 F (HIGH) Pulse - 94 /min Respiration - 16 /min BP - 173/92 mm(hg) (HIGH) O2 Sat - 97 % Pain - 0 Fatigue - 8 Performance Status: 2 - Ambulatory/capable of all self-care, unable to perform any work activities. Up and about more than 50% of waking hours. (ECOG) Physical Examination: ENMT - No mouth sores, no thrush, no jaundice, no cervical lymphadenopathy, Respiratory - Lungs are clear to auscultation, Cardiovascular - Regular rate and rhythm of heart, Abdomen - Soft, bowel sounds present, Extremities - 1+ edema involving left leg. 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 CT PET scan done on October 17, 2021 shows FDG positive masses from the level of head and neck to the level of pelvis representing lymphoma, lymphomatous splenic involvement, questionable involvement of L2 vertebral body, left pleural effusion CTA chest done on September 21, 2021 shows no pulmonary embolism, extensive metastatic soft tissue masses identified, large left inferior neck mass measuring 4 x 2.9 cm, additional metastatic deposit along the right lateral T7-8 level abutting the thoracic spine. Left midsternal soft tissue mass, and extensive confluent mass or adenopathy in the left retroperitoneal area measuring 7.8 x 9.2 cm, encasing renal artery and abutting the aorta and the kidney. Extensive soft tissue thickening surrounding both shoulder joint and a large right axillary lymph node. Status post left MRM, For history of hormone positive breast cancer, diagnosed in 1999, she was treated with tamoxifen for 5 years. Plan: Discussed with patient regarding her labs white blood count 7 hemoglobin 10.2 hematocrit 31.3 platelets 286,000 ANC 5340 CMP within normal limits Clinically, patient is doing well with no new signs symptom suggestive of disease progression, no B symptoms patient tolerated first cycle of chemotherapy with CHOP well but with expected side effects., Her follow-up lab work-up shows recovery except persistent mild anemia. Patient is due for her next cycle of chemotherapy with R-CHOP, patient did not receive Rituxan with first cycle due to nonavailability but this time it will be added, patient would like to come back in the morning for her next cycle of chemotherapy with R-CHOP followed by Neuana mariata, we will see her back 10 days after chemo with CBC CMP, planning is to consider CT PET scan after third cycle to assess response and plan accordingly. As far as hyponatremia is concerned, now resolved, patient was advised to cut down her sodium supplement to 1 tablet a day and if her repeat CMP showed normal sodium level then will discontinue sodium chloride tablets. She was also advised to discontinue allopurinol. We will also discuss with physical therapy regarding her intolerance to physical therapy Signed By: Serg Rolle M.D. <<Signature on File>>
[2021-12-22] MEDS: sodium chloride 0.9% 500 ML 75 ML IV (08:50)
[2021-12-22] MEDS: acetaminophen 325 mg Tablet 650 MG PO (08:54)
[2021-12-22] MEDS: palonosetron 0.25 mg/5 mL SDV IV (08:55)
[2021-12-22] MEDS: fosaprepitant 150 MG in sodium chloride 0.9% 150 ML 300 MG IV (09:20)
[2021-12-22] MEDS: diphenhydrAMINE 50 mg/mL SDV 1mL 25 MG IV (10:00)
[2021-12-22] MEDS: predniSONE 20 mg Tablet 100 MG PO (10:20)
[2021-12-22] MEDS: pegfilgrastim 6 mg/0.6 mL Kit (onpro) SUBCUT (17:00)
[2021-12-31 14:13] LABS: Basophils % 1.2 %; Eosinophils # 0.1 10^3/uL (0.0-0.8); Eosinophils % 5.6 %; Hematocrit 27.4 % (37.0-47.0); Hemoglobin 8.9 g/dL (11.5-15.3); Lymphocytes # 0.6 10^3/uL (0.8-4.8); Lymphocytes % 24.1 %; Mean Corpuscular HGB Conc 32.5 g/dL (30.0-36.0); Mean Corpuscular Hemoglobin 31.4 pg (28.0-34.0); Mean Corpuscular Volume 96.8 fl (81-99); Mean Platelet Volume 10.5 fL (7.4-10.4); Monocytes # 0.2 10^3/uL (0.2-0.9); Monocytes % 8.8 %; Neutrophils # 1.43 10^3/uL (1.8-7.7); Neutrophils % 57.5 %; Nucleated Red Blood Cells % 0 %; Red Blood Count 2.83 10^6/uL (4.1-5.3); Red Cell Distribution Width 15.6 % (12.1-15.1); White Blood Count 2.5 10^3/uL (4.0-10.0)
[2021-12-31 14:29] LABS: Alanine Aminotransferase 7 U/L (0-33); Albumin Level 3.8 g/dL (3.5-5.2); Alkaline Phosphatase 76 IU/L (35-105); Anion Gap 12.6 (5-19); Aspartate Amino Transferase 9 U/L (0-32); Blood Urea Nitrogen 11 mg/dL (8-23); Calcium 9.6 mg/dL (8.5-10.5); Carbon Dioxide 23 mmol/L (22-29); Chloride 102 mmol/L (98-107); Globulin 2.7 g/dL (1.3-4.6); Glucose 91 mg/dL (65-115); Osmolality Calculated 277 mOsm/kg (285-295); Potassium 3.6 mmol/L (3.5-5.1); Sodium 134 mmol/L (136-145); Total Bilirubin 0.7 mg/dL (0.15-1.2); Total Protein 6.5 g/dL (6.6-8.7)
[2021-12-31 14:42] LABS: Platelet Count 77 10^3/cmm (130-400); Slide Review Slide Review Perform
--- NOTE | 2022-01-01 09:03 | ONC FU_ITS ---
Alexus Andrade Progress Note Patient: Janet Jose Unit #: [id number]: 1935 Dicatated By: Alexus Andrade N.P.Date of Visit:Jan 01, 2022 Onc MED Follow-up/Prog Note Chief Complaint: Lymphoma History of Present Illness: Ms. Janet Jose, is a 86-year-old female, presented to [facility] with nausea, abdominal pain and left neck mass, as per patient she was doing reasonably well prior to that but in first week of August 2021 she noted discomfort in her left abdomen/left upper quadrant area and sometimes in left flank, subsequently pain/discomfort in left thigh and now off and on burning sensation in the left thigh/leg. 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 Patient denies any night sweats, denies any recurrent fever but 12 pound weight loss in the last 2 weeks due to poor appetite, On September 21, 2021 patient underwent CTA chest to rule out pulmonary embolism it showed No pulmonary embolism but lobulated soft tissue mass in left inferior neck measuring 4 x 2.9 cm, at T7-8 level on the right measures 2.1 x 1.9 cm, there is also increased soft tissue mass along left lateral mid sternum measuring 2.8 x 2.2 cm. And soft tissue mass which is thought to be coming point adenopathy in the retroperitoneum that is encasing we will do renal artery and abutting aorta and kidney. Retroperitoneal mass measures at least 7.8 x 9.2 cm. There is a large right axillary lymph node measuring 3.2 x 1.9 cm Patient denies any dysphagia, denies any shortness of breath, denies any jaundice, denies any dysuria or hematuria, denies any focal weakness. Patient denies smoking or alcohol use Patient has history of left breast cancer, diagnosed in 1999, at that time she underwent left mastectomy, as per patient she was given tamoxifen for 5 years. Underwent left axillary lymph node biopsy to confirm lymphoma, proper histology and molecular profiling,, report is pending CT PET scan done on October 17, 2021 showed 5.1 x 5.6 cm left cervical lymphadenopathy SUV of 17.9 and other FDG positive lymph nodes in the left posterior triangle, and the chest, lymphomatous masses are present in the right axilla, left internal mammary left superior mediastinal, right paravertebral territories, and abdomen, homogeneous left-sided retroperitoneal mass extending from retrocrural territory into the left periaortic, retroaortic, right periaortic territories. The left psoas muscle is displaced laterally. Malignant left common iliac lymph node is also present and right external iliac lymph node measuring 2.4 x 3.6 cm with SUV of 16.9. Diffusely increased splenic activity indicates splenic involvement and L2 vertebral bodies suggest bone marrow infiltration. Echocardiogram done on November 04, 2021 shows ejection fraction 65% As per patient on November 04, 2021 while she was getting echo, she developed tachycardia for which she was sent to ER for evaluation, EKG showed narrow complex tachycardia heart rate in the range of 170s patient was not symptomatic, in ER her heart rate improved with Valsalva twice and went down to 90 to 110/min, patient was admitted to hospital with left lower leg edema and observed overnight venous Doppler study of left leg confirmed DVT and CT chest confirmed acute bilateral pulmonary embolism and patient was started on Eliquis Started on R-CHOP With Neulasta on November 19, 2021, patient did not get Rituxan With first cycle because of nonavailability Patient presents today for follow-up accompanied by her son. She continues to have weakness and fatigue but physical therapy is working with her through home health. Her appetite is fair. Food does not taste as good as it did. She denies fever, chills, night sweats. She denies mouth sores or sore throat. No shortness of breath, cough, chest pain. No nausea or vomiting. No diarrhea. She take stool softeners for her constipation. She denies joint pain or bone pain. No headache or dizziness. She does have trouble sleeping at times due to having to get up to the bathroom multiple times during the night. Review Of Symptoms: See above Past Medical History: Hypertension MGUS Peripheral neuropathy Polyarthritis Splenomegaly Covid virus in 2021 Past Surgical History: Hysterectomy Mastectomy Covid vaccine #2 Moderna in 2020 Covid vaccine #1 Moderna in 2020 Allergies: No Known Allergies. Medications: Digoxin 0.25 mg Tablet Oral daily Docusate Sodium Tablet Oral b.i.d. HYDROcodone-Acetaminophen 1 Tablet (of 5-325 mg) Oral q 6 hours PRN Lisinopril 1 Tablet (of 5 mg) Oral daily LORazepam Tablet Oral PRN Morphine Sulfate ER Tablet, controlled release Oral PRN Ondansetron HCl 1 Tablet (of 4 mg) Oral q 6 hours PRN Pantoprazole Sodium (40 mg) Tablet, enteric coated Oral daily predniSONE (20 mg) Tablet Oral daily Prochlorperazine Maleate Tablet Oral PRN Xarelto (20 mg) Tablet Oral daily Family History: There is no documented family history. Social History: Ms. Jose is . Ms. Jose has never smoked. She has no history of drinking. Physical Examination: Performed on Jan 01, 2022 08:13: Height - 66.00 in, Weight - 164.6 lbs (LOW), BSA - 1.84 sq.m, BMI - 26.57, Temperature - 98.0 F (LOW), Pulse - 107 /min (HIGH), Respiration - 18 /min, BP - 142/75 mm(hg) (HIGH), O2 Sat - 96 %, Pain - 0, and Fatigue - 6. Performance Status: 3 - Capable of only limited self-care, confined to bed or chair more than 50% of waking hours. (ECOG) Constitutional Alert, cooperative, oriented. Mood and affect appropriate. Appears close to chronological age. Well nourished. Well developed. Head Normocephalic; no scars. Hematologic/Lymphatic No petechiae or purpura. Palpable lymph node left anterior cervical Respiratory Lungs are clear to auscultation without rhonchi or wheezing. Cardiovascular Regular rate and rhythm of heart without murmurs, gallops or rubs. Extremities No visible deformities. 1+ pitting edema left leg Psychiatric Alert and oriented times three. Coherent speech. Verbalizes understanding of our discussions today. 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 CT PET scan done on October 17, 2021 shows FDG positive masses from the level of head and neck to the level of pelvis representing lymphoma, lymphomatous splenic involvement, questionable involvement of L2 vertebral body, left pleural effusion CTA chest done on September 21, 2021 shows no pulmonary embolism, extensive metastatic soft tissue masses identified, large left inferior neck mass measuring 4 x 2.9 cm, additional metastatic deposit along the right lateral T7-8 level abutting the thoracic spine. Left midsternal soft tissue mass, and extensive confluent mass or adenopathy in the left retroperitoneal area measuring 7.8 x 9.2 cm, encasing renal artery and abutting the aorta and the kidney. Extensive soft tissue thickening surrounding both shoulder joint and a large right axillary lymph node. Status post left MRM, For history of hormone positive breast cancer, diagnosed in 1999, she was treated with tamoxifen for 5 years. Plan: Labs were discussed and WBC 2.5, hemoglobin 8.9, hematocrit 27.4, platelet count 77, and neutrophils 1.43, her sodium is at 134. Patient seems to be tolerating R-CHOP well. She continues to have mild anemia and she has a mild throttle cytopenia with her platelet count at 77,000. We discussed signs and symptoms to monitor for for pancytopenia. She will have her labs drawn at [facility] in [place] the day before her scheduled appointment. We will have her return to the clinic on 01/12/22 for follow-up and next cycle of R-CHOP. Consider CT PET scan after third cycle to assess response and plan accordingly. As far as hyponatremia is concerned, sodium level is 134. We will have her continue her sodium tablets one a day and continue to monitor. Signed By: Alexus Andrade N.P. <<Signature on File>>
== END 2022-01-11 23:59 | disposition home or self-care (01) ==
LOC: ONCMED 06:41
PROVIDERS: Internal Medicine Hematology & Oncology; PCP Family Medicine; Visit Provider Nurse Practitioner Family
DX: Z51.12 Encounter for antineoplastic immunotherapy (principal); Z51.11 Encounter for antineoplastic chemotherapy; C83.33 Diffuse large B-cell lymphoma, intra-abdominal lymph nodes; J90 Pleural effusion, not elsewhere classified; E87.1 Hypo-osmolality and hyponatremia; Z85.3 Personal history of malignant neoplasm of breast; Z79.899 Other long term (current) drug therapy
CPT/HCPCS: 36591; 80053; 85025; 96361; 96367; 96375; 96377; 96411; 96413; 96415; 96417; 99214; J1100; J1200; J1453; J2469; J2506; J7040; J7050; J7512; J9000; J9070; J9370; Q5115

== ENCOUNTER 2022-02-03 08:07 | Outpatient (CLI) | payer MEDICARE, BC, SELFPAY ==
--- NOTE | 2022-02-03 08:20 | USCV_ITS ---
Damon Janet Age: 86 Gender: F : 1935 Exam Date: 02/03/2022 08:38 Ordering Phys: Rafael Salazar MD Technologist: Mitch Hammer [place] [facility] [place]: dvt PROCEDURES: Comparison: 11/05/21 Venous duplex imaging was performed in only the left lower extremity. The following venous structures were evaluated: common femoral vein, profunda vein, proximal portion of the greater saphenous vein, superficial femoral vein, and the popliteal In addition, the posterior tibial and peroneal trunk were evaluated. Serial compression, augmentation maneuvers, and spectral Doppler flow evaluation were performed. FINDINGS: Normal 2-D Doppler and augmentation and compressibility throughout the lower extremity venous structures. Additional imaging through the proximal calf veins also reveals no thrombus. Limited evaluation of the greater saphenous vein is patent with no thrombus. There is a complex area located within the left popliteal fossa. There does not appear to be any blood flow to this area at this time. Measures 5.0 x 3.5 cm. CONCLUSIONS No DVT left lower extremity. Complex Long's cyst. Dr. Berkley Mcginnis DO (Electronically Signed) Final Date: 03 February 2022 11:31 S
== END 2022-02-03 08:08 | disposition home or self-care (01) ==
LOC: RAD 08:10
PROVIDERS: PCP Family Medicine; Visit Provider Internal Medicine
DX: I82.402 Acute embolism and thrombosis of unspecified deep veins of left lower extremity (principal); M71.22 Synovial cyst of popliteal space [Baker], left knee
CPT/HCPCS: 93971

== ENCOUNTER 2022-02-09 06:39 | Outpatient (RCR) | payer MEDICARE, BC, SELFPAY ==
[2022-01-12] MEDS: diphenhydrAMINE 50 mg/mL SDV 1mL 25 MG IV (10:09)
[2022-01-12] MEDS: sodium chloride 0.9% 500 ML 75 ML IV (10:09)
[2022-01-12] MEDS: palonosetron 0.25 mg/5 mL SDV IV (10:12)
[2022-01-12] MEDS: acetaminophen 325 mg Tablet 650 MG PO (10:15)
[2022-01-12] MEDS: fosaprepitant 150 MG in sodium chloride 0.9% 150 ML 300 MG IV (10:29)
[2022-01-12] MEDS: pegfilgrastim 6 mg/0.6 mL Kit (onpro) SUBCUT (15:24)
--- NOTE | 2022-01-13 17:00 | ONC FU_ITS ---
Dr. Rolle follow up note Patient: Janet Jose Unit #: [id number]: 1935 Dicatated By: Serg Rolle M.D.Date of Visit:Jan 12, 2022 Onc Med Follow-up/Prog Note History of Present Illness: Ms. Janet Jose, is a 86-year-old female, presented to [facility] with nausea, abdominal pain and left neck mass, as per patient she was doing reasonably well prior to that but in first week of August 2021 she noted discomfort in her left abdomen/left upper quadrant area and sometimes in left flank, subsequently pain/discomfort in left thigh and now off and on burning sensation in the left thigh/leg. 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 Patient denies any night sweats, denies any recurrent fever but 12 pound weight loss in the last 2 weeks due to poor appetite, On September 21, 2021 patient underwent CTA chest to rule out pulmonary embolism it showed No pulmonary embolism but lobulated soft tissue mass in left inferior neck measuring 4 x 2.9 cm, at T7-8 level on the right measures 2.1 x 1.9 cm, there is also increased soft tissue mass along left lateral mid sternum measuring 2.8 x 2.2 cm. And soft tissue mass which is thought to be coming point adenopathy in the retroperitoneum that is encasing we will do renal artery and abutting aorta and kidney. Retroperitoneal mass measures at least 7.8 x 9.2 cm. There is a large right axillary lymph node measuring 3.2 x 1.9 cm Patient denies any dysphagia, denies any shortness of breath, denies any jaundice, denies any dysuria or hematuria, denies any focal weakness. Patient denies smoking or alcohol use Patient has history of left breast cancer, diagnosed in 1999, at that time she underwent left mastectomy, as per patient she was given tamoxifen for 5 years. Underwent left axillary lymph node biopsy to confirm lymphoma, proper histology and molecular profiling,, report is pending CT PET scan done on October 17, 2021 showed 5.1 x 5.6 cm left cervical lymphadenopathy SUV of 17.9 and other FDG positive lymph nodes in the left posterior triangle, and the chest, lymphomatous masses are present in the right axilla, left internal mammary left superior mediastinal, right paravertebral territories, and abdomen, homogeneous left-sided retroperitoneal mass extending from retrocrural territory into the left periaortic, retroaortic, right periaortic territories. The left psoas muscle is displaced laterally. Malignant left common iliac lymph node is also present and right external iliac lymph node measuring 2.4 x 3.6 cm with SUV of 16.9. Diffusely increased splenic activity indicates splenic involvement and L2 vertebral bodies suggest bone marrow infiltration. Echocardiogram done on November 04, 2021 shows ejection fraction 65% As per patient on November 04, 2021 while she was getting echo, she developed tachycardia for which she was sent to ER for evaluation, EKG showed narrow complex tachycardia heart rate in the range of 170s patient was not symptomatic, in ER her heart rate improved with Valsalva twice and went down to 90 to 110/min, patient was admitted to hospital with left lower leg edema and observed overnight venous Doppler study of left leg confirmed DVT and CT chest confirmed acute bilateral pulmonary embolism and patient was started on Eliquis Started on R-CHOP With Neulasta on November 19, 2021, patient did not get Rituxan With first cycle because of nonavailability Came for follow-up, denies any specific complaint except generalized weakness and fatigue but no nausea or vomiting no diarrhea or constipation, no night sweats, no recurrent fever, no abdominal fullness, no peripheral lymphadenopathy, no peripheral numbness. Tolerating R-CHOP well otherwise Medications: Digoxin 0.25 mg Tablet Oral daily, Docusate Sodium Tablet Oral b.i.d., HYDROcodone-Acetaminophen 1 Tablet (of 5-325 mg) Oral q 6 hours PRN, Lisinopril 1 Tablet (of 5 mg) Oral daily, LORazepam Tablet Oral PRN, Morphine Sulfate ER Tablet, controlled release Oral PRN, Ondansetron HCl 1 Tablet (of 4 mg) Oral q 6 hours PRN, Pantoprazole Sodium (40 mg) Tablet, enteric coated Oral daily, predniSONE (20 mg) Tablet Oral daily, Prochlorperazine Maleate Tablet Oral PRN, Xarelto (20 mg) Tablet Oral daily Allergies: No Known Allergies. Review of Systems: Review of Systems is not available for this patient. Vital Signs: Performed on Jan 12, 2022 08:06 Height - 66.00 in BP - 171/94 mm(hg) (HIGH) Performed on Jan 12, 2022 08:06 Height - 66.00 in Weight - 163.4 lbs (LOW) BSA - 1.84 sq.m BMI - 26.37 Temperature - 97.4 F (LOW) Pulse - 97 /min Respiration - 16 /min BP - 173/90 mm(hg) (HIGH) O2 Sat - 96 % Pain - 0 Fatigue - 4 Performance Status: 1 - No physically strenuous activity, but ambulatory and able to carry out light or sedentary work (e.g. office work, light house work). (ECOG) Physical Examination: ENMT - No mouth sores, no thrush, no jaundice, Respiratory - Lungs are clear to auscultation, Cardiovascular - Regular rate and rhythm of heart, Abdomen - Soft, bowel sounds present, Extremities - 1+ edema left leg. Lab/Imaging: Test performed on Jan 11, 2022 09:28 Glucose 98 mg/dL BUN 10 mg/dL Creatinine 0.58 mg/dL Cr Clearance (Est) 88.52 mL/min Sodium 143 mmol/L Potassium 4.0 mmol/L Chloride 106 mmol/L CO2 26 mmol/L Calcium 9.8 mg/dL Protein, Total 6.1 g/dL Albumin 3.3 g/dL Bilirubin, Total 0.5 mg/dL Alkaline Phosphatase 75 International Units/L AST (SGOT) 19 International Units/L ALT (SGPT) 12 International Units/L WBC 5.7 10^9/L RBC 3.43 10^12/L HGB 10.8 g/dL HCT 34.9 % MCV 101.7 fl MCH 31.5 pg MCHC 30.9 g/dL RDW 18.5 % Platelet Count 314 10^9/L MPV 8.9 fL Neutrophils (Gran) 4.1 10^9/L Lymphocytes 0.0456 10^9/L Monocytes 0.0342 10^9/L Eosinophils 0 10^9/L Basophils 0 10^9/L Test performed on Nov 12, 2021 15:18 Uric Acid 5.1 mg/dL Impression: Stage MAZIN (Based on CT PET scan findings) 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 CT PET scan done on October 17, 2021 shows FDG positive masses from the level of head and neck to the level of pelvis representing lymphoma, lymphomatous splenic involvement, questionable involvement of L2 vertebral body, left pleural effusion CTA chest done on September 21, 2021 shows no pulmonary embolism, extensive metastatic soft tissue masses identified, large left inferior neck mass measuring 4 x 2.9 cm, additional metastatic deposit along the right lateral T7-8 level abutting the thoracic spine. Left midsternal soft tissue mass, and extensive confluent mass or adenopathy in the left retroperitoneal area measuring 7.8 x 9.2 cm, encasing renal artery and abutting the aorta and the kidney. Extensive soft tissue thickening surrounding both shoulder joint and a large right axillary lymph node. Status post left MRM, For history of hormone positive breast cancer, diagnosed in 1999, she was treated with tamoxifen for 5 years. Plan: Discussed with patient regarding her labs white blood count 5.7 hemoglobin 10.8 hematocrit 34.9 platelets 314,000 CMP within normal limits Clinically, patient doing well with no new signs symptoms history of disease progression tolerating R-CHOP well but with expected side effects, will proceed with next cycle #3 with R-CHOP with Neulasta support. And then consider follow-up CT PET scan in 3 weeks to assess disease response and then she will return to clinic in 2 weeks with CBC CMP As far as left leg swelling is concerned, patient has history of DVT now on anticoagulation, she is scheduled for follow-up left lower extremity Doppler study on February 03, 2022, will follow with the report. Mild anemia, will continue to monitor Signed By: Serg Rolle M.D. <<Signature on File>>
[2022-01-27 14:31] LABS: Basophils # 0.1 10^3/uL (0.0-0.1); Basophils % 0.5 %; Eosinophils # 0.1 10^3/uL (0.0-0.8); Eosinophils % 0.5 %; Hematocrit 32.3 % (37.0-47.0); Hemoglobin 10.3 g/dL (11.5-15.3); Lymphocytes % 9.5 %; Mean Corpuscular HGB Conc 31.9 g/dL (30.0-36.0); Mean Corpuscular Hemoglobin 32.9 pg (28.0-34.0); Mean Corpuscular Volume 103.2 fl (81-99); Mean Platelet Volume 8.8 fL (7.4-10.4); Monocytes # 0.7 10^3/uL (0.2-0.9); Monocytes % 6.5 %; Neutrophils # 7.93 10^3/uL (1.8-7.7); Neutrophils % 79.8 %; Nucleated Red Blood Cells % 0 %; Platelet Count 272 10^3/cmm (130-400); Red Blood Count 3.13 10^6/uL (4.1-5.3)
[2022-01-27 14:55] LABS: Alanine Aminotransferase 10 U/L (0-33); Albumin Level 4.1 g/dL (3.5-5.2); Alkaline Phosphatase 116 IU/L (35-105); Anion Gap 13.9 (5-19); Aspartate Amino Transferase 18 U/L (0-32); Blood Urea Nitrogen 11 mg/dL (8-23); Calcium 9.9 mg/dL (8.5-10.5); Carbon Dioxide 26 mmol/L (22-29); Chloride 102 mmol/L (98-107); Globulin 2.7 g/dL (1.3-4.6); Glucose 120 mg/dL (65-115); Osmolality Calculated 287 mOsm/kg (285-295); Potassium 3.9 mmol/L (3.5-5.1); Sodium 138 mmol/L (136-145); Total Bilirubin 0.2 mg/dL (0.15-1.2); Total Protein 6.8 g/dL (6.6-8.7)
--- NOTE | 2022-01-31 16:33 | ONC FU_ITS ---
Alexus Andrade Progress Note Patient: Janet Jose Unit #: [id number]: 1935 Dicatated By: Alexus Andrade N.P.Date of Visit:Jan 27, 2022 Onc MED Follow-up/Prog Note Chief Complaint: Lymphoma History of Present Illness: Ms. Janet Jose, is a 86-year-old female, presented to [facility] with nausea, abdominal pain and left neck mass, as per patient she was doing reasonably well prior to that but in first week of August 2021 she noted discomfort in her left abdomen/left upper quadrant area and sometimes in left flank, subsequently pain/discomfort in left thigh and now off and on burning sensation in the left thigh/leg. 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 Patient denies any night sweats, denies any recurrent fever but 12 pound weight loss in the last 2 weeks due to poor appetite, On September 21, 2021 patient underwent CTA chest to rule out pulmonary embolism it showed No pulmonary embolism but lobulated soft tissue mass in left inferior neck measuring 4 x 2.9 cm, at T7-8 level on the right measures 2.1 x 1.9 cm, there is also increased soft tissue mass along left lateral mid sternum measuring 2.8 x 2.2 cm. And soft tissue mass which is thought to be coming point adenopathy in the retroperitoneum that is encasing we will do renal artery and abutting aorta and kidney. Retroperitoneal mass measures at least 7.8 x 9.2 cm. There is a large right axillary lymph node measuring 3.2 x 1.9 cm Patient denies any dysphagia, denies any shortness of breath, denies any jaundice, denies any dysuria or hematuria, denies any focal weakness. Patient denies smoking or alcohol use Patient has history of left breast cancer, diagnosed in 1999, at that time she underwent left mastectomy, as per patient she was given tamoxifen for 5 years. Underwent left axillary lymph node biopsy to confirm lymphoma, proper histology and molecular profiling,, report is pending CT PET scan done on October 17, 2021 showed 5.1 x 5.6 cm left cervical lymphadenopathy SUV of 17.9 and other FDG positive lymph nodes in the left posterior triangle, and the chest, lymphomatous masses are present in the right axilla, left internal mammary left superior mediastinal, right paravertebral territories, and abdomen, homogeneous left-sided retroperitoneal mass extending from retrocrural territory into the left periaortic, retroaortic, right periaortic territories. The left psoas muscle is displaced laterally. Malignant left common iliac lymph node is also present and right external iliac lymph node measuring 2.4 x 3.6 cm with SUV of 16.9. Diffusely increased splenic activity indicates splenic involvement and L2 vertebral bodies suggest bone marrow infiltration. Echocardiogram done on November 04, 2021 shows ejection fraction 65% As per patient on November 04, 2021 while she was getting echo, she developed tachycardia for which she was sent to ER for evaluation, EKG showed narrow complex tachycardia heart rate in the range of 170s patient was not symptomatic, in ER her heart rate improved with Valsalva twice and went down to 90 to 110/min, patient was admitted to hospital with left lower leg edema and observed overnight venous Doppler study of left leg confirmed DVT and CT chest confirmed acute bilateral pulmonary embolism and patient was started on Eliquis Started on R-CHOP With Neulasta on November 19, 2021, patient did not get Rituxan With first cycle because of nonavailability Patient presents today for follow-up. States she has been feeling pretty well. Her appetite has been pretty good. No fever, chills, night sweats. No sinus drainage or sore throat. No shortness of breath, cough, chest pain. No nausea or vomiting. No diarrhea or constipation. No urinary symptoms. No numbness or paresthesias. She seems to be tolerating R-CHOP well. Review Of Symptoms: See above. Past Medical History: Hypertension MGUS Peripheral neuropathy Polyarthritis Splenomegaly Covid virus in 2021 Past Surgical History: Hysterectomy Mastectomy Covid vaccine #2 Moderna in 2020 Covid vaccine #1 Moderna in 2020 Allergies: No Known Allergies. Medications: Digoxin 0.25 mg Tablet Oral daily Docusate Sodium Tablet Oral b.i.d. HYDROcodone-Acetaminophen 1 Tablet (of 5-325 mg) Oral q 6 hours PRN Lisinopril 1 Tablet (of 5 mg) Oral daily LORazepam Tablet Oral PRN Morphine Sulfate ER Tablet, controlled release Oral PRN Ondansetron HCl 1 Tablet (of 4 mg) Oral q 6 hours PRN Pantoprazole Sodium (40 mg) Tablet, enteric coated Oral daily predniSONE (20 mg) Tablet Oral daily Prochlorperazine Maleate Tablet Oral PRN Xarelto (20 mg) Tablet Oral daily Family History: There is no documented family history. Social History: Ms. Jose is . Ms. Jose has never smoked. She has no history of drinking. Physical Examination: Performed on Jan 27, 2022 15:19: Height - 66.00 in, Weight - 157.4 lbs (LOW), BSA - 1.81 sq.m, BMI - 25.41, Temperature - 98.9 F (HIGH), Pulse - 108 /min (HIGH), Respiration - 16 /min, BP - 169/94 mm(hg) (HIGH), O2 Sat - 96 %, Pain - 0, and Fatigue - 3. Performance Status: 1 - No physically strenuous activity, but ambulatory and able to carry out light or sedentary work (e.g. office work, light house work). (ECOG) Constitutional Alert, cooperative, oriented. Mood and affect appropriate. Appears close to chronological age. Well nourished. Well developed. Head Normocephalic; no scars. Respiratory Lungs are clear to auscultation without rhonchi or wheezing. Cardiovascular Regular rate and rhythm of heart without murmurs, gallops or rubs. Abdomen Non-tender, non-distended, no masses, ascites or hepatosplenomegaly. Good bowel sounds. No guarding or rebound tenderness. Psychiatric Alert and oriented times three. Coherent speech. Verbalizes understanding of our discussions today. Laboratory: Test performed on Jan 27, 2022 14:20 Sodium 138 mmol/L Potassium 3.9 mmol/L Chloride 102 mmol/L CO2 26 mmol/L Anion Gap 13.9 BUN 11 mg/dL Creatinine 0.5 mg/dL Cr Clearance (Est) 94.40 mL/min Glucose 120 mg/dL Osmolality - Calculated 287 mOsm/kg Calcium 9.9 mg/dL Protein, Total 6.8 g/dL Albumin 4.1 g/dL Globulin 2.7 g/dL Bilirubin, Total 0.2 mg/dL ALT (SGPT) 10 U/L AST (SGOT) 18 U/L Alkaline Phosphatase 116 IU/L WBC 10.0 10 3/uL RBC 3.13 10 6/uL HGB 10.3 g/dL HCT 32.3 % MCV 103.2 fl MCH 32.9 pg MCHC 31.9 g/dL RDW 18.0 % Platelet Count 272 10 3/cmm MPV 8.8 fL Neutrophils 7.93 10 3/uL Lymphocytes 1.0 10 3/uL Monocytes 0.7 10 3/uL Eosinophils 0.1 10 3/uL Basophils 0.1 10 3/uL Neutrophil % 79.8 % Lymphocyte % 9.5 % Monocyte % 6.5 % Eosinophil % 0.5 % Basophils % 0.5 % NRBC % 0 % Test performed on Nov 12, 2021 15:18 Uric Acid 5.1 mg/dL Impression: Stage MAZIN (Based on CT PET scan findings) 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 CT PET scan done on October 17, 2021 shows FDG positive masses from the level of head and neck to the level of pelvis representing lymphoma, lymphomatous splenic involvement, questionable involvement of L2 vertebral body, left pleural effusion CTA chest done on September 21, 2021 shows no pulmonary embolism, extensive metastatic soft tissue masses identified, large left inferior neck mass measuring 4 x 2.9 cm, additional metastatic deposit along the right lateral T7-8 level abutting the thoracic spine. Left midsternal soft tissue mass, and extensive confluent mass or adenopathy in the left retroperitoneal area measuring 7.8 x 9.2 cm, encasing renal artery and abutting the aorta and the kidney. Extensive soft tissue thickening surrounding both shoulder joint and a large right axillary lymph node. Status post left MRM, For history of hormone positive breast cancer, diagnosed in 1999, she was treated with tamoxifen for 5 years. Plan: Labs were reviewed with patient. Hemoglobin 10.3, hematocrit 32.3, platelets 272,000, neutrophil count 7.93. Patient seems to be tolerating R-CHOP well with Neulasta support. We will plan a CT PET for follow-up. 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 She is scheduled for follow-up of the left lower extremity with a Doppler study on February 03, 2022. Patient is experiencing mild anemia and we will continue to monitor. She will receive treatment in 1 week and follow-up in the clinic in 2 weeks. Signed By: Alexus Andrade N.P. <<Signature on File>>
[2022-02-02] MEDS: acetaminophen 325 mg Tablet 650 MG PO (08:20)
[2022-02-02] MEDS: palonosetron 0.25 mg/5 mL SDV IV (08:35)
[2022-02-02] MEDS: diphenhydrAMINE 50 mg/mL SDV 1mL 25 MG IV (08:36)
[2022-02-02] MEDS: fosaprepitant 150 MG in sodium chloride 0.9% 150 ML 300 MG IV (08:55)
[2022-02-02] MEDS: sodium chloride 0.9% 500 ML 75 ML IV (09:13)
[2022-02-02] MEDS: pegfilgrastim 6 mg/0.6 mL Kit (onpro) SUBCUT (13:20)
[2022-02-09 08:18] LABS: Basophils # 0.1 10^3/uL (0.0-0.1); Basophils % 1.8 %; Eosinophils # 0.1 10^3/uL (0.0-0.8); Eosinophils % 1.3 %; Hematocrit 31.7 % (37.0-47.0); Hemoglobin 10.2 g/dL (11.5-15.3); Lymphocytes # 0.3 10^3/uL (0.8-4.8); Lymphocytes % 7.5 %; Mean Corpuscular HGB Conc 32.2 g/dL (30.0-36.0); Mean Corpuscular Volume 102.6 fl (81-99); Mean Platelet Volume 9.8 fL (7.4-10.4); Monocytes # 0.1 10^3/uL (0.2-0.9); Monocytes % 1.8 %; Neutrophils # 3.87 10^3/uL (1.8-7.7); Neutrophils % 85.6 %; Nucleated Red Blood Cells % 0 %; Platelet Count 106 10^3/cmm (130-400); Red Blood Count 3.09 10^6/uL (4.1-5.3); Red Cell Distribution Width 15.9 % (12.1-15.1); White Blood Count 4.5 10^3/uL (4.0-10.0)
[2022-02-09 08:35] LABS: Alanine Aminotransferase 9 U/L (0-33); Albumin Level 3.9 g/dL (3.5-5.2); Alkaline Phosphatase 107 IU/L (35-105); Anion Gap 11.8 (5-19); Aspartate Amino Transferase 12 U/L (0-32); Blood Urea Nitrogen 18 mg/dL (8-23); Calcium 9.9 mg/dL (8.5-10.5); Carbon Dioxide 26 mmol/L (22-29); Chloride 103 mmol/L (98-107); Globulin 2.3 g/dL (1.3-4.6); Glucose 108 mg/dL (65-115); Osmolality Calculated 286 mOsm/kg (285-295); Potassium 3.8 mmol/L (3.5-5.1); Sodium 137 mmol/L (136-145); Total Bilirubin 0.8 mg/dL (0.15-1.2); Total Protein 6.2 g/dL (6.6-8.7)
[2022-02-09 08:44] LABS: Slide Review Slide Review Perform
--- NOTE | 2022-02-15 07:44 | ONC FU_ITS ---
Dr. Rolle follow up note Patient: Janet Jose Unit #: [id number]: 1935 Dicatated By: Serg Rolle M.D.Date of Visit:Feb 09, 2022 Onc Med Follow-up/Prog Note History of Present Illness: Ms. Janet Jose, is a 86-year-old female, presented to [facility] with nausea, abdominal pain and left neck mass, as per patient she was doing reasonably well prior to that but in first week of August 2021 she noted discomfort in her left abdomen/left upper quadrant area and sometimes in left flank, subsequently pain/discomfort in left thigh and now off and on burning sensation in the left thigh/leg. 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 Patient denies any night sweats, denies any recurrent fever but 12 pound weight loss in the last 2 weeks due to poor appetite, On September 21, 2021 patient underwent CTA chest to rule out pulmonary embolism it showed No pulmonary embolism but lobulated soft tissue mass in left inferior neck measuring 4 x 2.9 cm, at T7-8 level on the right measures 2.1 x 1.9 cm, there is also increased soft tissue mass along left lateral mid sternum measuring 2.8 x 2.2 cm. And soft tissue mass which is thought to be coming point adenopathy in the retroperitoneum that is encasing we will do renal artery and abutting aorta and kidney. Retroperitoneal mass measures at least 7.8 x 9.2 cm. There is a large right axillary lymph node measuring 3.2 x 1.9 cm Patient denies any dysphagia, denies any shortness of breath, denies any jaundice, denies any dysuria or hematuria, denies any focal weakness. Patient denies smoking or alcohol use Patient has history of left breast cancer, diagnosed in 1999, at that time she underwent left mastectomy, as per patient she was given tamoxifen for 5 years. Underwent left axillary lymph node biopsy to confirm lymphoma, proper histology and molecular profiling,, report is pending CT PET scan done on October 17, 2021 showed 5.1 x 5.6 cm left cervical lymphadenopathy SUV of 17.9 and other FDG positive lymph nodes in the left posterior triangle, and the chest, lymphomatous masses are present in the right axilla, left internal mammary left superior mediastinal, right paravertebral territories, and abdomen, homogeneous left-sided retroperitoneal mass extending from retrocrural territory into the left periaortic, retroaortic, right periaortic territories. The left psoas muscle is displaced laterally. Malignant left common iliac lymph node is also present and right external iliac lymph node measuring 2.4 x 3.6 cm with SUV of 16.9. Diffusely increased splenic activity indicates splenic involvement and L2 vertebral bodies suggest bone marrow infiltration. Echocardiogram done on November 04, 2021 shows ejection fraction 65% As per patient on November 04, 2021 while she was getting echo, she developed tachycardia for which she was sent to ER for evaluation, EKG showed narrow complex tachycardia heart rate in the range of 170s patient was not symptomatic, in ER her heart rate improved with Valsalva twice and went down to 90 to 110/min, patient was admitted to hospital with left lower leg edema and observed overnight venous Doppler study of left leg confirmed DVT and CT chest confirmed acute bilateral pulmonary embolism and patient was started on Eliquis Started on R-CHOP With Neulasta on November 19, 2021, patient did not get Rituxan With first cycle because of nonavailability Follow-up CT PET scan after 3 cycles of R-CHOP done on February 06, 2022 showed resolution of lymphomatous masses seen on prior CT PET scan done on October 17, 2021, representing a complete response to therapy. The left retroperitoneal mass now measures roughly 4 cm and is FDG negative compared to 9.2 x 7.[address] chest abdomen done on September 21, 2021 the L2 uptake present on prior study is no longer seen no. Small left pleural effusion seen on prior study is modestly improved on current study. Came for follow-up, denies any specific complaint except generalized weakness and fatigue but no fever chills, no nausea or vomiting, no diarrhea or constipation, no abdominal pain or fullness, no night sweats, no peripheral lymphadenopathy. Patient has chronic lower extremity neuropathy for which she is on gabapentin 100 mg p.o. 3 times a day but patient take it on as-needed basis. Also complaining of mild numbness in fingertips but stable. Tolerating systemic therapy with R-CHOP well otherwise Medications: Digoxin 0.25 mg Tablet Oral daily, Docusate Sodium Tablet Oral b.i.d., HYDROcodone-Acetaminophen 1 Tablet (of 5-325 mg) Oral q 6 hours PRN, Lisinopril 1 Tablet (of 5 mg) Oral daily, LORazepam Tablet Oral PRN, Morphine Sulfate ER Tablet, controlled release Oral PRN, Ondansetron HCl 1 Tablet (of 4 mg) Oral q 6 hours PRN, Pantoprazole Sodium (40 mg) Tablet, enteric coated Oral daily, predniSONE (20 mg) Tablet Oral daily, Prochlorperazine Maleate Tablet Oral PRN, Xarelto (20 mg) Tablet Oral daily Allergies: No Known Allergies. Review of Systems: Review of Systems is not available for this patient. Vital Signs: Performed on Feb 09, 2022 09:44 Height - 66.00 in Weight - 156.6 lbs (LOW) BSA - 1.80 sq.m BMI - 25.28 Temperature - 97.7 F (LOW) Pulse - 113 /min (HIGH) Respiration - 19 /min BP - 127/71 mm(hg) O2 Sat - 97 % Pain - 0 Fatigue - 8 Performance Status: 1 - No physically strenuous activity, but ambulatory and able to carry out light or sedentary work (e.g. office work, light house work). (ECOG) Physical Examination: ENMT - No mouth sores, no thrush, no jaundice, no cervical or axillary lymphadenopathy, Respiratory - Lungs are clear to auscultation, Cardiovascular - Regular rate and rhythm of heart, Abdomen - Soft, bowel sounds present, Extremities - Trace edema bilaterally. Lab/Imaging: Test performed on Jan 27, 2022 14:20 Sodium 138 mmol/L Potassium 3.9 mmol/L Chloride 102 mmol/L CO2 26 mmol/L Anion Gap 13.9 BUN 11 mg/dL Creatinine 0.5 mg/dL Cr Clearance (Est) 94.40 mL/min Glucose 120 mg/dL Osmolality - Calculated 287 mOsm/kg Calcium 9.9 mg/dL Protein, Total 6.8 g/dL Albumin 4.1 g/dL Globulin 2.7 g/dL Bilirubin, Total 0.2 mg/dL ALT (SGPT) 10 U/L AST (SGOT) 18 U/L Alkaline Phosphatase 116 IU/L WBC 10.0 10 3/uL RBC 3.13 10 6/uL HGB 10.3 g/dL HCT 32.3 % MCV 103.2 fl MCH 32.9 pg MCHC 31.9 g/dL RDW 18.0 % Platelet Count 272 10 3/cmm MPV 8.8 fL Neutrophils 7.93 10 3/uL Lymphocytes 1.0 10 3/uL Monocytes 0.7 10 3/uL Eosinophils 0.1 10 3/uL Basophils 0.1 10 3/uL Neutrophil % 79.8 % Lymphocyte % 9.5 % Monocyte % 6.5 % Eosinophil % 0.5 % Basophils % 0.5 % NRBC % 0 % Test performed on Nov 12, 2021 15:18 Uric Acid 5.1 mg/dL Impression: Stage MAZIN (Based on CT PET scan findings) 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 CT PET scan done on October 17, 2021 shows FDG positive masses from the level of head and neck to the level of pelvis representing lymphoma, lymphomatous splenic involvement, questionable involvement of L2 vertebral body, left pleural effusion CTA chest done on September 21, 2021 shows no pulmonary embolism, extensive metastatic soft tissue masses identified, large left inferior neck mass measuring 4 x 2.9 cm, additional metastatic deposit along the right lateral T7-8 level abutting the thoracic spine. Left midsternal soft tissue mass, and extensive confluent mass or adenopathy in the left retroperitoneal area measuring 7.8 x 9.2 cm, encasing renal artery and abutting the aorta and the kidney. Extensive soft tissue thickening surrounding both shoulder joint and a large right axillary lymph node. Status post left MRM, For history of hormone positive breast cancer, diagnosed in 1999, she was treated with tamoxifen for 5 years. Plan: Discussed with patient regarding her labs white blood count 4.5 hemoglobin 10.3 hematocrit 31.7 platelets 106,000 CMP within normal limits and her follow-up CT PET scan showed excellent response, now in complete remission Clinically, doing reasonably well, no signs symptoms history of disease progression, her follow-up CT PET scan done after 3 cycles of R-CHOP shows complete remission. Her follow-up lab work-up shows mild but stable anemia and mild thrombocytopenia. Etiology for generalized weakness fatigue could be multifactorial including due to gabapentin, patient was advised to take gabapentin on regular basis and try 1 tablet every night and will adjust as tolerated to improve her lower extremity neuropathy related symptoms. Other possibility could be mild anemia but her hemoglobin is stable or chemotherapy related or thyroid related She will return to clinic in 2 weeks with CBC CMP and TSH if reasonable for cycle #5/6 with R-CHOP. Signed By: Serg Rolle M.D. <<Signature on File>>
== END 2022-02-11 23:59 | disposition home or self-care (01) ==
LOC: ONCMED 06:39
PROVIDERS: PCP Family Medicine; Visit Provider Internal Medicine Hematology & Oncology
DX: Z51.12 Encounter for antineoplastic immunotherapy (principal); Z51.11 Encounter for antineoplastic chemotherapy; C83.33 Diffuse large B-cell lymphoma, intra-abdominal lymph nodes; D64.9 Anemia, unspecified; D69.6 Thrombocytopenia, unspecified; R53.1 Weakness; R53.83 Other fatigue; Z79.899 Other long term (current) drug therapy
CPT/HCPCS: 36591; 80053; 85025; 96360; 96361; 96367; 96368; 96372; 96375; 96377; 96409; 96411; 96413; 96415; 96417; 99214; 99215; J1100; J1200; J1453; J2469; J2506; J7040; J9000; J9070; J9370; Q5115

== ENCOUNTER 2022-02-25 09:49 | Outpatient (RCR) | payer MEDICARE, BC, SELFPAY ==
[2022-02-23 08:34] LABS: Basophils % 0.4 %; Eosinophils % 0.1 %; Hematocrit 33.6 % (37.0-47.0); Hemoglobin 10.9 g/dL (11.5-15.3); Lymphocytes # 0.7 10^3/uL (0.8-4.8); Lymphocytes % 8.7 %; Mean Corpuscular HGB Conc 32.4 g/dL (30.0-36.0); Mean Corpuscular Volume 101.8 fl (81-99); Mean Platelet Volume 8.9 fL (7.4-10.4); Monocytes # 0.7 10^3/uL (0.2-0.9); Monocytes % 8.3 %; Neutrophils # 6.98 10^3/uL (1.8-7.7); Neutrophils % 81.7 %; Nucleated Red Blood Cells % 0 %; Platelet Count 243 10^3/cmm (130-400); Red Cell Distribution Width 15.5 % (12.1-15.1); White Blood Count 8.5 10^3/uL (4.0-10.0)
[2022-02-23 09:00] LABS: Alanine Aminotransferase 14 U/L (0-33); Albumin Level 4.1 g/dL (3.5-5.2); Alkaline Phosphatase 83 IU/L (35-105); Anion Gap 13.3 (5-19); Aspartate Amino Transferase 19 U/L (0-32); Blood Urea Nitrogen 18 mg/dL (8-23); Calcium 10.3 mg/dL (8.5-10.5); Carbon Dioxide 25 mmol/L (22-29); Chloride 105 mmol/L (98-107); Globulin 2.5 g/dL (1.3-4.6); Glucose 105 mg/dL (65-115); Osmolality Calculated 290 mOsm/kg (285-295); Potassium 4.3 mmol/L (3.5-5.1); Sodium 139 mmol/L (136-145); Thyroid Stimulating Hormone 1.55 uIU/mL (0.27-4.20); Total Bilirubin 0.3 mg/dL (0.15-1.2); Total Protein 6.6 g/dL (6.6-8.7)
[2022-02-23] MEDS: sodium chloride 0.9% 250 ML 75 ML IV (10:00)
[2022-02-23] MEDS: palonosetron 0.25 mg/5 mL SDV IV (10:04)
[2022-02-23] MEDS: diphenhydrAMINE 50 mg/mL SDV 1mL 25 MG IV (10:05)
[2022-02-23] MEDS: acetaminophen 325 mg Tablet 650 MG PO (10:05)
[2022-02-23] MEDS: fosaprepitant 150 MG in sodium chloride 0.9% 150 ML 300 MG IV (10:25)
[2022-02-23] MEDS: sodium chloride 0.9% 500 ML 75 ML IV (11:15)
[2022-02-23] MEDS: pegfilgrastim 6 mg/0.6 mL Kit (onpro) SUBCUT (15:50)
--- NOTE | 2022-02-24 17:19 | ONC FU_ITS ---
Dr. Rolle follow up note Patient: Jaent Jose Unit #: [id number]: 1935 Dicatated By: Serg Rolle M.D.Date of Visit:Feb 23, 2022 Onc Med Follow-up/Prog Note History of Present Illness: Ms. Janet Jose, is a 86-year-old female, presented to [facility] ER with nausea, abdominal pain and left neck mass, as per patient she was doing reasonably well prior to that but in first week of August 2021 she noted discomfort in her left abdomen/left upper quadrant area and sometimes in left flank, subsequently pain/discomfort in left thigh and now off and on burning sensation in the left thigh/leg. 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 Patient denies any night sweats, denies any recurrent fever but 12 pound weight loss in the last 2 weeks due to poor appetite, On September 21, 2021 patient underwent CTA chest to rule out pulmonary embolism it showed No pulmonary embolism but lobulated soft tissue mass in left inferior neck measuring 4 x 2.9 cm, at T7-8 level on the right measures 2.1 x 1.9 cm, there is also increased soft tissue mass along left lateral mid sternum measuring 2.8 x 2.2 cm. And soft tissue mass which is thought to be coming point adenopathy in the retroperitoneum that is encasing we will do renal artery and abutting aorta and kidney. Retroperitoneal mass measures at least 7.8 x 9.2 cm. There is a large right axillary lymph node measuring 3.2 x 1.9 cm Patient denies any dysphagia, denies any shortness of breath, denies any jaundice, denies any dysuria or hematuria, denies any focal weakness. Patient denies smoking or alcohol use Patient has history of left breast cancer, diagnosed in 1999, at that time she underwent left mastectomy, as per patient she was given tamoxifen for 5 years. Underwent left axillary lymph node biopsy to confirm lymphoma, proper histology and molecular profiling,, report is pending CT PET scan done on October 17, 2021 showed 5.1 x 5.6 cm left cervical lymphadenopathy SUV of 17.9 and other FDG positive lymph nodes in the left posterior triangle, and the chest, lymphomatous masses are present in the right axilla, left internal mammary left superior mediastinal, right paravertebral territories, and abdomen, homogeneous left-sided retroperitoneal mass extending from retrocrural territory into the left periaortic, retroaortic, right periaortic territories. The left psoas muscle is displaced laterally. Malignant left common iliac lymph node is also present and right external iliac lymph node measuring 2.4 x 3.6 cm with SUV of 16.9. Diffusely increased splenic activity indicates splenic involvement and L2 vertebral bodies suggest bone marrow infiltration. Echocardiogram done on November 04, 2021 shows ejection fraction 65% As per patient on November 04, 2021 while she was getting echo, she developed tachycardia for which she was sent to ER for evaluation, EKG showed narrow complex tachycardia heart rate in the range of 170s patient was not symptomatic, in ER her heart rate improved with Valsalva twice and went down to 90 to 110/min, patient was admitted to hospital with left lower leg edema and observed overnight venous Doppler study of left leg confirmed DVT and CT chest confirmed acute bilateral pulmonary embolism and patient was started on Eliquis Started on R-CHOP With Neulasta on November 19, 2021, patient did not get Rituxan With first cycle because of nonavailability Follow-up CT PET scan after 3 cycles of R-CHOP done on February 06, 2022 showed resolution of lymphomatous masses seen on prior CT PET scan done on October 17, 2021, representing a complete response to therapy. The left retroperitoneal mass now measures roughly 4 cm and is FDG negative compared to 9.2 x 7.[address] chest abdomen done on September 21, 2021 the L2 uptake present on prior study is no longer seen no. Small left pleural effusion seen on prior study is modestly improved on current study. Came for follow-up, denies any specific complaint, no fever chills, no nausea or vomiting, no diarrhea constipation, no night sweats. Mild peripheral numbness and chronic left leg swelling due to history of left leg DVT. Although her left leg swelling is improving. On Xarelto for DVT. Patient is tolerating systemic therapy with R-CHOP well otherwise Medications: Digoxin 0.25 mg Tablet Oral daily, Docusate Sodium Tablet Oral b.i.d., HYDROcodone-Acetaminophen 1 Tablet (of 5-325 mg) Oral q 6 hours PRN, Lisinopril 1 Tablet (of 5 mg) Oral daily, LORazepam Tablet Oral PRN, Morphine Sulfate ER Tablet, controlled release Oral PRN, Ondansetron HCl 1 Tablet (of 4 mg) Oral q 6 hours PRN, Pantoprazole Sodium (40 mg) Tablet, enteric coated Oral daily, predniSONE (20 mg) Tablet Oral daily, Prochlorperazine Maleate Tablet Oral PRN, Xarelto (20 mg) Tablet Oral daily Allergies: No Known Allergies. Review of Systems: Review of Systems is not available for this patient. Vital Signs: Performed on Feb 23, 2022 10:18 Height - 66.00 in Weight - 149.0 lbs (LOW) BSA - 1.76 sq.m BMI - 24.05 Temperature - 98.8 F Pulse - 97 /min Respiration - 16 /min BP - 147/81 mm(hg) (HIGH) O2 Sat - 95 % (LOW) Pain - 0 Fatigue - 5 Performance Status: 1 - No physically strenuous activity, but ambulatory and able to carry out light or sedentary work (e.g. office work, light house work). (ECOG) Physical Examination: ENMT - No mouth sores, no thrush, no jaundice, Respiratory - Lungs are clear to auscultation, Cardiovascular - Regular rate and rhythm of heart, Abdomen - Soft, bowel sounds present, Extremities - 1+ edema left leg. Lab/Imaging: Test performed on Jan 27, 2022 14:20 Sodium 138 mmol/L Potassium 3.9 mmol/L Chloride 102 mmol/L CO2 26 mmol/L Anion Gap 13.9 BUN 11 mg/dL Creatinine 0.5 mg/dL Cr Clearance (Est) 94.40 mL/min Glucose 120 mg/dL Osmolality - Calculated 287 mOsm/kg Calcium 9.9 mg/dL Protein, Total 6.8 g/dL Albumin 4.1 g/dL Globulin 2.7 g/dL Bilirubin, Total 0.2 mg/dL ALT (SGPT) 10 U/L AST (SGOT) 18 U/L Alkaline Phosphatase 116 IU/L WBC 10.0 10 3/uL RBC 3.13 10 6/uL HGB 10.3 g/dL HCT 32.3 % MCV 103.2 fl MCH 32.9 pg MCHC 31.9 g/dL RDW 18.0 % Platelet Count 272 10 3/cmm MPV 8.8 fL Neutrophils 7.93 10 3/uL Lymphocytes 1.0 10 3/uL Monocytes 0.7 10 3/uL Eosinophils 0.1 10 3/uL Basophils 0.1 10 3/uL Neutrophil % 79.8 % Lymphocyte % 9.5 % Monocyte % 6.5 % Eosinophil % 0.5 % Basophils % 0.5 % NRBC % 0 % Test performed on Nov 12, 2021 15:18 Uric Acid 5.1 mg/dL Impression: Stage MAZIN (Based on CT PET scan findings) 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 CT PET scan done on October 17, 2021 shows FDG positive masses from the level of head and neck to the level of pelvis representing lymphoma, lymphomatous splenic involvement, questionable involvement of L2 vertebral body, left pleural effusion CTA chest done on September 21, 2021 shows no pulmonary embolism, extensive metastatic soft tissue masses identified, large left inferior neck mass measuring 4 x 2.9 cm, additional metastatic deposit along the right lateral T7-8 level abutting the thoracic spine. Left midsternal soft tissue mass, and extensive confluent mass or adenopathy in the left retroperitoneal area measuring 7.8 x 9.2 cm, encasing renal artery and abutting the aorta and the kidney. Extensive soft tissue thickening surrounding both shoulder joint and a large right axillary lymph node. Status post left MRM, For history of hormone positive breast cancer, diagnosed in 1999, she was treated with tamoxifen for 5 years. Plan: Discussed with patient regarding her labs white blood count 8.5 hemoglobin 10.9 g medical 33.6 platelets 243,000 CMP within normal limits Clinically, patient doing well with no new signs symptom suggestive of disease progression, tolerating chemotherapy with R-CHOP well but with expected side effects e.g. we will proceed with next cycle #5/6 of R-CHOP with Neulasta support, today, and then she will return to clinic in 3 weeks with CBC CMP, if reasonable, for her final dose of R-CHOP. Left leg swelling, which is due to history of left leg DVT, now improving, on Xarelto, will continue and will consider follow-up left leg venous Doppler study and D-dimer in a month, if it shows no evidence of DVT or D-dimer activity, may consider discontinue Xarelto, As patient would complete 3 months of anticoagulation for provoked DVT, due to left retroperitoneal mass Signed By: Serg Rolle M.D. <<Signature on File>>
[2022-02-25] MEDS: pegfilgrastim-bmez 6 mg/0.6 mL SYR SUBCUT (10:10)
== END 2022-03-13 23:59 | disposition home or self-care (01) ==
LOC: ONCMED 09:49
PROVIDERS: PCP Family Medicine; Visit Provider Internal Medicine Hematology & Oncology
DX: Z51.12 Encounter for antineoplastic immunotherapy (principal); Z51.11 Encounter for antineoplastic chemotherapy; C83.33 Diffuse large B-cell lymphoma, intra-abdominal lymph nodes; J90 Pleural effusion, not elsewhere classified; M79.89 Other specified soft tissue disorders; Z85.3 Personal history of malignant neoplasm of breast; Z86.718 Personal history of other venous thrombosis and embolism; Z79.01 Long term (current) use of anticoagulants; Z79.899 Other long term (current) drug therapy
CPT/HCPCS: 80053; 84443; 85025; 96361; 96367; 96372; 96375; 96377; 96411; 96413; 96415; 96417; 99215; J1100; J1200; J1453; J2469; J2506; J7040; J7050; J9000; J9070; J9370; Q5115; Q5120

== ENCOUNTER 2022-03-23 15:06 | Inpatient (IN) | payer MEDICARE, BC, SELFPAY ==
[2022-03-23] VITALS (13 sets, daily range): BP systolic 74–132; BP diastolic 47–78; PULSE 82–107; RESP 3–26; TEMP 36.7–36.9; O2SAT 92–99; BMI 23.5; BMI 26.2
--- NOTE | 2022-03-23 15:14 | CTR_ITS ---
PROCEDURE INFORMATION: Exam: CT Head Without Contrast Exam date and time: 03/23/2022 4:06 PM Age: 86 years old Clinical indication: Injury or trauma; Fall; Blunt trauma (contusions or hematomas); Additional info: Ams/fall TECHNIQUE: Imaging protocol: Computed tomography of the head without contrast. Radiation optimization: All CT scans at this facility use at least one of these dose optimization techniques: automated exposure control; mA and/or kV adjustment per patient size (includes targeted exams where dose is matched to clinical indication); or iterative reconstruction. COMPARISON: CT head wo con* [id number] 09/22/2021 9:14 AM RADIATION DOSE METRICS: Total DLP (mGy-cm): 1642.74 FINDINGS: Brain: Normal. No hemorrhage. Unremarkable white matter. No mass effect. Cerebral ventricles: No ventriculomegaly. Paranasal sinuses: Visualized sinuses are unremarkable. No fluid levels. Mastoid air cells: Visualized mastoid air cells are well aerated. Bones/joints: Unremarkable. No acute fracture. Soft tissues: Unremarkable. CT/CT head wo con* [id number] IMPRESSION: No acute intracranial abnormality.
--- NOTE | 2022-03-23 15:14 | XR_ITS ---
WS: [id number] XR chest 1V portable [id number] REASON FOR EXAM: dyspnea/cough FINDINGS: Chemotherapy infusion port in place over the right anterolateral chest with transvenous right jugular catheter with the catheter terminating in the superior vena cava. Moderate to significant tortuosity and ectasia of the thoracic aorta with possible dilatation of the ascending aorta. Normal heart size. No active pulmonary parenchymal or pleural disease. Moderate degenerative spondylosis in the mid and lower thoracic spine. XR/XR chest 1V portable [id number] IMPRESSION: No acute chest abnormality. Possible dilatation of the ascending thoracic aorta.
--- NOTE | 2022-03-23 15:16 | ECG_ITS ---
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 Measurements Intervals [place] Rate: 100 P: 59 WI: 179 QRS: 56 QRSD: 126 T: 15 QT: 364 QTc: 471 Interpretive Statements SINUS TACHYCARDIA SEPTAL MYOCARDIAL INFARCTION , OF INDETERMINATE AGE [40+ ms Q WAVE IN V1/V2] LEFT BUNDLE BRANCH BLOCK MODERATE T-WAVE ABNORMALITY, CONSIDER LATERAL ISCHEMIA [-0.1+ mV T-WAVE IN I/aVL/V5/V6] MODERATE T-WAVE ABNORMALITY, CONSIDER INFERIOR ISCHEMIA [-0.1+ mV T-WAVE IN II/aVF] Compared to ECG 12/02/2021 17:43:25 Myocardial infarct finding now present T-wave abnormality now present Possible ischemia now present First degree AV block no longer present Electronically Signed On 03-23-2022 17:24:40 CDT by Guido Castanon M.D. [id number]
[2022-03-23 15:34] LABS: ABG PH Result 7.56 (7.35-7.45); Alveolar-Arterial Oxygen Gradi 4.5 mmHg (5-10); Arterial Blood Gas Hematocrit 36.7 % (37-47); Base Excess ABG -1.5 mmol/L (-2.0-2.0); Blood Gas Operator Identificat ED; Blood Gas Sample Site Brachial, right; Blood Gas Sample Type Arterial; Carboxyhemoglobin 1.2 %THgb (0.4-20.1); HCO3 ABG 18.9 mmol/L (22-26); HGB O2 Sat 96.6 % (95-100); Ionized Calcium Level - ABG 1.3 mmol/L (1.1-1.4); Methemoglobin 0.7 % (0.4-1.5); Oxygen Device ROOM AIR; Oxygen Saturation ABG 98.4; PO2 ABG 87.3 mmHg (80.0-100.0); Potassium Level - ABG 3.8 mmol/L (3.5-5.0)
--- NOTE | 2022-03-23 15:39 | CTR_ITS ---
PROCEDURE INFORMATION: Exam: CTA Chest With Contrast Exam date and time: 03/23/2022 4:15 PM Age: 86 years old Clinical indication: Condition or disease; Other: Enlarged thoracic aorta with back pain; Additional info: Dialated thoracic aorta - back pain TECHNIQUE: Imaging protocol: Computed tomographic angiography of the chest with contrast. 3D rendering (Not supervised by radiologist): MIP and/or 3D reconstructed images were created by the technologist. Radiation optimization: All CT scans at this facility use at least one of these dose optimization techniques: automated exposure control; mA and/or kV adjustment per patient size (includes targeted exams where dose is matched to clinical indication); or iterative reconstruction. Contrast material: OMNIPAQUE 350; Contrast volume: 75 ml; Contrast route: INTRAVENOUS (IV); COMPARISON: CT angio chest PE protcl [id number] 11/04/2021 6:36 PM RADIATION DOSE METRICS: Total DLP (mGy-cm): 743.21 FINDINGS: Tubes, catheters and devices: Right-sided Port-A-Cath. Pulmonary arteries: Normal. No pulmonary emboli. Aorta: Ascending thoracic aorta is again seen to be prominent at 3.7 cm, similar to prior exam without findings of rupture or dissection. Lungs: Emphysematous changes. Bilateral basilar atelectasis. Pleural spaces: Unremarkable. No pneumothorax. No pleural effusion. Heart: Coronary artery atherosclerotic calcifications. Lymph nodes: Several prominent subcentimeter short axis mediastinal lymph nodes, nonspecific. Gallbladder and bile ducts: Cholelithiasis. Adrenal glands: Bilateral adrenal hypertrophy, similar to prior exam. Bones/joints: Unremarkable. No acute fracture. Soft tissues: Unremarkable. CT/CT angio chest [id number] IMPRESSION: 1. Ascending thoracic aorta is again seen to be prominent at 3.7 cm, similar to prior exam without findings of rupture or dissection. 2. Coronary artery atherosclerotic calcifications. 3. Several prominent subcentimeter short axis mediastinal lymph nodes, nonspecific. 4. Cholelithiasis. 5. Right-sided Port-A-Cath. 6. Emphysematous changes. 7. Bilateral basilar atelectasis. 8. Bilateral adrenal hypertrophy, similar to prior exam.
--- NOTE | 2022-03-23 15:43 | W.ED.AMS ---
HPI - Altered Mental Status General: Chief Complaint: Altered Mental Status Stated Complaint: STEMI ALERT Time Seen by Provider: 03/23/22 15:14 [facility] PFSH: Medical History (Updated 03/16/22 @ 10:14 by Serg Rolle MD) Anemia B-cell lymphoma Hypercalcemia Hypertension MGUS (monoclonal gammopathy of unknown significance) Peripheral neuropathy Polyarthritis Retroperitoneal lymphadenopathy Splenomegaly Surgical History H/O lymph node biopsy (10/28/21) left cervical H/O mastectomy History of hysterectomy Port-A-Cath in place (10/28/21) Status post colonoscopy Family History Other Cancer Social History (Updated 03/16/22 @ 09:13 by Rosa Najera LPN) Smoking and tobacco status: never smoked Alcohol intake: never Housing: House Course Vital Signs: Vital signs: Vital Signs Temperature 98.1 F 03/23/22 15:18 Pulse Rate 103 H 03/23/22 15:18 Respiratory Rate 26 H 03/23/22 15:18 Blood Pressure 74/47 03/23/22 15:18 Pulse Oximetry 98 03/23/22 15:18 MDM - Altered Mental Status Lab Data : 03/23/22 15:10 03/23/22 15:10 Radiology Impressions Chest X-Ray 03/23/22 15:14 IMPRESSION: No acute chest abnormality. Possible dilatation of the ascending thoracic aorta. Laboratory Results Specimen Type Arterial 03/23/22 15:24 Sample Site Brachial, right 03/23/22 15:24 ABG pH 7.56 (7.35-7.45) H 03/23/22 15:24 ABG pCO2 21.0 mmHg (35-45) L 03/23/22 15:24 ABG pO2 87.3 mmHg (80.0-100.0) 03/23/22 15:24 ABG HCO3 18.9 mmol/L (22-26) L 03/23/22 15:24 ABG O2 Saturation 98.4 03/23/22 15:24 ABG Base Excess -1.5 mmol/L (-2.0-2.0) 03/23/22 15:24 Volodymyr Test N/a 03/23/22 15:24 A-a O2 Gradient 4.5 mmHg (5-10) L 03/23/22 15:24 Hematocrit 36.7 % (37-47) L 03/23/22 15:24 Hgb O2 Saturation 96.6 % (95-100) 03/23/22 15:24 Carboxyhemoglobin 1.2 %THgb (0.4-20.1) 03/23/22 15:24 Methemoglobin 0.7 % (0.4-1.5) 03/23/22 15:24 Total Hemoglobin 12.0 g/dL (12-16) 03/23/22 15:24 Sodium 138.0 mmol/L (131-143) 03/23/22 15:24 Potassium 3.8 mmol/L (3.5-5.0) 03/23/22 15:24 Glucose 127.0 mg/dL (70-115) H 03/23/22 15:24 Ionized Calcium 1.3 mmol/L (1.1-1.4) 03/23/22 15:24 O2 Delivery Device Room air 03/23/22 15:24 FiO2 21.0 % 03/23/22 15:24 Endoscopy Registered Nurse ID Ed 03/23/22 15:24 Discharge Plan Discharge Condition: Stable Prescriptions: No Action hydrocodone-acetaminophen 5-325 mg tablet 1 tab PO BID PRN (Reason: Pain) 0RF docusate sodium [Colace] 100 mg capsule 100 mg PO DAILY PRN (Reason: Constipation) 0RF polyethylene glycol 3350 [Miralax] 17 gram powder in packet 17 g PO DAILY PRN (Reason: Constipation) 0RF digoxin 250 mcg (0.25 mg) tablet 250 mcg PO DAILY 0RF Xarelto 20 mg tablet 20 mg PO DAILY 0RF Rx Instructions: must administer with evening meal lorazepam 1 mg tablet 1 mg PO DAILY PRN0RF morphine 15 mg tablet 15 mg PO BID PRN0RF prednisone 20 mg Tablet See Rx Instructions .ROUTE .COMPLEX 0RF Rx Instructions: 5 TABS (100 MG) ON DAYS 1-5 OF CHEMO Compazine 10 mg Tablet 10 - 20 mg PO Q8H PRN (Reason: Nausea) 0RF Protonix 40 mg tablet,delayed release (DR/EC) 40 mg PO DAILY Qty: 30 0RF ondansetron 4 mg tablet,disintegrating 4 mg PO Q6H PRN (Reason: nausea and vomiting) Qty: 14 0RF lisinopril 5 mg Tablet 5 mg PO DAILY 0RF Referrals: Bianca Hardy MD [Primary Care Provider] - Coding Level of Care Code ED [facility] for Shayla Ramírez
[2022-03-23 15:45] LABS: Basophils % 0.9 %; Eosinophils % 0.7 %; Hemoglobin 11.5 g/dL (11.5-15.3); Lymphocytes % 22.4 %; Mean Corpuscular HGB Conc 32.9 g/dL (30.0-36.0); Mean Corpuscular Hemoglobin 34.3 pg (28.0-34.0); Mean Corpuscular Volume 104.5 fl (81-99); Mean Platelet Volume 11.3 fL (7.4-10.4); Monocytes # 0.1 10^3/uL (0.2-0.9); Monocytes % 2.6 %; Neutrophils # 3.05 10^3/uL (1.8-7.7); Neutrophils % 71.8 %; Nucleated Red Blood Cells % 0 %; Platelet Count 99 10^3/cmm (130-400); Red Blood Count 3.35 10^6/uL (4.1-5.3); Red Cell Distribution Width 14.6 % (12.1-15.1); White Blood Count 4.3 10^3/uL (4.0-10.0)
[2022-03-23] MEDS: sodium chloride 0.9% 1,000 ML 999 ML IV (15:50)
[2022-03-23 16:21] LABS: Lactic Sepsis W/Reflex 4.5 mmol/L (0.5-2.2)
[2022-03-23 16:30] LABS: Slide Review Slide Review Perform
[2022-03-23] MEDS: sodium chloride 0.9% 1,000 ML 2000 ML IV (16:37)
[2022-03-23 16:55] LABS: Blood Urine Neg (Negative); Glucose Urine UA Norm (Normal); Ketones Urine Negative (Negative); Protein Urine 2+ (Negative); Urine Appearance Hazy (CLEAR); Urine Color Yellow (Yellow); pH Urine 6 (5-7)
[2022-03-23 16:56] LABS: Add Urine Microscopic? YES; Bilirubin Urine 1+ (Negative); Leukocyte Esterase Urine 1+ (Negative); Nitrate Urine Negative (Negative); Sulfosalicylic Acid Urine Positive (Negative); Urobilinogen Urine 1 mg/dL (Negative)
[2022-03-23 17:00] LABS: Bacteria Urine 3+ /hpf; Mucus Urine 1+ /hpf; Squamous Epithelial Cell Urine 15-25 /hpf (0-5)
[2022-03-23 17:01] LABS: Add Urine Culture? No
[2022-03-23 17:09] LABS: Alanine Aminotransferase 11 U/L (0-33); Albumin Level 3.3 g/dL (3.5-5.2); Alkaline Phosphatase 137 IU/L (35-105); Aspartate Amino Transferase 16 U/L (0-32); Blood Urea Nitrogen 31 mg/dL (8-23); Calcium 9.4 mg/dL (8.5-10.5); Carbon Dioxide 21 mmol/L (22-29); Chloride 102 mmol/L (98-107); Creatine Phosphokinase 61 U/L (26-192); Globulin 2.5 g/dL (1.3-4.6); Glucose 106 mg/dL (65-115); Osmolality Calculated 289 mOsm/kg (285-295); Sodium 136 mmol/L (136-145); Total Bilirubin 0.8 mg/dL (0.15-1.2); Total Protein 5.8 g/dL (6.6-8.7)
[2022-03-23 17:11] LABS: Anion Gap 16.9 (5-19); Potassium 3.9 mmol/L (3.5-5.1)
[2022-03-23] MEDS: sodium chloride 0.9% 1,000 ML 150 ML IV (17:11)
--- NOTE | 2022-03-23 17:16 | ECG_ITS ---
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 Measurements Intervals [place] Rate: 86 P: 73 MT: 162 QRS: 38 QRSD: 129 T: 146 QT: 390 QTc: 468 Interpretive Statements SINUS RHYTHM MODERATE INTRAVENTRICULAR CONDUCTION DELAY [105+ ms QRS DURATION, 80+ ms Q/S IN V1/V2, NO Q AND 60+ ms R IN I/aVL/V5/V6] ST ELEVATION, PROBABLY EARLY REPOLARIZATION [ST ELEVATION WITH NORMALLY INFLECTED T-WAVE] ABNORMAL QRS-T ANGLE [QRS-T AXIS DIFFERENCE > 60] Compared to ECG 03/23/2022 15:10:26 Early repolarization now present Sinus tachycardia no longer present Myocardial infarct finding no longer present Left bundle-branch block no longer present T-wave abnormality no longer present Possible ischemia no longer present Electronically Signed On 03-23-2022 22:59:58 CDT by Guido Castanon M.D. [id number]
[2022-03-23] MEDS: iohexol 350 mg/mL 100 mL Btl IV (17:21)
[2022-03-23 17:23] LABS: Reflex Lactate Order REFLEX LACTIC ORDERD
[2022-03-23 18:12] LABS: Troponin 5 2HR 95.61 ng/L (0-10)
[2022-03-23] MEDS: levofloxacin-dextrose 5 % 750 MG/150 ML PREMIX 100 MG IV (18:20)
--- NOTE | 2022-03-23 18:36 | PM.HP ---
Providers/Chief Complaint Primary Care Provider: Bianca Hardy MD Chief Complaint: STEMI ALERT History of Present Illness Janet Jose is a 86 year old female with past medical history of , A. fib , DVT, on Eliquis, [place] breast , B-cell lymphoma s/p chemotherapy, ( R-CHOP ) last session was done a week back Follow-up CT PET scan after 3 cycles of R-CHOP done on February 06, 2022 showed resolution of lymphomatous masses seen on prior CT PET scan done on October 17, 2021, representing a complete response to therapy.? The left retroperitoneal mass now measures roughly 4 cm and is FDG negative compared to 9.2 x 7.[address] chest abdomen done on September 21, 2021 the L2 uptake present on prior study is no longer seen. Initially brought in as a STEMI alert, EKG is consistent with, left bundle branch block, with benign early repolarization changes, STEMI was ruled out, when I talked to the patient's family member as well as with the patient, they reported that she was found slumped in the bathroom, minimally responsive at that time, Also had vomiting, was complaining of right-sided neck pain, patient currently was complaining of, generalized weakness low energy, 3 episodes of watery diarrhea, currently denies any chest pain shortness of breath nausea vomiting abdominal pain. Pertinent imaging studies done in the ER: CTA chest with PE protocol: No pulmonary embolism CT head without contrast: No acute intracranial pathology Pertinent labs: WBC 4.3 H&H 11.5/35 PLT :99, serum sodium 136 serum potassium 3.9 BUN / serum creatinine : 31/0.7 , Random blood glucose:106 , serum lactic acid 4.5, Baseline troponin:106 , 2-hour troponin:95 , Urinalysis: Urine leukocyte esterase 1+, urine nitrate negative, urine bacteria 3+ Review of Systems General: Reports: 10 or more systems reviewed and unremarkable except in HPI and below Const: Denies: fever(s), chills, body aches, change in appetite or diaphoresis Card: Denies: palpitations, edema, swelling of feet/ankles, dyspnea on exertion, orthopnea or leg pain with exertion Resp: Denies: dyspnea, productive cough, wheezing or pain on inspiration GI: Reports: diarrhea; Denies: abdominal pain, nausea, vomiting or constipation : Denies: flank pain Musc: Denies: back pain, extremity pain or extremity swelling Neuro: Denies: headache(s), difficulty walking or confusion Medications/Allergies Home Medications Medication Instructions Recorded Confirmed Last Taken Type ondansetron 4 mg disintegrating 4 mg PO Q6H PRN #14 tab 09/02/21 03/23/22 11/30/21 Rx tablet lisinopril 5 mg tablet 5 mg PO DAILY 10/27/21 03/23/22 03/23/22 History docusate sodium 100 mg capsule 100 mg PO DAILY PRN 11/16/21 03/23/22 Unknown History (Colace) hydrocodone 5 mg-acetaminophen 325 1 tab PO BID PRN 11/16/21 03/23/22 Unknown History mg tablet pantoprazole 40 mg tablet,delayed 40 mg PO DAILY #30 tab 12/07/21 03/23/22 03/23/22 Rx release (Protonix) digoxin 250 mcg (0.25 mg) tablet 250 mcg PO DAILY 03/16/22 03/23/22 03/23/22 History lorazepam 1 mg tablet 1 mg PO DAILY PRN 03/16/22 03/23/22 Unknown History morphine 15 mg immediate release 15 mg PO BID PRN 03/16/22 03/23/22 Unknown History tablet rivaroxaban 20 mg tablet (Xarelto) 20 mg PO DAILY 03/16/22 03/23/22 03/22/22 History gabapentin 300 mg capsule 300 mg PO DAILY 03/23/22 03/23/22 Unknown History Allergies Allergy/AdvReac Type Severity Reaction Status Date / Time No Known Allergies Allergy Verified 03/23/22 16:12 PFSH Acute PFSH: Medical History (Updated 03/23/22 @ 19:18 by Hayden Rios MD) Anemia B-cell lymphoma Hypercalcemia Hypertension MGUS (monoclonal gammopathy of unknown significance) Peripheral neuropathy Polyarthritis Retroperitoneal lymphadenopathy Splenomegaly Surgical History H/O lymph node biopsy (10/28/21) left cervical H/O mastectomy History of hysterectomy Port-A-Cath in place (10/28/21) Status post colonoscopy Family History Other Cancer Social History (Updated 03/16/22 @ 09:13 by GIDEON Nixon Smoking and tobacco status: never smoked Alcohol intake: never Housing: House Vitals/I&O/Wt Last Vital Signs Temp 98.1 F 03/23/22 15:18 Pulse 100 03/23/22 18:15 Resp 25 H 03/23/22 18:15 BP 128/66 03/23/22 18:15 Pulse Ox 95 03/23/22 18:15 03/23/22 03/23/22 03/23/22 06:59 14:59 22:59 Intake Total 1999 Balance 1999 Weight last 48 hrs Weight 68.039 kg Physical Exam HENMT: COMMON NORMALS: normocephalic and atraumatic HEAD & SCALP: normocephalic and atraumatic Eye: GENERAL EYE: appearance normal, both eyes and all related structures Chest: CHEST: Yes Symmetrical chest wall rise Resp: COMMON NORMALS: normal respiratory effort, No retractions, No use of accessory muscles and clear to auscultation bilaterally EFFORT & INSPECTION: Yes symmetric chest movement AUSCULTATION: clear to auscultation bilaterally Cardio: COMMON NORMALS: regular rate, regular rhythm, S1 normal heart sound present, S2 normal heart sound present, No gallops present (Cardio), No murmurs present (Cardio), No rub (Cardio) and Peripheral pulses 2+ throughout RATE: regular rate RHYTHM: regular rhythm HEART SOUNDS: S1 normal heart sound present and S2 normal heart sound present PERIPHERAL PULSES: Peripheral pulses 2+ throughout GI: COMMON NORMALS: Normal to inspection, nondistended, normoactive bowel sounds present, Soft to palpation, non-tender, No hepatosplenomegaly present and no masses AUSCULTATION: Yes normoactive bowel sounds PALPATION: Yes Soft to palpation and Yes No hepatosplenomegaly present RECTAL EXAM: deferred Extremity: COMMON NORMALS: no clubbing, cyanosis or edema and no pedal edema Data : 03/23/22 15:10 03/23/22 16:25 Micro: Microbiology 03/23/22 16:00 C.difficile Toxin B Gene (PCR) - Final Stool Routine Collection 03/23/22 16:25 Blood Culture - Preliminary Blood SPECIMEN COLLECTED 03/23/22 15:15 Blood Culture - Preliminary Blood SPECIMEN COLLECTED CTA Chest: Radiologist's impression: CT angio chest: 1. Ascending thoracic aorta is again seen to be prominent at 3.7 cm, similar to prior exam without findings of rupture or dissection. 2. Coronary artery atherosclerotic calcifications. 3. Several prominent subcentimeter short axis mediastinal lymph nodes, nonspecific. 4. Cholelithiasis. 5. Right-sided Port-A-Cath. 6. Emphysematous changes. 7. Bilateral basilar atelectasis. 8. Bilateral adrenal hypertrophy, similar to prior exam. CT Head: Radiologist's impression: No acute intracranial abnormality. EKG 1: Psychiatry Instructor Interpretation: SINUS TACHYCARDIA SEPTAL MYOCARDIAL INFARCTION , OF INDETERMINATE AGE [40+ ms Q WAVE IN V1/V2] LEFT BUNDLE BRANCH BLOCK MODERATE T-WAVE ABNORMALITY, CONSIDER LATERAL ISCHEMIA? [-0.1+ mV T-WAVE IN I/aVL/V5/V6] MODERATE T-WAVE ABNORMALITY, CONSIDER INFERIOR ISCHEMIA? [-0.1+ mV T-WAVE IN II/aVF] EKG computer-generated impression: Chest X-Ray 03/23/22 15:14 IMPRESSION: No acute chest abnormality. Possible dilatation of the ascending thoracic aorta. Head CT 03/23/22 15:14 IMPRESSION: No acute intracranial abnormality. Chest CTA 03/23/22 15:39 IMPRESSION: 1. Ascending thoracic aorta is again seen to be prominent at 3.7 cm, similar to prior exam without findings of rupture or dissection. 2. Coronary artery atherosclerotic calcifications. 3. Several prominent subcentimeter short axis mediastinal lymph nodes, nonspecific. 4. Cholelithiasis. 5. Right-sided Port-A-Cath. 6. Emphysematous changes. 7. Bilateral basilar atelectasis. 8. Bilateral adrenal hypertrophy, similar to prior exam. EKG 2: Psychiatry Instructor Interpretation: SINUS RHYTHM MODERATE INTRAVENTRICULAR CONDUCTION DELAY? [105+ ms QRS DURATION, 80+ ms Q/S IN V1/V2, NO Q AND 60+ ms R IN I/aVL/V5/V6] ST ELEVATION, PROBABLY EARLY REPOLARIZATION?? EKG computer-generated impression: Chest X-Ray 03/23/22 15:14 IMPRESSION: No acute chest abnormality. Possible dilatation of the ascending thoracic aorta. Head CT 03/23/22 15:14 IMPRESSION: No acute intracranial abnormality. Chest CTA 03/23/22 15:39 IMPRESSION: 1. Ascending thoracic aorta is again seen to be prominent at 3.7 cm, similar to prior exam without findings of rupture or dissection. 2. Coronary artery atherosclerotic calcifications. 3. Several prominent subcentimeter short axis mediastinal lymph nodes, nonspecific. 4. Cholelithiasis. 5. Right-sided Port-A-Cath. 6. Emphysematous changes. 7. Bilateral basilar atelectasis. 8. Bilateral adrenal hypertrophy, similar to prior exam. A&P Assessment and plan (1) NSTEMI (non-ST elevated myocardial infarction): Status: Acute (2) Pre-syncope: Status: Acute (3) A-fib: Status: Acute (4) DVT (deep venous thrombosis): Status: Acute (5) Embolism: Status: Acute (6) Lactic acidosis: Status: Acute (7) Diarrhea: Status: Acute Plan 86 year old female with past medical history of , A. fib , DVT, on Eliquis, [place] breast , B-cell lymphoma s/p chemotherapy, was brought in after being found slumped in the bathroom. Assessment: NSTEMI: Likely type II NSTEMI: Patient currently denies any chest pain shortness of breath palpitation nausea vomiting, diaphoresis. Troponin trend:106,95 , EKG: consistent with left bundle branch block,benign early repolarization changes. Follow 2D echo Telemetry monitoring #Presyncope: Possibly secondary to severe dehydration. Continue IV hydration Orthostatic vitals check #Diarrhea: Follow stool studies # UTI: Follow urine culture Continue levofloxacin for now #History of atrial fibrillation: Continue digoxin Continue Eliquis #History of B-cell lymphoma status/post chemotherapy: Continue oncology follow-up as an outpatient #CODE STATUS:AND #DVT prophylaxis: On Eliquis Attestations Medical Necessity Statement*: Patient is to be in hospital for management of NSTEMI , presyncope. Anticipated length of stay greater than 2 midnightS Time Spent in Patient Care: Greater than 35 minutes (>than 50% of time spent in counselling and/or direct pt care on unit). Coding Level of Care Code Acute Respiratory Manager for [facility] Fwd Exam Detailed Diagnoses NSTEMI (non-ST elevated myocardial infarction) I21.4 Pre-syncope R55 A-fib I48.91 DVT (deep venous thrombosis) I82.409 Embolism I74.9 Lactic acidosis E87.2 Diarrhea R19.7
[2022-03-23 18:42] LABS: Troponin(5th) Baseline 106 ng/L (0-10)
[2022-03-23 19:34] LABS: Lactic Acid level (Lactate) 1.4 mmol/L (0.5-2.2)
--- NOTE | 2022-03-23 19:42 | USCV_ITS ---
Janet Jose Age: 86 Gender: F : 1935 Exam Date: 03/23/2022 20:32 Ordering Phys: Hayden Rios MD Technologist: SAMANTHA Exam Location: [facility] [place] Indication: Syncope BP: / HR: 81 Rhythm: Sinus Technical Quality: Adequate MEASUREMENTS (Male / Female) Normal Values 2D ECHO LV Diastolic Diameter PLAX 4.4 cm 4.2 - 5.9 / 3.9 - 5.3 cm LV Systolic Diameter PLAX 2.7 cm IVS Diastolic Thickness 1.2 cm 0.6 - 1.0 / 0.6 - 0.9 cm IVS Systolic Thickness 1.4 cm LVPW Diastolic Thickness 1.4 cm 0.6 - 1.0 / 0.6 - 0.9 cm LVPW Systolic Thickness 2.2 cm LVOT Diameter 2.1 cm LV Ejection Fraction 2D Teich 68.5 % LV Ejection Fraction MOD 2C 73.2 % LV Ejection Fraction 2C AL 72.7 % LA Diameter 3.4 cm LA Width 3.2 cm LA Height 5.9 cm RA Width 3.6 cm RA Height 3.4 cm Aorta at Sinotubular Diameter 2.4 cm IVC Diameter 2.2 cm M-MODE Aortic Annulus Diameter 3.0 cm LA Ao Ratio MM 1.1 DOPPLER AV Peak Velocity 160.8 cm/s LVOT Peak Velocity 126.0 cm/s AV Area Cont Eq vti 2.8 cm squared AV Area Cont Eq pk 2.6 cm squared MV Peak Velocity 152.0 cm/s MV Area PHT 4.0 cm squared Mitral E to A Ratio 0.7 MV E' Velocity 96.0 cm/s TR Peak Velocity 105.1 cm/s TR Peak Gradient 4.4 mmHg TR Mean Velocity 74.5 cm/s TR Mean Gradient 2.6 mmHg TR Velocity Time Integral 18.2 cm Right Atrial Pressure 10.0 mmHg Pulmonary Artery Systolic Pressu 14.4 mmHg PV Peak Velocity 87.0 cm/s RV Acceleration Time 0.1 s RV Ejection Time 0.3 s RV AcT/ET 0.2 FINDINGS Left Ventricle Normal left ventricular cavity size. Mildly increased left ventricle wall thickness. Normal left ventricular systolic function. Left ventricular ejection fraction is estimated at 70 %. Grade I diastolic dysfunction (abnormal relaxation filling pattern), normal to mildly elevated filling pressures. Abnormal septal motion consistent with conduction abnormality. Right Ventricle Normal right ventricular size and systolic function. Right ventricular systolic pressure 16 mmHg. Right Atrium Normal right atrial size. Left Atrium Mildly increased left atrial size. Mitral Valve Moderate mitral annular calcification. Moderately thickened and calcified mitral valve leaflets. No significant mitral valve stenosis. Trace mitral valve regurgitation. Aortic Valve Mildly thickened sclerotic trileaflet aortic valve. No aortic valve stenosis. No aortic valve regurgitation. Tricuspid Valve Structurally normal tricuspid valve. Trace to mild tricuspid valve regurgitation. Pulmonic Valve Pulmonic valve not well visualized. No pulmonary valve stenosis. No pulmonary valve regurgitation. Pericardium Echo free space anterior to the right ventricle likely represents a fat pad. Aorta Aorta not well visualized. CONCLUSIONS 1. Normal left ventricular cavity size and systolic function. Left ventricular ejection fraction is estimated at 70 %. Grade I diastolic dysfunction (abnormal relaxation filling pattern), normal to mildly elevated filling pressures. 2. Normal right ventricular size and systolic function. 3. Echo free space anterior to the right ventricle likely represents a fat pad. 4. Normal pulmonary artery pressure. 5. Compared to previous echocardiogram dated 11/05/2021, there may not have been any significant change. Jodee Stone MD (Electronically Signed) Final Date: 24 Mar 2022 17:09 S
[2022-03-23] MEDS: sodium chloride 0.9% 1,000 ML 100 ML IV (20:03)
[2022-03-23] MEDS: loperamide 2 mg Capsule PO (20:41)
--- NOTE | 2022-03-23 21:16 | ECG_ITS ---
[facility] Test Date: 2022-03-23 Pat Name: Janet Jose Department: Room: 253 Gender: Female Ammonia Nitrate Operator: : 1935 Requested By: Shai Brito Order Number: [id number] Yessenia MD: Guido Castanon M.D. Measurements Intervals [place] Rate: 94 P: 68 PA: 162 QRS: 17 QRSD: 125 T: 146 QT: 371 QTc: 466 Interpretive Statements SINUS RHYTHM LEFT BUNDLE BRANCH BLOCK [120+ ms QRS DURATION, 80+ ms Q/S IN V1/V2, 85+ ms R IN I/aVL/V5/V6] Compared to ECG 03/23/2022 17:35:47 Left bundle-branch block now present Intraventricular conduction delay no longer present ST (T wave) deviation no longer present Early repolarization no longer present Electronically Signed On 03-23-2022 22:58:38 CDT by Guido Castanon M.D. [email or web address]
[2022-03-23 23:29] LABS: Troponin 5 6HR 72.85 ng/L (0-10)
[2022-03-24] VITALS (10 sets, daily range): BP systolic 80–166; BP diastolic 40–77; PULSE 78–120; RESP 16–19; TEMP 36.6–37.3; O2SAT 92–95
[2022-03-24 03:24] LABS: Basophils % 1.2 %; Eosinophils % 0.6 %; Hematocrit 24.9 % (37.0-47.0); Hemoglobin 8.2 g/dL (11.5-15.3); Lymphocytes # 0.3 10^3/uL (0.8-4.8); Lymphocytes % 16.5 %; Mean Corpuscular HGB Conc 32.9 g/dL (30.0-36.0); Mean Corpuscular Hemoglobin 34.6 pg (28.0-34.0); Mean Corpuscular Volume 105.1 fl (81-99); Mean Platelet Volume 10.5 fL (7.4-10.4); Monocytes # 0.1 10^3/uL (0.2-0.9); Monocytes % 3.5 %; Neutrophils % 76.4 %; Nucleated Red Blood Cells % 0 %; Platelet Count 71 10^3/cmm (130-400); Red Blood Count 2.37 10^6/uL (4.1-5.3); Red Cell Distribution Width 14.7 % (12.1-15.1); White Blood Count 1.7 10^3/uL (4.0-10.0)
[2022-03-24 03:44] LABS: Lactic Sepsis W/Reflex 1.1 mmol/L (0.5-2.2)
[2022-03-24 03:46] LABS: Alanine Aminotransferase 9 U/L (0-33); Alkaline Phosphatase 70 IU/L (35-105); Aspartate Amino Transferase 13 U/L (0-32); Blood Urea Nitrogen 21 mg/dL (8-23); Calcium 8.7 mg/dL (8.5-10.5); Carbon Dioxide 22 mmol/L (22-29); Chloride 108 mmol/L (98-107); Globulin 2.2 g/dL (1.3-4.6); Glucose 91 mg/dL (65-115); Osmolality Calculated 289 mOsm/kg (285-295); Sodium 138 mmol/L (136-145); Total Protein 5.2 g/dL (6.6-8.7)
[2022-03-24 03:51] LABS: Procalcitonin 1.72 ng/mL (0-0.5)
[2022-03-24 04:03] LABS: Slide Review Slide Review Perform
[2022-03-24] MEDS: sodium chloride 0.9% 1,000 ML 100 ML IV (06:06)
--- NOTE | 2022-03-24 06:08 | PC.NURSE ---
Patient declined to get up to chair at this time.
[2022-03-24] MEDS: pantoprazole DR 40 mg Tablet PO (07:59)
--- NOTE | 2022-03-24 11:12 | PM.PN ---
Subjective Subjective: Patient was seen and examined this morning , still has weakness, orthostatic vital signs positive, Mentation is at baseline, will have to continue with IV hydration, continue to monitor orthostatic vital sign. Lactic acid has normalized. Medications: Medication Review Details: Generic Name Dose Route Start Last Admin Trade Name Freq PRN Reason Stop Dose Admin Sodium Chloride 1,000 mls @ 150 m ls/hr 03/23/22 18:30 03/24/22 08:43 Sodium Chloride 0.9% IV 150 mls/hr .[id number] MIHAELA Infusion Lisinopril 5 mg 03/24/22 09:00 03/24/22 08:28 Lisinopril 5 Mg Tablet PO Not Given DAILY MIHAELA Loperamide HCl 2 mg 03/23/22 19:57 03/23/22 20:41 Loperamide 2 Mg Capsule PO 2 mg 6XD PRN Administration DIARRHEA Pantoprazole Sodiu m 40 mg 03/24/22 09:00 03/24/22 07:[address] 40 Mg Tablet PO 40 mg DAILY MIHAELA Administration Vitals/I&O/Wt Last Vital Signs Temp 98.8 F 03/24/22 07:47 Pulse 79 03/24/22 07:47 Resp 16 03/24/22 07:47 BP 104/51 03/24/22 07:47 Pulse Ox 92 03/24/22 07:47 03/23/22 03/24/22 03/24/22 22:59 06:59 14:59 Intake Total 3012.5 / 3012.5 1480 / 4492.5 261.667 / 261.667 Output Total 1999 Balance 3012.5 / 3012.5 1480 / 4492.5 -1738.333 / -1738.333 Weight last 48 hrs Weight 75.977 kg Weight 68.039 kg Physical Exam Narrative: Alert awake orientated*3 HENMT: COMMON NORMALS: normocephalic and atraumatic HEAD & SCALP: normocephalic and atraumatic Eye: GENERAL EYE: appearance normal, both eyes and all related structures Chest: CHEST: Yes Symmetrical chest wall rise Resp: COMMON NORMALS: normal respiratory effort, No retractions, No use of accessory muscles and clear to auscultation bilaterally EFFORT & INSPECTION: Yes symmetric chest movement AUSCULTATION: clear to auscultation bilaterally Cardio: COMMON NORMALS: regular rate, regular rhythm, S1 normal heart sound present, S2 normal heart sound present, No gallops present (Cardio), No murmurs present (Cardio), No rub (Cardio) and Peripheral pulses 2+ throughout RATE: regular rate RHYTHM: regular rhythm HEART SOUNDS: S1 normal heart sound present and S2 normal heart sound present PERIPHERAL PULSES: Peripheral pulses 2+ throughout GI: COMMON NORMALS: Normal to inspection, nondistended, normoactive bowel sounds present, Soft to palpation, non-tender, No hepatosplenomegaly present and no masses AUSCULTATION: Yes normoactive bowel sounds PALPATION: Yes Soft to palpation and Yes No hepatosplenomegaly present RECTAL EXAM: deferred Extremity: COMMON NORMALS: no clubbing, cyanosis or edema and no pedal edema Data : 03/24/22 02:46 03/24/22 02:46 Micro: Microbiology 03/23/22 16:00 C.difficile Toxin B Gene (PCR) - Final Stool Routine Collection 03/23/22 16:25 Blood Culture - Preliminary Blood SPECIMEN COLLECTED 03/23/22 15:15 Blood Culture - Preliminary Blood SPECIMEN COLLECTED A&P Assessment and plan (1) NSTEMI (non-ST elevated myocardial infarction): Status: Acute (2) Pre-syncope: Status: Acute (3) A-fib: Status: Acute (4) DVT (deep venous thrombosis): Status: Acute (5) Embolism: Status: Acute (6) Lactic acidosis: Status: Acute (7) Diarrhea: Status: Acute Plan 86 year old female with past medical history of , A. fib , D[facility] [facility] , B-cell lymphoma s/p chemotherapy, was brought in after being found slumped in the bathroom. Assessment: NSTEMI: Likely type II NSTEMI: Patient currently denies any chest pain shortness of breath palpitation nausea vomiting, diaphoresis. Troponin trend:106,95 ,72 EKG: consistent with left bundle branch block,benign early repolarization changes. 2D echo Telemetry monitoring #Presyncope: Possibly secondary to severe dehydration. Orthostatic vital sign: Positive Continue IV hydration Monitor orthostatic vitals #Diarrhea: Stool C. difficile PCR negative Follow stool studies #PanCytopenia: Possibly secondary to effect of chemotherapy Continue to monitor CBC Blood culture Urine culture # UTI: Follow urine culture Continue levofloxacin for now #History of atrial fibrillation: Continue digoxin Continue Xarelto #History of B-cell lymphoma status/post chemotherapy: Continue oncology follow-up as an outpatient #CODE STATUS:AND #DVT prophylaxis: On Eliquis Attestations Medical Necessity Statement*: Patient is still in hospital for management of above defined problems. Need for IV hydration positive orthostatic vital sign pancytopenia, significant weakness. Time Spent in Patient Care: Greater than 35 minutes (>than 50% of time spent in counselling and/or direct pt care on unit). Coding Level of Care Code Acute Machine Tool Operator for [facility] Fwd Diagnoses NSTEMI (non-ST elevated myocardial infarction) I21.4 Pre-syncope R55 A-fib I48.91 DVT (deep venous thrombosis) I82.409 Embolism I74.9 Lactic acidosis E87.2 Diarrhea R19.7
[2022-03-24] MEDS: digoxin 250 mcg Tablet PO (11:17)
--- NOTE | 2022-03-24 13:14 | PC.CHAP ---
Pastoral Care Encounter/Spiritual Assessment Type of Contact [] Declined lumber salvager visit [] Patient/Family/Request visit [] Outpatient visit [] Follow-up visit [] Physician referral [] Code/Alert [x] Routine visit [] Staff referral [] Actively dying [] Patient sleeping [] Family support [] [] Out of room [] Palliative care [] [] Receiving care in room [] Pre-surgical visit [] Trauma [] Long length of stay [] ICU visit [] Other: Relational/Emotional Strength [] Patient feels connected with others/family/visitors/staff [] Distress [] Loneliness/isolation [] Abandonment Spirituality of Patient [x] Person of Jaimie [] Attends Restorationist of their Jaimie [x] Believes in Prayer [] Reads Bible or Tenriism materials [] There are Spiritual issues to be addressed Tar And Ammonia Pump Operator Interventions [x] Prayer [x] Active listening [x] Non-anxious presence [] Spiritual/emotional support [] Crisis/trauma care [] Spiritual counseling [] Bereavement support [] Provided bereavement packet [] Provided Bible/devotional materials [] Provided toy/stuffed animal, coloring book to patient or family member [] Provided Communion [] Anointing/[place] [] Salvation [x] Completed spiritual assessment [] Other: Impact on Illness or Injury [] Angry [] Fearful [] Anxious [] Often cries [] Exhaustion [] Unable to work [] Unable to attend scientologist [] Unable to walk/stand [] Unable to read [] Unable to drive [] Unable to eat/drink [] Unable to sleep [] Unable to be with family [] Patient intubated [] Other: Summary Time spent with patient 10 min
[2022-03-24] MEDS: sodium chloride 0.9% 1,000 ML 150 ML IV ×2 (14:06→23:49)
[2022-03-24] MEDS: gabapentin 300 mg Capsule PO (16:53)
[2022-03-24] MEDS: rivaroxaban 10 mg Tablet 20 MG PO (16:53)
[2022-03-24] MEDS: levofloxacin-dextrose 5 % 750 MG/150 ML PREMIX 100 MG IV (16:54)
[2022-03-25] VITALS (8 sets, daily range): BP systolic 129–155; BP diastolic 60–76; PULSE 84–95; RESP 16–20; TEMP 36.7–37.7; O2SAT 95–97
[2022-03-25 04:14] LABS: Basophils % 1.1 %; Eosinophils % 4.2 %; Hematocrit 23.8 % (37.0-47.0); Hemoglobin 7.4 g/dL (11.5-15.3); Lymphocytes # 0.3 10^3/uL (0.8-4.8); Lymphocytes % 32.6 %; Mean Corpuscular HGB Conc 31.1 g/dL (30.0-36.0); Mean Corpuscular Hemoglobin 33.5 pg (28.0-34.0); Mean Corpuscular Volume 107.7 fl (81-99); Mean Platelet Volume 9.8 fL (7.4-10.4); Monocytes # 0.2 10^3/uL (0.2-0.9); Monocytes % 15.8 %; Neutrophils % 45.2 %; Nucleated Red Blood Cells % 0 %; Platelet Count 56 10^3/cmm (130-400); Red Blood Count 2.21 10^6/uL (4.1-5.3); Red Cell Distribution Width 14.3 % (12.1-15.1)
[2022-03-25 04:37] LABS: Anion Gap 9.6 (5-19); Blood Urea Nitrogen 12 mg/dL (8-23); Calcium 8.9 mg/dL (8.5-10.5); Carbon Dioxide 24 mmol/L (22-29); Chloride 108 mmol/L (98-107); Glucose 113 mg/dL (65-115); Osmolality Calculated 287 mOsm/kg (285-295); Potassium 3.6 mmol/L (3.5-5.1); Sodium 138 mmol/L (136-145)
[2022-03-25 05:02] LABS: Neutrophils # 0.43 10^3/uL (1.8-7.7)
[2022-03-25 05:03] LABS: Slide Review Slide Review Perform
[2022-03-25] MEDS: digoxin 250 mcg Tablet PO (09:57)
[2022-03-25] MEDS: pantoprazole DR 40 mg Tablet PO (10:05)
[2022-03-25] MEDS: sodium chloride 0.9% 1,000 ML 100 ML IV ×2 (10:05→21:08)
[2022-03-25] MEDS: gabapentin 300 mg Capsule PO (10:05)
--- NOTE | 2022-03-25 12:34 | P.PN_ITS ---
Subjective Subjective: Patient was seen and examined this morning , repeat orthostatic vital signs negative, patient has to be placed on reverse isolation because of neutropenia:Will give a dose of Neupogen today. Medications: Medication Review Details: Generic Name Dose Route Start Last Admin Trade Name Freq PRN Reason Stop Dose Admin Sodium Chloride 1,000 mls @ 150 m ls/hr 03/23/22 18:30 03/24/22 08:43 Sodium Chloride 0.9% IV 150 mls/hr .[id number] MIHAELA Infusion Lisinopril 5 mg 03/24/22 09:00 03/24/22 08:28 Lisinopril 5 Mg Tablet PO Not Given DAILY MIHAELA Loperamide HCl 2 mg 03/23/22 19:57 03/23/22 20:41 Loperamide 2 Mg Capsule PO 2 mg 6XD PRN Administration DIARRHEA Pantoprazole Sodiu m 40 mg 03/24/22 09:00 03/24/22 07:[address] 40 Mg Tablet PO 40 mg DAILY MIHAELA Administration Vitals/I&O/Wt Last Vital Signs Temp 98.4 F 03/25/22 12:00 Pulse 84 03/25/22 12:00 Resp 18 03/25/22 12:00 BP 129/64 03/25/22 12:00 Pulse Ox 95 03/25/22 12:00 03/24/22 03/25/22 03/25/22 22:59 06:59 14:59 Intake Total 1510 / 2630.000 440 / 3070.000 240 / 240 Output Total 3800 / 7200 Balance 1510 / -770.000 -3360 / -4130.000 240 / 240 Weight last 48 hrs Weight 76.839 kg Weight 75.977 kg Weight 68.039 kg Physical Exam Narrative: Alert awake orientated*3 HENMT: COMMON NORMALS: normocephalic and atraumatic HEAD & SCALP: normocephalic and atraumatic Eye: GENERAL EYE: appearance normal, both eyes and all related structures Chest: CHEST: Yes Symmetrical chest wall rise Resp: COMMON NORMALS: normal respiratory effort, No retractions, No use of accessory muscles and clear to auscultation bilaterally EFFORT & INSPECTION: Yes symmetric chest movement AUSCULTATION: clear to auscultation bilaterally Cardio: COMMON NORMALS: regular rate, regular rhythm, S1 normal heart sound present, S2 normal heart sound present, No gallops present (Cardio), No murmurs present (Cardio), No rub (Cardio) and Peripheral pulses 2+ throughout RATE: regular rate RHYTHM: regular rhythm HEART SOUNDS: S1 normal heart sound present and S2 normal heart sound present PERIPHERAL PULSES: Peripheral pulses 2+ throughout GI: COMMON NORMALS: Normal to inspection, nondistended, normoactive bowel sounds present, Soft to palpation, non-tender, No hepatosplenomegaly present and no masses AUSCULTATION: Yes normoactive bowel sounds PALPATION: Yes Soft to palpation and Yes No hepatosplenomegaly present RECTAL EXAM: deferred Extremity: COMMON NORMALS: no clubbing, cyanosis or edema and no pedal edema Data : 03/25/22 04:05 03/25/22 04:05 Micro: Microbiology 03/23/22 16:25 Blood Culture - Preliminary Blood NEGATIVE TO DATE 03/23/22 16:00 Enteric Pathogens (PCR) - Final Stool Routine Collection C.difficile Toxin B Gene (PCR) - Final 03/23/22 15:15 Blood Culture - Preliminary Blood NEGATIVE TO DATE A&P Assessment and plan (1) NSTEMI (non-ST elevated myocardial infarction): Status: Acute (2) Pre-syncope: Status: Acute (3) A-fib: Status: Acute (4) DVT (deep venous thrombosis): Status: Acute (5) Embolism: Status: Acute (6) Lactic acidosis: Status: Acute (7) Diarrhea: Status: Acute Plan 86 year old female with past medical history of , A. fib , DVT, on [facility], [place] breast , B-cell lymphoma s/p chemotherapy, was brought in after being found slumped in the bathroom. Assessment: NSTEMI: Likely type II NSTEMI: Patient currently denies any chest pain shortness of breath palpitation nausea vomiting, diaphoresis. Troponin trend:106,95 ,72 EKG: consistent with left bundle branch block,benign early repolarization changes. 2D echo: Normal left ventricular cavity size and systolic function. ?Left ventricular ejection fraction is estimated at 70 %. Grade I ?diastolic dysfunction (abnormal relaxation filling pattern), normal to mildly elevated filling pressures. Normal right ventricular size and systolic function. Echo free space anterior to the right ventricle likely?represents a fat pad. Telemetry monitoring #Presyncope: Possibly secondary to severe dehydration. Orthostatic vital sign: Positive Continue IV hydration Monitor orthostatic vitals #Diarrhea: Stool C. difficile PCR negative Stool enteric bacterial panel by PCR negative #PanCytopenia: Possibly secondary to effect of chemotherapy Continue to monitor CBC Blood culture: NTD Urine culture: # UTI: Follow urine culture Continue levofloxacin for now #History of atrial fibrillation: Continue digoxin Currently Xarelto on hold #History of B-cell lymphoma status/post chemotherapy: Continue oncology follow-up as an outpatient #CODE STATUS:AND #DVT prophylaxis: On Xarelto Attestations Medical Necessity Statement*: Patient is to be in hospital for monitoring of pancytopenia, severe dehydration, need for IV hydration. Time Spent in Patient Care: Greater than 35 minutes (>than 50% of time spent in counselling and/or direct pt care on unit) . Coding Level of Care Code Acute Director [facility] [place] Fwd Exam Detailed Diagnoses NSTEMI (non-ST elevated myocardial infarction) I21.4 Pre-syncope R55 A-fib I48.91 DVT (deep venous thrombosis) I82.409 Embolism I74.9 Lactic acidosis E87.2 Diarrhea R19.7
[2022-03-25] MEDS: levofloxacin-dextrose 5 % 750 MG/150 ML PREMIX 100 MG IV (17:10)
[2022-03-26] VITALS: BP 144/64; PULSE 82; RESP 18; TEMP 36.8; O2SAT 96
[2022-03-26] MEDS: acetaminophen 325 mg Tablet 650 MG PO ×2 (02:56→09:34)
[2022-03-26 03:01] LABS: Basophils % 0.8 %; Eosinophils % 1.6 %; Hematocrit 23.6 % (37.0-47.0); Hemoglobin 7.6 g/dL (11.5-15.3); Lymphocytes # 0.4 10^3/uL (0.8-4.8); Lymphocytes % 29.4 %; Mean Corpuscular HGB Conc 32.2 g/dL (30.0-36.0); Mean Corpuscular Hemoglobin 33.6 pg (28.0-34.0); Mean Corpuscular Volume 104.4 fl (81-99); Mean Platelet Volume 10.3 fL (7.4-10.4); Monocytes # 0.2 10^3/uL (0.2-0.9); Monocytes % 16.7 %; Neutrophils % 50.7 %; Nucleated Red Blood Cells % 0 %; Platelet Count 62 10^3/cmm (130-400); Red Blood Count 2.26 10^6/uL (4.1-5.3); Red Cell Distribution Width 13.9 % (12.1-15.1); White Blood Count 1.3 10^3/uL (4.0-10.0)
[2022-03-26 03:23] LABS: Anion Gap 9.6 (5-19); Blood Urea Nitrogen 10 mg/dL (8-23); Carbon Dioxide 25 mmol/L (22-29); Chloride 107 mmol/L (98-107); Glucose 97 mg/dL (65-115); Osmolality Calculated 285 mOsm/kg (285-295); Potassium 3.6 mmol/L (3.5-5.1); Sodium 138 mmol/L (136-145)
[2022-03-26 03:45] LABS: Neutrophils # 0.64 10^3/uL (1.8-7.7); Slide Review Slide Review Perform
[2022-03-26 04:00] VITALS: BP 146/72; PULSE 86; RESP 17; TEMP 36.6; O2SAT 94
[2022-03-26] MEDS: sodium chloride 0.9% 1,000 ML 100 ML IV (06:21)
[2022-03-26 08:00] VITALS: BP 152/80; PULSE 91; RESP 17; TEMP 36.8; O2SAT 95
[2022-03-26] MEDS: gabapentin 300 mg Capsule PO (09:20)
[2022-03-26] MEDS: pantoprazole DR 40 mg Tablet PO (09:20)
[2022-03-26 09:22] VITALS: PULSE 91
[2022-03-26] MEDS: digoxin 250 mcg Tablet PO (09:22)
--- NOTE | 2022-03-26 10:49 | PC.SOCIAL ---
IMM Update Pg. 2 of IMM updated and reviewed with patient, who verbalized understanding. Copy provided.
--- NOTE | 2022-03-26 11:32 | PM.DCS ---
Discharge Providers Date of Admission: 03/23/22 17:46 Date of Discharge: March 26, 2022 Attending Provider at Admission: Hayden Rios MD Attending Provider at Discharge: Hayden Rios MD Primary Care Provider: Bianca Hardy MD Diagnoses at Discharge Discharge Diagnosis (1) NSTEMI (non-ST elevated myocardial infarction): Status: Acute (2) Pre-syncope: Status: Acute (3) A-fib: Status: Acute (4) DVT (deep venous thrombosis): Status: Acute (5) Embolism: Status: Acute (6) Lactic acidosis: Status: Acute (7) Diarrhea: Status: Acute Reason for Visit Reason for Visit: STEMI ALERT Hospital Course Hospital Course HPI: Janet Jose is a 86 year old female with past medical history of , A. fib , DVT, on Eliquis, [place] breast ,? B-cell lymphoma s/p chemotherapy, ( R-CHOP )? last session was done a week back Follow-up CT PET scan after 3 cycles of R-CHOP done on February 06, 2022 showed resolution of lymphomatous masses seen on prior CT PET scan done on October 17, 2021, representing a complete response to therapy.? The left retroperitoneal mass now measures roughly 4 cm and is FDG negative compared to 9.2 x 7.[address] chest abdomen done on September 21, 2021 the L2 uptake present on prior study is no longer seen. Initially brought in as a STEMI alert, EKG is consistent with, left bundle branch block, with benign early repolarization changes, STEMI was ruled out, when I talked to the patient's family member as well as with the patient, they reported that she was found slumped in the bathroom, minimally responsive at that time, Also had vomiting, was complaining of right-sided neck pain, patient currently was complaining of, generalized weakness low energy, 3 episodes of watery diarrhea, currently denies any chest pain shortness of breath nausea vomiting abdominal pain. Pertinent imaging studies done in the ER: CTA chest with PE protocol: No pulmonary embolism CT head without contrast: No acute intracranial pathology Pertinent labs: WBC 4.3 H&H 11.5/35 PLT :99, serum sodium 136 serum potassium 3.9 BUN / serum creatinine : 31/0.7 , Random blood glucose:106 , serum lactic acid 4.5, Baseline troponin:106 , 2-hour troponin:95 , Urinalysis: Urine leukocyte esterase 1+, urine nitrate negative, urine bacteria 3+ Hospital course: SHe was admitted for the management of NSTEMI likely type II: Patient denied any chest pain shortness of breath palpitation nausea vomiting, diaphoresis. Troponin trend:106,95 ,72.EKG:? consistent with left bundle branch block,benign early repolarization changes. 2D echo:?Normal left ventricular cavity size and systolic function. ?Left ventricular ejection fraction is estimated at 70 %. Grade I ?diastolic dysfunction (abnormal relaxation filling pattern), normal to mildly elevated filling pressures. Normal right ventricular size and systolic function. Echo free space anterior to the right ventricle likely?represents a fat pad. During hospital stay she was also managed for presyncope orthostatic vital signs were positive , likely secondary to severe dehydration, she was continued on aggressive IV hydration , orthostatic vital signs were monitored, at the time of discharge it was negative. During the hospital stay she also had developed pancytopenia likely secondary to chemotherapy effect, She was also managed for afebrile neutropenia, received 2 doses of Neupogen, with improvement in neutrophil count. She was kept on reverse isolation protocol.she is being discharged on levofloxacin 500 mg p.o. daily for additional 5 days. On admission she was complaining of diarrhea: Stool C. difficile PCR negative Stool enteric bacterial panel by PCR negative. For UTI she was kept on levofloxacin. For A. fib she was continued on digoxin and Xarelto.for her History of B-cell lymphoma status/post chemotherapy: She will continue to follow with Dr. Rolle as outpatient. Has a recent upcoming appointment Overall patient has responded well to above medical management and is being discharged in stable condition to home.She will follow primary care physician as outpatient. Physical Exam Narrative: Alert awake orientated*3 HENMT: COMMON NORMALS: normocephalic and atraumatic HEAD & SCALP: normocephalic and atraumatic Eye: GENERAL EYE: appearance normal, both eyes and all related structures Chest: CHEST: Yes Symmetrical chest wall rise Resp: COMMON NORMALS: normal respiratory effort, No retractions, No use of accessory muscles and clear to auscultation bilaterally EFFORT & INSPECTION: Yes symmetric chest movement AUSCULTATION: clear to auscultation bilaterally Cardio: COMMON NORMALS: regular rate, regular rhythm, S1 normal heart sound present, S2 normal heart sound present, No gallops present (Cardio), No murmurs present (Cardio), No rub (Cardio) and Peripheral pulses 2+ throughout RATE: regular rate RHYTHM: regular rhythm HEART SOUNDS: S1 normal heart sound present and S2 normal heart sound present PERIPHERAL PULSES: Peripheral pulses 2+ throughout GI: COMMON NORMALS: Normal to inspection, nondistended, normoactive bowel sounds present, Soft to palpation, non-tender, No hepatosplenomegaly present and no masses AUSCULTATION: Yes normoactive bowel sounds PALPATION: Yes Soft to palpation and Yes No hepatosplenomegaly present RECTAL EXAM: deferred Extremity: COMMON NORMALS: no clubbing, cyanosis or edema and no pedal edema Discharge Data Studies Completed and Pending Completed Studies During Hospitalization Category Date Time Status CT head wo con* [id number] Stat Cat Scan 03/23/22 15:14 Completed CTA thoracic [CT angio chest [id number]] Stat Cat Scan 03/23/22 15:39 Completed XR chest 1V portable [id number] Stat Exams 03/23/22 15:14 Completed CV. echo complete* [id number] Routine Ultrasound 03/23/22 19:42 Completed Pending at discharge Category Date Time Status Blood Culture Stat Lab 03/23/22 16:25 Results Urine Culture Routine Lab 03/25/22 15:25 Received Radiology Impressions Chest X-Ray 03/23/22 15:14 IMPRESSION: No acute chest abnormality. Possible dilatation of the ascending thoracic aorta. Head CT 03/23/22 15:14 IMPRESSION: No acute intracranial abnormality. Chest CTA 03/23/22 15:39 IMPRESSION: 1. Ascending thoracic aorta is again seen to be prominent at 3.7 cm, similar to prior exam without findings of rupture or dissection. 2. Coronary artery atherosclerotic calcifications. 3. Several prominent subcentimeter short axis mediastinal lymph nodes, nonspecific. 4. Cholelithiasis. 5. Right-sided Port-A-Cath. 6. Emphysematous changes. 7. Bilateral basilar atelectasis. 8. Bilateral adrenal hypertrophy, similar to prior exam. Laboratory Results WBC 1.3 10^3/uL (4.0-10.0) L 03/26/22 02:50 RBC 2.26 10^6/uL (4.1-5.3) L 03/26/22 02:50 Hgb 7.6 g/dL (11.5-15.3) L 03/26/22 02:50 Hct 23.6 % (37.0-47.0) L 03/26/22 02:50 MCV 104.4 fl (81-99) H 03/26/22 02:50 MCH 33.6 pg (28.0-34.0) 03/26/22 02:50 MCHC 32.2 g/dL (30.0-36.0) 03/26/22 02:50 RDW 13.9 % (12.1-15.1) 03/26/22 02:50 Plt Count 62 10^3/cmm (130-400) L 03/26/22 02:50 MPV 10.3 fL (7.4-10.4) 03/26/22 02:50 Neut % (Auto) 50.7 % 03/26/22 02:50 Lymph % (Auto) 29.4 % 03/26/22 02:50 [place] % (Auto) 16.7 % 03/26/22 02:50 Eos % (Auto) 1.6 % 03/26/22 02:50 Baso % (Auto) 0.8 % 03/26/22 02:50 Neut # (Auto) 0.64 10^3/uL (1.8-7.7) L* 03/26/22 02:50 Lymph # (Auto) 0.4 10^3/uL (0.8-4.8) L 03/26/22 02:50 [place] # (Auto) 0.2 10^3/uL (0.2-0.9) 03/26/22 02:50 Eos # (Auto) 0.0 10^3/uL (0.0-0.8) 03/26/22 02:50 Baso # (Auto) 0.0 10^3/uL (0.0-0.1) 03/26/22 02:50 Nucleated RBC % (auto) 0 % 03/26/22 02:50 Nucleated RBCs # 0.0 /100WBC 03/26/22 02:50 Specimen Type Arterial 03/23/22 15:24 Sample Site Brachial, right 03/23/22 15:24 ABG pH 7.56 (7.35-7.45) H 03/23/22 15:24 ABG pCO2 21.0 mmHg (35-45) L 03/23/22 15:24 ABG pO2 87.3 mmHg (80.0-100.0) 03/23/22 15:24 ABG HCO3 18.9 mmol/L (22-26) L 03/23/22 15:24 ABG O2 Saturation 98.4 03/23/22 15:24 ABG Base Excess -1.5 mmol/L (-2.0-2.0) 03/23/22 15:24 Volodymyr Test N/a 03/23/22 15:24 A-a O2 Gradient 4.5 mmHg (5-10) L 03/23/22 15:24 Hematocrit 36.7 % (37-47) L 03/23/22 15:24 Hgb O2 Saturation 96.6 % (95-100) 03/23/22 15:24 Carboxyhemoglobin 1.2 %THgb (0.4-20.1) 03/23/22 15:24 Methemoglobin 0.7 % (0.4-1.5) 03/23/22 15:24 Total Hemoglobin 12.0 g/dL (12-16) 03/23/22 15:24 Sodium 138.0 mmol/L (131-143) 03/23/22 15:24 Potassium 3.8 mmol/L (3.5-5.0) 03/23/22 15:24 Glucose 127.0 mg/dL (70-115) H 03/23/22 15:24 Ionized Calcium 1.3 mmol/L (1.1-1.4) 03/23/22 15:24 O2 Delivery Device Room air 03/23/22 15:24 FiO2 21.0 % 03/23/22 15:24 Presentation Manager ID Ed 03/23/22 15:24 Sodium 138 mmol/L (136-145) 03/26/22 02:50 Potassium 3.6 mmol/L (3.5-5.1) 03/26/22 02:50 Chloride 107 mmol/L (98-107) 03/26/22 02:50 Carbon Dioxide 25 mmol/L (22-29) 03/26/22 02:50 Anion Gap 9.6 (5-19) 03/26/22 02:50 BUN 10 mg/dL (8-23) 03/26/22 02:50 Creatinine 0.5 mg/dL (0.5-0.9) 03/26/22 02:50 GFR Calculation Not Reportable 03/26/22 02:50 Glucose 97 mg/dL (65-115) 03/26/22 02:50 Calculated Osmolality 285 mOsm/kg (285-295) 03/26/22 02:50 Lactic Acid 1.1 mmol/L (0.5-2.2) 03/24/22 02:46 Lactic Acid (Sepsis) 1.4 mmol/L (0.5-2.2) 03/23/22 18:40 Calcium 9.0 mg/dL (8.5-10.5) 03/26/22 02:50 Total Bilirubin 1.0 mg/dL (0.15-1.2) 03/24/22 02:46 AST 13 U/L (0-32) 03/24/22 02:46 ALT 9 U/L (0-33) 03/24/22 02:46 Alkaline Phosphatase 70 IU/L (35-105) 03/24/22 02:46 Creatine Kinase 61 U/L (26-192) 03/23/22 16:25 Troponin T Baseline 106 ng/L (0-10) H* 03/23/22 16:25 Troponin T 120 Minute 95.61 ng/L (0-10) H 03/23/22 17:40 Delta Troponin T -10.39 ABS# (0-10) L 03/23/22 17:40 Troponin T Hi Sens 6Hr 72.85 ng/L (0-10) H 03/23/22 22:29 Troponin T Hi Sens 6Hr Delta -33.15 ng/L (0-12) L 03/23/22 22:29 Total Protein 5.2 g/dL (6.6-8.7) L 03/24/22 02:46 Albumin 3.0 g/dL (3.5-5.2) L 03/24/22 02:46 Globulin 2.2 g/dL (1.3-4.6) 03/24/22 02:46 Procalcitonin 1.72 ng/mL (0-0.5) H 03/24/22 02:46 Urine Color Yellow (Yellow) 03/23/22 16:29 Urine Appearance Hazy (CLEAR) A 03/23/22 16:29 Urine pH 6 (5-7) 03/23/22 16: Ur Specific [place] 1.010 (1.005-1.030) 03/23/22 16: Urine Protein 2+ (Negative) H 03/23/22 16: Urine Glucose (UA) Norm (Normal) 03/23/22 16: Urine Ketones Negative (Negative) 03/23/22 16: Urine Blood Neg (Negative) 03/23/22 16: Urine Nitrate Negative (Negative) 03/23/22 16: Urine Bilirubin 1+ (Negative) H 03/23/22 16:29 Prot Sulfosalicylic Acd Positive (Negative) 03/23/22 16: Urine Urobilinogen 1 mg/dL (Negative) H 03/23/22 16: Ur Leukocyte Esterase 1+ (Negative) H 03/23/22 16: Urine RBC None /hpf (0-2) 03/23/22 16: Urine WBC 10-15 /hpf (0-5) H 03/23/22 16: Ur Squamous Epith Cells 15-25 /hpf (0-5) H 03/23/22 16: Amorphous Sediment Not Reportable 03/23/22 16: Urine Bacteria 3+ /hpf (NONE) H 03/23/22 16: Urine Mucus 1+ /hpf 03/23/22 16: Blood Type A Positive 03/23/22 16: Rho(D) Type Positive 03/23/22 16: Antibody Screen Negative 03/23/22 16: Vitals Last Vital Signs Temp 98.3 F 03/26/22 08:00 Pulse 91 03/26/22 09:22 Resp 17 03/26/22 08:00 BP 152/80 03/26/22 08:00 Pulse Ox 95 03/26/22 08:00 Discharge Plan Discharge Patient Disposition: Home Condition: Stable Prescriptions: New levofloxacin 500 mg tablet 500 mg PO DAILY 5 Days Qty: 5 0RF Continued hydrocodone-acetaminophen 5-325 mg tablet 1 tab PO BID PRN (Reason: Pain) 0RF docusate sodium [Colace] 100 mg capsule 100 mg PO DAILY PRN (Reason: Constipation) 0RF digoxin 250 mcg (0.25 mg) tablet 250 mcg PO DAILY 0RF Xarelto 20 mg tablet 20 mg PO DAILY 0RF Rx Instructions: must administer with evening meal lorazepam 1 mg tablet 1 mg PO DAILY PRN (Reason: Nausea) 0RF morphine 15 mg tablet 15 mg PO BID PRN (Reason: Pain) 0RF pantoprazole [Protonix] 40 mg tablet,delayed release (DR/EC) 40 mg PO DAILY Qty: 30 0RF ondansetron 4 mg tablet,disintegrating 4 mg PO Q6H PRN (Reason: nausea and vomiting) Qty: 14 0RF lisinopril 5 mg Tablet 5 mg PO DAILY 0RF gabapentin 300 mg Capsule 300 mg PO DAILY 0RF Discharge Orders: Discharge Order (Routine); Ordered 03/26/22 Ordered By: Hayden Rios Referrals: Bianca Hardy MD [Primary Care Provider] - 03/30/22 9:15 am Discharge Diet: Regular Discharge Activity: Increase activity as tolerated Patient Instructions: Opioid Safety Discharge Attestations Time Spent in Discharge Care*: less than 30 min Quality Metrics Clinical Quality Measures [ No reported AMI, CVA or VTE this stay] Coding Level of Care Code Acute Chg FW DC note Exam Detailed Diagnoses NSTEMI (non-ST elevated myocardial infarction) I21.4 Pre-syncope R55 A-fib I48.91 DVT (deep venous thrombosis) I82.409 Embolism I74.9 Lactic acidosis E87.2 Diarrhea R19.7
[2022-03-26 12:40] VITALS: BP 139/69; PULSE 87; RESP 16; TEMP 36.9; O2SAT 95
[2022-03-26 14:40] VITALS: BP 139/69; PULSE 87; RESP 16; TEMP 36.9; O2SAT 95
--- NOTE | 2022-03-26 14:47 | PC.NURSE ---
Patient's port flushed with 2x saline flushes. Needle removed. Patient tolerated well. No bleeding noted. Discharge instructions reviewed with patient at this time. Patient and family verbalized understanding of discharge instructions and follow up appointments.
--- NOTE | 2022-03-30 14:34 | W.ED.GENADLT ---
HPI - General Adult General: Chief complaint: Altered Mental Status Stated complaint: STEMI ALERT Time Seen by Provider: 03/23/22 15:14 Source: patient Mode of arrival: EMS Limitations: altered mental status History of Present Illness: 86-year-old female Presents emergency room after a syncopal episode she was found on the toilet poorly responsive she is not able to give much assistance. No vomiting or diarrhea no recent fever. She does have a history of known B-cell lymphoma. Initially was called as a STEMI however on arrival here consultation with cardiology felt it was early repull not an acute STEMI. Onset (ago): minute(s) Severity: moderate Relieving factors: none Exacerbating factors: none Associated symptoms: Reports confusion and malaise; Deny chest pain, cough, diaphoresis, decreased appetite, dyspnea, fevers/chills, headache(s), nausea, rash, palpitations, seizures, short of breath, syncope, vomiting or weakness Treatments prior to arrival: none Review of Systems Const: Reports: malaise; Denies: fever(s), chills or diaphoresis ENMT: Denies: throat pain, ear or mastoid pain, nasal discharge or nasal congestion Card: Denies: chest pain, palpitations or syncope Resp: Denies: dyspnea GI: Denies: nausea or vomiting : Denies: flank pain, difficulty voiding, dysuria, urinary frequency or urinary urgency Skin/Breast: Denies: rash Neuro: Reports: confusion; Denies: headache(s) PFS ED PFSH: Medical History A-fib Anemia B-cell lymphoma Diarrhea DVT (deep venous thrombosis) Embolism Hypercalcemia Hypertension Lactic acidosis MGUS (monoclonal gammopathy of unknown significance) NSTEMI (non-ST elevated myocardial infarction) Peripheral neuropathy Polyarthritis Pre-syncope Retroperitoneal lymphadenopathy Splenomegaly Surgical History H/O lymph node biopsy (10/28/21) left cervical H/O mastectomy History of hysterectomy Port-A-Cath in place (10/28/21) Status post colonoscopy Family History Other Cancer Social History Smoking and tobacco status: never smoked Alcohol intake: never Housing: House Physical Exam Const: COMMON NORMALS: no acute distress GENERAL APPEARANCE: cooperative and comfortable HENMT: COMMON NORMALS: normocephalic and atraumatic HEAD & SCALP: normocephalic and atraumatic Neck/C-Spine: COMMON NORMALS: no JVD Resp: COMMON NORMALS: normal respiratory effort, No retractions, No use of accessory muscles and clear to auscultation bilaterally AUSCULTATION: clear to auscultation bilaterally Cardio: COMMON NORMALS: no JVD, regular rate, regular rhythm and No murmurs present (Cardio) RATE: regular rate RHYTHM: regular rhythm GI: COMMON NORMALS: Soft to palpation and No hepatosplenomegaly present AUSCULTATION: Yes normoactive bowel sounds PALPATION: Yes Soft to palpation, No Tenderness to palpation present (GI), No Guarding due to palpation present (GI) and Yes No hepatosplenomegaly present Extremity: COMMON NORMALS: normal to inspection, capillary refill normal, no clubbing, cyanosis or edema, no calf tenderness and no pedal edema Skin: COMMON NORMALS: no rashes or lesions noted GENERAL SKIN EXAM: no rashes or lesions noted Course Vital Signs: Vital signs: Vital Signs Temperature 98.4 F 03/26/22 14:40 Pulse Rate 87 03/26/22 14:40 Respiratory Rate 16 03/26/22 14:40 Blood Pressure 139/69 03/26/22 14:40 Pulse Oximetry 95 03/26/22 14:40 [facility] - General Adult Medical Decision Making Elevated troponin although the delta is negative. She has a mild widening of the ascending aorta but there is no dissection. We will go ahead and admit her with the syncopal episode atrial fibrillation. She initially came in I was called as a STEMI STEMI was ruled out after consultation with cardiology will admit with elevated troponin and further evaluation for her syncopal episode. Venous duplex does not show any DVTs and there is no evidence of PE on the CTA. Medical Records I reviewed the patient's medical records. Lab Data I reviewed the patient's lab results. : 03/26/22 02:50 03/26/22 02:50 Radiology Impressions Chest X-Ray 03/23/22 15:14 IMPRESSION: No acute chest abnormality. Possible dilatation of the ascending thoracic aorta. Head CT 03/23/22 15:14 IMPRESSION: No acute intracranial abnormality. Chest CTA 03/23/22 15:39 IMPRESSION: 1. Ascending thoracic aorta is again seen to be prominent at 3.7 cm, similar to prior exam without findings of rupture or dissection. 2. Coronary artery atherosclerotic calcifications. 3. Several prominent subcentimeter short axis mediastinal lymph nodes, nonspecific. 4. Cholelithiasis. 5. Right-sided Port-A-Cath. 6. Emphysematous changes. 7. Bilateral basilar atelectasis. 8. Bilateral adrenal hypertrophy, similar to prior exam. Laboratory Results WBC 4.3 10^3/uL (4.0-10.0) 03/23/22 15:10 RBC 3.35 10^6/uL (4.1-5.3) L 03/23/22 15:10 Hgb 11.5 g/dL (11.5-15.3) 03/23/22 15:10 Hct 35.0 % (37.0-47.0) L 03/23/22 15:10 MCV 104.5 fl (81-99) H 03/23/22 15:10 MCH 34.3 pg (28.0-34.0) H 03/23/22 15:10 MCHC 32.9 g/dL (30.0-36.0) 03/23/22 15:10 RDW 14.6 % (12.1-15.1) 03/23/22 15:10 Plt Count 99 10^3/cmm (130-400) L 03/23/22 15:10 MPV 11.3 fL (7.4-10.4) H 03/23/22 15:10 Neut % (Auto) 71.8 % 03/23/22 15:10 Lymph % (Auto) 22.4 % 03/23/22 15:10 [place] % (Auto) 2.6 % 03/23/22 15:10 Eos % (Auto) 0.7 % 03/23/22 15:10 Baso % (Auto) 0.9 % 03/23/22 15:10 Neut # (Auto) 3.05 10^3/uL (1.8-7.7) 03/23/22 15:10 Lymph # (Auto) 1.0 10^3/uL (0.8-4.8) 03/23/22 15:10 [place] # (Auto) 0.1 10^3/uL (0.2-0.9) L 03/23/22 15:10 Eos # (Auto) 0.0 10^3/uL (0.0-0.8) 03/23/22 15:10 Baso # (Auto) 0.0 10^3/uL (0.0-0.1) 03/23/22 15:10 Nucleated RBC % (auto) 0 % 03/23/22 15:10 Nucleated RBCs # 0.0 /100WBC 03/23/22 15:10 Specimen Type Arterial 03/23/22 15:24 Sample Site Brachial, right 03/23/22 15:24 ABG pH 7.56 (7.35-7.45) H 03/23/22 15:24 ABG pCO2 21.0 mmHg (35-45) L 03/23/22 15: ABG pO2 87.3 mmHg (80.0-100.0) 03/23/22: ABG HCO3 18.9 mmol/L (22-26) L 03/23/22 15:24 ABG O2 Saturation 98.4 03/23/22 15:24 ABG Base Excess -1.5 mmol/L (-2.0-2.0) 03/23/22 15:24 Volodymyr Test N/a 03/23/22 15:24 A-a O2 Gradient 4.5 mmHg (5-10) L 03/23/22 15:24 Hematocrit 36.7 % (37-47) L 03/23/22 15:24 Hgb O2 Saturation 96.6 % (95-100) 03/23/22 15:24 Carboxyhemoglobin 1.2 %THgb (0.4-20.1) 03/23/22:24 Methemoglobin 0.7 % (0.4-1.5) 03/23/22 15:24 Total Hemoglobin 12.0 g/dL (12-16) 03/23/22 15:24 Sodium 138.0 mmol/L (131-143) 03/23/22 15:24 Potassium 3.8 mmol/L (3.5-5.0) 03/23/22 15:24 Glucose 127.0 mg/dL (70-115) H 03/23/22 15:24 Ionized Calcium 1.3 mmol/L (1.1-1.4) 03/23/22 15:24 O2 Delivery Device Room air 03/23/22 15:24 FiO2 21.0 % 03/23/22 15:24 Cold Strip Roller ID Ed 03/23/22 15:24 Sodium 136 mmol/L (136-145) 03/23/22 16:25 Potassium 3.9 mmol/L (3.5-5.1) 03/23/22 16:25 Chloride 102 mmol/L (98-107) 03/23/22 16:25 Carbon Dioxide 21 mmol/L (22-29) L 03/23/22 16:25 Anion Gap 16.9 (5-19) 03/23/22 16:25 BUN 31 mg/dL (8-23) H 03/23/22 16:25 Creatinine 0.7 mg/dL (0.5-0.9) 03/23/22 16:25 GFR Calculation Not Reportable 03/23/22 16:25 Glucose 106 mg/dL (65-115) 03/23/22 16:25 Calculated Osmolality 289 mOsm/kg (285-295) 03/23/22 16:25 Lactic Acid 4.5 mmol/L (0.5-2.2) H* 03/23/22 15:10 Calcium 9.4 mg/dL (8.5-10.5) 03/23/22 16:25 Total Bilirubin 0.8 mg/dL (0.15-1.2) 03/23/22 16:25 AST 16 U/L (0-32) 03/23/22 16:25 ALT 11 U/L (0-33) 03/23/22 16:25 Alkaline Phosphatase 137 IU/L (35-105) H 03/23/22 16:25 Creatine Kinase 61 U/L (26-192) 03/23/22 16:25 Troponin T Baseline 106 ng/L (0-10) H* 03/23/22 16:25 Troponin T 120 Minute 95.61 ng/L (0-10) H 03/23/22 17:40 Delta Troponin T -10.39 ABS# (0-10) L 03/23/22 17:40 Total Protein 5.8 g/dL (6.6-8.7) L 03/23/22 16: Albumin 3.3 g/dL (3.5-5.2) L 03/23/22 16: Globulin 2.5 g/dL (1.3-4.6) 03/23/22 16: Urine Color Yellow (Yellow) 03/23/22 16: Urine Appearance Hazy (CLEAR) A 03/23/22: Urine pH 6 (5-7) 03/23/22: Ur Specific [place] 1.010 (1.005-1.030) 03/23/22 16: Urine Protein 2+ (Negative) H 03/23/22: Urine Glucose (UA) Norm (Normal) 03/23/22: Urine Ketones Negative (Negative) 03/23/22: Urine Blood Neg (Negative) 03/23/22: Urine Nitrate Negative (Negative) 03/23/22: Urine Bilirubin 1+ (Negative) H 03/23/22: Prot Sulfosalicylic Acd Positive (Negative) 03/23/22: Urine Urobilinogen 1 mg/dL (Negative) H 03/23/22 16: Ur Leukocyte Esterase 1+ (Negative) H 03/23/22 16: Urine RBC None /hpf (0-2) 03/23/22: Urine WBC 10-15 /hpf (0-5) H 03/23/22 16: Ur Squamous Epith Cells 15-25 /hpf (0-5) H 03/23/22: Amorphous Sediment Not Reportable 03/23/22: Urine Bacteria 3+ /hpf (NONE) H 03/23/22 16: Urine Mucus 1+ /hpf 03/23/22 16: Blood Type A Positive 03/23/22 16: Rho(D) Type Positive 03/23/22: Antibody Screen Negative 03/23/22: Discharge Plan Discharge Patient Disposition: Placed in Observation Admit Provider: Hayden Rios Clinical Impression: Syncope, B-cell lymphoma, Diffuse large B-cell lymphoma of intra-abdominal lymph nodes, Elevated troponin Discharge Diet: Regular Discharge Activity: Increase activity as tolerated Coding Level of Care Code ED Design Checker for Chg Fwnaomi
== END 2022-03-26 14:54 | disposition home or self-care (01) | DRG 640 ==
LOC: ER 17:45 → MEDSURG 19:03
PROVIDERS: Admitting Provider Internal Medicine; Emergency Provider Family Medicine; PCP Family Medicine; Visit Provider Internal Medicine
DX: E86.0 Dehydration (principal); D61.810 Antineoplastic chemotherapy induced pancytopenia; I21.A1 Myocardial infarction type 2; N39.0 Urinary tract infection, site not specified; C83.33 Diffuse large B-cell lymphoma, intra-abdominal lymph nodes; E87.2 Acidosis; I48.91 Unspecified atrial fibrillation; Z86.718 Personal history of other venous thrombosis and embolism; Z85.3 Personal history of malignant neoplasm of breast; Z92.21 Personal history of antineoplastic chemotherapy; I10 Essential (primary) hypertension; G62.9 Polyneuropathy, unspecified; Z90.10 Acquired absence of unspecified breast and nipple; Z86.711 Personal history of pulmonary embolism; R19.7 Diarrhea, unspecified; I44.7 Left bundle-branch block, unspecified; T45.1X5A Adverse effect of antineoplastic and immunosuppressive drugs, initial encounter; D70.2 Other drug-induced agranulocytosis; Z79.01 Long term (current) use of anticoagulants; Z79.891 Long term (current) use of opiate analgesic
CPT/HCPCS: 36415; 36591; 36600; 70450; 71045; 71275; 80048; 80051; 80053; 81001; 82330; 82550; 82805; 83605; 84145; 84484; 85025; 86850; 86900; 87040; 87086; 87493; 87506; 93005; 93306; 96372; J1442; J1956; J7030; Q9967

== ENCOUNTER 2022-04-01 14:00 | Oncology outpatient (recurring) (ONCR) | payer MEDICARE, BC, SELFPAY ==
[2022-03-16 08:27] LABS: Basophils % 0.4 %; Eosinophils % 0.1 %; Hematocrit 35.4 % (37.0-47.0); Hemoglobin 11.4 g/dL (11.5-15.3); Lymphocytes # 0.8 10^3/uL (0.8-4.8); Lymphocytes % 11.3 %; Mean Corpuscular HGB Conc 32.2 g/dL (30.0-36.0); Mean Corpuscular Volume 102.6 fl (81-99); Mean Platelet Volume 8.7 fL (7.4-10.4); Monocytes # 0.7 10^3/uL (0.2-0.9); Monocytes % 10.3 %; Neutrophils # 5.52 10^3/uL (1.8-7.7); Neutrophils % 77.1 %; Nucleated Red Blood Cells % 0 %; Platelet Count 218 10^3/cmm (130-400); Red Blood Count 3.45 10^6/uL (4.1-5.3); Red Cell Distribution Width 15.4 % (12.1-15.1); White Blood Count 7.2 10^3/uL (4.0-10.0)
[2022-03-16 08:51] LABS: Alanine Aminotransferase 17 U/L (0-33); Albumin Level 4.1 g/dL (3.5-5.2); Alkaline Phosphatase 77 IU/L (35-105); Anion Gap 16.2 (5-19); Aspartate Amino Transferase 19 U/L (0-32); Blood Urea Nitrogen 16 mg/dL (8-23); Calcium 10.7 mg/dL (8.5-10.5); Carbon Dioxide 25 mmol/L (22-29); Chloride 102 mmol/L (98-107); Globulin 3.3 g/dL (1.3-4.6); Glucose 96 mg/dL (65-115); Osmolality Calculated 289 mOsm/kg (285-295); Potassium 4.2 mmol/L (3.5-5.1); Sodium 139 mmol/L (136-145); Total Bilirubin 0.4 mg/dL (0.15-1.2); Total Protein 7.4 g/dL (6.6-8.7)
[2022-03-16] MEDS: sodium chloride 0.9% 250 ML 75 ML IV (10:33)
[2022-03-16] MEDS: fosaprepitant 150 MG in sodium chloride 0.9% 150 ML 300 MG IV (10:34)
[2022-03-16] MEDS: acetaminophen 325 mg Tablet 650 MG PO (11:16)
[2022-03-16] MEDS: famotidine 20 mg/2 mL INJ IVP (11:18)
[2022-03-16] MEDS: diphenhydrAMINE 50 mg/mL SDV 1mL 25 MG IVP (11:21)
[2022-03-16] MEDS: palonosetron 0.25 mg/5 mL SDV IVP (11:23)
[2022-03-16 11:50] VITALS: BP 117/64; PULSE 77; TEMP 37.1; O2SAT 96
[2022-03-16] MEDS: rituximab-abbs 500 MG, rituximab-abbs 150 MG in sodium chloride 0.9% 500 ML 188.33 MG IV (11:51)
[2022-03-16 12:30] VITALS: BP 106/50; PULSE 75; TEMP 37; O2SAT 95
[2022-03-16 13:00] VITALS: BP 114/63; PULSE 74; TEMP 37.3; O2SAT 95
[2022-03-16 13:30] VITALS: BP 113/57; PULSE 77; TEMP 37.3; O2SAT 95
[2022-03-16] MEDS: DOXOrubicin 2 mg/ml MDV 90 MG IVP (14:45)
[2022-03-16] MEDS: pegfilgrastim 6 mg/0.6 mL Kit (onpro) SUBCUT (16:17)
[2022-03-16 16:32] VITALS: BP 109/60; PULSE 76; O2SAT 97
[2022-04-01 14:32] LABS: Basophils % 0.4 %; Eosinophils % 0.1 %; Hematocrit 32.1 % (37.0-47.0); Hemoglobin 10.2 g/dL (11.5-15.3); Lymphocytes # 0.8 10^3/uL (0.8-4.8); Mean Corpuscular HGB Conc 31.8 g/dL (30.0-36.0); Mean Corpuscular Hemoglobin 33.3 pg (28.0-34.0); Mean Corpuscular Volume 104.9 fl (81-99); Mean Platelet Volume 8.8 fL (7.4-10.4); Monocytes # 0.6 10^3/uL (0.2-0.9); Monocytes % 7.4 %; Neutrophils % 80.1 %; Nucleated Red Blood Cells % 0 %; Platelet Count 218 10^3/cmm (130-400); Red Blood Count 3.06 10^6/uL (4.1-5.3); Red Cell Distribution Width 15.1 % (12.1-15.1); White Blood Count 8.4 10^3/uL (4.0-10.0)
[2022-04-01 14:54] LABS: Alanine Aminotransferase 11 U/L (0-33); Albumin Level 3.9 g/dL (3.5-5.2); Alkaline Phosphatase 88 IU/L (35-105); Anion Gap 15.1 (5-19); Aspartate Amino Transferase 18 U/L (0-32); Blood Urea Nitrogen 14 mg/dL (8-23); Calcium 9.9 mg/dL (8.5-10.5); Carbon Dioxide 25 mmol/L (22-29); Chloride 103 mmol/L (98-107); Creatinine Clr Calc Pharmacy 53.3527; Glucose 117 mg/dL (65-115); Lactate Dehydrogenase 171 U/L (135-214); Osmolality Calculated 290 mOsm/kg (285-295); Potassium 4.1 mmol/L (3.5-5.1); Sodium 139 mmol/L (136-145); Total Bilirubin 0.3 mg/dL (0.15-1.2); Total Protein 6.9 g/dL (6.6-8.7)
== END 2022-04-13 23:59 | disposition home or self-care (01) ==
PROVIDERS: PCP Family Medicine; Visit Provider Internal Medicine Hematology & Oncology
DX: C83.33 Diffuse large B-cell lymphoma, intra-abdominal lymph nodes (principal); I82.402 Acute embolism and thrombosis of unspecified deep veins of left lower extremity; D64.9 Anemia, unspecified; E83.52 Hypercalcemia; Z79.01 Long term (current) use of anticoagulants; Z79.899 Other long term (current) drug therapy; Z92.25 Personal history of immunosuppression therapy; Z92.21 Personal history of antineoplastic chemotherapy
CPT/HCPCS: 36591; 80053; 83615; 85025; 96360; 96361; 96375; 96377; 96409; 96413; 96415; 96417; 99214; 99215; 99999; J1100; J1200; J1453; J2469; J2506; J3490; J7040; J7050; J9000; J9070; J9370; Q5115

== ENCOUNTER 2022-05-13 12:30 | Oncology outpatient (recurring) (ONCR) | payer MEDICARE, BC, SELFPAY ==
[2022-05-13 13:19] LABS: Basophils % 0.1 %; Eosinophils % 0.4 %; Hematocrit 36.2 % (37.0-47.0); Lymphocytes # 1.3 10^3/uL (0.8-4.8); Mean Corpuscular HGB Conc 33.1 g/dL (30.0-36.0); Mean Corpuscular Hemoglobin 31.7 pg (28.0-34.0); Mean Corpuscular Volume 95.8 fl (81-99); Mean Platelet Volume 8.6 fL (7.4-10.4); Monocytes # 0.5 10^3/uL (0.2-0.9); Monocytes % 6.6 %; Neutrophils % 73.6 %; Nucleated Red Blood Cells % 0 %; Platelet Count 217 10^3/cmm (130-400); Red Blood Count 3.78 10^6/uL (4.1-5.3); Red Cell Distribution Width 11.9 % (12.1-15.1); White Blood Count 6.8 10^3/uL (4.0-10.0)
[2022-05-13 13:46] LABS: Alanine Aminotransferase 15 U/L (0-33); Albumin Level 4.2 g/dL (3.5-5.2); Alkaline Phosphatase 88 IU/L (35-105); Anion Gap 15.3 (5-19); Aspartate Amino Transferase 22 U/L (0-32); Blood Urea Nitrogen 15 mg/dL (8-23); Calcium 9.8 mg/dL (8.5-10.5); Carbon Dioxide 25 mmol/L (22-29); Chloride 103 mmol/L (98-107); Globulin 2.9 g/dL (1.3-4.6); Glucose 109 mg/dL (65-115); Lactate Dehydrogenase 147 U/L (135-214); Osmolality Calculated 289 mOsm/kg (285-295); Potassium 4.3 mmol/L (3.5-5.1); Sodium 139 mmol/L (136-145); Total Bilirubin 0.6 mg/dL (0.15-1.2); Total Protein 7.1 g/dL (6.6-8.7)
== END 2022-05-13 23:59 | disposition home or self-care (01) ==
PROVIDERS: PCP Family Medicine; Visit Provider Internal Medicine Hematology & Oncology
DX: C83.33 Diffuse large B-cell lymphoma, intra-abdominal lymph nodes (principal); D64.9 Anemia, unspecified; E83.52 Hypercalcemia; I82.402 Acute embolism and thrombosis of unspecified deep veins of left lower extremity; Z79.01 Long term (current) use of anticoagulants; Z79.899 Other long term (current) drug therapy; G62.9 Polyneuropathy, unspecified
CPT/HCPCS: 36591; 80053; 83615; 85025; 96523; 99214

== ENCOUNTER 2022-06-11 10:42 | Oncology outpatient (recurring) (ONCR) | payer MEDICARE, BC, SELFPAY | END 2022-06-13 23:59 | disposition home or self-care (01) | PROVIDERS: PCP Family Medicine; Visit Provider Internal Medicine Hematology & Oncology | DX: Z45.2 Encounter for adjustment and management of vascular access device (principal) | CPT/HCPCS: 96523 ==

== ENCOUNTER 2022-07-13 13:43 | Oncology outpatient (recurring) (ONCR) | payer MEDICARE, BC, SELFPAY ==
[2022-07-13 13:53] VITALS: BP 128/76; PULSE 102; RESP 16; TEMP 36.5; O2SAT 95
== END 2022-07-14 23:59 | disposition home or self-care (01) ==
PROVIDERS: PCP Family Medicine; Visit Provider Internal Medicine Hematology & Oncology
DX: Z45.2 Encounter for adjustment and management of vascular access device (principal)
CPT/HCPCS: 96523

== ENCOUNTER 2022-08-11 12:24 | Oncology outpatient (recurring) (ONCR) | payer MEDICARE, BC, SELFPAY ==
[2022-08-11 13:08] LABS: Basophils % 0.3 %; Eosinophils % 0.4 %; Lymphocytes # 1.1 10^3/uL (0.8-4.8); Lymphocytes % 15.4 %; Mean Corpuscular HGB Conc 33.3 g/dL (30.0-36.0); Mean Corpuscular Hemoglobin 30.4 pg (28.0-34.0); Mean Corpuscular Volume 91.3 fl (81-99); Mean Platelet Volume 8.7 fL (7.4-10.4); Monocytes # 0.4 10^3/uL (0.2-0.9); Monocytes % 5.6 %; Neutrophils # 5.48 10^3/uL (1.8-7.7); Nucleated Red Blood Cells % 0 %; Platelet Count 221 10^3/cmm (130-400); Red Blood Count 4.27 10^6/uL (4.1-5.3); Red Cell Distribution Width 13.5 % (12.1-15.1)
[2022-08-11 13:25] LABS: Alanine Aminotransferase 15 U/L (0-33); Alkaline Phosphatase 93 U/L (35-105); Anion Gap 15.4 (5-19); Aspartate Amino Transferase 21 U/L (0-32); Blood Urea Nitrogen 13 mg/dL (8-23); Calcium 10.2 mg/dL (8.5-10.5); Carbon Dioxide 27 mmol/L (22-29); Chloride 101 mmol/L (98-107); Globulin 3.2 g/dL (1.3-4.6); Glucose 107 mg/dL (65-115); Lactate Dehydrogenase 213 U/L (135-214); Osmolality Calculated 289 mOsm/kg (285-295); Potassium 4.4 mmol/L (3.5-5.1); Sodium 139 mmol/L (136-145); Total Bilirubin 0.7 mg/dL (0.15-1.2); Total Protein 7.2 g/dL (6.6-8.7)
== END 2022-08-13 23:59 | disposition home or self-care (01) ==
PROVIDERS: PCP Family Medicine; Visit Provider Internal Medicine Hematology & Oncology
DX: C83.33 Diffuse large B-cell lymphoma, intra-abdominal lymph nodes (principal); D64.9 Anemia, unspecified; Z86.718 Personal history of other venous thrombosis and embolism; E83.52 Hypercalcemia
CPT/HCPCS: 36591; 80053; 83615; 85025; 99214

== ENCOUNTER 2022-09-10 11:22 | Oncology outpatient (recurring) (ONCR) | payer MEDICARE, BC, SELFPAY | END 2022-09-13 23:59 | disposition home or self-care (01) | PROVIDERS: PCP Family Medicine; Visit Provider Internal Medicine Hematology & Oncology | DX: Z45.2 Encounter for adjustment and management of vascular access device (principal) | CPT/HCPCS: 96523 ==

== ENCOUNTER 2022-10-11 13:42 | Oncology outpatient (recurring) (ONCR) | payer MEDICARE, BC, SELFPAY | END 2022-10-13 23:59 | disposition home or self-care (01) | PROVIDERS: PCP Family Medicine; Visit Provider Internal Medicine Hematology & Oncology | DX: Z45.2 Encounter for adjustment and management of vascular access device (principal) | CPT/HCPCS: 36591; 96523 ==

== ENCOUNTER 2022-11-11 14:23 | Oncology outpatient (recurring) (ONCR) | payer MEDICARE, BC, SELFPAY | END 2022-11-13 23:59 | disposition home or self-care (01) | LOC: ONCMED 14:23 | PROVIDERS: PCP Family Medicine; Visit Provider Internal Medicine Hematology & Oncology | DX: Z45.2 Encounter for adjustment and management of vascular access device (principal) | CPT/HCPCS: 96523 ==

== ENCOUNTER 2022-12-21 13:38 | Oncology outpatient (recurring) (ONCR) | payer MEDICARE, SELFPAY ==
[2022-12-21 14:38] LABS: Basophils % 0.2 %; Eosinophils % 0.5 %; Hemoglobin 12.7 g/dL (11.5-15.3); Lymphocytes # 1.7 10^3/uL (0.8-4.8); Lymphocytes % 26.3 %; Mean Corpuscular HGB Conc 32.6 g/dL (30.0-36.0); Mean Corpuscular Hemoglobin 29.7 pg (28.0-34.0); Mean Corpuscular Volume 91.3 fl (81-99); Mean Platelet Volume 8.6 fL (7.4-10.4); Monocytes # 0.5 10^3/uL (0.2-0.9); Monocytes % 7.3 %; Neutrophils # 4.13 10^3/uL (1.8-7.7); Neutrophils % 65.5 %; Nucleated Red Blood Cells % 0 %; Platelet Count 207 10^3/cmm (130-400); Red Blood Count 4.27 10^6/uL (4.1-5.3); White Blood Count 6.3 10^3/uL (4.0-10.0)
[2022-12-21 14:59] LABS: Alanine Aminotransferase 12 U/L (0-33); Albumin Level 4.2 g/dL (3.5-5.2); Alkaline Phosphatase 86 U/L (35-105); Anion Gap 13.5 (5-19); Aspartate Amino Transferase 17 U/L (0-32); Blood Urea Nitrogen 15 mg/dL (8-23); Calcium 9.8 mg/dL (8.5-10.5); Carbon Dioxide 26 mmol/L (22-29); Chloride 104 mmol/L (98-107); Globulin 2.8 g/dL (1.3-4.6); Glucose 87 mg/dL (65-115); Lactate Dehydrogenase 172 U/L (135-214); Osmolality Calculated 288 mOsm/kg (285-295); Potassium 4.5 mmol/L (3.5-5.1); Sodium 139 mmol/L (136-145); Total Bilirubin 0.6 mg/dL (0.15-1.2)
== END 2023-01-11 23:59 | disposition home or self-care (01) ==
PROVIDERS: PCP Family Medicine; Visit Provider Internal Medicine Hematology & Oncology
DX: C83.33 Diffuse large B-cell lymphoma, intra-abdominal lymph nodes (principal); Z86.718 Personal history of other venous thrombosis and embolism; Z86.69 Personal history of other diseases of the nervous system and sense organs; R20.0 Anesthesia of skin
CPT/HCPCS: 80053; 83615; 85025; 99214

== ENCOUNTER 2023-01-18 13:31 | Oncology outpatient (recurring) (ONCR) | payer MEDICARE, SELFPAY | END 2023-02-11 23:59 | disposition home or self-care (01) | LOC: ONCMED 13:32 | PROVIDERS: PCP Family Medicine; Visit Provider Internal Medicine Hematology & Oncology | DX: Z45.2 Encounter for adjustment and management of vascular access device | CPT/HCPCS: 96523 ==

== ENCOUNTER 2023-02-16 13:39 | Oncology outpatient (recurring) (ONCR) | payer MEDICARE, SELFPAY ==
[2023-02-16 13:55] VITALS: BP 132/85; PULSE 96; RESP 16; TEMP 36.9; O2SAT 96
== END 2023-03-13 23:59 | disposition home or self-care (01) ==
LOC: ONCMED 13:40
PROVIDERS: PCP Family Medicine; Visit Provider Internal Medicine Hematology & Oncology
DX: Z45.2 Encounter for adjustment and management of vascular access device (principal)

== ENCOUNTER 2023-03-06 17:17 | Emergency (ER) | payer MEDICARE, SELFPAY ==
[2023-03-06 17:23] VITALS: PULSE 57; TEMP 36.8; O2SAT 95; BMI 25.9
--- NOTE | 2023-03-06 17:26 | XRR_ITS ---
PROCEDURE INFORMATION: Exam: XR Left Knee Exam date and time: 03/06/2023 5:39 PM Age: 87 years old Clinical indication: Pain and injury or trauma; Sprain or strain; Patella or knee; Patient HX: PT C/O lateral left knee pain S/P twist injury this morning. ; Additional info: Fall TECHNIQUE: Imaging protocol: Radiologic exam of the left knee. Views: 3 views. COMPARISON: No relevant prior studies available. FINDINGS: Bones/joints: Osseous structures are intact. Negative for fracture. 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 Small joint effusion present. Soft tissues: Normal. XR/XR knee LT 3V* [id number] IMPRESSION: No acute findings. Degenerative changes of the knee as described in the body of the report.
--- NOTE | 2023-03-06 21:25 | ED_ITS ---
HPI - Extremity Problem General: Chief complaint: Extremity Injury, Lower Stated complaint: left leg pain Time Seen by Provider: 03/06/23 17:28 Source: patient Mode of arrival: wheelchair Limitations: no limitations History of Present Illness: Patient presents to the emergency department today for evaluation treatment of left lateral, inferior knee pain. Patient states she was trying to push the laura no bench in after temple this morning when she had sudden onset of left-sided knee pain. She states it caused her knee to become weakened but, since she was right by the bench, was able to steady herself and not fall. Patient continues to have pain to the left lateral, inferior portion of her knee which is what brings her in today. Review of Systems General: Reports: 10 or more systems reviewed and unremarkable except in HPI and below PFSH ED PFSH: Medical History A-fib Anemia B-cell lymphoma Deep vein thrombosis of left lower extremity Diarrhea DVT (deep venous thrombosis) Embolism Hypercalcemia Hypertension Lactic acidosis MGUS (monoclonal gammopathy of unknown significance) NSTEMI (non-ST elevated myocardial infarction) Peripheral neuropathy Polyarthritis Pre-syncope Retroperitoneal lymphadenopathy Splenomegaly Surgical History H/O lymph node biopsy (10/28/21) left cervical H/O mastectomy History of hysterectomy Port-A-Cath in place (10/28/21) Status post colonoscopy Family History Other Cancer Social History Smoking and tobacco status: never smoked Alcohol intake: never Substance/Drug Use: never Housing: House Physical Exam Const: COMMON NORMALS: no acute distress, patient oriented x3 and alert HENMT: COMMON NORMALS: normocephalic, atraumatic and hearing grossly normal bilaterally HEAD & SCALP: normocephalic and atraumatic Eye: COMMON NORMALS: Equal, round and reactive pupils present, EOMs intact bilaterally and conjunctivae normal CONJUNCTIVA: Yes conjunctivae normal PUPIL: Yes Equal, round and reactive pupils present Neck/C-Spine: COMMON NORMALS: full ROM and no JVD Lymph: LYMPHATIC: no lymphadenopathy noted Resp: COMMON NORMALS: normal respiratory effort, No retractions and No use of accessory muscles Cardio: COMMON NORMALS: no JVD and regular rate RATE: regular rate Extremity: NARRATIVE EXTREMITY EXAM: Patient has some mild edema noted to the left knee with point tenderness to the lateral proximal tibia at the knee joint. No signs of patellar laxity. No popliteal tenderness. No tibial plateau tenderness. Neuro: COMMON NORMALS: patient oriented x3 SENSORIUM/ORIENTATION: Yes alert Psych: COMMON NORMALS: mental status grossly normal, Normal thought process present, cooperative and normal affect THOUGHT PROCESS: Normal thought process present Skin: COMMON NORMALS: no rashes or lesions noted and turgor normal GENERAL SKIN EXAM: no rashes or lesions noted and turgor normal Course Vital Signs: Vital signs: Vital Signs Temperature 98.2 F 03/06/23 17:23 Pulse Rate 57 L 03/06/23 17:23 Pulse Oximetry 95 03/06/23 17:23 Oxygen Delivery Me thod Room Air 03/06/23 17:23 MDM - Extremity (Nontraumatic) Medical Decision Making Patient presents today for evaluation treatment of acute left knee pain. X-ray indicates no signs of acute bony abnormality except for degenerative changes chronically found on her films. Discussed with patient that her specific area of tenderness is a connection site for both a tendon and ligament. It is possible that as she was pushing the PNO bench forward, she had her foot planted and slightly twisted causing overstretching an injury in this area. Explained it can be tender and sore for several days even and patient's leg was wrapped with an Aron bandage for compression and joint stability. Patient has hydrocodone and takes Tylenol for pain. I also provided her topical diclofenac cream to help with pain. We discussed application of ice as well. It was recommended she have a follow-up appointment with her primary care doctor later this week for recheck. Differential Diagnosis Likely lower extremity edema (Knee sprain, knee strain, avulsion fracture, osteoarthritis) Lab Data Radiology Impressions Knee X-Ray 03/06/23 17:26 IMPRESSION: No acute findings. Degenerative changes of the knee as described in the body of the report. Discharge Plan Discharge Patient Disposition: Home Clinical Impression: Left knee sprain Condition: Stable Prescriptions: New Voltaren Arthritis Pain 1 % gel 4 g topical QID Qty: 100 0RF Rx Instructions: apply to knee No Action hydrocodone-acetaminophen 5-325 mg tablet 1 tab PO BID PRN (Reason: Pain) docusate sodium [Colace] 100 mg capsule 100 mg PO DAILY PRN (Reason: Constipation) digoxin 250 mcg (0.25 mg) tablet 250 mcg PO DAILY lorazepam 1 mg tablet 1 mg PO DAILY PRN (Reason: Nausea) ondansetron 4 mg tablet,disintegrating 4 mg PO Q6H PRN (Reason: nausea and vomiting) Qty: 14 0RF lisinopril 5 mg Tablet 5 mg PO DAILY gabapentin 300 mg Capsule 300 mg PO DAILY Discharge Orders: Discharge ED (Routine); Ordered 03/06/23 Ordered By: Kristyn Mart Referrals: Bianca Hardy MD [Primary Care Provider] - Discharge Diet: Usual diet Discharge Activity: Limit activity as instructed Patient Instructions: Knee Sprain (ED) Activity Restrictions/Additional Instructions: The radiologist today did not find any acute bony injury to your left knee. Given the location of your pain and the description of the mechanism of injury, you most likely have stretched and injured the connection of soft tissue and muscle from your lower leg at the attachment of your knee. This area can become tender, swollen, and inflamed from the injury which can last for several days we would like you to wrap your knee for stability and comfort for the next few days. Be sure you are using your walker for any ambulation and weightbearing to help prevent sudden weakness in the knee which could lead to falls. We recommend applying ice for 15 to 20 minutes, multiple times throughout the day and, I have provided a prescription for topical anti-inflammatory and pain relief for you to use during this time. I recommend a follow-up appoint with [facility] in the middle or end of this week for recheck. Coding Level of Care Code ED Marketing Communication Manager for Shayla Ramírez
== END 2023-03-06 19:25 | disposition home or self-care (01) ==
PROVIDERS: Emergency Provider Physician Assistant; PCP Family Medicine
DX: S83.92XA Sprain of unspecified site of left knee, initial encounter (principal); Z85.72 Personal history of non-Hodgkin lymphomas; I25.2 Old myocardial infarction; X50.9XXA Other and unspecified overexertion or strenuous movements or postures, initial encounter
CPT/HCPCS: 73562; 99283

== ENCOUNTER 2023-03-14 08:41 | Outpatient (CLI) | payer MEDICARE, SELFPAY ==
[2023-03-14] MEDS: iohexol 350 mg/mL 500 mL Btl (per mL) PO (09:02)
[2023-03-14 10:14] LABS: Blood Urea Nitrogen 16 mg/dL (8-23)
--- NOTE | 2023-03-14 10:30 | CT_ITS ---
WS: [id number] CT scan of the chest With IV contrast, CT scan of the abdomen and pelvis With IV contrast and oral contrast. Additional two-dimensional coronal and sagittal reconstruction was performed. A 03/14/2023 Clinical Data: Follow up Comparison: CT chest, 03/23/2022, CT abdomen and pelvis, 11/30/2019 DLP: 844.[address] scans at [facility] use at least one of these dose optimization techniques: automated e xposure control; mA and/or kV adjustment per patient size (includes targeted exams where dose is matc hed to clinical indication); or iterative reconstruction. Findings: Chest: No nodules, masses or effusions are seen. There is a right infusion catheter. There is a left mastect lori. The heart size is normal with no pericardial effusion. There is coronary artery calcification. The pulmonary arterial system and thoracic aorta demonstrate no abnormalities or dilatations. There is no axillary or significant mediastinal adenopathy. Abdomen/pelvis: The liver, spleen, adrenal glands and pancreas are normal. There are gallstones in the gallbladder The kidneys show equal bilateral contrast excretion with small intrarenal cysts. The renal pelves are mildly prominent. No renal masses or hydronephrosis is seen. The abdominal aorta is normal in size. The left retroperitoneal mass is no longer present. No appendicitis or diverticulitis is seen. Oral contrast is in the stomach, small bowel and colon and there is no bowel dilatation. The bladder is unremarkable. The uterus is absent. No inguinal hernia is seen. The bones of the lower thorax, lumbar spine, pelvis, and hips show osteoarthritic change with anterio r subluxation of L4 on L5 unchanged. The common iliac veins show no thrombus. CT/CT chest abdpel w/*[id number] Impression: 1. Negative for acute cardiopulmonary disease. 2. Cholelithiasis. 3. Left retroperitoneal lymph nodes or mass no longer present. 4. Prominent renal pelves with no ureteral dilatation. 5. Negative for acute intra-abdominal or pelvic abnormalities.
[2023-03-14] MEDS: iohexol 350 mg/mL 500 mL Btl (per mL) IV (10:48)
== END 2023-03-14 08:42 | disposition home or self-care (01) ==
LOC: RAD 08:43
PROVIDERS: PCP Family Medicine; Visit Provider Internal Medicine Hematology & Oncology
DX: C83.33 Diffuse large B-cell lymphoma, intra-abdominal lymph nodes (principal); K80.20 Calculus of gallbladder without cholecystitis without obstruction
CPT/HCPCS: 71260; 74177; 82565; 84520; Q9967

== ENCOUNTER 2023-04-27 10:40 | Oncology outpatient (recurring) (ONCR) | payer MEDICARE, SELFPAY ==
[2023-04-27 10:49] VITALS: BP 161/88; PULSE 50; RESP 16; TEMP 36.4; O2SAT 93
[2023-04-27 11:02] LABS: Basophils % 0.2 %; Eosinophils % 0.2 %; Hematocrit 41.1 % (37.0-47.0); Hemoglobin 13.6 g/dL (11.5-15.3); Lymphocytes # 1.4 10^3/uL (0.8-4.8); Lymphocytes % 23.5 %; Mean Corpuscular HGB Conc 33.1 g/dL (30.0-36.0); Mean Corpuscular Hemoglobin 30.2 pg (28.0-34.0); Mean Corpuscular Volume 91.1 fl (81-99); Mean Platelet Volume 8.4 fL (7.4-10.4); Monocytes # 0.3 10^3/uL (0.2-0.9); Monocytes % 5.3 %; Neutrophils # 4.27 10^3/uL (1.8-7.7); Neutrophils % 70.5 %; Nucleated Red Blood Cells % 0 %; Platelet Count 205 10^3/cmm (130-400); Red Blood Count 4.51 10^6/uL (4.1-5.3); Red Cell Distribution Width 13.2 % (12.1-15.1); White Blood Count 6.1 10^3/uL (4.0-10.0)
[2023-04-27 11:22] LABS: Alanine Aminotransferase 12 U/L (0-33); Albumin Level 4.4 g/dL (3.5-5.2); Alkaline Phosphatase 90 U/L (35-105); Anion Gap 14.5 (5-19); Aspartate Amino Transferase 16 U/L (0-32); Blood Urea Nitrogen 17 mg/dL (8-23); Carbon Dioxide 25 mmol/L (22-29); Chloride 103 mmol/L (98-107); Glucose 88 mg/dL (65-115); Lactate Dehydrogenase 154 U/L (135-214); Osmolality Calculated 287 mOsm/kg (285-295); Potassium 4.5 mmol/L (3.5-5.1); Sodium 138 mmol/L (136-145); Total Bilirubin 0.9 mg/dL (0.15-1.2); Total Protein 7.4 g/dL (6.6-8.7)
== END 2023-05-13 23:59 | disposition home or self-care (01) ==
PROVIDERS: PCP Family Medicine; Visit Provider Internal Medicine Hematology & Oncology
DX: Z45.2 Encounter for adjustment and management of vascular access device (principal); C83.33 Diffuse large B-cell lymphoma, intra-abdominal lymph nodes
CPT/HCPCS: 36591; 80053; 83615; 85025; 99214; J1642

== ENCOUNTER 2023-05-25 13:46 | Oncology outpatient (recurring) (ONCR) | payer MEDICARE, SELFPAY ==
[2023-05-25 13:56] VITALS: BP 160/92; PULSE 101; RESP 18; TEMP 36.5; O2SAT 96
== END 2023-06-13 23:59 | disposition home or self-care (01) ==
PROVIDERS: PCP Family Medicine; Visit Provider Internal Medicine Hematology & Oncology
DX: Z45.2 Encounter for adjustment and management of vascular access device (principal)
CPT/HCPCS: 96523; J1642

== ENCOUNTER 2023-06-22 13:39 | Oncology outpatient (recurring) (ONCR) | payer MEDICARE, SELFPAY ==
[2023-06-22 14:03] VITALS: BP 160/78; PULSE 52; RESP 18; TEMP 36.3; O2SAT 96
== END 2023-07-14 23:59 | disposition home or self-care (01) ==
LOC: ONCMED 13:39
PROVIDERS: PCP Family Medicine; Visit Provider Internal Medicine Hematology & Oncology
DX: Z45.2 Encounter for adjustment and management of vascular access device (principal)
CPT/HCPCS: 96523; J1642

== ENCOUNTER 2023-07-20 13:45 | Oncology outpatient (recurring) (ONCR) | payer MEDICARE, SELFPAY | END 2023-08-13 23:59 | disposition home or self-care (01) | PROVIDERS: PCP Family Medicine; Visit Provider Internal Medicine Hematology & Oncology | DX: Z45.2 Encounter for adjustment and management of vascular access device (principal); Z53.9 Procedure and treatment not carried out, unspecified reason | CPT/HCPCS: 96523; J1642 ==

== ENCOUNTER 2023-09-30 07:40 | Oncology outpatient (recurring) (ONCR) | payer MEDICARE, SELFPAY ==
[2023-09-30 08:02] LABS: Basophils % 0.3 %; Eosinophils % 0.5 %; Hematocrit 39.7 % (36-47); Lymphocytes # 1.4 10^3/uL (0.8-4.8); Mean Corpuscular HGB Conc 32.5 g/dL (30-55); Mean Corpuscular Hemoglobin 30.4 pg (27-33); Mean Corpuscular Volume 93.6 fl (85-98); Mean Platelet Volume 8.6 fL (7.4-10.4); Monocytes # 0.4 10^3/uL (0.2-0.9); Monocytes % 6.7 %; Neutrophils # 4.52 10^3/uL (1.8-7.7); Neutrophils % 70.2 %; Nucleated Red Blood Cells % 0 %; Platelet Count 233 10^3/cmm (157-399); Red Blood Count 4.24 10^6/uL (3.85-5.65); Red Cell Distribution Width 13.9 % (12.1-15.1); White Blood Count 6.44 10^3/uL (3.29-11.43)
[2023-09-30 08:19] LABS: Alanine Aminotransferase 11 U/L (0-33); Alkaline Phosphatase 80 U/L (35-105); Anion Gap 11.9 (5-19); Aspartate Amino Transferase 15 U/L (0-32); Blood Urea Nitrogen 14 mg/dL (8-23); Calcium 9.6 mg/dL (8.5-10.5); Carbon Dioxide 27 mmol/L (22-29); Chloride 106 mmol/L (98-107); Glucose 111 mg/dL (65-115); Lactate Dehydrogenase 153 U/L (135-214); Osmolality Calculated 293 mOsm/kg (285-295); Potassium 3.9 mmol/L (3.5-5.1); Sodium 141 mmol/L (136-145); Total Bilirubin 0.8 mg/dL (0.15-1.2)
== END 2023-10-13 23:59 | disposition home or self-care (01) ==
PROVIDERS: Internal Medicine Medical Oncology; PCP Family Medicine; Visit Provider Internal Medicine Hematology & Oncology
DX: Z45.2 Encounter for adjustment and management of vascular access device (principal); C83.33 Diffuse large B-cell lymphoma, intra-abdominal lymph nodes; I82.402 Acute embolism and thrombosis of unspecified deep veins of left lower extremity; Z79.899 Other long term (current) drug therapy; Z53.9 Procedure and treatment not carried out, unspecified reason
CPT/HCPCS: 36591; 80053; 83615; 85025; 99214

== ENCOUNTER 2023-10-31 14:09 | Oncology outpatient (recurring) (ONCR) | payer MEDICARE, SELFPAY ==
[2023-10-31 14:15] VITALS: BP 121/79; PULSE 72; RESP 16; TEMP 36.8; O2SAT 93
== END 2023-11-13 23:59 | disposition home or self-care (01) ==
LOC: ONCMED 14:09
PROVIDERS: PCP Family Medicine; Visit Provider Internal Medicine Hematology & Oncology
DX: Z45.2 Encounter for adjustment and management of vascular access device (principal)
CPT/HCPCS: J1642

== ENCOUNTER 2023-12-28 14:18 | Oncology outpatient (recurring) (ONCR) | payer MEDICARE, SELFPAY | END 2024-01-12 23:59 | disposition home or self-care (01) | PROVIDERS: PCP Family Medicine; Visit Provider Internal Medicine Hematology & Oncology | DX: Z45.2 Encounter for adjustment and management of vascular access device (principal) | CPT/HCPCS: 96523; J1642 ==

== ENCOUNTER 2024-01-30 12:36 | Oncology outpatient (recurring) (ONCR) | payer MEDICARE, SELFPAY ==
[2024-01-30 13:06] LABS: Basophils % 0.3 %; Eosinophils % 0.3 %; Hematocrit 40.2 % (36-47); Lymphocytes # 1.8 10^3/uL (0.8-4.8); Lymphocytes % 24.2 %; Mean Corpuscular HGB Conc 33.1 g/dL (30-55); Mean Corpuscular Hemoglobin 30.8 pg (27-33); Mean Corpuscular Volume 93.1 fl (85-98); Mean Platelet Volume 9.1 fL (7.4-10.4); Monocytes # 0.4 10^3/uL (0.2-0.9); Monocytes % 5.5 %; Neutrophils # 5.02 10^3/uL (1.8-7.7); Neutrophils % 69.6 %; Nucleated Red Blood Cells % 0 %; Platelet Count 204 10^3/cmm (157-399); Red Blood Count 4.32 10^6/uL (3.85-5.65); Red Cell Distribution Width 13.2 % (12.1-15.1); White Blood Count 7.22 10^3/uL (3.29-11.43)
[2024-01-30 13:23] LABS: Alanine Aminotransferase 10 U/L (0-33); Alkaline Phosphatase 78 U/L (35-105); Anion Gap 15.5 (5-19); Aspartate Amino Transferase 15 U/L (0-32); Blood Urea Nitrogen 16 mg/dL (8-23); Calcium 9.6 mg/dL (8.5-10.5); Carbon Dioxide 25 mmol/L (22-29); Chloride 104 mmol/L (98-107); Globulin 2.8 g/dL (1.3-4.6); Glucose 133 mg/dL (65-115); Lactate Dehydrogenase 183 U/L (135-214); Osmolality Calculated 293 mOsm/kg (285-295); Potassium 4.5 mmol/L (3.5-5.1); Sodium 140 mmol/L (136-145); Total Bilirubin 0.8 mg/dL (0.15-1.2); Total Protein 6.8 g/dL (6.6-8.7)
== END 2024-02-12 23:59 | disposition home or self-care (01) ==
PROVIDERS: Nurse Practitioner Family; PCP Family Medicine; Visit Provider Internal Medicine Medical Oncology
DX: Z45.2 Encounter for adjustment and management of vascular access device (principal); C83.33 Diffuse large B-cell lymphoma, intra-abdominal lymph nodes; I82.402 Acute embolism and thrombosis of unspecified deep veins of left lower extremity; Z79.899 Other long term (current) drug therapy; Z95.828 Presence of other vascular implants and grafts; Z53.9 Procedure and treatment not carried out, unspecified reason
CPT/HCPCS: 36591; 80053; 83615; 85025; 99214; J1642

== ENCOUNTER 2024-02-29 13:49 | Oncology outpatient (recurring) (ONCR) | payer MEDICARE, SELFPAY | END 2024-03-13 23:59 | disposition home or self-care (01) | LOC: ONCMED 13:50 | PROVIDERS: PCP Family Medicine; Visit Provider Internal Medicine Medical Oncology | DX: Z45.2 Encounter for adjustment and management of vascular access device (principal) | CPT/HCPCS: 96523 ==

== ENCOUNTER 2024-03-28 10:56 | Outpatient (CLI) | payer MEDICARE, SELFPAY ==
[2024-03-28] MEDS: iohexol 350 mg/mL 500 mL Btl (per mL) PO (11:54)
--- NOTE | 2024-03-28 12:00 | CTR_ITS ---
PROCEDURE INFORMATION: Exam: CT Chest With Contrast; Diagnostic Exam date and time: 03/28/2024 12:09 PM Age: 88 years old Clinical indication: Condition or disease; Other: Lymphoma; Prior surgery; Surgery date: 6+ months; Surgery type: Port, left breast, hyst; Patient HX: HX of breast cancer; Additional info: Surveillance TECHNIQUE: Imaging protocol: Diagnostic computed tomography of the chest with contrast. Radiation optimization: All CT scans at this facility use at least one of these dose optimization techniques: automated exposure control; mA and/or kV adjustment per patient size (includes targeted exams where dose is matched to clinical indication); or iterative reconstruction. Contrast material: OMNI 350; Contrast volume: 100 ml; Contrast route: INTRAVENOUS (IV); COMPARISON: CT chest abdpel w/*[id number] 03/14/2023 10:35 AM RADIATION DOSE METRICS: Total DLP (mGy-cm): 851.98 FINDINGS: Tubes, catheters and devices: There is a right chest port with the line tip appropriately positioned in the lower SVC near the cavoatrial junction. Lungs: There is subsegmental atelectasis in the lung bases. There is no consolidation. No suspicious pulmonary nodule. Pleural spaces: There is no pleural effusion or pneumothorax. Heart: Heart size is normal. There is no pericardial effusion. Coronary arteries: There is severe coronary artery calcification. Lymph nodes: There is no mediastinal or hilar lymphadenopathy. Vasculature: The aorta is unremarkable. There is no aneurysm. Visible portions of the pulmonary arteries are unremarkable. Bones/joints: There is severe degenerative disease of both shoulders. Large bilateral glenohumeral joint effusions. No suspicious bone lesions. Soft tissues: The extrathoracic soft tissues are unremarkable. PROCEDURE INFORMATION: Exam: CT Abdomen And Pelvis With Contrast Exam date and time: 03/28/2024 12:09 PM Age: 88 years old Clinical indication: Condition or disease; Other: Lymphoma; Prior surgery; Surgery date: 6+ months; Surgery type: Port, left breast, hyst; Patient HX: HX of breast cancer; Additional info: Surveillance TECHNIQUE: Imaging protocol: Computed tomography of the abdomen and pelvis with contrast. Radiation optimization: All CT scans at this facility use at least one of these dose optimization techniques: automated exposure control; mA and/or kV adjustment per patient size (includes targeted exams where dose is matched to clinical indication); or iterative reconstruction. Contrast material: OMNI 350; Contrast volume: 100 ml; Contrast route: INTRAVENOUS (IV); COMPARISON: CT chest abdpel w/*[id number] 03/14/2023 10:35 AM RADIATION DOSE METRICS: Total DLP (mGy-cm): 851.98 FINDINGS: Lungs: There is subsegmental atelectasis in the lung bases. Liver: The liver is normal. Gallbladder and bile ducts: Cholelithiasis is present. There is no sign of cholecystitis. There is no intrahepatic or extrahepatic bile duct dilation. Pancreas: The pancreas is unremarkable. Spleen: The spleen is unremarkable. Adrenal glands: The adrenal glands are hypertrophic bilaterally. Kidneys and ureters: There are simple cysts in both kidneys. Mild right hydronephrosis with a normal caliber ureter. No stones on the right. Mild left hydronephrosis with a normal caliber ureter. No stones on the left. 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 Stomach and bowel: The stomach is nondistended, limiting assessment of wall thickness. The small bowel is nondilated. There is mild sigmoid colonic diverticulosis without evidence of diverticulitis. Appendix: The appendix is not visible. Intraperitoneal space: There is no free air or significant intraperitoneal free fluid. Vasculature: There is moderate aortic atherosclerotic disease. The portal, splenic and superior mesenteric veins are patent. Lymph nodes: There is no lymphadenopathy in the retroperitoneum, mesentery, pelvis or inguinal regions. A large confluent retroperitoneal mass visible on 11/30/2021 is no longer present. There is mild confluent soft tissue density between the spine and aorta, similar to the findings on 03/14/2023, which may represent mild retroperitoneal fibrosis. Urinary bladder: The urinary bladder is unremarkable. Reproductive: The uterus is absent. There is no adnexal mass or large cyst. Bones/joints: Grade 2 degenerative anterolisthesis of L4 on L5. Spinal alignment is otherwise normal. Vertebral body height is maintained. There is moderate multilevel lumbar disc degeneration. There is moderate multilevel facet spondylosis. The pelvis and hips are unremarkable. No suspicious bone lesions. Soft tissues: The abdominal wall is intact. CT/CT chest abdpel w/*[id number] IMPRESSION: 1. No sign of disease progression in the thorax. 2. Incidental findings above. IMPRESSION: 1. No sign of disease progression in the abdomen pelvis. 2. Incidental findings above. COMMENTS: Consistent with the [place] [employer]'s Incidental Findings Committee white paper (J Am Gagandeep Radiol 2018): Any incidental renal lesion less than 1 cm or classified as too small to characterize, or any incidental cystic renal lesion characterized as simple-appearing, is likely benign. No follow-up imaging is recommended for these lesions per consensus recommendations based on imaging criteria.
[2024-03-28 12:07] LABS: Blood Urea Nitrogen 11 mg/dL (8-23)
[2024-03-28] MEDS: iohexol 350 mg/mL 500 mL Btl (per mL) IV (12:14)
== END 2024-03-28 10:57 | disposition home or self-care (01) ==
LOC: RAD 10:56
PROVIDERS: PCP Family Medicine; Visit Provider Nurse Practitioner Family
DX: C83.33 Diffuse large B-cell lymphoma, intra-abdominal lymph nodes (principal); Z85.3 Personal history of malignant neoplasm of breast; K80.20 Calculus of gallbladder without cholecystitis without obstruction; R59.0 Localized enlarged lymph nodes; N28.1 Cyst of kidney, acquired; N13.30 Unspecified hydronephrosis; K57.30 Diverticulosis of large intestine without perforation or abscess without bleeding; R93.7 Abnormal findings on diagnostic imaging of other parts of musculoskeletal system; Z90.710 Acquired absence of both cervix and uterus; G31.89 Other specified degenerative diseases of nervous system; M51.36 Other intervertebral disc degeneration, lumbar region
CPT/HCPCS: 71260; 74177; 82565; 84520; Q9967

== ENCOUNTER 2024-03-28 11:23 | Oncology outpatient (recurring) (ONCR) | payer MEDICARE, SELFPAY | END 2024-04-13 23:59 | disposition home or self-care (01) | PROVIDERS: PCP Family Medicine; Visit Provider Internal Medicine Medical Oncology | DX: Z45.2 Encounter for adjustment and management of vascular access device (principal) | CPT/HCPCS: 96523 ==

== ENCOUNTER 2024-05-01 13:40 | Oncology outpatient (recurring) (ONCR) | payer MEDICARE, SELFPAY ==
[2024-05-01 14:34] LABS: Erythrocyte Sedimentation Rate 33 mm/hr (0-15)
[2024-05-01 15:00] LABS: C Reactive Protein 5.7 mg/L (0.0-4.9); Uric Acid 5.5 mg/dL (2.4-5.7)
== END 2024-05-13 23:59 | disposition home or self-care (01) ==
LOC: ONCMED 13:40
PROVIDERS: PCP Family Medicine; Visit Provider Internal Medicine Medical Oncology
DX: M19.90 Unspecified osteoarthritis, unspecified site (principal)
CPT/HCPCS: 36591; 84550; 85651; 86140; 86200; 86431

== ENCOUNTER 2024-05-31 14:11 | Oncology outpatient (recurring) (ONCR) | payer MEDICARE, SELFPAY | END 2024-06-13 23:59 | disposition home or self-care (01) | PROVIDERS: PCP Family Medicine; Visit Provider Internal Medicine Medical Oncology | DX: C83.33 Diffuse large B-cell lymphoma, intra-abdominal lymph nodes (principal) | CPT/HCPCS: 96523 ==

== ENCOUNTER 2024-06-28 14:10 | Oncology outpatient (recurring) (ONCR) | payer MEDICARE, SELFPAY | END 2024-07-14 23:59 | disposition home or self-care (01) | LOC: ONCMED 14:10 | PROVIDERS: PCP Family Medicine; Visit Provider Internal Medicine Medical Oncology | DX: Z45.2 Encounter for adjustment and management of vascular access device (principal) | CPT/HCPCS: 96523 ==

== ENCOUNTER 2024-07-31 13:09 | Oncology outpatient (recurring) (ONCR) | payer MEDICARE, SELFPAY ==
[2024-07-31] MEDS: alteplase 1 mg/mL SDV 2 mL 2 MG INTRACATH (13:45)
[2024-07-31 13:52] LABS: Basophils % 0.1 %; Eosinophils % 0.4 %; Hematocrit 42.2 % (36-47); Lymphocytes % 25.8 %; Mean Corpuscular HGB Conc 31.8 g/dL (30-55); Mean Corpuscular Hemoglobin 29.6 pg (27-33); Mean Corpuscular Volume 93.2 fl (85-98); Mean Platelet Volume 9.1 fL (7.4-10.4); Monocytes # 0.5 10^3/uL (0.2-0.9); Monocytes % 6.8 %; Neutrophils % 66.6 %; Nucleated Red Blood Cells % 0 %; Platelet Count 223 10^3/cmm (157-399); Red Blood Count 4.53 10^6/uL (3.85-5.65); Red Cell Distribution Width 13.3 % (12.1-15.1)
[2024-07-31 14:08] LABS: Alanine Aminotransferase 9 U/L (0-33); Albumin Level 3.9 g/dL (3.5-5.2); Alkaline Phosphatase 83 U/L (35-105); Anion Gap 14.2 (5-19); Aspartate Amino Transferase 16 U/L (0-32); Blood Urea Nitrogen 13 mg/dL (8-23); Calcium 9.4 mg/dL (8.5-10.5); Carbon Dioxide 28 mmol/L (22-29); Chloride 104 mmol/L (98-107); Globulin 3.3 g/dL (1.3-4.6); Glucose 95 mg/dL (65-115); Lactate Dehydrogenase 188 U/L (135-214); Osmolality Calculated 292 mOsm/kg (285-295); Potassium 5.2 mmol/L (3.5-5.1); Sodium 141 mmol/L (136-145); Total Bilirubin 0.7 mg/dL (0.15-1.2); Total Protein 7.2 g/dL (6.6-8.7)
== END 2024-08-13 23:59 | disposition home or self-care (01) ==
PROVIDERS: Nurse Practitioner Family; PCP Family Medicine; Visit Provider Internal Medicine Medical Oncology
DX: Z45.2 Encounter for adjustment and management of vascular access device (principal); C83.33 Diffuse large B-cell lymphoma, intra-abdominal lymph nodes; I82.402 Acute embolism and thrombosis of unspecified deep veins of left lower extremity; Z79.899 Other long term (current) drug therapy
CPT/HCPCS: 36415; 80053; 83615; 85025; 99214; J2997

== ENCOUNTER 2024-08-30 13:52 | Oncology outpatient (recurring) (ONCR) | payer MEDICARE, SELFPAY | END 2024-09-13 23:59 | disposition home or self-care (01) | LOC: ONCMED 13:54 | PROVIDERS: PCP Family Medicine; Visit Provider Internal Medicine Medical Oncology | DX: Z45.2 Encounter for adjustment and management of vascular access device (principal) | CPT/HCPCS: 96523 ==

== ENCOUNTER 2024-09-27 14:23 | Oncology outpatient (recurring) (ONCR) | payer MEDICARE, SELFPAY | END 2024-10-13 23:59 | disposition home or self-care (01) | PROVIDERS: PCP Family Medicine; Visit Provider Internal Medicine Medical Oncology | DX: Z45.2 Encounter for adjustment and management of vascular access device (principal); M19.041 Primary osteoarthritis, right hand; M21.821 Other specified acquired deformities of right upper arm; M19.011 Primary osteoarthritis, right shoulder | CPT/HCPCS: 73030; 73120; 96523 ==

== ENCOUNTER 2024-09-27 15:07 | Outpatient (CLI) | payer MEDICARE, SELFPAY ==
--- NOTE | 2024-09-27 15:30 | XR_ITS ---
WS: [id number] Right shoulder, 2 views, 09/27/2024 Clinical Data: SHOULDER PAIN Comparison: None. Findings: No fractures or dislocations are seen. The AC joint is normal. There is sclerosis on both sides of th e glenohumeral joint. The sclerosis involves the glenoid rim and fossa and the adjacent head of the humerus. There is deformity of the right humeral head from osteoarthritis. The adjacent right clavicl e, right scapula and ribs are normal. The soft tissues are unremarkable. There is an infusion catheter entering the right internal jugular vein and ending in the superior tunde a cava. XR/XR shoulder RT min 2V* [id number] Impression: 1. Sclerotic change of right humeral head and adjacent glenoid. 2. Deformity of the right humeral head from osteoarthritis.
--- NOTE | 2024-09-27 15:30 | XR_ITS ---
WS: [email or web address] Left shoulder, 2 views, 09/27/2024 Clinical Data: SHOULDER PAIN Comparison: None. Findings: No fractures or dislocations are seen. The AC joint is normal. There is sclerosis of the glenoid rim and fossa and the adjacent left humeral head. There is deformity of the left humeral head from osteoa rthritis. The adjacent left clavicle, left scapula and ribs are normal. The soft tissues are unremark able. XR/XR shoulder LT min 2V* [id number] Impression: 1. Sclerosis of the left glenoid fossa and adjacent left humeral head. 2. Deformity of the left humeral head probably from osteoarthritis.
--- NOTE | 2024-09-27 15:30 | XR_ITS ---
WS: [id number] Right hand, 2 views, 09/27/2024 Clinical Data: ARTHRITIS Comparison: None. Findings: No fractures or dislocations are seen. The soft tissues are unremarkable. There is mild o steoarthritis of the right hand PIP and DIP joints. There is minimal osteoarthritis at the right firs t MCP joint and also the right thumb IP joint. 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
== END 2024-09-27 15:08 | disposition home or self-care (01) ==
LOC: RAD 15:12
PROVIDERS: PCP Family Medicine; Visit Provider Family Medicine
DX: M19.011 Primary osteoarthritis, right shoulder (principal); M19.041 Primary osteoarthritis, right hand; S43.432A Superior glenoid labrum lesion of left shoulder, initial encounter; M21.922 Unspecified acquired deformity of left upper arm; X58.XXXA Exposure to other specified factors, initial encounter
CPT/HCPCS: 73030; 73120

== ENCOUNTER 2024-10-24 14:37 | Oncology outpatient (recurring) (ONCR) | payer MEDICARE, SELFPAY | END 2024-11-13 23:59 | disposition home or self-care (01) | LOC: ONCMED 14:38 | PROVIDERS: PCP Family Medicine; Visit Provider Internal Medicine Medical Oncology | DX: Z45.2 Encounter for adjustment and management of vascular access device (principal) | CPT/HCPCS: 96523 ==

== ENCOUNTER 2024-11-29 14:09 | Oncology outpatient (recurring) (ONCR) | payer MEDICARE, SELFPAY | END 2024-12-14 23:59 | disposition home or self-care (01) | LOC: ONCMED 14:10 | PROVIDERS: PCP Family Medicine; Visit Provider Internal Medicine | DX: Z45.2 Encounter for adjustment and management of vascular access device (principal); C83.30 Diffuse large B-cell lymphoma, unspecified site | CPT/HCPCS: 96523 ==

== ENCOUNTER → 2024-12-04 12:30 | Outpatient (BNVA) | payer MEDICARE, SELFPAY | PROVIDERS: PCP Family Medicine; Visit Provider Student in an Organized Health Care Education/Training Program | DX: M19.011 Primary osteoarthritis, right shoulder (principal); M19.012 Primary osteoarthritis, left shoulder | CPT/HCPCS: 20610; 99204; J3301 ==

== ENCOUNTER 2024-12-27 14:15 | Oncology outpatient (recurring) (ONCR) | payer MEDICARE, SELFPAY | END 2025-01-11 23:59 | disposition home or self-care (01) | LOC: ONCMED 14:16 | PROVIDERS: PCP Family Medicine; Visit Provider Internal Medicine | DX: Z45.2 Encounter for adjustment and management of vascular access device (principal); Z95.828 Presence of other vascular implants and grafts | CPT/HCPCS: 96523 ==

== ENCOUNTER 2025-02-11 13:09 | Oncology outpatient (recurring) (ONCR) | payer MEDICARE, SELFPAY ==
[2025-02-11 13:44] LABS: Basophils % 0.3 %; Eosinophils % 0.3 %; Hematocrit 41.2 % (36-47); Lymphocytes # 1.9 10^3/uL (0.8-4.8); Lymphocytes % 26.2 %; Mean Corpuscular HGB Conc 31.8 g/dL (30-55); Mean Corpuscular Volume 94.5 fl (85-98); Mean Platelet Volume 8.9 fL (7.4-10.4); Monocytes # 0.4 10^3/uL (0.2-0.9); Monocytes % 5.9 %; Neutrophils # 4.86 10^3/uL (1.8-7.7); Nucleated Red Blood Cells % 0 %; Platelet Count 218 10^3/cmm (157-399); Red Blood Count 4.36 10^6/uL (3.85-5.65); Red Cell Distribution Width 14.6 % (12.1-15.1); White Blood Count 7.25 10^3/uL (3.29-11.43)
[2025-02-11 14:00] LABS: Alanine Aminotransferase 10 U/L (0-33); Albumin Level 3.9 g/dL (3.5-5.2); Alkaline Phosphatase 75 U/L (35-105); Anion Gap 13.2 (5-19); Aspartate Amino Transferase 15 U/L (0-32); Blood Urea Nitrogen 13 mg/dL (8-23); Calcium 9.3 mg/dL (8.5-10.5); Carbon Dioxide 27 mmol/L (22-29); Chloride 102 mmol/L (98-107); Glucose 107 mg/dL (65-115); Lactate Dehydrogenase 167 U/L (135-214); Osmolality Calculated 287 mOsm/kg (285-295); Potassium 4.2 mmol/L (3.5-5.1); Sodium 138 mmol/L (136-145); Total Bilirubin 0.6 mg/dL (0.15-1.2); Total Protein 6.9 g/dL (6.6-8.7)
== END 2025-02-11 23:59 | disposition home or self-care (01) ==
PROVIDERS: Nurse Practitioner Family; PCP Family Medicine; Visit Provider Nurse Practitioner Family
DX: Z95.828 Presence of other vascular implants and grafts (principal); Z08 Encounter for follow-up examination after completed treatment for malignant neoplasm; Z85.72 Personal history of non-Hodgkin lymphomas; Z92.21 Personal history of antineoplastic chemotherapy; Z86.718 Personal history of other venous thrombosis and embolism; R03.0 Elevated blood-pressure reading, without diagnosis of hypertension
CPT/HCPCS: 36591; 80053; 83615; 85025; 99214

== ENCOUNTER 2025-03-12 11:40 | Oncology outpatient (recurring) (ONCR) | payer MEDICARE, SELFPAY | END 2025-03-13 23:59 | disposition home or self-care (01) | LOC: ONCMED 11:40 | PROVIDERS: PCP Family Medicine; Visit Provider Nurse Practitioner Family | DX: M19.012 Primary osteoarthritis, left shoulder (principal); M19.011 Primary osteoarthritis, right shoulder; Z45.2 Encounter for adjustment and management of vascular access device; Z95.828 Presence of other vascular implants and grafts; R20.2 Paresthesia of skin; R20.0 Anesthesia of skin | CPT/HCPCS: 20610; 96523; 99213; J3301; J9999 ==

== ENCOUNTER 2025-04-12 10:00 | Oncology outpatient (recurring) (ONCR) | payer MEDICARE, SELFPAY ==
--- NOTE | 2025-03-29 14:00 | CTR_ITS ---
PROCEDURE INFORMATION: Exam: CT Chest With Contrast; Diagnostic Exam date and time: 03/29/2025 2:07 PM Age: 89 years old Clinical indication: Condition or disease; Other: Lymphoma, breast cancer; Prior surgery; Surgery date: 6+ months; Surgery type: Hyster, appy; Cancer (type)--[id number], [id number]; Additional info: Surveillance TECHNIQUE: Imaging protocol: Diagnostic computed tomography of the chest with contrast. Radiation optimization: All CT scans at this facility use at least one of these dose optimization techniques: automated exposure control; mA and/or kV adjustment per patient size (includes targeted exams where dose is matched to clinical indication); or iterative reconstruction. Contrast material: OMNI 350; Contrast volume: 100 ml; Contrast route: INTRAVENOUS (IV); COMPARISON: CT chest abdpel w/*[id number] 03/28/2024 12:09 PM RADIATION DOSE METRICS: Total DLP (mGy-cm): 903.51 FINDINGS: Tubes, catheters and devices: A right-sided noé catheter is again seen. Trachea: Unremarkable. Lungs: There is mild bibasilar atelectasis. No consolidation. No masses. Pleural spaces: No significant pleural effusion. No pneumothorax. Heart: Borderline enlarged. No significant pericardial effusion. Coronary arteries: Moderate atherosclerotic calcification. Mediastinal space: No pathologically enlarged lymph nodes. Lymph nodes: Unremarkable. No enlarged lymph nodes. Vasculature: The thoracic aorta is normal in caliber. Very mild atherosclerotic calcification. No aortic aneurysm. Bones/joints: Intact. No acute fracture. There is mild reverse S shaped scoliosis with degenerative changes throughout. There are degenerative changes involving the glenohumeral joints bilaterally. Soft tissues: Status post left mastectomy. Surgical clips are seen in the left axilla. Other findings: Visualized upper abdominal structures are unremarkable. PROCEDURE INFORMATION: Exam: CT Abdomen And Pelvis With Contrast Exam date and time: 03/29/2025 2:07 PM Age: 89 years old Clinical indication: Condition or disease; Other: Lymphoma, breast cancer; Prior surgery; Surgery date: 6+ months; Surgery type: Hyster, appy; Cancer (type)--[id number], [id number]; Additional info: Surveillance TECHNIQUE: Imaging protocol: Computed tomography of the abdomen and pelvis with contrast. Radiation optimization: All CT scans at this facility use at least one of these dose optimization techniques: automated exposure control; mA and/or kV adjustment per patient size (includes targeted exams where dose is matched to clinical indication); or iterative reconstruction. Contrast material: OMNI 350; Contrast volume: 100 ml; Contrast route: INTRAVENOUS (IV); COMPARISON: CT chest abdpel w/*[id number] 03/14/2023 10:35 AM RADIATION DOSE METRICS: Total DLP (mGy-cm): 903.51 FINDINGS: Lungs: Visualized lung bases are clear. Liver: Unremarkable. Gallbladder and biliary ducts: There are radiopaque stones within the gallbladder. There may also be a small amount of gallbladder sludge. No significant biliary ductal dilatation. Pancreas: Unremarkable. Spleen: Unremarkable. Adrenal glands: Mildly thickened bilaterally, stable in appearance. No discrete nodule seen. Kidneys and ureters: There are bilateral renal cysts. There appear to be parapelvic cysts versus mild hydronephrosis bilaterally, similar in appearance compared to the prior study. The ureters are normal in caliber. If this represents hydronephrosis this may be related to chronic partial UPJ obstruction as suggested on the prior study. Stomach and bowel: There appears to be thickening of the wall and luminal narrowing at the gastroesophageal junction which could be transient, however was also seen on the prior study. There is thickening of the wall of the stomach which may be due to incomplete distension, stable in appearance.There is a moderate amount of fecal material throughout the colon.There is no significant bowel dilatation or evidence for obstruction. There are diverticula involving the sigmoid colon without significant surrounding inflammation to suggest acute diverticulitis. Appendix: Not identified with certainty. No evidence for acute appendicitis. Intraperitoneal space: Unremarkable. No free air. No significant fluid collection. Vasculature: The abdominal aorta is normal in caliber. There is mild atherosclerotic calcification. No abdominal aortic aneurysm. Lymph nodes: No pathologically enlarged lymph nodes are detected. There is abnormal soft tissue in the retroperitoneum interposed between the aorta and lumbar spine similar in appearance compared to the prior study. This may represent retroperitoneal fibrosis. Urinary bladder: Unremarkable as visualized. Reproductive: The uterus is absent. Bones/joints: Intact. No acute fracture. There is diffuse osteopenia with grade 1-2 spondylolisthesis of L4 on L5 and diffuse degenerative changes throughout, similar in appearance compared to the prior study. Soft tissues: Unremarkable. CT/CT chest abdpel w/*[id number] IMPRESSION: 1. Noé catheter in place. 2. Mild bibasilar atelectasis. No focal consolidation. 3. Borderline cardiomegaly. 4. Status post left mastectomy. IMPRESSION: 1. Mild thickening of the wall and luminal narrowing at the gastroesophageal junction which could be transient, however was also seen on the prior study. If clinically indicated, an upper GI examination or endoscopy may be helpful for further evaluation. 2. Colonic diverticulosis without evidence for acute diverticulitis. 3. Abnormal soft tissue in the retroperitoneum which may represent retroperitoneal fibrosis. Similar findings were seen on the prior study. No pathologically enlarged lymph nodes are detected. 4. Bilateral renal cysts with parapelvic cysts versus mild hydronephrosis, similar in appearance compared to the prior study. If this is hydronephrosis this may be related to chronic partial UPJ obstruction. 5. Cholelithiasis. COMMENTS: Consistent with the [employer]'s Incidental Findings Committee white paper (J Am Gagandeep Radiol 2018): Any incidental renal lesion less than 1 cm or classified as too small to characterize, or any incidental cystic renal lesion characterized as simple-appearing, is likely benign. No follow-up imaging is recommended for these lesions per consensus recommendations based on imaging criteria.
[2025-03-29] MEDS: iohexol 350 mg/mL 500 mL Btl (per mL) IV (14:01)
[2025-04-01 10:54] LABS: Blood Urea Nitrogen 22 mg/dL (8-23)
== END 2025-04-13 23:59 | disposition home or self-care (01) ==
PROVIDERS: PCP Family Medicine; Visit Provider Nurse Practitioner Family
DX: Z53.9 Procedure and treatment not carried out, unspecified reason; Z08 Encounter for follow-up examination after completed treatment for malignant neoplasm; Z85.72 Personal history of non-Hodgkin lymphomas; Z86.718 Personal history of other venous thrombosis and embolism; Z92.21 Personal history of antineoplastic chemotherapy; Z95.828 Presence of other vascular implants and grafts
CPT/HCPCS: 71260; 74177; 82565; 84520; 96523; 99213

== ENCOUNTER → 2025-04-30 12:31 | Outpatient (BNVA) | payer MEDICARE, SELFPAY | PROVIDERS: PCP Family Medicine; Referring Provider Student in an Organized Health Care Education/Training Program; Visit Provider Psychiatry & Neurology Neurology | DX: R20.0 Anesthesia of skin (principal); R20.2 Paresthesia of skin; G56.03 Carpal tunnel syndrome, bilateral upper limbs | CPT/HCPCS: 95913 ==

== ENCOUNTER → 2025-05-02 12:23 | Outpatient (BNVA) | payer MEDICARE, SELFPAY | PROVIDERS: PCP Family Medicine; Visit Provider Student in an Organized Health Care Education/Training Program | DX: R93.5 Abnormal findings on diagnostic imaging of other abdominal regions, including retroperitoneum (principal) | CPT/HCPCS: 99204 ==

== ENCOUNTER 2025-05-07 11:38 | Day surgery (SDC) | payer MEDICARE, SELFPAY ==
[2025-05-07 12:03] VITALS: BP 141/94; PULSE 84; RESP 20; TEMP 36.1; O2SAT 95; BMI 27.3
[2025-05-07] MEDS: sodium chloride 0.9% 1,000 ML 15 ML IV (12:23)
--- NOTE | 2025-05-07 13:09 | W.PM.OPSUD ---
Surgery/Procedure H&P Update DATE OF PROCEDURE: May 07, 2025 DATE H&P PERFORMED: 05/02/25 H&P UPDATE INFORMATION: I have reviewed H&P completed within last 30 days, I have examined patient prior to procedure and No changes to prior documentation PLANNED PROCEDURE: Operation Date: 05/07/25 13:30 Proposed Procedures p EGD with Biopsy [id number], R93.5(Not Applicable) - Hua Duggan MD
--- NOTE | 2025-05-07 13:22 | ANES.PREANE2 ---
Pre-Anesthetic Assessment Height/Weight: Height 1.7 m Weight 79.379 kg Temp Pulse Resp BP Pulse Ox O2 Del Method 97 F L 84 20 H 141/94 95 Room Air 05/07/25 12:03 05/07/25 12:03 05/07/25 12:03 05/07/25 12:03 05/07/25 12:03 05/07/25 12:03 Operation Date: 05/07/25 13:30 Proposed Procedures p EGD with Biopsy 06223, R93.5(Not Applicable) - Hua Duggan MD Familial anesthetic complications: None Was Beta Fatmata taken within 24 hours: N/A Was Clonidine taken within 24 hours: N/A Last intake: Intake Last Liquid Date 05/08/35 Last Liquid Time 20:30 Last Solid Date 05/06/25 Last Solid Time 18:00 Social No alcohol and No tobacco Exam alert, oriented x 3, clear to auscultation bilaterally and regular rate & rhythm Airway Mallampati: Class I Dentition: false CV/HEM Arrythmia and Hypertension Anesthetic Plan ASA status: 3 Anesthesia: MAC Risk of > 500 ml blood loss (7ml/kg in children): No Medications/Allergies Home Medications ?Medication ?Instructions ?Recorded ?Confirmed ?Last Taken ?Type lisinopril 5 mg tablet 5 mg PO DAILY 10/27/21 05/06/25 05/06/25 History docusate sodium 100 mg capsule 100 mg PO DAILY PRN Constipation 11/16/21 05/06/25 Unknown History (Colace) hydrocodone 5 mg-acetaminophen 325 1 tab PO BID PRN Pain 11/16/21 05/06/25 Unknown History mg tablet gabapentin 300 mg capsule 300 mg PO TID 04/27/23 05/06/25 05/06/25 History pantoprazole 40 mg tablet,delayed 40 mg PO DAILY 12/04/24 05/06/25 05/06/25 History release digoxin 125 mcg (0.125 mg) tablet 125 mcg PO DAILY 02/11/25 05/06/25 05/07/25 08:00 History cyanocobalamin (vitamin B-12) 1,000 mcg PO DAILY 05/06/25 05/07/25 05/06/25 History 1,000 mcg tablet (Vitamin B-12) vitamins A,C,G-njsc-xmszyx 4,296 2 cap PO DAILY 05/06/25 05/06/25 05/06/25 History mcg-226 mg-90 mg capsule (PreserVision AREDS) Allergies Allergy/AdvReac Type Severity Reaction Status Date / Time No Known Allergies Allergy Verified 05/02/25 12:51 Current Medications Generic Name Dose Route Start Last Admin Trade Name Freq PRN Reason Stop Dose Admin Sodium Chloride 1,000 mls @ 15 mls/hr 05/07/25 11:54 05/07/25 12:23 Sodium Chloride 0.9% IV 05/08/25 11:53 15 mls/hr .Q24H PRN Administration COLONOSCOPY FLUIDS PFSH Anesthesia Medical History (Updated 05/02/25 @ 14:24 by Connor Harris MD) Cubital tunnel syndrome on left Deep vein thrombosis of left lower extremity Diarrhea Lactic acidosis A-fib Pre-syncope NSTEMI (non-ST elevated myocardial infarction) Hypercalcemia Anemia Embolism DVT (deep venous thrombosis) B-cell lymphoma Polyarthritis Hypertension MGUS (monoclonal gammopathy of unknown significance) Peripheral neuropathy Retroperitoneal lymphadenopathy Splenomegaly Surgical History H/O lymph node biopsy (10/28/21) left cervical Port-A-Cath in place (10/28/21) Status post colonoscopy H/O mastectomy History of hysterectomy Family History Other Cancer Social History Smoking and tobacco/nicotine status: never used tobacco/nicotine Alcohol intake: never Substance/Drug Use: never Housing: House Data Anesthesia Cardiac Studies: Echocardiogram 03/23/22
[2025-05-07 13:47] VITALS: BP 144/82; PULSE 88; RESP 18; TEMP 36.4; O2SAT 92
[2025-05-07 14:00] VITALS: BP 154/85; PULSE 79; RESP 18; O2SAT 92
--- NOTE | 2025-05-07 14:25 | ANE.PACU2 ---
Inpatient post-anesthesia follow up: Airway intact: Yes Vital signs: Temperature 97.6 F Pulse Rate 79 Respiratory Rate 18 Blood Pressure 154/85 Pulse Oximetry 92 Oxygen Delivery Me thod Room Air Oxygen Flow Rate Fraction of Inspir ed Oxygen Hydration adequate: Yes Nausea and vomiting: No Pain level: 1 Mental status: Baseline
== END 2025-05-07 14:25 | disposition home or self-care (01) ==
PROVIDERS: PCP Family Medicine; Visit Provider Student in an Organized Health Care Education/Training Program
PROC: 0DJ08ZZ Inspection of Upper Intestinal Tract, Via Natural or Artificial Opening Endoscopic (ICD-10-PCS; principal; 2025-05-07 13:30)
DX: R93.5 Abnormal findings on diagnostic imaging of other abdominal regions, including retroperitoneum (principal); I25.2 Old myocardial infarction; I10 Essential (primary) hypertension; I48.91 Unspecified atrial fibrillation; D47.2 Monoclonal gammopathy; Z79.899 Other long term (current) drug therapy; Z86.718 Personal history of other venous thrombosis and embolism; Z85.72 Personal history of non-Hodgkin lymphomas
CPT/HCPCS: 43239; 88305; J2704; J7030

== ENCOUNTER 2025-05-13 13:35 | Oncology outpatient (recurring) (ONCR) | payer MEDICARE, SELFPAY ==
[2025-05-13 14:00] LABS: Basophils % 0.1 %; Eosinophils % 0.3 %; Hematocrit 40.1 % (36-47); Lymphocytes # 1.6 10^3/uL (0.8-4.8); Lymphocytes % 20.1 %; Mean Corpuscular HGB Conc 32.2 g/dL (30-55); Mean Corpuscular Volume 96.4 fl (85-98); Mean Platelet Volume 8.6 fL (7.4-10.4); Monocytes # 0.6 10^3/uL (0.2-0.9); Monocytes % 6.9 %; Neutrophils # 5.72 10^3/uL (1.8-7.7); Neutrophils % 72.1 %; Nucleated Red Blood Cells % 0 %; Platelet Count 218 10^3/cmm (157-399); Red Blood Count 4.16 10^6/uL (3.85-5.65); Red Cell Distribution Width 13.6 % (12.1-15.1); White Blood Count 7.93 10^3/uL (3.29-11.43)
[2025-05-13 14:15] LABS: Alanine Aminotransferase 9 U/L (0-33); Albumin Level 3.6 g/dL (3.5-5.2); Alkaline Phosphatase 90 U/L (35-105); Anion Gap 13.2 (5-19); Aspartate Amino Transferase 15 U/L (0-32); Blood Urea Nitrogen 11 mg/dL (8-23); Calcium 9.2 mg/dL (8.5-10.5); Carbon Dioxide 24 mmol/L (22-29); Chloride 106 mmol/L (98-107); Globulin 3.3 g/dL (1.3-4.6); Glucose 111 mg/dL (65-115); Lactate Dehydrogenase 194 U/L (135-214); Osmolality Calculated 288 mOsm/kg (285-295); Potassium 4.2 mmol/L (3.5-5.1); Sodium 139 mmol/L (136-145); Total Bilirubin 0.7 mg/dL (0.15-1.2); Total Protein 6.9 g/dL (6.6-8.7)
== END 2025-05-13 23:59 | disposition home or self-care (01) ==
PROVIDERS: PCP Family Medicine; Visit Provider Nurse Practitioner Family
DX: C83.33 Diffuse large B-cell lymphoma, intra-abdominal lymph nodes (principal); Z45.2 Encounter for adjustment and management of vascular access device; Z95.828 Presence of other vascular implants and grafts
CPT/HCPCS: 36591; 80053; 83615; 85025; 96523

== ENCOUNTER → 2025-05-23 10:55 | Outpatient (BNVA) | payer MEDICARE, SELFPAY | PROVIDERS: PCP Family Medicine; Visit Provider Student in an Organized Health Care Education/Training Program | DX: Z09 Encounter for follow-up examination after completed treatment for conditions other than malignant neoplasm (principal) | CPT/HCPCS: 99213 ==

== ENCOUNTER 2025-05-29 11:26 | Outpatient (CLI) | payer MEDICARE, SELFPAY | END 2025-05-29 11:27 | disposition home or self-care (01) | LOC: SPT 11:27 | PROVIDERS: PCP Family Medicine; Visit Provider Student in an Organized Health Care Education/Training Program | DX: Z46.89 Encounter for fitting and adjustment of other specified devices (principal); G56.03 Carpal tunnel syndrome, bilateral upper limbs | CPT/HCPCS: 20600; J3301; J3490; L3908 ==

== ENCOUNTER 2025-06-10 13:38 | Oncology outpatient (recurring) (ONCR) | payer MEDICARE, SELFPAY | END 2025-06-13 23:59 | disposition home or self-care (01) | LOC: ONCMED 13:38 | PROVIDERS: PCP Family Medicine; Visit Provider Nurse Practitioner Family | DX: Z45.2 Encounter for adjustment and management of vascular access device (principal); Z95.828 Presence of other vascular implants and grafts | CPT/HCPCS: 96523 ==

== ENCOUNTER → 2025-06-26 14:39 | Outpatient (BNVA) | payer MEDICARE, SELFPAY | PROVIDERS: PCP Family Medicine; Visit Provider Student in an Organized Health Care Education/Training Program | DX: M25.511 Pain in right shoulder (principal); M19.011 Primary osteoarthritis, right shoulder; M19.012 Primary osteoarthritis, left shoulder | CPT/HCPCS: 20610; 99213; J3301; J9999 ==

== ENCOUNTER 2025-07-08 13:40 | Oncology outpatient (recurring) (ONCR) | payer MEDICARE, SELFPAY | END 2025-07-14 23:59 | disposition home or self-care (01) | LOC: ONCMED 13:41 | PROVIDERS: PCP Family Medicine; Visit Provider Nurse Practitioner Family | DX: Z45.2 Encounter for adjustment and management of vascular access device (principal); Z95.828 Presence of other vascular implants and grafts | CPT/HCPCS: 96523 ==

== ENCOUNTER 2025-08-12 12:39 | Oncology outpatient (recurring) (ONCR) | payer MEDICARE, SELFPAY ==
[2025-08-12 13:18] LABS: Hematocrit 41.6 % (36-47); Hemoglobin 13.50 g/dL (11.27-16.99); Mean Corpuscular HGB Conc 32.5 g/dL (30-55); Mean Corpuscular Hemoglobin 30.3 pg (27-33); Mean Corpuscular Volume 93.3 fl (85-98); Nucleated Red Blood Cells % 0 %; Platelet Count 230 10^3/cmm (157-399); Red Blood Count 4.46 10^6/uL (3.85-5.65); White Blood Count 8.02 10^3/uL (3.29-11.43)
[2025-08-12 13:28] LABS: Alanine Aminotransferase 13 U/L (0-33); Albumin Level 4.0 g/dL (3.5-5.2); Alkaline Phosphatase 85 U/L (35-105); Anion Gap 15.2 (5-19); Aspartate Amino Transferase 15 U/L (0-32); Blood Urea Nitrogen 10 mg/dL (8-23); Calcium 9.5 mg/dL (8.5-10.5); Carbon Dioxide 25 mmol/L (22-29); Chloride 105 mmol/L (98-107); Globulin 3.3 g/dL (1.3-4.6); Glucose 96 mg/dL (65-115); Osmolality Calculated 291 mOsm/kg (285-295); Potassium 4.2 mmol/L (3.5-5.1); Sodium 141 mmol/L (136-145); Total Protein 7.3 g/dL (6.6-8.7)
== END 2025-08-13 23:59 | disposition home or self-care (01) ==
PROVIDERS: Nurse Practitioner; PCP Family Medicine; Visit Provider Nurse Practitioner Family
DX: Z08 Encounter for follow-up examination after completed treatment for malignant neoplasm (principal); Z85.72 Personal history of non-Hodgkin lymphomas; Z86.718 Personal history of other venous thrombosis and embolism; R03.0 Elevated blood-pressure reading, without diagnosis of hypertension; Z95.828 Presence of other vascular implants and grafts; Z92.21 Personal history of antineoplastic chemotherapy
CPT/HCPCS: 36415; 80053; 83615; 85025; 99213

== ENCOUNTER → 2025-09-03 10:06 | Outpatient (BNVA) | payer MEDICARE, SELFPAY | PROVIDERS: PCP Family Medicine; Visit Provider Student in an Organized Health Care Education/Training Program | DX: G56.01 Carpal tunnel syndrome, right upper limb (principal) | CPT/HCPCS: 20600; 20605; 99213; J3301; J3490 ==

== ENCOUNTER → 2025-09-12 12:51 | Outpatient (BNVA) | payer MEDICARE, SELFPAY | PROVIDERS: PCP Family Medicine; Visit Provider Student in an Organized Health Care Education/Training Program | DX: Z95.828 Presence of other vascular implants and grafts (principal); R03.0 Elevated blood-pressure reading, without diagnosis of hypertension | CPT/HCPCS: 99214 ==

== ENCOUNTER 2025-09-18 08:59 | Day surgery (SDC) | payer MEDICARE, SELFPAY ==
[2025-09-18] VITALS (8 sets, daily range): BP systolic 117–137; BP diastolic 76–109; PULSE 79–103; RESP 14–22; TEMP 36.4–36.9; O2SAT 93–96; BMI 27.2
--- NOTE | 2025-09-18 10:13 | W.PM.OPSUD ---
Surgery/Procedure H&P Update DATE OF PROCEDURE: September 18, 2025 DATE H&P PERFORMED: 09/12/25 H&P UPDATE INFORMATION: I have reviewed H&P completed within last 30 days, I have examined patient prior to procedure, No changes to prior documentation and Risks and benefits of the procedure reviewed PLANNED PROCEDURE: Operation Date: 09/18/25 11:00 Proposed Procedures p Portacath Removal 23771 Z95.828(Not Applicable) - Hua Duggan MD
--- NOTE | 2025-09-18 10:59 | ANES.PREANE2 ---
Pre-Anesthetic Assessment Height/Weight: Height 5 ft 7 in Weight 174 lb Temp Pulse Resp BP Pulse Ox O2 Del Method 98.1 F 103 H 16 117/109 93 Room Air 09/18/25 09:23 09/18/25 09:23 09/18/25 09:23 09/18/25 09:23 09/18/25 09:23 09/18/25 09:25 Preop Diagnosis: Completed chemotherapy Operation Date: 09/18/25 11:00 Proposed Procedures p Portacath Removal 55888 Z95.828(Not Applicable) - Hua Duggan MD Was Beta Fatmata taken within 24 hours: N/A Was Clonidine taken within 24 hours: N/A Last intake: Intake Last Liquid Date 09/17/25 Last Liquid Time 20:30 Last Solid Date 09/17/25 Last Solid Time 18:00 Social No alcohol and No tobacco Exam alert, oriented x 3, clear to auscultation bilaterally and regular rate & rhythm Airway Submandibular: within normal limits Cervical ROM: within normal limits Mallampati: Class I Dentition: false Anesthetic Plan ASA status: 3 Anesthesia: MAC Other: No prior issues with anesthesia NPO since yesterday evening Completed chemotherapy for B-cell lymphoma Prior left breast removal with lymph node dissection History of hypertension on lisinopril GERD on Protonix Recent labs 08/12/2025 reviewed acceptable for procedure today EKG sinus rhythm with LBBB Plan for MAC anesthesia with local via surgeon Medications/Allergies Home Medications ?Medication ?Instructions ?Recorded ?Confirmed ?Last Taken ?Type lisinopril 5 mg tablet 5 mg PO DAILY 10/27/21 09/17/25 09/17/25 History docusate sodium 100 mg capsule 100 mg PO DAILY PRN Constipation 11/16/21 09/17/25 Unknown History (Colace) hydrocodone 5 mg-acetaminophen 325 1 tab PO BID PRN Pain 11/16/21 09/17/25 09/15/25 History mg tablet gabapentin 300 mg capsule 300 mg PO TID 04/27/23 09/17/25 09/17/25 History pantoprazole 40 mg tablet,delayed 40 mg PO DAILY 12/04/24 09/17/25 09/17/25 History release digoxin 125 mcg (0.125 mg) tablet 125 mcg PO DAILY 02/11/25 09/17/25 09/17/25 History cyanocobalamin (vitamin B-12) 1,000 mcg PO DAILY 05/06/25 09/17/25 09/17/25 History 1,000 mcg tablet (Vitamin B-12) vitamins A,C,W-hhmr-lnzqpf 4,296 1 cap PO BID 05/06/25 09/17/25 09/17/25 History mcg-226 mg-90 mg capsule (PreserVision AREDS) Bilateral Cock Up Wrist Brace #1 ea 05/29/25 09/12/25 Unknown Rx Allergies Allergy/AdvReac Type Severity Reaction Status Date / Time No Known Allergies Allergy Verified 09/18/25 09:19 Current Medications Generic Name Dose Route Start Last Admin Trade Name Freq PRN Reason Stop Dose Admin Sodium Chloride 1,000 mls @ 30 mls/hr 09/18/25 09:15 09/18/25 09:38 Sodium Chloride 0.9% IV 09/19/25 09:14 30 mls/hr .Q24H MIHAELA Administration PFSH Anesthesia Medical History Cubital tunnel syndrome on left Deep vein thrombosis of left lower extremity Diarrhea Lactic acidosis A-fib Pre-syncope NSTEMI (non-ST elevated myocardial infarction) Hypercalcemia Anemia Embolism DVT (deep venous thrombosis) B-cell lymphoma Polyarthritis Hypertension MGUS (monoclonal gammopathy of unknown significance) Peripheral neuropathy Retroperitoneal lymphadenopathy Splenomegaly Surgical History H/O lymph node biopsy (10/28/21) left cervical Port-A-Cath in place (10/28/21) Status post colonoscopy H/O mastectomy History of hysterectomy Family History Other Cancer Social History Smoking and tobacco/nicotine status: never used tobacco/nicotine Alcohol intake: never Substance/Drug Use: never Housing: House Data Anesthesia Cardiac Studies: Echocardiogram 03/23/22
--- NOTE | 2025-09-18 12:08 | PM.OP ---
Operative Report Date of procedure: September 18, 2025 Pre-op diagnosis: Port-A-Cath in situ Post-op diagnosis: same Post-op findings: Port-A-Cath removed in its entirety. Including port, cuff, catheter. Tip of catheter sent for culture. Rest of catheter, cuff, port sent to pathology. Procedure done: Port-A-Cath removal Implants: N/A Specimens removed/disposition: Port-A-Cath removed. Tip sent for culture to microbiology. Rest sent to pathology. Pathology: Port-A-Cath sent to pathology Surgeon: Hua Duggan MD Account Receivable Clerk: N/A Anesthesia: MAC Estimated blood loss (mL): 2 Complications: N/A Findings: Port-A-Cath removed in its entirety. Including port, cuff, catheter. Tip of catheter sent for culture. Rest of catheter, cuff, port sent to pathology. Condition: stable Disposition: same day Brief History: 89-year-old female who had a Port-A-Cath. No longer uses it. Wants it removed. Discussed risk and benefits and patient agreed to proceed with Port-A-Cath removal. Procedure: Patient was taken to the operating room and her right chest was prepped and draped in a sterile manner. 1% lidocaine and 0.5% bupivicaine with epinephrine was infiltrated around the MediPort and catheter. Using a 15 blade the previous incision was opened, the subcutaneous tissue was divided using electrocautery and MediPort along the catheter was dissected free from the surrounding subcutaneous tissue and removed entirely. The wound was irrigated with saline, hemostasis ensured with electrocautery. Pressure was held along the catheter tract for 3 minutes. Skin was closed using subcuticular 4-0 monocryl. Glue was applied. The patient was transferred to the recovery room in stable condition.
--- NOTE | 2025-09-18 13:13 | ANE.PACU2 ---
Inpatient post-anesthesia follow up: Airway intact: Yes Vital signs: Temperature 98.4 F Pulse Rate 93 Respiratory Rate 20 Blood Pressure 130/79 Pulse Oximetry 96 Oxygen Delivery Me thod Room Air Oxygen Flow Rate Fraction of Inspir ed Oxygen Hydration adequate: Yes Nausea and vomiting: No Pain level: 1 Mental status: Baseline
== END 2025-09-18 13:13 | disposition home or self-care (01) ==
PROVIDERS: PCP Nurse Practitioner Family; Visit Provider Student in an Organized Health Care Education/Training Program
PROC: (CPT 36589; principal; 2025-09-18 11:00)
DX: Z95.828 Presence of other vascular implants and grafts (principal); Z85.72 Personal history of non-Hodgkin lymphomas; I10 Essential (primary) hypertension; K21.9 Gastro-esophageal reflux disease without esophagitis; Z79.891 Long term (current) use of opiate analgesic; I25.2 Old myocardial infarction; D64.9 Anemia, unspecified; G62.9 Polyneuropathy, unspecified
CPT/HCPCS: 36590; 87070; 87075; 87205; 88300; A4216; J2704; J7030; J9999

== ENCOUNTER → 2025-10-02 13:54 | Outpatient (BNVA) | payer MEDICARE, SELFPAY | PROVIDERS: PCP Nurse Practitioner Family; Visit Provider Student in an Organized Health Care Education/Training Program | DX: M19.011 Primary osteoarthritis, right shoulder (principal); M19.012 Primary osteoarthritis, left shoulder | CPT/HCPCS: 20610; 99213; J3301; J9999 ==

== ENCOUNTER → 2025-10-03 10:35 | Outpatient (BNVA) | payer MEDICARE, SELFPAY | PROVIDERS: PCP Nurse Practitioner Family; Visit Provider Student in an Organized Health Care Education/Training Program | DX: R03.0 Elevated blood-pressure reading, without diagnosis of hypertension (principal) | CPT/HCPCS: 99213 ==

== ENCOUNTER 2025-10-09 16:51 | Emergency (ER) | payer MEDICARE, SELFPAY ==
[2025-10-09] VITALS (26 sets, daily range): BP systolic 79–183; BP diastolic 40–72; PULSE 41–71; RESP 13–28; TEMP 36.7; O2SAT 91–100; BMI 28.1
--- NOTE | 2025-10-09 16:53 | XRR_ITS ---
PROCEDURE INFORMATION: Exam: XR Chest Exam date and time: 10/09/2025 5:07 PM Age: 89 years old Clinical indication: Shortness of breath; Additional info: SOB TECHNIQUE: Imaging protocol: Radiologic exam of the chest. Views: 1 view. COMPARISON: CT chest abdpel w/*[id number] 03/29/2025 2:07 PM FINDINGS: Tubes, catheters and devices: Endotracheal tube and enteric tube in place. Lungs: Unremarkable. No consolidation. Pleural spaces: Unremarkable. No pleural effusion. No pneumothorax. Heart/Mediastinum: Unremarkable. No cardiomegaly. Bones/joints: Unremarkable. XR/XR chest 1V portable [id number] IMPRESSION: As above.
--- NOTE | 2025-10-09 16:53 | ECG_ITS ---
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 Measurements Intervals Basehor Rate: 58 P: 57 NH: 186 QRS: 9 QRSD: 139 T: 135 QT: 371 QTc: 367 Interpretive Statements Atrial Tachycardia with variable AV blocks Underlying LBBB Abnormal EKG Compared to ECG on 03/23/2022, variable Av block is new Electronically Signed On 10-10-2025 17:31:19 [employer] by Annalise Chase M.D. [email or web address]
--- NOTE | 2025-10-09 16:53 | CTR_ITS ---
PROCEDURE INFORMATION: Exam: CT Head Without Contrast Exam date and time: 10/09/2025 5:24 PM Age: 89 years old Clinical indication: Altered mental status/memory loss; Additional info: AMS TECHNIQUE: Imaging protocol: Computed tomography of the head without contrast. Radiation optimization: All CT scans at this facility use at least one of these dose optimization techniques: automated exposure control; mA and/or kV adjustment per patient size (includes targeted exams where dose is matched to clinical indication); or iterative reconstruction. COMPARISON: CT head wo con* [id number] 03/23/2022 4:06 PM RADIATION DOSE METRICS: Total DLP (mGy-cm): 1046.78 FINDINGS: Brain: Parenchymal volume loss with scattered white matter hyperintensities consistent with chronic microvascular ischemic changes. No acute intracranial hemorrhage, mass effect or midline shift. Cerebral ventricles: No ventriculomegaly. Paranasal sinuses: Visualized sinuses are unremarkable. No fluid levels. Mastoid air cells: Visualized mastoid air cells are well aerated. Bones: Unremarkable. No acute fracture. Soft tissues: Unremarkable. CT/CT head wo con* [id number] IMPRESSION: No acute intracranial abnormality.
--- OUTSIDE RECORDS SUMMARY | 2025-10-09 16:55 | XMS_ITS | Encounter Summary ---
Author Organization [facility] Address [address] [place] [address] Care Team Providers Care Real Estate Closer Name Role Phone Shin Rivera MD Primary Care Provider [phone] Encounter Details Date Type Department Care Team (Latest Contact Info) Description 01/29/1998 Outpatient Historical [facility] [address] [facility] [address] [place] [address] Moshe Mckeon MD NO ADDRESS ON FILE Other sign and symptom in breast (Primary Dx) Social History Tobacco Use Types Packs/Day Years Used Date Smoking Tobacco: Never Assessed Comments Unknown Sex and Gender Information Value Date Recorded Sex Assigned at Not on file 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
--- OUTSIDE RECORDS SUMMARY | 2025-10-09 16:55 | XMS_ITS | Encounter Summary ---
Author Organization [facility] Address [address] [place] [address] Care Team Providers Care Skin Care Technician Name Role Phone Shin Rivera MD Primary Care Provider Encounter Details Date Type Department Care Team (Latest Contact Info) Description 05/26/1999 Outpatient Historical [facility] [address] [address] Tigist Long MD NO ADDRESS ON FILE Other sign and symptom in breast (Primary Dx) Social History Tobacco Use Types Packs/Day Years Used Date Smoking Tobacco: Never Assessed Comments Unknown Sex and Gender Information Value Date Recorded Sex Assigned at Not on file 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
--- OUTSIDE RECORDS SUMMARY | 2025-10-09 16:55 | XMS_ITS | Encounter Summary ---
Author Organization [facility] Address [address] [place] [address] Care Team Providers Care Addiction Social Worker Name Role Phone Shin Rivera MD Primary Care Provider [phone] Encounter Details Date Type Department Care Team (Latest Contact Info) Description 12/01/[address] 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
--- OUTSIDE RECORDS SUMMARY | 2025-10-09 16:55 | XMS_ITS | Encounter Summary ---
Author Organization [facility] Address [address] [place] [address] Care Team Providers Care Fishing Captain Name Role Phone Shin Rivera MD Primary Care Provider Encounter Details Date Type Department Care Team (Latest Contact Info) Description 10/15/1998 Outpatient Historical [facility] [address] [address] Samantha Vidal MD NO ADDRESS ON FILE Nonspecific abnormal findings on radiological or other examinations of the breast (Primary Dx) Social History Tobacco Use Types Packs/Day Years Used Date Smoking Tobacco: Never Assessed Comments Unknown Sex and Gender Information Value Date Recorded Sex Assigned at Not on file 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
--- OUTSIDE RECORDS SUMMARY | 2025-10-09 16:55 | XMS_ITS | Clinical Summary ---
Author Organization [facility] Address [address] Billn: Epic Prelude ADT [place] [address] Care Team Providers Care Extrusion Process Operator Name Role Phone Shin Rivera MD Primary Care Provider Allergies No known active allergies Medications acetaminophen (TYLENOL) 500 mg tablet Take 500 mg by mouth every 6 hours as needed Takes 2 tablets . 8 Active gabapentin (NEURONTIN) 300 mg capsuleIndication s:Bilateral carpal tunnel syndrome,Spinal stenosis of lumbar region, unspecified whether neurogenic claudication present,Neuropath y Take 1 Capsule (300 mg) by mouth 3 times daily Take 1 tab HS x3 days then BID x3day then TID. 90 Capsule 3 8 Active HYDROcodone-aceta minophen (NORCO) 7.5-325 mg Tablet Take 1 Tablet by mouth every 4 hours as needed for Pain. Max Daily Amount: 6 Tablets 15 Tablet 0 8 Active oxybutynin chloride (DITROPAN XL) 15 mg Extended Release 24 hour tablet daily. 5 Active triamterene-hydro CHLOROthiazide (MAXZIDE 25) 37.5-25 mg tablet 0.5 Tablet daily. 5 Active digoxin (Digox) 250 mcg (0.25 mg) tablet daily. 5 Active Active Problems Problem Noted Date Diagnosed Date Bilateral carpal tunnel syndrome 05/24/2018 Lumbar spinal stenosis 09/25/2015 Family History Medical History Relation Name Comments Cancer Grandchild B and T blastol ymphoma Relation Name Status Comments Grandchild Social History Tobacco Use Types Packs/Day Years Used Date Smoking Tobacco: Never Smokeless Tobacco: Never Alcohol Use Standard Drinks/Week Comments No 0 (1 standard drink = 0.6 oz pur e alcohol) Comments Unknown Sex and Gender Information Value Date Recorded Sex Assigned at Not on file Legal Sex Female 5:30 AM OFFICE EMPLOYEE Gender Identity Not on file Sexual Orientation Not on file Last Filed Vital Signs Vital Sign Reading Time Taken Comments Blood Pressure 139/89 07/13/2018 8:00 AM CDT Pulse 75 07/13/2018 8:00 AM CDT Temperature 36.1 C (97 F) 07/13/2018 8:00 AM CDT Respiratory Rate 14 07/13/2018 8:00 AM CDT Oxygen Saturation - - Inhaled Oxygen Concentration - - Weight 83.5 kg (184 lb) 07/13/2018 6:21 AM CDT Height 170.2 cm (5' 7 ) 07/13/2018 6:21 AM CDT Body Mass Index 28.82 07/13/2018 6:21 AM CDT Plan of Treatment Health Maintenance Due Date Last Done Comments DTAP/TDAP/TD VACCINES (1 - Tdap) 1956 PNEUMOCOCCAL VACCINE 50+ YEARS (1 of 1 - PCV) 04/26/19 87 ZOSTER VACCINE (1 of 2) 1987 OSTEOPOROSIS SCREENING 2002 RSV VACCINE (60+ or ) (1 - 1-dose 75+ series) 2012 INFLUENZA VACCINE (#1) 2025 Insurance MEDICARE PART A AND B Care Teams Extrusion Process Operator Relationship Specialty Start Date End Date Shin Rivera MD [address] [place] [address] PCP - General Family Practice 09/05/15
--- OUTSIDE RECORDS SUMMARY | 2025-10-09 16:55 | XMS_ITS | Clinical Summary ---
Author Organization [facility] Address [address] [place] [address] Care Team Providers Care Shipyard Helper Name Role Phone Shin Rivera MD Primary Care Provider [phone] Allergies No known active allergies Medications DIGOX 250 mcg tablet daily. 5 Active oxybutynin chloride (DITROPAN XL) 15 mg Extended Release 24 hour tablet daily. 5 Active triamterene-hydro chlorothiazide (MAXZIDE 25) 37.5-25 mg tablet 0.5 Tablet daily. 5 Active acetaminophen (TYLENOL) 500 mg tablet Take 500 mg by mouth every 6 hours as needed Takes 2 tablets . 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
--- OUTSIDE RECORDS SUMMARY | 2025-10-09 16:55 | XMS_ITS | Encounter Summary ---
Author Organization [facility] Address [address] [place] [address] Care Team Providers Care Senior Infrastructure Architect Name Role Phone Shin Rivera MD Primary Care Provider [phone] Encounter Details Date Type Department Care Team (Late st Contact Info) Description 01/23/1998 Outpatient Historical [facility] [address] [address] Samantha Vidal MD NO ADDRESS ON FILE Other screening mammogram (Primary Dx) Social History Tobacco Use Types Packs/Day Years Used Date Smoking Tobacco: Never Assessed Comments Unknown Sex and Gender Information Value Date Recorded Sex Assigned at Not on file 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
[2025-10-09 17:02] LABS: ABG PCO2 38.0 mmHg (35-45); ABG PH Result 7.35 (7.35-7.45); Arterial Blood Gas Hematocrit 43.5 % (37-47); Blood Gas Allen Test Pos; Blood Gas LPM 15.0 %; Blood Gas Operator Identificat WALCI; Blood Gas Sample Site Radial, right; Blood Gas Sample Type Arterial; Carboxyhemoglobin 0.5 %THgb (0.4-20.1); HCO3 ABG 20.8 mmol/L (22-26); Methemoglobin 1.1 % (0.4-1.5); PO2 ABG 310.0 mmHg (80.0-100.0)
--- NOTE | 2025-10-09 17:03 | W.ED.FALL ---
HPI - Fall General: Chief Complaint: Fall Stated Complaint: Resp dist Time Seen by Provider: 10/09/25 16:52 Source: EMS Mode of arrival: EMS Limitations: altered mental status History of Present Illness: 89-year-old female is here with EMS [facility] family states the patient was the kitchen that heard a fall went and found her unresponsive. EMS states when they arrived she was unresponsive and was in respiratory distress. Patient was intubated and route. Patient per EMS recently had had flulike symptoms. Related Data Home Medications ?Medication ?Instructions ?Recorded ?Confirmed lisinopril 5 mg tablet 5 mg PO DAILY 10/27/21 10/03/25 docusate sodium 100 mg capsule 100 mg PO DAILY PRN Constipation 11/16/21 10/03/25 (Colace) hydrocodone 5 mg-acetaminophen 325 1 tab PO BID PRN Pain 11/16/21 10/03/25 mg tablet gabapentin 300 mg capsule 300 mg PO TID 04/27/23 10/03/25 pantoprazole 40 mg tablet,delayed 40 mg PO DAILY 12/04/24 10/03/25 release digoxin 125 mcg (0.125 mg) tablet 125 mcg PO DAILY 02/11/25 10/03/25 cyanocobalamin (vitamin B-12) 1,000 mcg PO DAILY 05/06/25 10/03/25 1,000 mcg tablet (Vitamin B-12) vitamins A,C,K-vidb-eojjyn 4,296 1 cap PO BID 05/06/25 10/03/25 mcg-226 mg-90 mg capsule (PreserVision AREDS) Previous Rx's ?Medication ?Instructions ?Recorded Bilateral Cock Up Wrist Brace #1 ea 05/29/25 Allergies Allergy/AdvReac Type Severity Reaction Status Date / Time No Known Allergies Allergy Verified 10/03/25 10:51 Review of Systems General: Reports: ROS unobtainable due to mental status PFSH ED PFSH: Medical History (Updated 10/09/25 @ 19:56 by Joseph Ramirez MD) Cubital tunnel syndrome on left Deep vein thrombosis of left lower extremity Diarrhea Lactic acidosis A-fib Pre-syncope NSTEMI (non-ST elevated myocardial infarction) Hypercalcemia Anemia Embolism DVT (deep venous thrombosis) B-cell lymphoma Polyarthritis Hypertension MGUS (monoclonal gammopathy of unknown significance) Peripheral neuropathy Retroperitoneal lymphadenopathy Splenomegaly Surgical History H/O lymph node biopsy (10/28/21) left cervical Port-A-Cath in place (10/28/21) Status post colonoscopy H/O mastectomy History of hysterectomy Family History Other Cancer Social History Smoking and tobacco/nicotine status: never used tobacco/nicotine Alcohol intake: never Substance/Drug Use: never Housing: House Physical Exam Const: COMMON NORMALS: negative for patient oriented x3 GENERAL APPEARANCE: ill appearing HENMT: COMMON NORMALS: normocephalic and atraumatic HEAD & SCALP: normocephalic and atraumatic Eye: COMMON NORMALS: conjunctivae normal CONJUNCTIVA: Yes conjunctivae normal Neck/C-Spine: COMMON NORMALS: full ROM and supple Chest: COMMONS NORMALS: normal inspection of the chest Resp: COMMON NORMALS: No retractions and No use of accessory muscles AUSCULTATION: rales OTHER: intubated Cardio: COMMON NORMALS: regular rate, regular rhythm and No murmurs present (Cardio) RATE: regular rate RHYTHM: regular rhythm GI: COMMON NORMALS: Normal to inspection, nondistended, normoactive bowel sounds present, Soft to palpation, non-tender and no masses PALPATION: Yes Soft to palpation Extremity: COMMON NORMALS: normal to inspection and full ROM Neuro: COMMON NORMALS: negative for patient oriented x3 Psych: COMMON NORMALS: negative for mental status grossly normal Skin: COMMON NORMALS: no rashes or lesions noted and no wounds GENERAL SKIN EXAM: no rashes or lesions noted Course Vital Signs: Vital signs: Vital Signs Temperature 98.0 F 10/09/25 16:53 Pulse Rate 45 L 10/09/25 19:47 Respiratory Rate 14 10/09/25 19:47 Blood Pressure 106/56 10/09/25 19:45 Pulse Oximetry 95 10/09/25 19:47 Oxygen Delivery Me thod Mechanical Ventil ation 10/09/25 19:47 Fraction of Inspir ed Oxygen 45 10/09/25 19:47 MDM - Fall Medical Decision Making 89-year-old female who collapsed at home and was unresponsive. EMS had arrived and she was in respiratory distress and was intubated. Differential includes pneumonia, pneumothorax, pulmonary emboli, stroke. Patient's head CT here shows no signs of stroke CTA showed no large vessel occlusion. She had a CT showed no PE no pneumothorax does have infiltrates along with mucous plugging. She did test positive for COVID here likely her cause of her thing was respiratory and COVID related. Vitals here been stable labs show no significant abnormalities had some slight bradycardia to look to slow A-fib on her EKG EKG at 1832 showed A-fib with slow RVR heart rate [address] elevation QRS 135 QTc 445. [facility] brace maker Dr. Simon transfer there for high-level care as likely she needs a bronchoscopy with the mucous plugging and doing we do not have pulmonology here. critical care time 45 minutes The high probability of a clinically significant, sudden or life threatening deterioration of the patient's resp system(s) required my full and direct attention, intervention and personal management. The critical care time is as shown. This time is in addition to time spent performing any reported procedures but includes the following: [x] Data and vital sign review and interpretation [x] Patient assessment, examination and intervention [x] Documentation [x] Medication orders and management Medical Records I reviewed the patient's medical records. Lab Data I reviewed the patient's lab results. 10/09/25 17:00 10/09/25 17:00 Radiology Impressions Chest X-Ray 10/09/25 16:53 IMPRESSION: As above. Head CT 10/09/25 16:53 IMPRESSION: No acute intracranial abnormality. Chest CTA 10/09/25 17:23 IMPRESSION: 1. Tip of ETT within the right main bronchus and should be withdrawn a nkechi[roximately 4 cm.. 2. NG tube tip in stomach. 3. Atelectatic changes in right lung. 4. Fluid and debris within the left main bronchus and left lower lobe bronchi with bronchial plugging. Diffuse atelectatic changes. Ground-glass opacities consistent with airspace fluid/debris. 5. Mild cardiomegaly. Coronary artery calcification. 6. Uncomplicated cholelithiasis. 7. Interval mild anterior wedging body of T7 consistent with interval mild compression fracture. 8. Some mild localized skin thickening and nearby subcutaneous nodule. Correlate clinically. Head/Neck CTA 10/09/25 17:23 IMPRESSION: No large vessel stenosis or occlusion. IMPRESSION: No large vessel occlusion. Mild stenosis by NASCET criteria bilaterally. REFERENCES: NASCET CRITERIA. The degree of stenosis in the cervical segment of the internal carotid artery is based on NASCET criteria. Normal is no stenosis. Mild is less than 50% stenosis. Moderate is 50-69% stenosis. Severe is 70% to 99% stenosis. Total occlusion is no detectable patent lumen. Laboratory Results WBC 12.34 10^3/uL (3.29-11.43) H 10/09/25 17:00 RBC 4.52 10^6/uL (3.85-5.65) 10/09/25 17:00 Hgb 13.60 g/dL (11.27-16.99) 10/09/25 17:00 Hct 43.0 % (36-47) 10/09/25 17:00 MCV 95.1 fl (85-98) 10/09/25 17:00 MCH 30.1 pg (27-33) 10/09/25 17:00 MCHC 31.6 g/dL (30-55) 10/09/25 17:00 RDW 13.4 % (12.1-15.1) 10/09/25 17:00 Plt Count 192 10^3/cmm (157-399) 10/09/25 17:00 MPV 9.5 fL (7.4-10.4) 10/09/25 17:00 Neut % (Auto) 79.2 % 10/09/25 17:00 Lymph % (Auto) 13.9 % 10/09/25 17:00 [place] % (Auto) 6.5 % 10/09/25 17:00 Eos % (Auto) 0.0 % 10/09/25 17:00 Baso % (Auto) 0.1 % 10/09/25 17:00 Neut # (Auto) 9.78 10^3/uL (1.8-7.7) H 10/09/25 17:00 Lymph # (Auto) 1.7 10^3/uL (0.8-4.8) 10/09/25 17:00 [place] # (Auto) 0.8 10^3/uL (0.2-0.9) 10/09/25 17:00 Eos # (Auto) 0.0 10^3/uL (0.0-0.8) 10/09/25 17:00 Baso # (Auto) 0.0 10^3/uL (0.0-0.1) 10/09/25 17:00 Nucleated RBC % (auto) 0 % 10/09/25 17:00 Nucleated RBCs # 0.0 /100WBC 10/09/25 17:00 PT 12.90 SECONDS (12.1-14.9) 10/09/25 17:00 INR 0.91 (0.8-1.2) 10/09/25 17:00 APTT 24.8 SECONDS (23.9-36.7) 10/09/25 17:00 Specimen Type Arterial 10/09/25 18:02 Sample Site Radial, right 10/09/25 18:02 ABG pH 7.29 (7.35-7.45) L 10/09/25 18:02 ABG pCO2 41.6 mmHg (35-45) 10/09/25 18:02 ABG pO2 129.0 mmHg (80.0-100.0) H 10/09/25 18:02 ABG PO2/FiO2 Ratio 286 10/09/25 18:02 ABG HCO3 20.2 mmol/L (22-26) L 10/09/25 18:02 ABG O2 Saturation 98.6 10/09/25 18:02 ABG Base Excess -6.1 mmol/L (-2.0-2.0) L 10/09/25 18:02 Volodymyr Test Pos 10/09/25 18:02 A-a O2 Gradient 18.4 mmHg (5-10) H 10/09/25 18:02 Hematocrit 43.6 % (37-47) 10/09/25 18:02 Hgb O2 Saturation 97.2 % (95-100) 10/09/25 18:02 Carboxyhemoglobin 0.4 %THgb (0.4-20.1) 10/09/25 18:02 Methemoglobin 1.0 % (0.4-1.5) 10/09/25 18:02 Total Hemoglobin 14.2 g/dL (12-16) 10/09/25 18:02 Sodium 136.0 mmol/L (131-143) 10/09/25 18:02 Potassium 3.6 mmol/L (3.5-5.0) 10/09/25 18:02 Glucose 255.0 mg/dL (70-115) H 10/09/25 18:02 Ionized Calcium 1.2 mmol/L (1.1-1.4) 10/09/25 18:02 O2 Delivery Device Vent 10/09/25 18:02 O2 Liters/Min 15.0 % 10/09/25 16:51 FiO2 45.0 % 10/09/25 18:02 Tidal Volume 0.45 10/09/25 18:02 PEEP 8.0 cmH20 10/09/25 18:02 Culinary Internship ID [place] 10/09/25 18:02 Sodium 141 mmol/L (136-145) 10/09/25 17:00 Potassium 3.7 mmol/L (3.5-5.1) 10/09/25 17:00 Chloride 106 mmol/L (98-107) 10/09/25 17:00 Carbon Dioxide 18 mmol/L (22-29) L 10/09/25 17:00 Anion Gap 20.7 (5-19) H 10/09/25 17:00 BUN 15 mg/dL (8-23) 10/09/25 17:00 Creatinine 0.6 mg/dL (0.5-0.9) 10/09/25 17:00 GFR Calculation Not Reportable 10/09/25 17:00 Glucose 195 mg/dL (65-115) H 10/09/25 17:00 Calculated Osmolality 298 mOsm/kg (285-295) H 10/09/25 17:00 Calcium 8.7 mg/dL (8.5-10.5) 10/09/25 17:00 Total Bilirubin 0.9 mg/dL (0.15-1.2) 10/09/25 17:00 AST 20 U/L (0-32) 10/09/25 17:00 ALT 17 U/L (0-33) 10/09/25 17:00 Alkaline Phosphatase 91 U/L (35-105) 10/09/25 17:00 Troponin T Baseline 76 ng/L (0-10) H 10/09/25 18:39 NT-Pro-B Natriuret Pep 896 pg/mL (0-450) H 10/09/25 17:00 Total Protein 6.5 g/dL (6.6-8.7) L 10/09/25 17:00 Albumin 3.8 g/dL (3.5-5.2) 10/09/25 17:00 Globulin 2.7 g/dL (1.3-4.6) 10/09/25 17:00 Urine Color Yellow (Yellow) 10/09/25 17:20 Urine Appearance Turbid (CLEAR) A 10/09/25 17:20 Urine pH 8.5 (5-7) A 10/09/25 17:20 Ur Specific [place] 1.023 (1.005-1.030) 10/09/25 17:20 Urine Protein 3+ (Negative) A 10/09/25 17:20 Urine Glucose (UA) Negative (Normal) 10/09/25 17:20 Urine Ketones Negative (Negative) 10/09/25 17:20 Urine Blood Trace (Negative) A 10/09/25 17:20 Urine Nitrate Positive (Negative) A 10/09/25 17:20 Urine Bilirubin Negative (Negative) 10/09/25 17:20 Urine Urobilinogen 1.0 mg/dL (Negative) 10/09/25 17:20 Ur Leukocyte Esterase 1+ (Negative) A 10/09/25 17:20 Urine RBC Rare /hpf (0-2) 10/09/25 17:20 Urine WBC 40-55 /hpf (0-5) H 10/09/25 17:20 Ur Squamous Epith Cells None /hpf (0-5) 10/09/25 17:20 Calcium Oxalate Crystal 5-10 /hpf H 10/09/25 17:20 Amorphous Sediment Not Reportable 10/09/25 17:20 Urine Bacteria 4+ /hpf (NONE) H 10/09/25 17:20 Influenza A (PCR) Negative (Negative) 10/09/25 17:20 Influenza Type B (PCR) Negative (Negative) 10/09/25 17:20 RSV (PCR) Negative (Negative) 10/09/25 17:20 SARS-CoV-2 (PCR) Positive (Negative) A 10/09/25 17:20 All radiology interpretation(s) finalized by discharge EKG Data EKG 1: I personally reviewed and interpreted this EKG as follows: EKG interpretation date: 10/09/25 EKG interpretation time: 17:00 Interpretation: sinus la hr [address] elevation qrs 139 qtc 369 Critical Care Time Critical Care Time: Critical Care Time: Yes Total Critical Care Time: 45 Attestation: The high probability of a clinically significant, sudden or life threatening deterioration of the patient's resp system(s) required my full and direct attention, intervention and personal management. The critical care time is as shown. This time is in addition to time spent performing any reported procedures but includes the following: [x] Data and vital sign review and interpretation [x] Patient assessment, examination and intervention [x] Documentation [x] Medication orders and management Discharge Plan Discharge Patient Disposition: Xfer Short-Term Hosp Clinical Impression: COVID-19, Respiratory failure, Altered mental status Condition: Stable Referrals: Crys Suazo FNP [Primary Care Provider, Nurse Practitioner] Print Language: Algerian Coding Level of Care Code ED Poultry Husbandry Worker for Shayla Ramírez
[2025-10-09 17:16] LABS: Hematocrit 43.0 % (36-47); Hemoglobin 13.60 g/dL (11.27-16.99); Mean Corpuscular HGB Conc 31.6 g/dL (30-55); Mean Corpuscular Hemoglobin 30.1 pg (27-33); Mean Corpuscular Volume 95.1 fl (85-98); Nucleated Red Blood Cells % 0 %; Platelet Count 192 10^3/cmm (157-399); Red Blood Count 4.52 10^6/uL (3.85-5.65); White Blood Count 12.34 10^3/uL (3.29-11.43)
[2025-10-09] MEDS: propofol 1,000 MG/100 ML INJ 2.45 MG IV (17:17)
[2025-10-09] MEDS: fentaNYL 1,000 MCG/100 ML BAG 2.5 MCG IV (17:18)
--- NOTE | 2025-10-09 17:23 | CTR_ITS ---
PROCEDURE INFORMATION: Exam: CTA Chest With Contrast Exam date and time: 10/09/2025 5:51 PM Age: 89 years old Clinical indication: Shortness of breath; Additional info: SOB TECHNIQUE: Imaging protocol: Computed tomographic angiography of the chest with contrast. Exam focused on the arteries. 3D rendering (Not supervised by radiologist): MIP and/or 3D reconstructed images were created by the technologist. Radiation optimization: All CT scans at this facility use at least one of these dose optimization techniques: automated exposure control; mA and/or kV adjustment per patient size (includes targeted exams where dose is matched to clinical indication); or iterative reconstruction. Contrast material: [id number]; Contrast volume: 85 ml; Contrast route: INTRAVENOUS (IV); COMPARISON: CT angio chest [id number] 03/23/2022 4:15 PM RADIATION DOSE METRICS: Total DLP (mGy-cm): 425.67 FINDINGS: Pulmonary arteries: Normal. No pulmonary emboli. Mild dilatation of the main pulmonary artery measuring 36.1 cm. However normal right atrial to right ventricular ratio of 0.63. Aorta: Mild ectasia ascending thoracic aorta measuring 3.8 cm. Mild atherosclerosis. No aortic aneurysm. No aortic dissection. Lungs: ETT if is in the right main bronchus. It should be withdrawn approximately 4 cm. Some probable atelectatic changes in the right lung. [place] to be fluid in the debris within the left main bronchus and left lower lobe bronchi with some bronchial plugging in the left lower lobe. Diffuse atelectatic changes seen in the left lower. Areas of ground-glass density seen throughout the left lung probably related to atelectasis, and airspace edema. Underlying pneumonia can not be entirely excluded. Pleural spaces: No definite effusion. Heart: Mild cardiomegaly. Coronary artery calcification. Lymph nodes: Small lymph nodes with fatty freddy within the mediastinum not significant. Bones/joints: Demineralization consistent with the patient's age. Degenerative changes. Interval mild anterior wedging of the body of T7 indicating mild interval appearing some localized skin thickening compression fracture. Soft tissues: Some localized skin thickening right anterior chest wall of the level of the. Anterior right 1st rib. Inferior to this is a 1.2 cm nodule subcutaneous fat with CT number of 23.2 HU almost cystic. Correlate with clinical exam. Upper abdomen: Multiple dependent calculi in the gallbladder. No wall thickening. No ductal dilatation. No significant distension. NG tube has its tip in the distal body of the stomach. Small bilateral renal cysts. No follow-up imaging recommended. No hydronephrosis. CT/CT angio chest PE protcl [id number] IMPRESSION: 1. Tip of ETT within the right main bronchus and should be withdrawn a nkechi[roximately 4 cm.. 2. NG tube tip in stomach. 3. Atelectatic changes in right lung. 4. Fluid and debris within the left main bronchus and left lower lobe bronchi with bronchial plugging. Diffuse atelectatic changes. Ground-glass opacities consistent with airspace fluid/debris. 5. Mild cardiomegaly. Coronary artery calcification. 6. Uncomplicated cholelithiasis. 7. Interval mild anterior wedging body of T7 consistent with interval mild compression fracture. 8. Some mild localized skin thickening and nearby subcutaneous nodule. Correlate clinically.
--- NOTE | 2025-10-09 17:23 | CTR_ITS ---
PROCEDURE INFORMATION: Exam: CTA Head With Contrast, Arteriography Exam date and time: 10/09/2025 5:36 PM Age: 89 years old Clinical indication: Other: AMS TECHNIQUE: Imaging protocol: Computed tomographic angiography of the head with contrast. Exam focused on the arteries. 3D rendering (Not supervised by radiologist): MIP and/or 3D reconstructed images were created by the technologist. Radiation optimization: All CT scans at this facility use at least one of these dose optimization techniques: automated exposure control; mA and/or kV adjustment per patient size (includes targeted exams where dose is matched to clinical indication); or iterative reconstruction. Contrast material: [id number]; Contrast volume: 65 ml; Contrast route: INTRAVENOUS (IV); COMPARISON: CT head wo con* [id number] 10/09/2025 5:24 PM RADIATION DOSE METRICS: Total DLP (mGy-cm): 487.12 FINDINGS: ANTERIOR CIRCULATION: Right internal carotid artery: Intracranial segment is patent with no significant stenosis. No aneurysm. Right middle cerebral artery: No occlusion or significant stenosis. No aneurysm. Right anterior cerebral artery: No occlusion or significant stenosis. No aneurysm. Left internal carotid artery: Intracranial segment is patent with no significant stenosis. No aneurysm. Left middle cerebral artery: No occlusion or significant stenosis. No aneurysm. Left anterior cerebral artery: No occlusion or significant stenosis. No aneurysm. POSTERIOR CIRCULATION: Right vertebral artery: No occlusion or significant stenosis. No aneurysm. Left vertebral artery: No occlusion or significant stenosis. No aneurysm. Basilar artery: No occlusion or significant stenosis. No aneurysm. Right posterior cerebral artery: No occlusion or significant stenosis. No aneurysm. Left posterior cerebral artery: No occlusion or significant stenosis. No aneurysm. Brain: No definite mass, mass effect, or midline shift. Cerebral ventricles: No ventriculomegaly. Bones/joints: Unremarkable. No acute fracture. Soft tissues: Unremarkable. PROCEDURE INFORMATION: Exam: CTA Neck With Contrast Exam date and time: 10/09/2025 5:36 PM Age: 89 years old Clinical indication: Other: AMS TECHNIQUE: Imaging protocol: Computed tomographic angiography of the neck with contrast. Exam focused on the cervical segments of the vasculature. 3D rendering (Not supervised by radiologist): MIP and/or 3D reconstructed images were created by the technologist. Radiation optimization: All CT scans at this facility use at least one of these dose optimization techniques: automated exposure control; mA and/or kV adjustment per patient size (includes targeted exams where dose is matched to clinical indication); or iterative reconstruction. Contrast material: [id number]; Contrast volume: 65 ml; Contrast route: INTRAVENOUS (IV); COMPARISON: CT neck w con* [id number] 09/20/2021 1:07 PM RADIATION DOSE METRICS: Total DLP (mGy-cm): 487.12 FINDINGS: Tubes, catheters and devices: Endotracheal tube is present in partially visualized. Right common carotid artery: No stenosis. No dissection or occlusion. Right internal carotid artery: Mild stenosis of the extracranial segment. No dissection or occlusion. Right external carotid artery: No occlusion or stenosis of the origin. Left common carotid artery: No stenosis. No dissection or occlusion. Left internal carotid artery: Mild stenosis of the extracranial segment. No dissection or occlusion. Left external carotid artery: No occlusion or stenosis of the origin. Right vertebral artery: No stenosis. No dissection or occlusion. Left vertebral artery: No stenosis. No dissection or occlusion. Soft tissues: Normal. No significant soft tissue swelling. Bones/joints: No acute fracture. CT/CT angio headneck* [id number] IMPRESSION: No large vessel stenosis or occlusion. IMPRESSION: No large vessel occlusion. Mild stenosis by NASCET criteria bilaterally. REFERENCES: NASCET CRITERIA. The degree of stenosis in the cervical segment of the internal carotid artery is based on NASCET criteria. Normal is no stenosis. Mild is less than 50% stenosis. Moderate is 50-69% stenosis. Severe is 70% to 99% stenosis. Total occlusion is no detectable patent lumen.
[2025-10-09 17:45] LABS: Alanine Aminotransferase 17 U/L (0-33); Albumin Level 3.8 g/dL (3.5-5.2); Alkaline Phosphatase 91 U/L (35-105); Anion Gap 20.7 (5-19); Aspartate Amino Transferase 20 U/L (0-32); Blood Urea Nitrogen 15 mg/dL (8-23); Calcium 8.7 mg/dL (8.5-10.5); Carbon Dioxide 18 mmol/L (22-29); Chloride 106 mmol/L (98-107); Creatinine Clr Calc Pharmacy 53.4228; Globulin 2.7 g/dL (1.3-4.6); Glucose 195 mg/dL (65-115); NT Pro B Type Natriuretic Pept 896 pg/mL (0-450); Osmolality Calculated 298 mOsm/kg (285-295); Potassium 3.7 mmol/L (3.5-5.1); Sodium 141 mmol/L (136-145); Total Protein 6.5 g/dL (6.6-8.7)
[2025-10-09 17:48] LABS: Partial Thromboplastin Time 24.8 SECONDS (23.9-36.7)
[2025-10-09] MEDS: iohexol 350 mg/mL 500 mL Btl (per mL) IV ×2 (18:02→18:03)
--- NOTE | 2025-10-09 18:08 | PC.NURSE ---
pt in CT from approx @1710 until @1805
[2025-10-09 18:12] LABS: ABG PCO2 41.6 mmHg (35-45); ABG PH Result 7.29 (7.35-7.45); Alveolar-Arterial Oxygen Gradi 18.4 mmHg (5-10); Arterial Blood Gas Hematocrit 43.6 % (37-47); Blood Gas Allen Test Pos; Blood Gas Operator Identificat WALCI; Blood Gas Sample Site Radial, right; Blood Gas Sample Type Arterial; Blood Gas Tidal Volume 0.45; Carboxyhemoglobin 0.4 %THgb (0.4-20.1); Glucose Level-ABG 255.0 mg/dL (70-115); HCO3 ABG 20.2 mmol/L (22-26); Ionized Calcium Level - ABG 1.2 mmol/L (1.1-1.4); Methemoglobin 1.0 % (0.4-1.5); Oxygen Saturation ABG 98.6; PEEP 8.0 cmH20; PO2 ABG 129.0 mmHg (80.0-100.0); PO2 FiO2 Ratio Arterial Blood 286; Potassium Level - ABG 3.6 mmol/L (3.5-5.0); Sodium Level - ABG 136.0 mmol/L (131-143)
[2025-10-09 18:14] LABS: Glucose Urine UA Negative (Normal); Nitrate Urine Positive (Negative); Specific Gravity, Urine 1.023 (1.005-1.030)
[2025-10-09 18:16] LABS: Add Urine Microscopic? YES; Universal Test for UA Present (0)
--- NOTE | 2025-10-09 18:24 | ECG_ITS ---
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 Measurements Intervals [place] Rate: 52 P: 0 MD: 0 QRS: 15 QRSD: 135 T: 76 QT: 464 QTc: 435 Interpretive Statements SINUS RHYTHM WITH HIGH DEGREE AV BLOCK AND ECTOPIC BEATS LEFT BUNDLE BRANCH BLOCK [120+ ms QRS DURATION, 80+ ms Q/S IN V1/V2, 85+ ms R IN I/aVL/V5/V6] INTERPRETATION BASED ON A DEFAULT AGE OF 40 YEARS Compared to ECG 10/09/2025 17:00:45 NO SIGNIFICANT CHANGE Electronically Signed On 10-12-2025 16:57:45 PERSONNEL PLACEMENT SPECIALIST by Jose Alfredo Coronado M.D. [email or web address] [email or web address]
[2025-10-09 18:25] LABS: UA Manual Slide Review YES
--- NOTE | 2025-10-09 18:42 | PC.NURSE ---
pt abx delayed d/t needing to obtain cultures
[2025-10-09 18:47] LABS: Respiratory Syncytial Virus Ce NEGATIVE (Negative)
[2025-10-09 18:56] LABS: SARS-CoV-2 PCR Positive (Negative)
[2025-10-09] MEDS: cefTRIAXone 1,000 mg SDV 1000 MG IVP (19:11)
[2025-10-09 19:20] LABS: INR 0.91 (0.8-1.2); Prothrombin Time 12.90 SECONDS (12.1-14.9)
[2025-10-09 19:47] LABS: Troponin(5th) Baseline 76 ng/L (0-10)
--- NOTE | 2025-10-09 20:24 | ECG_ITS ---
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 Measurements Intervals [place] Rate: 45 P: 0 NH: 0 QRS: -58 QRSD: 130 T: 91 QT: 643 QTc: 556 Interpretive Statements SINUS RHYTHM WITH HIGH GRADE AV BLOCK AND ECTOPIC BEATS RIGHT BUNDLE BRANCH BLOCK LEFT ANTERIOR FASCICULAR BLOCK LEFT VENTRICULAR HYPERTROPHY AND ST-T CHANGE PROLONGED QT INTERVAL CRITICAL TEST RESULT Compared to ECG 10/09/2025 18:32:01 Right bundle-branch block now present Left ventricular hypertrophy now present ST (T wave) deviation now present Prolonged QT interval now present Electronically Signed On 10-12-2025 17:55:45 FUR OPERATOR by Jose Alfredo Coronado M.D. [email or web address]
[2025-10-09] MEDS: dexmedeTOMIDine 0.9 % NaCL 400 MCG/100 ML PREMIX IV (20:52)
--- NOTE | 2025-10-09 20:52 | PM.CCN ---
Critical Care Event Note Patient seen Dr. Ramirez earlier he is now had episodes of hypotension and bradycardia. Ordered a dig level. Nursing staff is having difficulty maintaining sedation will need to add another line. Requesting a central line. Reviewed Dr. Dixon's notes evaluated patient. She is partially sedated is fighting the ET tube a bit. She has some mucus in the ET tube tube. She is intermittently having blood pressures in the 70s systolic and heart rates in the low 40s. Dig level pending start Precedex Place central line see procedure portion of this note Critical Care Time Code activated: Yes Critical Care Time (min): 0 Procedures Central Line Placement^ Right IJ: Time out performed: Yes Patient placed on monitor/pulse ox: Yes MD prep: mask, gown and gloves Central line prep: Chlorhexidine scrub Local anesthesia used: lidocaine 1% Amount of anesthesia used (ml): 3 Ultrasound used for placement: Yes Central line lumen inserted: triple Additional comments: Was able to cannulized the vein but could not advance the wire more than about 6 to 8 cm and then it would begin to kink and required too much force to attempt to advance confirmed it was in the vessel proximally by ultrasound and could still draw blood through the needle but could not advance the wire adequately to place the line. Reattempted x 2 more each time and counted the same problem no difficulty cannulating of internal jugular but was not able to advance the wire more than 6 to 8 cm. I did attempt 1 time to advance the central line but it would not advance more than a couple of centimeters into the vessel. I could confirm it was in the vessel with the ultrasound. Further exam the ultrasound there seem to be a tortuous portion of the internal jugular I suspect the wire was turning and would not allow us to advance. The right IJ was abandoned for left subclavian see below note Left SC: Time out performed: Yes Patient placed on monitor/pulse ox: Yes MD prep: mask, gown and gloves Central line prep: Chlorhexidine scrub Local anesthesia used: lidocaine 1% Amount of anesthesia used (ml): 3 Ultrasound used for placement: Yes Central line lumen inserted: triple Post procedure: sutured in place, good blood return and all ports aspirated, flushed, capped Post procedure x-ray: tip of catheter in good position and no pneumothorax seen Patient tolerated procedure: well Complications: none Additional comments: Had previously attempted to place in the right IJ could not advance the wire after cannulating the vessel multiple times to the needle. On the left subclavian was able to easily advance the wire and the catheter without difficulty good of blood through all 3 ports Coding Level of Care Code Acute Code for Chg Fwd
--- NOTE | 2025-10-09 21:47 | XRR_ITS ---
PROCEDURE INFORMATION: Exam: XR Chest Exam date and time: 10/09/2025 9:45 PM Age: 89 years old Clinical indication: Other vascular access device placement or adjustment; Other: Central line; Additional info: Central line placement TECHNIQUE: Imaging protocol: Radiologic exam of the chest. Views: 1 view. COMPARISON: CT angio chest PE protcl [id number] 10/09/2025 5:51 PM FINDINGS: Lungs: ETT has been adjusted in position when compared to preceding CT of the same date. Its tip is in good position at this time. NG tube remains in place. Right lung is clear. Better aeration of the left lung when compared to earlier CT of the same day. Pleural spaces: Unremarkable. No pleural effusion. No pneumothorax. Heart/Mediastinum: Tortuosity thoracic aorta. Mild cardiomegaly. Bones/joints: Mild right convexity thoracolumbar scoliosis with degenerative changes. Degenerative changes glenohumeral joints bilaterally. Upper abdomen: Unremarkable. XR/XR chest 1V portable [id number] IMPRESSION: 1. ETT tip in good position. 2. Better aeration of the left lung when compared to earlier study of the same day.
[2025-10-09 22:17] LABS: Digoxin 0.6 ng/mL (0.6-1.2)
[2025-10-09 22:35] LABS: Troponin 5 2HR 139.3 ng/L (0-10); Troponin 5 2HR Delta 63.3 ABS# (0-10)
[2025-10-09] MEDS: heparin 5,000 unit/mL INJ 1 mL IVP (22:47)
[2025-10-09] MEDS: heparin drip 25,000 UNIT/500 ML PREMIX 19.6 UNIT IV (22:48)
--- NOTE | 2025-10-09 23:29 | PC.NURSE ---
PT LEFT WITH [facility] AIREVAC. AIREVAC LEFT WITH HEPARIN DRIP, COSIGNED WITH CHARGE NURSE.
== END 2025-10-09 23:05 | disposition short-term general hospital (02) ==
PROVIDERS: Emergency Medicine; Emergency Provider Family Medicine; PCP Nurse Practitioner Family
DX: U07.1 COVID-19 (principal); J96.90 Respiratory failure, unspecified, unspecified whether with hypoxia or hypercapnia; R41.82 Altered mental status, unspecified; Z11.52 Encounter for screening for COVID-19; I10 Essential (primary) hypertension
CPT/HCPCS: 36415; 36600; 51702; 70450; 70496; 70498; 71045; 71275; 80051; 80053; 80162; 81001; 82330; 82805; 83880; 84484; 85025; 85610; 85730; 87040; 87070; 87077; 87086; 87186; 87205; 87637; 93005; 94002; 94640; 94799; 96365; 96366; 96367; 96375; 99291; J0456; J0696; J1100; J1644; J2704; J3010; J7030; J7050; J9999